=== PATIENT | male | born 1955 | race Caucasian/White ===

== ENCOUNTER 2017-10-21 10:25 | Inpatient (IN) | payer MEDICAID ==
[2017-10-21 11:04] LABS: ADD MAN DIFF? NO
[2017-10-21 11:06] LABS: BASO # 0.5 x10^3/uL (0.0-0.2); BASO % 3 % (0-3); EOS # 0.8 x10^3/uL (0.0-0.7); EOS % 5 % (0-3); HEMATOCRIT 30.7 % (39.0-53.0); HEMOGLOBIN 10.2 g/dL (13.0-17.5); LYMPH # 6.2 x10^3/uL (1.0-4.8); LYMPH % 37 % (24-48); MEAN CORPUSCULAR HEMOGLOBIN 31 pg (25-35); MEAN CORPUSCULAR HGB CONC 33 g/dL (31-37); MEAN CORPUSCULAR VOLUME 94 fL (79-100); MONO # 0.9 x10^3/uL (0.0-1.1); MONO % 6 % (0-9); NEUT # 8.1 x10^3uL (1.8-7.7); NEUT % 49 % (31-73); PLATELET COUNT 311 x10^3/uL (140-400); RED BLOOD COUNT 3.27 x10^6/uL (4.30-5.70); WHITE BLOOD COUNT 16.5 x10^3/uL (4.0-11.0)
[2017-10-21 11:16] LABS: ANION GAP 14 (6-14); BLOOD UREA NITROGEN 61 mg/dL (8-26); BUN/CREATININE RATIO 25 (6-20); CALCIUM 8.7 mg/dL (8.5-10.1); CARBON DIOXIDE 21 mmol/L (21-32); CHLORIDE 106 mmol/L (98-107); CREATININE 2.4 mg/dL (0.7-1.3); GFR 27.6; GLUCOSE 173 mg/dL (70-99); POTASSIUM 5.3 mmol/L (3.5-5.1); SODIUM 141 mmol/L (136-145)
[2017-10-21 11:22] LABS: ALBUMIN 3.7 g/dL (3.4-5.0); ALBUMIN/GLOBULIN RATIO 0.9 (1.0-1.7); ALK PHOS 112 U/L (46-116); ALT (SGPT) 19 U/L (16-63); AST (SGOT) 12 U/L (15-37); CARBAM 2.6 mcg/mL (4.0-12.0); MAGNESIUM 1.8 mg/dL (1.8-2.4); TOTAL BILIRUBIN 0.1 mg/dL (0.2-1.0); TOTAL PROTEIN 7.8 g/dL (6.4-8.2)
[2017-10-21 11:25] LABS: PHENY < 0.5 mcg/mL (10.0-20.0)
[2017-10-21] MEDS: IV NORMAL SALINE 1000ML BAG 1,000 ML IV ×3 (11:48→18:28)
[2017-10-21] MEDS ORDERED: ONDANSETRON PF 4 MG/2 ML VIAL. IV ×2 (12:00→14:30)
[2017-10-21] MEDS ORDERED: ACETAMINOPHEN 325 MG TABLET. PO (14:30)
[2017-10-21] MEDS ORDERED: DOCUSATE SODIUM 100 MG CAPSULE. PO (14:30)
[2017-10-21] MEDS ORDERED: MORPHINE SULFATE 2 MG/ML DISP.SYRIN. IV (14:30)
[2017-10-21] MEDS: SODIUM POLYSTYRENE SULFONATE 15 GM/60 ML ORAL.SUSP. PO (14:30)
[2017-10-21] MEDS ORDERED: hydrALAZINE 20 MG/ML VIAL. IVP (14:30)
[2017-10-21] MEDS: ENOXAPARIN 40 MG/0.4 ML SYRINGE. SQ (15:00)
[2017-10-21 16:27] LABS: LACTIC ACID 5.9 mmol/L (0.4-2.0)
[2017-10-22] MEDS: IV NORMAL SALINE 1000ML BAG 1,000 ML IV ×2 (01:33→10:51)
[2017-10-22 04:38] LABS: ADD MAN DIFF? NO
[2017-10-22 04:51] LABS: BASO # 0.1 x10^3/uL (0.0-0.2); BASO % 1 % (0-3); EOS # 0.9 x10^3/uL (0.0-0.7); EOS % 7 % (0-3); HEMATOCRIT 26.3 % (39.0-53.0); HEMOGLOBIN 8.5 g/dL (13.0-17.5); LYMPH # 6.6 x10^3/uL (1.0-4.8); LYMPH % 46 % (24-48); MEAN CORPUSCULAR HEMOGLOBIN 30 pg (25-35); MEAN CORPUSCULAR HGB CONC 32 g/dL (31-37); MEAN CORPUSCULAR VOLUME 94 fL (79-100); MONO # 1.1 x10^3/uL (0.0-1.1); MONO % 8 % (0-9); NEUT # 5.6 x10^3uL (1.8-7.7); NEUT % 39 % (31-73); PLATELET COUNT 237 x10^3/uL (140-400); RED BLOOD COUNT 2.81 x10^6/uL (4.30-5.70); RED CELL DISTRIBUTION WIDTH 14.5 % (11.5-14.5); WHITE BLOOD COUNT 14.4 x10^3/uL (4.0-11.0)
[2017-10-22 05:24] LABS: ANION GAP 13 (6-14); BLOOD UREA NITROGEN 56 mg/dL (8-26); CALCIUM 8.5 mg/dL (8.5-10.1); CARBON DIOXIDE 17 mmol/L (21-32); CHLORIDE 107 mmol/L (98-107); GLUCOSE 98 mg/dL (70-99); POTASSIUM 4.7 mmol/L (3.5-5.1); SODIUM 137 mmol/L (136-145)
[2017-10-22 05:33] LABS: LACTIC ACID 1.6 mmol/L (0.4-2.0)
[2017-10-22] MEDS: ENOXAPARIN 40 MG/0.4 ML SYRINGE. SQ (15:31)
[2017-10-22] MEDS: levETIRAcetam 500 MG TABLET PO (15:52)
[2017-10-22] MEDS: levETIRAcetam 250 MG TABLET PO (20:25)
[2017-10-22] MEDS: traMADol 50 MG TABLET PO (20:25)
[2017-10-23] MEDS: levETIRAcetam 250 MG TABLET PO ×2 (08:35→20:38)
[2017-10-23] MEDS: IV NORMAL SALINE 1000ML BAG 1,000 ML IV ×2 (13:20→22:23)
[2017-10-23] MEDS: ENOXAPARIN 40 MG/0.4 ML SYRINGE. SQ (15:41)
[2017-10-24 09:30] LABS: LEVETIRACETAM None Detected ug/mL (10.0-40.0)
[2017-10-24] MEDS: levETIRAcetam 250 MG TABLET PO ×2 (09:30→20:40)
[2017-10-24] MEDS: IV NORMAL SALINE 1000ML BAG 1,000 ML IV ×2 (09:30→20:40)
[2017-10-24] MEDS: DOXYCYCLINE HYCLATE 100 MG TABLET PO ×2 (12:56→20:40)
[2017-10-24] MEDS: LACTOBACILLUS RHAMNOSUS GG 1 CAPSULE. PO ×2 (12:56→20:40)
[2017-10-24] MEDS: ENOXAPARIN 40 MG/0.4 ML SYRINGE. SQ (16:56)
[2017-10-24 17:15] LABS: ANION GAP 9 (6-14); BLOOD UREA NITROGEN 28 mg/dL (8-26); CALCIUM 8.1 mg/dL (8.5-10.1); CARBON DIOXIDE 21 mmol/L (21-32); CHLORIDE 108 mmol/L (98-107); CREATININE 1.6 mg/dL (0.7-1.3); GLUCOSE 135 mg/dL (70-99); POTASSIUM 4.4 mmol/L (3.5-5.1); SODIUM 138 mmol/L (136-145)
[2017-10-24] MEDS: FLU VACC QS2017-18 (36MOS+)/PF 0.5 ML SYRINGE. VAX IM (20:40)
[2017-10-25] MEDS: IV NORMAL SALINE 1000ML BAG 1,000 ML IV ×3 (02:45→21:52)
[2017-10-25] MEDS: LACTOBACILLUS RHAMNOSUS GG 1 CAPSULE. PO ×2 (12:36→21:06)
[2017-10-25] MEDS: DOXYCYCLINE HYCLATE 100 MG TABLET PO ×2 (12:36→21:06)
[2017-10-25] MEDS: levETIRAcetam 250 MG TABLET PO ×2 (12:36→21:06)
[2017-10-25] MEDS: ENOXAPARIN 40 MG/0.4 ML SYRINGE. SQ (15:00)
[2017-10-25] MEDS: CARBIDOPA/LEVODOPA 10/100MG TABLET PO (21:06)
[2017-10-26] MEDS: IV RINGERS,LACTATED 1000ML 1,000 ML IV (07:22)
[2017-10-26] MEDS ORDERED: LIDOCAINE 1% PF 2 ML VIAL. ID (07:30)
[2017-10-26] MEDS ORDERED: ONDANSETRON PF 4 MG/2 ML VIAL. IV ×2 (07:30→10:45)
[2017-10-26] MEDS ORDERED: PROCHLORPERAZINE 10 MG/2 ML VIAL. IV (07:30)
[2017-10-26] MEDS ORDERED: MORPHINE SULFATE 2 MG/ML DISP.SYRIN. IV (07:30)
[2017-10-26] MEDS ORDERED: fentaNYL PF VIAL 100 MCG/2 ML VIAL IV ×2 (07:30)
[2017-10-26 07:52] LABS: POC GLUCOSE 126 mg/dL (70-99)
[2017-10-26] MEDS ORDERED: ONDANSETRON PF 4 MG/2 ML VIAL. (08:20)
[2017-10-26] MEDS ORDERED: MIDAZOLAM HCL/PF 2 MG/2 ML VIAL. (08:20)
[2017-10-26] MEDS ORDERED: PROPOFOL 20 ML IV (08:20)
[2017-10-26] MEDS ORDERED: DEXAMETHASONE SOD PHOS 20 MG/5 ML VIAL. (08:20)
[2017-10-26] MEDS ORDERED: LIDOCAINE 2% PF Vial for OR 5 ML VIAL. (08:20)
[2017-10-26] MEDS ORDERED: fentaNYL PF VIAL 100 MCG/2 ML VIAL (08:20)
[2017-10-26] MEDS ORDERED: SEVOFLURANE 31 TO 60 MINUTES. IH (09:37)
[2017-10-26] MEDS: BUPIVACAINE-EPI 0.25%-1:200000 50 ML VIAL. (09:41)
[2017-10-26 10:09] LABS: POC GLUCOSE 114 mg/dL (70-99)
[2017-10-26] MEDS ORDERED: HYDROcodone/APAP 7.5/325MG 1 TAB TABLET PO (10:45)
[2017-10-26] MEDS ORDERED: ceFAZolin SODIUM 1 GM in IV DEXTROSE 5% 50 ML IV (10:45)
[2017-10-26] MEDS ORDERED: DEXTROSE 50% 25 GM / 50ML DISP.SYRIN. IV (10:45)
[2017-10-26] MEDS: levETIRAcetam 250 MG TABLET PO ×2 (11:12→20:33)
[2017-10-26] MEDS: SENNOSIDES/DOCUSATE 8.6/50MG TABLET. PO (11:12)
[2017-10-26] MEDS: LACTOBACILLUS RHAMNOSUS GG 1 CAPSULE. PO ×2 (11:12→20:33)
[2017-10-26] MEDS: DOXYCYCLINE HYCLATE 100 MG TABLET PO ×3 (11:12→20:33)
[2017-10-26] MEDS: CARBIDOPA/LEVODOPA 10/100MG TABLET PO ×2 (11:12→20:33)
[2017-10-26] MEDS: IV NORMAL SALINE 1000ML BAG 1,000 ML IV ×2 (11:13→20:32)
[2017-10-26] MEDS ORDERED: ceFAZolin SODIUM IV Push 1 GM VIAL. IVP ×2 (15:00)
[2017-10-26] MEDS: ENOXAPARIN 40 MG/0.4 ML SYRINGE. SQ (17:42)
[2017-10-27] MEDS: IV NORMAL SALINE 1000ML BAG 1,000 ML IV ×2 (06:13→17:32)
[2017-10-27] MEDS: SENNOSIDES/DOCUSATE 8.6/50MG TABLET. PO (09:15)
[2017-10-27] MEDS: LACTOBACILLUS RHAMNOSUS GG 1 CAPSULE. PO ×2 (09:15→21:08)
[2017-10-27] MEDS: CARBIDOPA/LEVODOPA 10/100MG TABLET PO ×3 (09:15→21:08)
[2017-10-27] MEDS: DOXYCYCLINE HYCLATE 100 MG TABLET PO ×2 (09:15→21:08)
[2017-10-27] MEDS: levETIRAcetam 250 MG TABLET PO ×2 (09:15→21:08)
[2017-10-27] MEDS: ENOXAPARIN 40 MG/0.4 ML SYRINGE. SQ (14:54)
[2017-10-28] MEDS: DOXYCYCLINE HYCLATE 100 MG TABLET PO (08:24)
[2017-10-28] MEDS: SENNOSIDES/DOCUSATE 8.6/50MG TABLET. PO (08:24)
[2017-10-28] MEDS: LACTOBACILLUS RHAMNOSUS GG 1 CAPSULE. PO (08:24)
[2017-10-28] MEDS: CARBIDOPA/LEVODOPA 10/100MG TABLET PO ×2 (08:24→16:07)
[2017-10-28] MEDS: levETIRAcetam 250 MG TABLET PO (08:24)
[2017-10-28] MEDS: IV NORMAL SALINE 1000ML BAG 1,000 ML IV ×2 (08:26→12:15)
[2017-10-28 11:20] LABS: ADD MAN DIFF? NO
[2017-10-28 11:24] LABS: BASO # 0.1 x10^3/uL (0.0-0.2); BASO % 1 % (0-3); EOS # 0.6 x10^3/uL (0.0-0.7); EOS % 5 % (0-3); HEMATOCRIT 25.8 % (39.0-53.0); HEMOGLOBIN 8.6 g/dL (13.0-17.5); LYMPH # 4.6 x10^3/uL (1.0-4.8); LYMPH % 41 % (24-48); MEAN CORPUSCULAR HEMOGLOBIN 31 pg (25-35); MEAN CORPUSCULAR HGB CONC 33 g/dL (31-37); MEAN CORPUSCULAR VOLUME 92 fL (79-100); MONO # 0.9 x10^3/uL (0.0-1.1); MONO % 8 % (0-9); NEUT # 4.9 x10^3uL (1.8-7.7); NEUT % 44 % (31-73); PLATELET COUNT 234 x10^3/uL (140-400); RED CELL DISTRIBUTION WIDTH 14.9 % (11.5-14.5); WHITE BLOOD COUNT 11.1 x10^3/uL (4.0-11.0)
[2017-10-28 11:29] LABS: ANION GAP 9 (6-14); BLOOD UREA NITROGEN 25 mg/dL (8-26); BUN/CREATININE RATIO 13 (6-20); CALCIUM 8.5 mg/dL (8.5-10.1); CARBON DIOXIDE 26 mmol/L (21-32); CHLORIDE 104 mmol/L (98-107); CREATININE 1.9 mg/dL (0.7-1.3); GFR 36.1; GLUCOSE 130 mg/dL (70-99); POTASSIUM 4.6 mmol/L (3.5-5.1); SODIUM 139 mmol/L (136-145)
[2017-10-28 11:35] LABS: ALBUMIN 2.9 g/dL (3.4-5.0); ALBUMIN/GLOBULIN RATIO 0.9 (1.0-1.7); ALK PHOS 107 U/L (46-116); ALT (SGPT) 9 U/L (16-63); AST (SGOT) 16 U/L (15-37); TOTAL BILIRUBIN 0.2 mg/dL (0.2-1.0); TOTAL PROTEIN 6.3 g/dL (6.4-8.2)
[2017-10-28] MEDS: ENOXAPARIN 40 MG/0.4 ML SYRINGE. SQ (16:11)
== END 2017-10-28 19:30 | DRG 853 ==
LOC: ER 10:25 → 6 SOUTH 11:50
PROC: 0PBL0ZZ Excision of Left Ulna, Open Approach (ICD-10-PCS; principal; 2017-10-26 09:00)
DX: A41.9 Sepsis, unspecified organism (principal); N17.0 Acute kidney failure with tubular necrosis; G93.41 Metabolic encephalopathy; R53.2 Functional quadriplegia; E11.22 Type 2 diabetes mellitus with diabetic chronic kidney disease; E87.2 Acidosis; R78.81 Bacteremia; I48.0 Paroxysmal atrial fibrillation; S51.012A Laceration without foreign body of left elbow, initial encounter; D63.8 Anemia in other chronic diseases classified elsewhere; M86.8X4 Other osteomyelitis, hand; T81.30XA Disruption of wound, unspecified, initial encounter; I69.354 Hemiplegia and hemiparesis following cerebral infarction affecting left non-dominant side; N18.3 Chronic kidney disease, stage 3 (moderate); E11.69 Type 2 diabetes mellitus with other specified complication; G40.909 Epilepsy, unspecified, not intractable, without status epilepticus; M62.3 Immobility syndrome (paraplegic); E87.5 Hyperkalemia; F03.90 Unspecified dementia, unspecified severity, without behavioral disturbance, psychotic disturbance, mood disturbance, and anxiety; Z74.01 Bed confinement status; F29 Unspecified psychosis not due to a substance or known physiological condition; X58.XXXA Exposure to other specified factors, initial encounter; Y93.89 Activity, other specified; Y92.89 Other specified places as the place of occurrence of the external cause; Y99.8 Other external cause status; I12.9 Hypertensive chronic kidney disease with stage 1 through stage 4 chronic kidney disease, or unspecified chronic kidney disease; B95.62 Methicillin resistant Staphylococcus aureus infection as the cause of diseases classified elsewhere; I25.10 Atherosclerotic heart disease of native coronary artery without angina pectoris; E78.5 Hyperlipidemia, unspecified; F32.9 Major depressive disorder, single episode, unspecified; F41.9 Anxiety disorder, unspecified; L22 Diaper dermatitis; Z79.82 Long term (current) use of aspirin; Z79.84 Long term (current) use of oral hypoglycemic drugs; Z79.899 Other long term (current) drug therapy; Z82.3 Family history of stroke; Z86.14 Personal history of Methicillin resistant Staphylococcus aureus infection; Z79.4 Long term (current) use of insulin; Z79.01 Long term (current) use of anticoagulants
CPT/HCPCS: 36415; 36569; 70450; 71045; 73080; 76770; 80048; 80053; 80156; 80164; 80177; 80185; 82962; 83605; 83735; 85025; 90686; 92610-GN; 95816; 96361; 96374; 97161-GP; 97165-GO; 97530-GP; 99285; 99285-25; A4215; J0690; J1100; J1650; J2060; J2250; J2405; J2704; J3010; J7030

== ENCOUNTER 2017-10-29 10:47 | Emergency (ER) | payer MEDICAID | END 2017-10-29 12:33 | disposition short-term general hospital (02) | LOC: ER 10:47 | DX: T82.838A Hemorrhage due to vascular prosthetic devices, implants and grafts, initial encounter (principal); I48.91 Unspecified atrial fibrillation; F03.90 Unspecified dementia, unspecified severity, without behavioral disturbance, psychotic disturbance, mood disturbance, and anxiety; F32.9 Major depressive disorder, single episode, unspecified; E11.9 Type 2 diabetes mellitus without complications; F29 Unspecified psychosis not due to a substance or known physiological condition; Z86.14 Personal history of Methicillin resistant Staphylococcus aureus infection; Y83.8 Other surgical procedures as the cause of abnormal reaction of the patient, or of later complication, without mention of misadventure at the time of the procedure; Y92.89 Other specified places as the place of occurrence of the external cause | CPT/HCPCS: 99285 ==

== ENCOUNTER 2019-11-11 11:35 | Emergency (ER) | payer MEDICAID ==
[~2019-11-11] VITALS: Ht 170.2 cm; Wt 97.5 kg
[~2019-11-11 11:35] MED LIST: ACET325T9 PO; ASPI1CPM PO; ASPI325T8 PO; ATOR20TA58 PO; BACL10TA PO; BENZ0.5T32 PO; CALC-98 PO; CALCIUM CHOLECALCIFE; CALCIUM CHOLECALCIFE PO; CARB200T PO; CLONAZEPAM1 MG PO; DOXY100T PO; ISOS30TA4 PO; LEVE250T30 PO; LEVE500T6 PO; LISI2.5T PO; LOPE1TAB PO; MAG360OR24 PO; MELO15TA6 PO; METF10007 PO; METO25TA4 PO; MICO10PO TOP; MICO45CR3 TOP; MINE120C TP; MIRT15TA3 PO; MORP10DI10 PO; NIAC1000 PO; NICO4GUM42 BC; ONDA4TAB10 SL; POLY15DR28 OU; POLY17PO29 PO; PROC25SU21 RC; RISP1TAB43 PO; RISP2TAB33 PO; TRAM50TA PO; ZINC57OI3 TP
--- NOTE | 2019-11-11 12:22 | PHYS DOC ---
Past Medical History Past Medical History: A-Fib, Anemia, CHF, Constipation, CVA, Depression, Diabetes-Type II, Hypertension, Stroke, UTI Additional Past Medical Histor: EPILEPSY,PVD Past Surgical History: Other Additional Past Surgical Histo: UNKNOWN Smoking Status: Former Smoker Alcohol Use: None Drug Use: None Adult General Chief Complaint Chief Complaint: HYPERTENSION HPI HPI Patient is a 64-year-old male who presents to the emergency department via EMS. According to EMS, they were called by the patient's fpc staff because his blood pressure was in the 170s and they reported his heart rate in the 170s as well. However, when EMS arrived and checked the patient's vitals they found him normotensive, with a normal heart rate. The patient has no complaints at this time. He denies any chest pain, shortness of breath, cough, headache, or any new weakness. He does have chronic debility from prior strokes, as well as other chronic medical problems. There are no alleviating or exacerbating factors to his symptoms, as he has no symptoms. The patient does have a baseline tremor and shakiness, which could create interference, and artificially inflate the displayed heart rate on monitoring equipment. Review of Systems Review of Systems Constitutional: Denies fever or chills [] Eyes: Denies change in visual acuity, redness, or eye pain [] HENT: Denies nasal congestion or sore throat [] Respiratory: Denies cough or shortness of breath [] Cardiovascular: The patient denies any shortness of breath, chest pain, palpitations, or orthopnea [] GI: Denies abdominal pain, nausea, vomiting, bloody stools or diarrhea [] : Denies dysuria or hematuria [] Musculoskeletal: Denies back pain or joint pain [] Integument: Denies rash or skin lesions [] Neurologic: Denies headache, focal weakness or sensory changes [] Endocrine: Denies polyuria or polydipsia [] All other systems were reviewed and found to be within normal limits, except as documented in this note. Allergies Allergies Allergies Coded Allergies Type Severity Reaction Last Updated Verified No Known Drug Allergies 10/26/17 No Physical Exam Physical Exam Constitutional: Well developed, well nourished, no acute distress, non-toxic appearance. [] HENT: Normocephalic, atraumatic, bilateral external ears normal, oropharynx moist, no oral exudates, nose normal. [] Eyes: PERRLA, EOMI, conjunctiva normal, no discharge. [] Neck: Normal range of motion, no tenderness, supple, no stridor. [] Cardiovascular:Heart rate regular rhythm, no murmur [] Lungs & Thorax: Bilateral breath sounds clear to auscultation [] Abdomen: Bowel sounds normal, soft, no tenderness, no masses, no pulsatile masses. [] Skin: Warm, dry, no erythema, no rash. [] Back: No tenderness, no CVA tenderness. [] Extremities: No tenderness, no cyanosis, no clubbing, ROM intact, no edema. [] Neurologic: Alert and oriented X 3, normal motor function, normal sensory function, no focal deficits noted. [] Psychologic: Affect normal, judgement normal, mood normal. [] Current Patient Data Vital Signs Vital Signs Date Time Temp Pulse Resp B/P (MAP) Pulse Ox O2 Delivery O2 Flow Rate FiO2 11/11/19 13:06 90 92 11/11/19 11:48 98.2 22 126/62 (83) Room Air 98.2 Lab Values Laboratory Tests Test 11/11/19 12:10 White Blood Count 11.5 x10^3/uL (4.0-11.0) H Red Blood Count 3.02 x10^6/uL (4.30-5.70) L Hemoglobin 9.3 g/dL (13.0-17.5) L Hematocrit 27.8 % (39.0-53.0) L Mean Corpuscular Volume 92 fL (79-100) Mean Corpuscular Hemoglobin 31 pg (25-35) Mean Corpuscular Hemoglobin Concent 34 g/dL (31-37) Red Cell Distribution Width 14.8 % (11.5-14.5) H Platelet Count 276 x10^3/uL (140-400) Neutrophils (%) (Auto) 73 % (31-73) Lymphocytes (%) (Auto) 13 % (24-48) L Monocytes (%) (Auto) 6 % (0-9) Eosinophils (%) (Auto) 7 % (0-3) H Basophils (%) (Auto) 1 % (0-3) Neutrophils # (Auto) 8.4 x10^3/uL (1.8-7.7) H Lymphocytes # (Auto) 1.5 x10^3/uL (1.0-4.8) Monocytes # (Auto) 0.7 x10^3/uL (0.0-1.1) Eosinophils # (Auto) 0.8 x10^3/uL (0.0-0.7) H Basophils # (Auto) 0.1 x10^3/uL (0.0-0.2) Sodium Level 136 mmol/L (136-145) Potassium Level 3.8 mmol/L (3.5-5.1) Chloride Level 100 mmol/L (98-107) Carbon Dioxide Level 26 mmol/L (21-32) Anion Gap 10 (6-14) Blood Urea Nitrogen 23 mg/dL (8-26) Creatinine 2.1 mg/dL (0.7-1.3) H Estimated GFR (Cockcroft-Gault) 32.0 BUN/Creatinine Ratio 11 (6-20) Glucose Level 129 mg/dL (70-99) H Calcium Level 8.3 mg/dL (8.5-10.1) L Magnesium Level 1.7 mg/dL (1.8-2.4) L Total Bilirubin 0.3 mg/dL (0.2-1.0) Aspartate Amino Transferase (AST) 15 U/L (15-37) Alanine Aminotransferase (ALT) 18 U/L (16-63) Alkaline Phosphatase 134 U/L (46-116) H Troponin I Quantitative < 0.017 ng/mL (0.000-0.055) FP-[id number]-[id number]-Type Natriuretic Peptide 78249 pg/mL (0-124) H Total Protein 7.2 g/dL (6.4-8.2) Albumin 3.4 g/dL (3.4-5.0) Albumin/Globulin Ratio 0.9 (1.0-1.7) L Carbamazepine (Tegretol) Level 3.1 mcg/mL (4.0-12.0) L Carbamazepine Last Dose Date Unknown Carbamazepine Last Dose Time Unknown Laboratory Tests 11/11/19 12:10 Laboratory Tests 11/11/19 12:10 EKG EKG [] Normal sinus rhythm at a rate of 93 bpm, normal axis, right bundle branch block with otherwise normal intervals. There are no acute ischemic ST/T changes. Radiology/Procedures Radiology/Procedures [] PROCEDURE: PORTABLE CHEST 1V Exam performed: One view chest. Indication: Hypertension. Date of Service: 11/11/2019 12:09 PM Comparison: One view chest from 10/28/2017. Single AP upright portable view chest findings: Cardiomediastinal silhouette is within limits of normal. There are prominent interstitial markings in both perihilar regions. Patchy infiltrates seen in the medial right lower lobe. Questionable tiny left pleural effusion. No pleural effusion or pneumothorax is detected. The bony structures are normal. Impression: Mild central vascular congestion and patchy infiltrates medial right lower lobe Course & Med Decision Making Course & Med Decision Making Pertinent Labs and Imaging studies reviewed. (See chart for details) [] 2:00 PM: The patient's condition remains stable. He remains without acute complaint at this time. His family is at the bedside and the patient's condi tion is at baseline. He is not having any signs or symptoms consistent with pneumonia. I will increase his Lasix briefly, he takes 20 mg daily currently. His anemia and renal function are at baseline compared to prior values. The importance of close PCP follow-up and return precautions were discussed in detail. Dragon Disclaimer Dragon Disclaimer This electronic medical record was generated, in whole or in part, using a voice recognition dictation system. Departure Departure Impression: Primary Impression: Tremor Additional Impression: Congestive heart failure Disposition: 01 HOME, SELF-CARE Condition: STABLE Referrals: ENMANUEL CARTER (PCP) Patient Instructions: Heart Failure, Tremor Additional Instructions: Increase Lasix to 20 mg twice daily for the next week, then return to the patient's usual dose of once daily dosing. Scripts Furosemide (LASIX) 20 Mg Tablet 20 MG PO BID for 7 Days, #14 TAB Prov: KATHARINE CUETO MD 11/11/19 Problem Qualifiers KATHARINE CUETO MD Nov 11, 2019 12:22
[2019-11-11 12:28] LABS: BASO # 0.1 x10^3/uL (0.0-0.2); BASO % 1 % (0-3); EOS # 0.8 x10^3/uL (0.0-0.7); EOS % 7 % (0-3); HEMATOCRIT 27.8 % (39.0-53.0); HEMOGLOBIN 9.3 g/dL (13.0-17.5); LYMPH # 1.5 x10^3/uL (1.0-4.8); LYMPH % 13 % (24-48); MEAN CORPUSCULAR HEMOGLOBIN 31 pg (25-35); MEAN CORPUSCULAR HGB CONC 34 g/dL (31-37); MEAN CORPUSCULAR VOLUME 92 fL (79-100); MONO # 0.7 x10^3/uL (0.0-1.1); MONO % 6 % (0-9); NEUT # 8.4 x10^3/uL (1.8-7.7); NEUT % 73 % (31-73); PLATELET COUNT 276 x10^3/uL (140-400); RED BLOOD COUNT 3.02 x10^6/uL (4.30-5.70); RED CELL DISTRIBUTION WIDTH 14.8 % (11.5-14.5); WHITE BLOOD COUNT 11.5 x10^3/uL (4.0-11.0)
[2019-11-11 12:46] LABS: ANION GAP 10 (6-14); BLOOD UREA NITROGEN 23 mg/dL (8-26); BUN/CREATININE RATIO 11 (6-20); CALCIUM 8.3 mg/dL (8.5-10.1); CARBON DIOXIDE 26 mmol/L (21-32); CHLORIDE 100 mmol/L (98-107); CREATININE 2.1 mg/dL (0.7-1.3); GLUCOSE 129 mg/dL (70-99); POTASSIUM 3.8 mmol/L (3.5-5.1); SODIUM 136 mmol/L (136-145)
[2019-11-11 12:51] LABS: ALBUMIN 3.4 g/dL (3.4-5.0); ALBUMIN/GLOBULIN RATIO 0.9 (1.0-1.7); ALK PHOS 134 U/L (46-116); ALT (SGPT) 18 U/L (16-63); AST (SGOT) 15 U/L (15-37); CARBAM 3.1 mcg/mL (4.0-12.0); MAGNESIUM 1.7 mg/dL (1.8-2.4); TOTAL BILIRUBIN 0.3 mg/dL (0.2-1.0); TOTAL PROTEIN 7.2 g/dL (6.4-8.2)
--- NOTE | 2019-11-11 13:02 | RAD ---
Exam performed: One view chest. Indication: Hypertension. Date of Service: 11/11/2019 12:09 PM Comparison: One view chest from 10/28/2017. Single AP upright portable view chest findings: Cardiomediastinal silhouette is within limits of normal. There are prominent interstitial markings in both perihilar regions. Patchy infiltrates seen in the medial right lower lobe. Questionable tiny left pleural effusion. No pleural effusion or pneumothorax is detected. The bony structures are normal. Impression: Mild central vascular congestion and patchy infiltrates medial right lower lobe Electronically signed by: Lorena Capps MD (11/11/2019 12:59 PM) [id number]
[2019-11-11] MEDS ORDERED: FURO-69 PO (14:01)
[2019-11-11 14:41] VITALS: BP 106/64
--- NOTE | 2019-11-11 19:45 | EKG ---
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
== END 2019-11-11 15:02 | disposition home or self-care (01) ==
LOC: ER 11:35
DX: I11.0 Hypertensive heart disease with heart failure (principal); I50.9 Heart failure, unspecified; R25.1 Tremor, unspecified; E11.9 Type 2 diabetes mellitus without complications; I48.91 Unspecified atrial fibrillation; G40.909 Epilepsy, unspecified, not intractable, without status epilepticus; I73.9 Peripheral vascular disease, unspecified; Z86.73 Personal history of transient ischemic attack (TIA), and cerebral infarction without residual deficits; Z87.891 Personal history of nicotine dependence
CPT/HCPCS: 36415; 71045; 80053; 80156; 83735; 83880; 84484; 85025; 93005; 99285-25

== ENCOUNTER 2020-04-21 18:24 | Inpatient (IN) | payer MEDICAID, MEDICARE ==
[~2020-04-21] VITALS: Ht 162.6 cm; Wt 76.6 kg
[~2020-04-21 18:24] MED LIST changes: +FURO-69 PO
--- NOTE | 2020-04-21 19:10 | PHYS DOC ---
Past Medical History Past Medical History: A-Fib, Anemia, CHF, Constipation, CVA, Depression, Diabetes-Type II, Hypertension, Stroke, UTI Additional Past Medical Histor: EPILEPSY,PVD Past Surgical History: Other Additional Past Surgical Histo: UNKNOWN Smoking Status: Former Smoker Alcohol Use: None Drug Use: None General Adult EDM: Chief Complaint: CHEST PAIN HPI: HPI: Patient is a 64 year old male who presents with complaints of epigastric abdominal pain. Patient reports that this is a chronic pain for him. However he was brought in for evaluation of some chest pain and shortness of breath. While I was talking to them he seemed to [place] at times. His respiratory rate went as high as 44 breaths/min with accessory muscle use and as low as 22 with accessory muscle use. Patient is not the best historian and is slow to answer questions. However he did deny any fever or chills. He reports he has no cough. He denied vomiting, diarrhea, melena or hematochezia. He denied chest pain stating that his pain is in the epigastrium. His epigastric pain does go up into his chest at times. He describes it as an achy burning sensation that is intermittent. Currently he denied any chest pain. Review of Systems: Review of Systems: Constitutional: Denies fever or chills. [] Eyes: Denies change in visual acuity. [] HENT: Denies nasal congestion or sore throat. [] Respiratory: see HPI [] Cardiovascular: See HPI. [] GI: Denies abdominal pain, nausea, vomiting, bloody stools or diarrhea. [] : Denies dysuria. [] Musculoskeletal: Denies back pain or joint pain. [] Integument: Denies rash. [] Neurologic: Denies headache [] Endocrine: Denies polyuria or polydipsia. [] Lymphatic: Denies swollen glands. [] Psychiatric: Denies depression or anxiety. [] Heart Score: Risk Factors: Risk Factors: DM, Current or recent (<one month) smoker, HTN, HLP, family history of CAD, obesity. Risk Scores: Score 0 - 3: 2.5% MACE over next 6 weeks - Discharge Home Score 4 - 6: 20.3% MACE over next 6 weeks - Admit for Clinical Observation Score 7 - 10: 72.7% MACE over next 6 weeks - Early Invasive Strategies Allergies: Allergies: Allergies Coded Allergies Type Severity Reaction Last Updated Verified No Known Drug Allergies 10/26/17 No Physical Exam: PE: Constitutional: Well developed, well nourished, mild respiratory distress, non- toxic appearance. [] HENT: Normocephalic, atraumatic, bilateral external ears normal, oropharynx moist, no oral exudates, nose normal. [] Eyes: PERRLA, EOMI, conjunctiva normal, no discharge. [] Neck: Normal range of motion, no tenderness, supple, no stridor. [] Cardiovascular:Heart rate regular rhythm, no murmur, nonpalpable pulses distally [] Lungs & Thorax: Bilateral breath sounds clear to auscultation [] Abdomen: Bowel sounds normal, soft, no tenderness, no masses, no pulsatile m asses. [] Skin: Warm, dry, no erythema, no rash. [] Back: No tenderness, no CVA tenderness. [] Extremities: No tenderness, no cyanosis, moderate clubbing, left upper extremity with contracture otherwise functional range of motion in the other extremities, 2 mm of pitting edema symmetric [] Psychologic: Affect flat, judgement normal, mood depressed. [] Current Patient Data: Vital Signs: Vital Signs Date Time Temp Pulse Resp B/P (MAP) Pulse Ox O2 Delivery O2 Flow Rate FiO2 04/21/20 18:37 98.4 83 20 132/86 (101) 98 Room Air 98.4 EKG: EKG: Heart rate 82 bpm, normal sinus rhythm, left atrial enlargement, incomplete right bundle branch block, abnormal ECG [] Radiology/Procedures: Radiology/Procedures: [] Course & Med Decision Making: Course & Med Decision Making Pertinent Labs and Imaging studies reviewed. (See chart for details) 2255-patient was seen and reevaluated. Patient is going to be admitted for acute systolic congestive heart failure. His BNP was elevated and his chest x- ray is consistent with congestive heart failure. Patient is doing well from a pulmonary standpoint with his pH of 7.41 PCO2 of 28.7 and a PO2 of 162.8. Will start diuresis. Patient will be admitted to the hospitalist service [] Dragon Disclaimer: Dragon Disclaimer: This electronic medical record was generated, in whole or in part, using a voice recognition dictation system. Departure Departure Impression: Primary Impression: Acute systolic (congestive) heart failure Additional Impression: Acute respiratory distress Disposition: 09 ADMITTED INPATIENT Condition: GUARDED Referrals: NEW JONES MD (PCP) Justicifation of Admission Dx: Justifications for Admission: Justification of Admission Dx: Yes Comments: Acute systolic congestive heart failure JUDY CASTAÑEDA MD Apr 21, 2020 19:10
[2020-04-21 19:15] LABS: BASO # 0.1 x10^3/uL (0.0-0.2); BASO % 1 % (0-3); EOS # 0.2 x10^3/uL (0.0-0.7); EOS % 2 % (0-3); HEMATOCRIT 22.3 % (39.0-53.0); HEMOGLOBIN 7.4 g/dL (13.0-17.5); LYMPH # 1.7 x10^3/uL (1.0-4.8); LYMPH % 17 % (24-48); MEAN CORPUSCULAR HEMOGLOBIN 32 pg (25-35); MEAN CORPUSCULAR HGB CONC 33 g/dL (31-37); MEAN CORPUSCULAR VOLUME 95 fL (79-100); MONO # 1.2 x10^3/uL (0.0-1.1); MONO % 12 % (0-9); NEUT # 6.8 x10^3/uL (1.8-7.7); NEUT % 68 % (31-73); PLATELET COUNT 245 x10^3/uL (140-400); RED BLOOD COUNT 2.34 x10^6/uL (4.30-5.70); RED CELL DISTRIBUTION WIDTH 20.2 % (11.5-14.5)
[2020-04-21] MEDS ORDERED: methylPREDNISolone SOD SUCC PF 125 MG/2 ML VIAL. IV ONE (19:15)
[2020-04-21] MEDS ORDERED: METOCLOPRAMIDE HCL 10 MG/2 ML VIAL. IVP ONE (19:15)
[2020-04-21] MEDS ORDERED: ALBUTEROL SULFATE 2.5 MG/3 ML NEBU. CONT NEB ONE (19:15)
[2020-04-21] MEDS ORDERED: IV NORMAL SALINE 500ML BAG 500 ML IV ONE (19:15)
[2020-04-21] MEDS ORDERED: IPRATROPIUM BROMIDE 0.5 MG/2.5 ML NEBU. NEB ONE (19:15)
[2020-04-21] MEDS ORDERED: FAMOTIDINE 20 MG TABLET. PO ONE (19:15)
[2020-04-21] MEDS ORDERED: MAG HYDROX/ALUMINUM HYD/SIMETH 30 ML ORAL.SUSP PO ONE (19:15)
[2020-04-21 19:36] LABS: PROTHROMBIN TIME PATIENT 17.5 SEC (11.7-14.0)
[2020-04-21 19:38] LABS: PLT ESTIMATE ADEQUATE (ADEQUATE)
[2020-04-21 19:40] LABS: ANISOCYTOSIS MOD
[2020-04-21 19:41] LABS: ACANTHOCYTES MANY
[2020-04-21 19:42] LABS: POIKILOCYTOSIS MOD; SCHISTOCYTES OCC
[2020-04-21 19:43] LABS: TARGET CELLS OCC
--- NOTE | 2020-04-21 19:54 | RAD ---
EXAM: CHEST AP ONLY INDICATION: Reason: SOB / Spl. Instructions: / History: . TECHNIQUE: Single view COMPARISON: Chest x-ray 11/11/2019 FINDINGS: Stable upper normal heart size. The great vessels appear unremarkable. There is no hilar or mediastinal mass. Lungs again demonstrate mild central pulmonary vascular congestion with improved aeration in the right hilar region. No pneumothorax or large pleural effusion. Possible small right pleural effusion. There are no significant osseous abnormalities. IMPRESSION: Residual or recurrent central pulmonary vascular congestion with possible small right pleural effusion. Electronically signed by: Jameson Nayak MD (04/21/2020 7:51 PM) [facility] [place]
[2020-04-21 20:33] LABS: CREATININE 2.6 mg/dL (0.7-1.3); POTASSIUM 4.7 mmol/L (3.5-5.1)
[2020-04-21] MEDS ORDERED: ASPIRIN CHEWABLE 81 MG TABLET. PO ONE (20:45)
[2020-04-21 20:49] LABS: BASE EXCESS COOX -5 mmol/L (-3-3); HCO3 COOX 19 mmol/L (21-28); METHEMOGLOBIN 0.7 % (0.0-1.9); OXYHEMOGLOBIN 48.1 %; PCO2 COOX 33 mmHg (35-46)
[2020-04-21 20:49] LABS: ALBUMIN 2.8 g/dL (3.4-5.0); ALBUMIN/GLOBULIN RATIO 0.8 (1.0-1.7); TOTAL BILIRUBIN 0.5 mg/dL (0.2-1.0); TOTAL PROTEIN 6.4 g/dL (6.4-8.2)
[2020-04-21 20:52] LABS: PO2 COOX < 42 mmHg (65-108); SAT O2 COOX 48 % (92-99)
[2020-04-21 21:46] LABS: BASE EXCESS COOX -6 mmol/L (-3-3); HCO3 COOX 18 mmol/L (21-28); METHEMOGLOBIN 0.7 % (0.0-1.9); OXYHEMOGLOBIN 97.8 %; PCO2 COOX 29 mmHg (35-46); PO2 COOX 163 mmHg (65-108); SAT O2 COOX 99 % (92-99)
[2020-04-21] MEDS ORDERED: FUROSEMIDE 100 MG/10 ML VIAL. IVP ONE (22:30)
[2020-04-22 01:47] LABS: CALCIUM 8.1 mg/dL (8.5-10.1); CREATININE 2.7 mg/dL (0.7-1.3); GFR 23.9; POTASSIUM 4.5 mmol/L (3.5-5.1)
[2020-04-22 03:45] VITALS: BP 108/64
[2020-04-22] MEDS ORDERED: ATOR80TA72 PO (05:37)
[2020-04-22] MEDS ORDERED: METO-239 PO (05:39)
[2020-04-22] MEDS ORDERED: FURO20TA3 PO (05:44)
[2020-04-22] MEDS ORDERED: ASPI-886 PO (05:44)
[2020-04-22] MEDS ORDERED: METF500T16 PO (05:47)
[2020-04-22] MEDS ORDERED: CARB200T PO (06:12)
[2020-04-22] MEDS ORDERED: DEUT6TAB PO (06:12)
[2020-04-22] MEDS ORDERED: BUPR150T8 PO (06:12)
[2020-04-22] MEDS ORDERED: FOLI0.8C PO (06:12)
[2020-04-22] MEDS ORDERED: IPRA0.2S5 NEB (06:12)
[2020-04-22] MEDS ORDERED: ALBU0.63 NEB (06:12)
[2020-04-22] MEDS ORDERED: CLOP75TA PO (06:12)
[2020-04-22] MEDS ORDERED: FERR325T14 PO (06:12)
[2020-04-22] MEDS ORDERED: POTA10TA12 PO (06:12)
[2020-04-22] MEDS ORDERED: NITR0.4T22 SL (06:12)
[2020-04-22] MEDS ORDERED: LOPE-101 PO (06:12)
[2020-04-22] MEDS ORDERED: MULT-505 PO (06:12)
[2020-04-22] MEDS ORDERED: ACET325T21 PO (06:12)
[2020-04-22] MEDS ORDERED: CA C1TAB29 PO (06:12)
[2020-04-22 07:09] VITALS: BP 102/60
[2020-04-22 07:09] LABS: BILIRUBIN,URINE NEGATIVE (NEG); CLARITY,URINE CLEAR; COLOR,URINE YELLOW; NITRITE,URINE NEGATIVE (NEG); PROTEIN,URINE NEGATIVE (NEG-TRACE); UROBILINOGEN,URINE 0.2 mg/dL (0.2 mg/dL)
[2020-04-22 07:21] LABS: AMORPHOUS SEDIMENT,UR PRESENT /HPF; BACTERIA,URINE FEW /HPF (0-FEW); HYALINE CASTS, URINE FEW /HPF; RBC,URINE 0 /HPF (0-2); SQUAMOUS EPITHELIAL CELL,UR OCC /LPF
--- NOTE | 2020-04-22 08:08 | EKG ---
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
--- NOTE | 2020-04-22 08:31 | PDOC1 ---
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 Notable for RR 44 breaths/min with accessory muscle use. Per his facility he has been progressively more short of breath recently. However he did deny any fever or chills. He reports he has no cough. He denied vomiting, diarrhea, melena or hematochezia. He states his pain is in his abdomen, 6/10. Chest x-ray with bilateral interstitial infiltrates. BNP greater than 35,000, Hb 7.4, WBC 10, platelets 245, lactate 3.9, albumin 2.8, NA 139, K4.7, BUN 54, CR 2.6, AST 926, ALT 725. INR 1.5. ABG on room air 7.39/33/less than 42, placed on 3 L nasal cannulated oxygen ABG 7.41/29/163. EKG with heart rate 82 bpm, normal sinus rhythm, left atrial enlargement, incomplete right bundle branch block. Admitted for further treatment. Past Medical History Cardiovascular: AFIB, CAD, HTN, Hyperlipidemia, Other CENTRAL NERVOUS SYSTEM: CVA, Dementia, Seizure Heme/Onc: No pertinent hx Hepatobiliary: No pertinent hx Psych: Depression, Psychosis, Other Musculoskeletal: low back pain, Osteoarthritis Rheumatologic: No pertinent hx Endocrine: Diabetes Past Surgical History Past Surgical History: No pertinent history Family History Family History: Family History Unknown Social History Smoke: <1 pack per day ALCOHOL: none Drugs: None Current Problem List Problem List Problems Medical Problems: (1) Acute respiratory distress Status: Acute (2) Acute systolic (congestive) heart failure Status: Acute Current Medications Current Medications Current Medications Ipratropium [place] (Atrovent) 1 mg 1X ONCE NEB Last administered on 04/21/20at 20:25; Start 04/21/20 at 19:15; Stop 04/21/20 at 19:16; Status DC Methylprednisolone Sodium Succinate (SOLU-Medrol 125MG VIAL) 125 mg 1X ONCE IV Last administered on 04/21/20at 19:17; Start 04/21/20 at 19:15; Stop 04/21/20 at 19:16; Status DC Albuterol Sulfate (Ventolin Neb Soln) 10 mg 1X ONCE CONT NEB Last administered on 04/21/20at 20:25; Start 04/21/20 at 19:15; Stop 04/21/20 at 19:16; Status DC Sodium Chloride 500 ml @ 500 mls/hr 1X ONCE IV Last administered on 04/21/20at 19:20; Start 04/21/20 at 19:15; Stop 04/21/20 at 20:14; Status DC Famotidine (Pepcid) 20 mg 1X ONCE PO Last administered on 04/21/20at 19:15; Start 04/21/20 at 19:15; Stop 04/21/20 at 19:16; Status DC Al Hydroxide/Mg Hydroxide (Mylanta Plus Xs) 30 ml 1X ONCE PO Last administered on 04/21/20at 19:15; Start 04/21/20 at 19:15; Stop 04/21/20 at 19:16; Status DC Metoclopramide HCl (Reglan Vial) 5 mg 1X ONCE IVP Last administered on 04/21/20at 19:16; Start 04/21/20 at 19:15; Stop 04/21/20 at 19:16; Status DC Aspirin (Aspirin Chewable) 162 mg 1X ONCE PO Last administered on 04/21/20at 21:28; Start 04/21/20 at 20:45; Stop 04/21/20 at 20:46; Status DC Furosemide (Lasix) 80 mg 1X ONCE IVP Last administered on 04/21/20at 22:48; Start 04/21/20 at 22:30; Stop 04/21/20 at 22:31; Status DC Active Scripts Active Keppra (Levetiracetam) 250 Mg Tablet 250 Mg PO BID 60 Days Reported Vitamin D3-Aloe 1,000 Unit Tab (Ca Cmb 1/Vit D3/B-6/Fa/B12/Av) 1 Each Tablet 1 Each PO DAILY Tegretol (Carbamazepine) 200 Mg Tablet 0.5 Tab PO DAILY Klor-Con 10 (Potassium Chloride) 10 Meq Tablet.er 1 Tab PO DAILY 30 Days Clopidogrel (Clopidogrel Bisulfate) 75 Mg Tablet 1 Tab PO DAILY NITROGLYCERIN SubLingual (Nitroglycerin) 0.4 Mg Tab.subl 0.4 Mg SL PRN Q5MIN PRN Once Daily (Multivitamin) 1 Each Tablet 1 Tab PO DAILY 30 Days Ipratropium Landenberg 0.2 Mg/1 Ml Solution 1 Vial NEB PRN Q6HRS PRN Imodium A-D (Loperamide HCl) 2 Mg Capsule 1 Tab PO PRN PRN Folic Acid 0.8 Mg Capsule 1 Cap PO DAILY 30 Days Ferrous Sulfate 325 Mg Tablet 1 Tab PO DAILY [place] (Deutetrabenazine) 6 Mg Tablet 1 Tab PO BID 30 Days on hold 04/19-07/27 Albuterol Sulfate Neb Soln (Albuterol Sulfate) 0.63 Mg/3 Ml Vial.neb 1 Vial NEB QID PRN Metformin Hcl 500 Mg Tablet 500 Mg PO BIDWMEALS Furosemide 20 Mg Tablet 3 Tab PO DAILY Aspirin Ec (Aspirin) 81 Mg Tablet.dr 1 Tab PO DAILY Metoprolol Succinate ( Xl ) (Metoprolol Succinate) 25 Mg Tab.er.24h 1 Tab PO DAILY Atorvastatin Calcium 80 Mg Tablet 80 Mg PO QHS Nicotine Gum (Nicotine Polacrilex) 4 Mg Gum 4 Mg BC Miconazole Nitrate 45 Gm Cream.appl 45 Gm TOP BID Risperdal (Risperidone) 2 Mg Tablet 1 Tab PO QHS Alum-Mag Hydroxide-Simeth Liq (Mag Hydrox/Al Hydrox/Simeth) 360 Ml Oral.susp 30 Ml PO PRN TID PRN Miralax (Polyethylene Glycol 3350) 17 Gm Powd.pack 1 Packet PO Q12HR PRN Isosorbide Mononitrate Er (Isosorbide Mononitrate) 30 Mg Tab.er.24h 1 Tab PO DAILY Risperdal (Risperidone) 1 Mg Tablet 1 Mg PO DAILY08 Baclofen 10 Mg Tablet 5 Mg PO DAILY Wellbutrin Sr (Bupropion Hcl) 150 Mg Tablet.er 1 Tab PO DAILY Acetaminophen 325 Mg Tablet 2 Tab PO PRN Q6HRS PRN 30 Days Allergies Allergies: Coded Allergies: No Known Drug Allergies (Unverified , 10/26/17) ROS General: YES: Fatigue, Malaise; No: Chills, Night Sweats, Appetite, Other PSYCHOLOGICAL ROS: No: Anxiety, Behavioral Disorder, Concentration difficultie, Decreased libido, Depression, Disorientation, Hallucinations, Hostility, Irritablity, Memory difficulties, Mood Swings, Obsessive thoughts, Physical abuse, Sexual abuse, Sleep disturbances, Suicidal ideation, Other Eyes: No Blurry vision, No Decreased vision, No Double vision, No Dry eyes, No Excessive tearing, No Eye Pain, No Itchy Eyes, No Loss of vision, No Photophobia, No Scotomata, No Uses contacts, No Uses glasses, No Other HEENT: No: Heacaches, Visual Changes, Hearing change, Nasal congestion, Nasal discharge, Oral lesions, Sinus pain, Sore Throat, Epistaxis, Sneezing, Snoring, Tinnitus, Vertigo, Vocal changes, Other ALLERGY AND IMMUNOLOGY: No: Hives, Insect Bite Sensitivity, Itchy/Watery Eyes, Nasal Congestion, Post Nasal Drip, Seasonal Allergies, Other Hematological and Lymphatic: No: Bleeding Problems, Blood Clots, Blood Transfusions, Brusing, Night Sweats, Pallor, Swollen Lymph Nodes, Other ENDOCRINE: No: Breast Changes, Galactorrhea, Hair Pattern Changes, Hot Flashes, Malaise/lethargy, Mood Swings, Palpitations, Polydipsia/polyuria, Skin Changes, Temperature Intolerance, Unexpected Weight Changes, Other Breast: No New/Changing Breast Lumps, No Nipple changes, No Nipple discharge, No Other Respiratory: YES: Orthopnea, Shortness of breath, SOB with excertion; No: Cough, Hemoptysis, Pleuritic Pain, Sputum Changes, Stridor, Tachypnea, Wheezing, Other Cardiovascular: yes Chest Pain, yes Orthopnea, yes Paroxysmal Noc. Dyspnea, yes Edema; No Palpitations, No Lt Headedness, No Other Gastrointestinal: No Nausea, No Vomiting, No Abdominal Pain, No Diarrhea, No Constipation, No Melena, No Hematochezia, No Other Genitourinary: YES Incontinence, YES Retention; No Dysuria, No Frequency, No Hematuria, No Discharge, No Urgency, No Pain, No Flank Pain, No Other, No , No , No , No , No , No , No Musculoskeletal: Yes Gait Disturbance, Yes Muscular Weakness; No Joint Pain, No Joint Stiffness, No Joint Swelling, No Muscle Pain, No Pain In:, No Swelling In:, No Other Neurological: Yes Confusion, Yes Gait Disturbance, Yes Memory Loss; No Behavorial Changes, No Bowel/Bladder ControlChng, No Dizziness, No Headach es, No Impaired Coord/balance, No Numbness/Tingling, No Seizures, No Speech Problems, No Tremors, No Visual Changes, No Weakness, No Other Skin: No Dry Skin, No Eczema, No Hair Changes, No Lumps, No Mole Changes, No Mottling, No Nail Changes, No Pruritus, No Rash, No Skin Lesion Changes, No Other, No Acne Physical Exam General: Alert, Cooperative, moderate distress HEENT: Atraumatic, PERRLA, EOMI, Mucous membr. moist/pink Lungs: Other (Bilateral crackles) Heart: S1S2, RRR, no thrills, no rubs Abdomen: Normal bowel sounds, Soft, No tenderness, No hepatosplenomegaly, No masses Male Genitals Exam: normal genitalia Extremities: No clubbing, Other (bilateral UE contractures R>L. 2+ edema in bilateral LE. Mccoy in place) Skin: Other (Intertrigo in groin) Neuro: Normal speech, Cranial nerves 3-12 NL, Reflexes 2+ Vitals Vitals Vital Signs Date Time Temp Pulse Resp B/P (MAP) Pulse Ox O2 Delivery O2 Flow Rate FiO2 04/22/20 07:09 97.8 69 18 102/60 (74) 100 Nasal Cannula 3.0 97.8 Labs Labs Laboratory Tests Test 04/21/20 18:45 04/21/20 19:45 04/21/20 20:48 04/21/20 21:39 White Blood Count 10.0 x10^3/uL (4.0-11.0) Red Blood Count 2.34 x10^6/uL (4.30-5.70) Hemoglobin 7.4 g/dL (13.0-17.5) Hematocrit 22.3 % (39.0-53.0) Mean Corpuscular Volume 95 fL (79-100) Mean Corpuscular Hemoglobin 32 pg (25-35) Mean Corpuscular Hemoglobin Concent 33 g/dL (31-37) Red Cell Distribution Width 20.2 % (11.5-14.5) Platelet Count 245 x10^3/uL (140-400) Neutrophils (%) (Auto) 68 % (31-73) Lymphocytes (%) (Auto) 17 % (24-48) Monocytes (%) (Auto) 12 % (0-9) Eosinophils (%) (Auto) 2 % (0-3) Basophils (%) (Auto) 1 % (0-3) Neutrophils # (Auto) 6.8 x10^3/uL (1.8-7.7) Lymphocytes # (Auto) 1.7 x10^3/uL (1.0-4.8) Monocytes # (Auto) 1.2 x10^3/uL (0.0-1.1) Eosinophils # (Auto) 0.2 x10^3/uL (0.0-0.7) Basophils # (Auto) 0.1 x10^3/uL (0.0-0.2) Platelet Estimate Adequate (ADEQUATE) Large Platelets Occ Poikilocytosis Mod Anisocytosis Mod Target Cells Occ Acanthocytes Many Schistocytes Occ Prothrombin Time 17.5 SEC (11.7-14.0) Prothromb Time International Ratio 1.5 (0.8-1.1) Activated Partial Thromboplast Time 36 SEC (24-38) Lactic Acid Level 3.9 mmol/L (0.4-2.0) Sodium Level 139 mmol/L (136-145) Potassium Level 4.7 mmol/L (3.5-5.1) Chloride Level 102 mmol/L (98-107) Carbon Dioxide Level 24 mmol/L (21-32) Anion Gap 13 (6-14) Blood Urea Nitrogen 54 mg/dL (8-26) Creatinine 2.6 mg/dL (0.7-1.3) Estimated GFR (Cockcroft-Gault) 25.0 BUN/Creatinine Ratio 21 (6-20) Glucose Level 129 mg/dL (70-99) Calcium Level 8.0 mg/dL (8.5-10.1) Total Bilirubin 0.5 mg/dL (0.2-1.0) Aspartate Amino Transf (AST/SGOT) 926 U/L (15-37) Alanine Aminotransferase (ALT/SGPT) 725 U/L (16-63) Alkaline Phosphatase 110 U/L (46-116) Troponin I Quantitative 0.082 ng/mL (0.000-0.055) II-Ois-G-Type Natriuretic Peptide > 06821 pg/mL (0-124) Total Protein 6.4 g/dL (6.4-8.2) Albumin 2.8 g/dL (3.4-5.0) Albumin/Globulin Ratio 0.8 (1.0-1.7) O2 Saturation 48 % (92-99) 99 % (92-99) Arterial Blood pH 7.39 (7.35-7.45) 7.41 (7.35-7.45) Arterial Blood pCO2 at Patient Temp 33 mmHg (35-46) 29 mmHg (35-46) Arterial Blood pO2 at Patient Temp < 42 mmHg (65-108) 163 mmHg (65-108) Arterial Blood HCO3 19 mmol/L (21-28) 18 mmol/L (21-28) Arterial Blood Base Excess -5 mmol/L (-3-3) -6 mmol/L (-3-3) Oxyhemoglobin 48.1 % 97.8 % Methemoglobin 0.7 % (0.0-1.9) 0.7 % (0.0-1.9) Carbon Monoxide, Quantitative 0.0 % (0.0-1.9) 0.1 % (0.0-1.9) FiO2 32 32 Test 04/22/20 01:25 04/22/20 06:45 04/22/20 07:18 Sodium Level 136 mmol/L (136-145) Potassium Level 4.5 mmol/L (3.5-5.1) Chloride Level 102 mmol/L (98-107) Carbon Dioxide Level 22 mmol/L (21-32) Anion Gap 12 (6-14) Blood Urea Nitrogen 58 mg/dL (8-26) Creatinine 2.7 mg/dL (0.7-1.3) Estimated GFR (Cockcroft-Gault) 23.9 Glucose Level 191 mg/dL (70-99) Lactic Acid Level 2.7 mmol/L (0.4-2.0) Calcium Level 8.1 mg/dL (8.5-10.1) Urine Collection Type Unknown Urine Color Yellow Urine Clarity Clear Urine pH 5.0 (<5.0-8.0) Urine Specific [place] 1.010 (1.000-1.030) Urine Protein Negative mg/dL (NEG-TRACE) Urine Glucose (UA) Negative mg/dL (NEG) Urine Ketones (Stick) Negative mg/dL (NEG) Urine Blood Negative (NEG) Urine Nitrite Negative (NEG) Urine Bilirubin Negative (NEG) Urine Urobilinogen Dipstick 0.2 mg/dL (0.2 mg/dL) Urine Leukocyte Esterase Negative (NEG) Urine RBC 0 /HPF (0-2) Urine WBC 1-4 /HPF (0-4) Urine Squamous Epithelial Cells Occ /LPF Urine Amorphous Sediment Present /HPF Urine Bacteria Few /HPF (0-FEW) Urine Hyaline Casts Few /HPF Urine Mucus Slight /LPF Glucose (Fingerstick) 163 mg/dL (70-99) Laboratory Tests Test 04/21/20 18:45 04/21/20 19:45 04/21/20 20:48 04/21/20 21:39 White Blood Count 10.0 x10^3/uL (4.0-11.0) Red Blood Count 2.34 x10^6/uL (4.30-5.70) Hemoglobin 7.4 g/dL (13.0-17.5) Hematocrit 22.3 % (39.0-53.0) Mean Corpuscular Volume 95 fL (79-100) Mean Corpuscular Hemoglobin 32 pg (25-35) Mean Corpuscular Hemoglobin Concent 33 g/dL (31-37) Red Cell Distribution Width 20.2 % (11.5-14.5) Platelet Count 245 x10^3/uL (140-400) Neutrophils (%) (Auto) 68 % (31-73) Lymphocytes (%) (Auto) 17 % (24-48) Monocytes (%) (Auto) 12 % (0-9) Eosinophils (%) (Auto) 2 % (0-3) Basophils (%) (Auto) 1 % (0-3) Neutrophils # (Auto) 6.8 x10^3/uL (1.8-7.7) Lymphocytes # (Auto) 1.7 x10^3/uL (1.0-4.8) Monocytes # (Auto) 1.2 x10^3/uL (0.0-1.1) Eosinophils # (Auto) 0.2 x10^3/uL (0.0-0.7) Basophils # (Auto) 0.1 x10^3/uL (0.0-0.2) Platelet Estimate Adequate (ADEQUATE) Large Platelets Occ Poikilocytosis Mod Anisocytosis Mod Target Cells Occ Acanthocytes Many Schistocytes Occ Prothrombin Time 17.5 SEC (11.7-14.0) Prothromb Time International Ratio 1.5 (0.8-1.1) Activated Partial Thromboplast Time 36 SEC (24-38) Lactic Acid Level 3.9 mmol/L (0.4-2.0) Sodium Level 139 mmol/L (136-145) Potassium Level 4.7 mmol/L (3.5-5.1) Chloride Level 102 mmol/L (98-107) Carbon Dioxide Level 24 mmol/L (21-32) Anion Gap 13 (6-14) Blood Urea Nitrogen 54 mg/dL (8-26) Creatinine 2.6 mg/dL (0.7-1.3) Estimated GFR (Cockcroft-Gault) 25.0 BUN/Creatinine Ratio 21 (6-20) Glucose Level 129 mg/dL (70-99) Calcium Level 8.0 mg/dL (8.5-10.1) Total Bilirubin 0.5 mg/dL (0.2-1.0) Aspartate Amino Transf (AST/SGOT) 926 U/L (15-37) Alanine Aminotransferase (ALT/SGPT) 725 U/L (16-63) Alkaline Phosphatase 110 U/L (46-116) Troponin I Quantitative 0.082 ng/mL (0.000-0.055) PG-Eve-B-Type Natriuretic Peptide > 28351 pg/mL (0-124) Total Protein 6.4 g/dL (6.4-8.2) Albumin 2.8 g/dL (3.4-5.0) Albumin/Globulin Ratio 0.8 (1.0-1.7) O2 Saturation 48 % (92-99) 99 % (92-99) Arterial Blood pH 7.39 (7.35-7.45) 7.41 (7.35-7.45) Arterial Blood pCO2 at Patient Temp 33 mmHg (35-46) 29 mmHg (35-46) Arterial Blood pO2 at Patient Temp < 42 mmHg (65-108) 163 mmHg (65-108) Arterial Blood HCO3 19 mmol/L (21-28) 18 mmol/L (21-28) Arterial Blood Base Excess -5 mmol/L (-3-3) -6 mmol/L (-3-3) Oxyhemoglobin 48.1 % 97.8 % Methemoglobin 0.7 % (0.0-1.9) 0.7 % (0.0-1.9) Carbon Monoxide, Quantitative 0.0 % (0.0-1.9) 0.1 % (0.0-1.9) FiO2 32 32 Test 04/22/20 01:25 04/22/20 06:45 04/22/20 07:18 Sodium Level 136 mmol/L (136-145) Potassium Level 4.5 mmol/L (3.5-5.1) Chloride Level 102 mmol/L (98-107) Carbon Dioxide Level 22 mmol/L (21-32) Anion Gap 12 (6-14) Blood Urea Nitrogen 58 mg/dL (8-26) Creatinine 2.7 mg/dL (0.7-1.3) Estimated GFR (Cockcroft-Gault) 23.9 Glucose Level 191 mg/dL (70-99) Lactic Acid Level 2.7 mmol/L (0.4-2.0) Calcium Level 8.1 mg/dL (8.5-10.1) Urine Collection Type Unknown Urine Color Yellow Urine Clarity Clear Urine pH 5.0 (<5.0-8.0) Urine Specific [place] 1.010 (1.000-1.030) Urine Protein Negative mg/dL (NEG-TRACE) Urine Glucose (UA) Negative mg/dL (NEG) Urine Ketones (Stick) Negative mg/dL (NEG) Urine Blood Negative (NEG) Urine Nitrite Negative (NEG) Urine Bilirubin Negative (NEG) Urine Urobilinogen Dipstick 0.2 mg/dL (0.2 mg/dL) Urine Leukocyte Esterase Negative (NEG) Urine RBC 0 /HPF (0-2) Urine WBC 1-4 /HPF (0-4) Urine Squamous Epithelial Cells Occ /LPF Urine Amorphous Sediment Present /HPF Urine Bacteria Few /HPF (0-FEW) Urine Hyaline Casts Few /HPF Urine Mucus Slight /LPF Glucose (Fingerstick) 163 mg/dL (70-99) Images Images CXR: Stable upper normal heart size. The great vessels appear unremarkable. There is no hilar or mediastinal mass. Lungs again demonstrate mild central pulmonary vascular congestion with improved aeration in the right hilar region. No pneumothorax or large pleural effusion. Possible small right pleural effusion. There are no significant osseous abnormalities. IMPRESSION: Residual or recurrent central pulmonary vascular congestion with possible small right pleural effusion. VTE Prophylaxis Ordered VTE Prophylaxis Devices: No VTE Pharmacological Prophylaxi: Yes Assessment/Plan Assessment/Plan A/P: Acute hypoxic respiratory failure secondary to congestive heart failure vs low suspicion for pneumonia or COVID 19, will await COVID 19 results. Diurese. Cardiology and pulmonology consulted Acute kidney injury - likely vasomotor nephropathy from cardiorenal syndrome, will diurese for fluid overload. Could be on chronic kidney disease. Acute Anemia - Hb 7.6, will trend Hb and transfuse if Hb < 7. Type and screen Transaminitis - likely congestive hepatopathy from right sided heart failure. Will consult GI given his epigastric pain complaints, anemia, and transaminitis, however Urinary retention - likely with BPH, mccoy placed for strict I/O with his acute CHF. H/o atrial fibrillation - sinus rhythm currently. On BB, not on anticoagulation Acute diastolic CHF - will diurese. Cardiology consulted. Cont BB, imdur, hydralazine. With Cr not on CRIS or ARB. Constipation - cont miralax H/o CVA - with residual contractures, speech deficits. 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
--- NOTE | 2020-04-22 09:35 | PDOC2 ---
GI CONSULT Date of Service: DATE: 04/22/20 TIME: 09:35 Reason For Consult: epigastric pain, elevated transaminases HPI: HPI: 64 y/o male from NH to ER w/ chest pain, also noted w/ difficulty breathing. Not the best historian - stopped answering my questions after awhile and said "I just don't have much to say right now." We did establish that his epigastric pain started a couple days ago and that he has had it before. Thinks it's a burning pain. Radiates to chest. History lists GERD. Summary shows Plavix, iron, and ASA. PMH: PMH: A Fib, CAD, HTN, HLD, CVA, dementia, seizures, DM, CKD, OCD, depression, PVD left elbow surgery (osteomyelitis) FH: Family History: Other (unable to obtain) Social History: Smoke: Quit ALCOHOL: other (was a drinker in the past) ROS: Per HPI. Vitals: Vitals: Vital Signs Date Time Temp Pulse Resp B/P (MAP) Pulse Ox O2 Delivery O2 Flow Rate FiO2 04/22/20 07:09 97.8 69 18 102/60 (74) 100 Nasal Cannula 3.0 97.8 Labs: Labs: Laboratory Tests Test 04/21/20 18:45 04/21/20 19:45 04/21/20 20:48 04/21/20 21:39 White Blood Count 10.0 x10^3/uL (4.0-11.0) Red Blood Count 2.34 x10^6/uL (4.30-5.70) Hemoglobin 7.4 g/dL (13.0-17.5) Hematocrit 22.3 % (39.0-53.0) Mean Corpuscular Volume 95 fL (79-100) Mean Corpuscular Hemoglobin 32 pg (25-35) Mean Corpuscular Hemoglobin Concent 33 g/dL (31-37) Red Cell Distribution Width 20.2 % (11.5-14.5) Platelet Count 245 x10^3/uL (140-400) Neutrophils (%) (Auto) 68 % (31-73) Lymphocytes (%) (Auto) 17 % (24-48) Monocytes (%) (Auto) 12 % (0-9) Eosinophils (%) (Auto) 2 % (0-3) Basophils (%) (Auto) 1 % (0-3) Neutrophils # (Auto) 6.8 x10^3/uL (1.8-7.7) Lymphocytes # (Auto) 1.7 x10^3/uL (1.0-4.8) Monocytes # (Auto) 1.2 x10^3/uL (0.0-1.1) Eosinophils # (Auto) 0.2 x10^3/uL (0.0-0.7) Basophils # (Auto) 0.1 x10^3/uL (0.0-0.2) Platelet Estimate Adequate (ADEQUATE) Large Platelets Occ Poikilocytosis Mod Anisocytosis Mod Target Cells Occ Acanthocytes Many Schistocytes Occ Prothrombin Time 17.5 SEC (11.7-14.0) Prothromb Time International Ratio 1.5 (0.8-1.1) Activated Partial Thromboplast Time 36 SEC (24-38) Lactic Acid Level 3.9 mmol/L (0.4-2.0) Sodium Level 139 mmol/L (136-145) Potassium Level 4.7 mmol/L (3.5-5.1) Chloride Level 102 mmol/L (98-107) Carbon Dioxide Level 24 mmol/L (21-32) Anion Gap 13 (6-14) Blood Urea Nitrogen 54 mg/dL (8-26) Creatinine 2.6 mg/dL (0.7-1.3) Estimated GFR (Cockcroft-Gault) 25.0 BUN/Creatinine Ratio 21 (6-20) Glucose Level 129 mg/dL (70-99) Calcium Level 8.0 mg/dL (8.5-10.1) Total Bilirubin 0.5 mg/dL (0.2-1.0) Aspartate Amino Transf (AST/SGOT) 926 U/L (15-37) Alanine Aminotransferase (ALT/SGPT) 725 U/L (16-63) Alkaline Phosphatase 110 U/L (46-116) Troponin I Quantitative 0.082 ng/mL (0.000-0.055) ZP-Iot-O-Type Natriuretic Peptide > 46416 pg/mL (0-124) Total Protein 6.4 g/dL (6.4-8.2) Albumin 2.8 g/dL (3.4-5.0) Albumin/Globulin Ratio 0.8 (1.0-1.7) O2 Saturation 48 % (92-99) 99 % (92-99) Arterial Blood pH 7.39 (7.35-7.45) 7.41 (7.35-7.45) Arterial Blood pCO2 at Patient Temp 33 mmHg (35-46) 29 mmHg (35-46) Arterial Blood pO2 at Patient Temp < 42 mmHg (65-108) 163 mmHg (65-108) Arterial Blood HCO3 19 mmol/L (21-28) 18 mmol/L (21-28) Arterial Blood Base Excess -5 mmol/L (-3-3) -6 mmol/L (-3-3) Oxyhemoglobin 48.1 % 97.8 % Methemoglobin 0.7 % (0.0-1.9) 0.7 % (0.0-1.9) Carbon Monoxide, Quantitative 0.0 % (0.0-1.9) 0.1 % (0.0-1.9) FiO2 32 32 Test 04/22/20 01:25 04/22/20 06:45 04/22/20 07:18 Sodium Level 136 mmol/L (136-145) Potassium Level 4.5 mmol/L (3.5-5.1) Chloride Level 102 mmol/L (98-107) Carbon Dioxide Level 22 mmol/L (21-32) Anion Gap 12 (6-14) Blood Urea Nitrogen 58 mg/dL (8-26) Creatinine 2.7 mg/dL (0.7-1.3) Estimated GFR (Cockcroft-Gault) 23.9 Glucose Level 191 mg/dL (70-99) Lactic Acid Level 2.7 mmol/L (0.4-2.0) Calcium Level 8.1 mg/dL (8.5-10.1) Urine Collection Type Unknown Urine Color Yellow Urine Clarity Clear Urine pH 5.0 (<5.0-8.0) Urine Specific [place] 1.010 (1.000-1.030) Urine Protein Negative mg/dL (NEG-TRACE) Urine Glucose (UA) Negative mg/dL (NEG) Urine Ketones (Stick) Negative mg/dL (NEG) Urine Blood Negative (NEG) Urine Nitrite Negative (NEG) Urine Bilirubin Negative (NEG) Urine Urobilinogen Dipstick 0.2 mg/dL (0.2 mg/dL) Urine Leukocyte Esterase Negative (NEG) Urine RBC 0 /HPF (0-2) Urine WBC 1-4 /HPF (0-4) Urine Squamous Epithelial Cells Occ /LPF Urine Amorphous Sediment Present /HPF Urine Bacteria Few /HPF (0-FEW) Urine Hyaline Casts Few /HPF Urine Mucus Slight /LPF Glucose (Fingerstick) 163 mg/dL (70-99) Allergies: Coded Allergies: No Known Drug Allergies (Unverified , 10/26/17) Medications: Current Medications Medications (Trade) Dose Ordered Sig/Isidoro Route PRN Reason Start Time Stop Time Status Last Admin Dose Admin Ipratropium [place] (Atrovent) 1 mg 1X ONCE NEB 04/21/20 19:15 04/21/20 19:16 DC 04/21/20 20:25 Methylprednisolone Sodium Succinate (SOLU-Medrol 125MG VIAL) 125 mg 1X ONCE IV 04/21/20 19:15 04/21/20 19:16 DC 04/21/20 19:17 Albuterol Sulfate (Ventolin Neb Soln) 10 mg 1X ONCE CONT NEB 04/21/20 19:15 04/21/20 19:16 DC 04/21/20 20:25 Sodium Chloride 500 ml @ 500 mls/hr 1X ONCE IV 04/21/20 19:15 04/21/20 20:14 DC 04/21/20 19:20 Famotidine (Pepcid) 20 mg 1X ONCE PO 04/21/20 19:15 04/21/20 19:16 DC 04/21/20 19:15 Al Hydroxide/Mg Hydroxide (Mylanta Plus Xs) 30 ml 1X ONCE PO 04/21/20 19:15 04/21/20 19:16 DC 04/21/20 19:15 Metoclopramide HCl (Reglan Vial) 5 mg 1X ONCE IVP 04/21/20 19:15 04/21/20 19:16 DC 04/21/20 19:16 Aspirin (Aspirin Chewable) 162 mg 1X ONCE PO 04/21/20 20:45 04/21/20 20:46 DC 04/21/20 21:28 Furosemide (Lasix) 80 mg 1X ONCE IVP 04/21/20 22:30 04/21/20 22:31 DC 04/21/20 22:48 Imaging: Imaging: CXR IMPRESSION: Residual or recurrent central pulmonary vascular congestion with possible small right pleural effusion. PE: GEN: NAD - was resting when I entered - does appear chronically ill HEENT: Atraumatic, PERRL LUNGS: diminished, NC 3L - O2 sat 90 per monitor in room HEART: RRR ABD: quiet BS, non-tender, RUQ fullness EXTREMITY: RUE contracture SKIN: No rashes, no jaundice NEURO/PSYCH: awake and alert, slow to respond A/P: A/P: Chest/epigastric pain, resp failure Elevated lactic acid, BNP, troponin Normocytic anemia - Hgb a bit below baseline Elevated AST and ALT H/o CAD, CVA, CKD, PVD - on Plavix CRC screen - unclear R/o COVID-19 -- Await COVID testing. LFTs related to other issues? Check US and anemia parameters for completeness. Add acid-heat reader. Additional recs per Dr. Romero. REJI OWENS Apr 22, 2020 09:35
[2020-04-22] MEDS ORDERED: FUROSEMIDE 40 MG/4 ML VIAL. IVP ONE (10:30)
[2020-04-22 11:05] VITALS: BP 121/64
--- NOTE | 2020-04-22 12:14 | CONS ---
DATE OF CONSULTATION: PULMONARY CONSULTATION ATTENDING PHYSICIAN: Kevin Goldberg MD REASON FOR CONSULTATION: CHF, hypoxia. HISTORY OF PRESENT ILLNESS: The patient is a 64-year-old who came into the hospital with some shortness of breath. He has some epigastric pain as well. He was tachypneic and was using his accessory muscles of respiration The patient is a poor historian. I have reviewed the patient's chest x-ray, it shows bilateral interstitial infiltrates, more suggestive of CHF. He does not have a fever since he has been in the hospital. His COVID testing is pending. He says he does have a history of tobacco use. Suspect underlying COPD. PAST MEDICAL HISTORY: History of atrial fibrillation, anemia, CHF, constipation, CVA, depression, type 2 diabetes, stroke, UTI, epilepsy, PVD. PAST SURGICAL HISTORY: Unknown. SOCIAL HISTORY: Long history of tobacco use. ALLERGIES: None. MEDICATIONS: Reviewed as listed in the MRAD including Lasix. REVIEW OF SYSTEMS: Unable to obtain from the patient. PHYSICAL EXAMINATION: VITAL SIGNS: Reviewed. Pulse ox 96% on 3 liters, afebrile. NECK: Supple. LUNGS: With diminished breath sounds. CARDIOVASCULAR: With a regular rate. ABDOMEN: Soft. EXTREMITIES: With bilateral ankle edema. LABORATORY DATA: Reviewed. White cell count 10.0, hemoglobin 7.4, platelets are 245. ABGs with a pH of 7.39, pCO2 of 33 and a pO2 of less than 42. Initially on 32% FiO2 and post-diuresis pO2 is improved to 163. BUN and creatinine 58 and 2.7. IMPRESSION: 1. Acute hypoxic respiratory failure secondary to congestive heart failure. 2. Abnormal chest x-ray with bilateral interstitial infiltrates most suggestive of congestive heart failure. 3. Low suspicion for COVID-19 pneumonia. 4. Acute kidney injury. Could be on chronic kidney disease. 5. Anemia. 6. Suspected underlying chronic obstructive pulmonary disease. RECOMMENDATIONS: 1. Continue present oxygen and wean gradually due to improvement in oxygenation with diuresis. 2. Obtain an echocardiogram. 3. Follow chest x-ray. 4. Follow cardiology recommendations. 5. Rule out COVID-19. 6. Renal recommendation. 7. Monitor hemoglobin closely. 8. Discussed with Dr. Goldberg. We will follow along with you. DINA FONSECA MD DR: SMITHA/diaz JOB#: [id number] / [id number]
[2020-04-22] MEDS ORDERED: ACETAMINOPHEN 325 MG TABLET. PO PRN (12:45)
[2020-04-22] MEDS ORDERED: NITROGLYCERIN SUBLINGUAL 0.4 MG BOTTLE OF 25. SL PRN (12:45)
[2020-04-22] MEDS ORDERED: POLYETHYLENE GLYCOL 3350 17 GM PACKET. PO PRN (12:45)
[2020-04-22] MEDS ORDERED: LOPERAMIDE 2 MG CAPSULE PO PRN (12:45)
--- NOTE | 2020-04-22 12:58 | PDOC2 ---
VIKA CAZARES CONTINUOUS PROCESS COFFEE ROASTER 04/22/20 1258: CARDIAC CONSULT DATE OF CONSULT Date of Consult DATE: 04/22/20 TIME: 12:18 REASON FOR CONSULT Reason for Consult: CHF REFERRING PHYSICIAN Referring Physician: Franklin SOURCE Source: Chart review, Patient HISTORY OF PRESENT ILLNESS HISTORY OF PRESENT ILLNESS This is a 64 yo male admitted for complains of abdominal pain and shortness of breath. Presently he is alert but oriented x2 and is a poor historian. He is currently laying flat without significant SOA. Positive for peripheral edema and no complains of chest pain whic he currently does not have. Covid PCR is still pending. GI evaluated him due to abdominal pain which mainly epigastric per review and from there radiates to chest which he denies. Further imaging plus clinical finding demonstrates CHF. No suggestion of any blood in stool nor hematemesis. He was noted to be hyperventilating upon ED arrival but currently no respiratory distress and his tachypnea has resolved and has received high dose lasix in ED. 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 debility WC bound Rheumatologic: No pertinent hx Endocrine: Diabetes (2) PAST SURGICAL HISTORY Past Surgical History: No pertinent history FAMILY HISTORY Family History: Family History Unknown SOCIAL HISTORY Social History Smoke: quit ALCOHOL: none Drugs: None Lives: Jail Domestic Violence: Neg CURRENT MEDICATIONS CURRENT MEDICATIONS Current Medications Medications (Trade) Dose Ordered Sig/Isidoro Route PRN Reason Start Time Stop Time Status Last Admin Dose Admin Ipratropium [place] (Atrovent) 1 mg 1X ONCE NEB 04/21/20 19:15 04/21/20 19:16 DC 04/21/20 20:25 Methylprednisolone Sodium Succinate (SOLU-Medrol 125MG VIAL) 125 mg 1X ONCE IV 04/21/20 19:15 04/21/20 19:16 DC 04/21/20 19:17 Albuterol Sulfate (Ventolin Neb Soln) 10 mg 1X ONCE CONT NEB 04/21/20 19:15 04/21/20 19:16 DC 04/21/20 20:25 Sodium Chloride 500 ml @ 500 mls/hr 1X ONCE IV 04/21/20 19:15 04/21/20 20:14 DC 04/21/20 19:20 Famotidine (Pepcid) 20 mg 1X ONCE PO 04/21/20 19:15 04/21/20 19:16 DC 04/21/20 19:15 Al Hydroxide/Mg Hydroxide (Mylanta Plus Xs) 30 ml 1X ONCE PO 04/21/20 19:15 04/21/20 19:16 DC 04/21/20 19:15 Metoclopramide HCl (Reglan Vial) 5 mg 1X ONCE IVP 04/21/20 19:15 04/21/20 19:16 DC 04/21/20 19:16 Aspirin (Aspirin Chewable) 162 mg 1X ONCE PO 04/21/20 20:45 04/21/20 20:46 DC 04/21/20 21:28 Furosemide (Lasix) 80 mg 1X ONCE IVP 04/21/20 22:30 04/21/20 22:31 DC 04/21/20 22:48 ALLERGIES ALLERGIES: Coded Allergies: No Known Drug Allergies (Unverified , 10/26/17) ROS Review of System unreliable, poor historian PHYSICAL EXAM General: Alert, Cooperative, No acute distress HEENT: Atraumatic, Mucous membr. moist/pink Lungs: Other (diminished) Heart: Regular rate (SR), Other (distant heart sounds) Extremities: No cyanosis, Other (2+ bilateral LE pitting edema; hand contractures) Skin: No rashes Neuro: Normal speech Psych/Mental Status: Other (flat affect) MUSCULOSKELETAL: Osteoarthritic changes both hands VITALS/I&O VITALS/I&O: Vital Signs Date Time Temp Pulse Resp B/P (MAP) Pulse Ox O2 Delivery O2 Flow Rate FiO2 04/22/20 11:05 97.3 72 18 121/64 (83) 96 Nasal Cannula 3.0 97.3 I & O 04/21/20 04/21/20 04/22/20 15:00 23:00 07:00 Intake Total 500 ml Balance 500 ml LABS Lab: Laboratory Tests Test 04/21/20 18:45 04/21/20 19:45 04/21/20 20:48 04/21/20 21:39 White Blood Count 10.0 x10^3/uL (4.0-11.0) Red Blood Count 2.34 x10^6/uL (4.30-5.70) L Hemoglobin 7.4 g/dL (13.0-17.5) L Hematocrit 22.3 % (39.0-53.0) L Mean Corpuscular Volume 95 fL (79-100) Mean Corpuscular Hemoglobin 32 pg (25-35) Mean Corpuscular Hemoglobin Concent 33 g/dL (31-37) Red Cell Distribution Width 20.2 % (11.5-14.5) H Platelet Count 245 x10^3/uL (140-400) Neutrophils (%) (Auto) 68 % (31-73) Lymphocytes (%) (Auto) 17 % (24-48) L Monocytes (%) (Auto) 12 % (0-9) H Eosinophils (%) (Auto) 2 % (0-3) Basophils (%) (Auto) 1 % (0-3) Neutrophils # (Auto) 6.8 x10^3/uL (1.8-7.7) Lymphocytes # (Auto) 1.7 x10^3/uL (1.0-4.8) Monocytes # (Auto) 1.2 x10^3/uL (0.0-1.1) H Eosinophils # (Auto) 0.2 x10^3/uL (0.0-0.7) Basophils # (Auto) 0.1 x10^3/uL (0.0-0.2) Platelet Estimate Adequate (ADEQUATE) Large Platelets Occ Poikilocytosis Mod Anisocytosis Mod Target Cells Occ Acanthocytes (Spur Cells) Many Schistocytes Occ Prothrombin Time 17.5 SEC (11.7-14.0) H Prothrombin Time INR 1.5 (0.8-1.1) H Activated Partial Thromboplast Time 36 SEC (24-38) Lactic Acid Level 3.9 mmol/L (0.4-2.0) H Sodium Level 139 mmol/L (136-145) Potassium Level 4.7 mmol/L (3.5-5.1) Chloride Level 102 mmol/L (98-107) Carbon Dioxide Level 24 mmol/L (21-32) Anion Gap 13 (6-14) Blood Urea Nitrogen 54 mg/dL (8-26) H Creatinine 2.6 mg/dL (0.7-1.3) H Estimated GFR (Cockcroft-Gault) 25.0 BUN/Creatinine Ratio 21 (6-20) H Glucose Level 129 mg/dL (70-99) H Calcium Level 8.0 mg/dL (8.5-10.1) L Total Bilirubin 0.5 mg/dL (0.2-1.0) Aspartate Amino Transferase (AST) 926 U/L (15-37) H Alanine Aminotransferase (ALT) 725 U/L (16-63) H Alkaline Phosphatase 110 U/L (46-116) Troponin I Quantitative 0.082 ng/mL (0.000-0.055) [id number]-[id number]-Type Natriuretic Peptide > 84639 pg/mL (0-124) H Total Protein 6.4 g/dL (6.4-8.2) Albumin 2.8 g/dL (3.4-5.0) L Albumin/Globulin Ratio 0.8 (1.0-1.7) L O2 Saturation 48 % (92-99) *L 99 % (92-99) Arterial Blood pH 7.39 (7.35-7.45) 7.41 (7.35-7.45) Arterial Blood pCO2 at Patient Temp 33 mmHg (35-46) L 29 mmHg (35-46) L Arterial Blood pO2 at Patient Temp < 42 mmHg (65-108) *L 163 mmHg (65-108) H Arterial Blood HCO3 19 mmol/L (21-28) L 18 mmol/L (21-28) L Arterial Blood Base Excess -5 mmol/L (-3-3) L -6 mmol/L (-3-3) L Oxyhemoglobin 48.1 % 97.8 % Methemoglobin 0.7 % (0.0-1.9) 0.7 % (0.0-1.9) Carbon Monoxide, Quantitative 0.0 % (0.0-1.9) 0.1 % (0.0-1.9) FiO2 32 32 Test 04/22/20 01:25 04/22/20 06:45 04/22/20 07:18 04/22/20 11:14 Sodium Level 136 mmol/L (136-145) Potassium Level 4.5 mmol/L (3.5-5.1) Chloride Level 102 mmol/L (98-107) Carbon Dioxide Level 22 mmol/L (21-32) Anion Gap 12 (6-14) Blood Urea Nitrogen 58 mg/dL (8-26) H Creatinine 2.7 mg/dL (0.7-1.3) H Estimated GFR (Cockcroft-Gault) 23.9 Glucose Level 191 mg/dL (70-99) H Lactic Acid Level 2.7 mmol/L (0.4-2.0) H Calcium Level 8.1 mg/dL (8.5-10.1) L Urine Collection Type Unknown Urine Color Yellow Urine Clarity Clear Urine pH 5.0 (<5.0-8.0) Urine Specific [place] 1.010 (1.000-1.030) Urine Protein Negative mg/dL (NEG-TRACE) Urine Glucose (UA) Negative mg/dL (NEG) Urine Ketones (Stick) Negative mg/dL (NEG) Urine Blood Negative (NEG) Urine Nitrite Negative (NEG) Urine Bilirubin Negative (NEG) Urine Urobilinogen Dipstick 0.2 mg/dL (0.2 mg/dL) Urine Leukocyte Esterase Negative (NEG) Urine RBC 0 /HPF (0-2) Urine WBC 1-4 /HPF (0-4) Urine Squamous Epithelial Cells Occ /LPF Urine Amorphous Sediment Present /HPF Urine Bacteria Few /HPF (0-FEW) Urine Hyaline Casts Few /HPF Urine Mucus Slight /LPF Glucose (Fingerstick) 163 mg/dL (70-99) H 132 mg/dL (70-99) H Laboratory Tests 04/21/20 18:45 Laboratory Tests 04/21/20 19:45 04/22/20 01:25 ECHOCARDIOGRAM ECHOCARDIOGRAM * 06/11/2019 [facility] * Borderline/mildly impaired left ventricular ejection fraction, estimated 45 to 50 %. Biplane EF estimated 46%. Mild left ventricular wall thickness with mild dilatation of the LV cavity (left ventricular diastolic lung index: 88 ml). There is a mild degree of global hypokinesis without focal wall motion abnormalities. * Indeterminate diastolic function per ASE criteria. * Normal right ventricular size and function * Mild mitral regurgitation with posterior directed jet * No pericardial effusion * The visualized portions of the aortic root and ascending thoracic aorta are within normal limits. * Central venous pressure estimated 0 to 5 mmHg. Peak pulmonary systolic pressure cannot be estimated given an adequate TR jet. Compared to a prior 2007 transthoracic echocardiogram, the left ventricular ejection fraction is reduced. The prior study study reported a left ventricle ejection fraction of 65%. The current study demonstrates borderline to mildly impaired left ventricular ejection fraction estimated 45 to 50%. Left ventricle is mildly dilated with an intact left ventricular diastolic volume of 88 mL. There is again demonstration of mild mitral regurgitation. There are no other interval developments. STRESS TEST STRESS TEST SUMMARY/OPINION: 06/11/2019 [facility] The study is definitely abnormal. There is high risk features for annual cardiovascular mortality as below. 1. Large area of partially reversible defects in the inferior, inferolateral, anterior and apical segments with hypokinesis as detailed above, suggestive of injury/rest ischemia, with significant inducible ischemia. Summed stress score of 16 with extent of 22% of the myocardium, summed rest score of 4, summed difference/ ischemia score of 12 2. High risk features include: SSS of 16. Elevated lung to heart ratio. Visually there is transient ischemic dilatation although the actual calculated measurement does not meet the criteria. And severely depressed left ventricular function. 3. Nonspecific upsloping ST changes does not meet criteria for ischemia. HEART CATH HEART CATH CORONARY ANATOMY: 06/15/2019 Left main: The left main is a long vessel that is diffusely calcified. The ostium demonstrates a tubular 70% to 80% stenosis. The left main bifurcates into the left anterior descending and left circumflex arteries. Left anterior descending: The ostium of the LAD demonstrates a focal calcified 80% stenosis. This patient demonstrates a dual LAD system with a very large 2nd septal manager target and a large diagonal 2 branch supplying the septum as well as the anterolateral and apical areas of the myocardium. The LAD just prior to the bifurcation of the large septal 2 and large diagonal 2 branch demonstrates a focal 70% stenosis that is eccentric. Both septal 2 and diagonal 2 branches provide collateral flow to the territory of the RCA. The diagonal 2 branch at its most distal point provides collateral flow to the apex, which is primarily subtended by the RPDA branch of the RCA. Left circumflex: This is a nondominant system. The proximal circumflex demonstrates diffuse luminal irregularities throughout its course. This gives rise to an OM branch in the midportion of the left circumflex, which also demonstrates mild luminal irregularities. Right coronary artery: This vessel is 100% occluded at its proximal segment. The distal RCA and RPDA territories are fed via [id number] collaterals tucker ginating from the large septal perforators as well as the large diagonal 2 branch of the dual LAD system. HEMODYNAMIC FINDINGS: AO: 150/49/83 mmHg. LVEDP: 25-28 mmHg. There was no gradient across the aortic valve on catheter pullback. CONTRAST: Visipaque 320, 50 mL. FLUOROSCOPY TIME: 2.9 minutes. AIR KERMA TOTAL: 326 mGy. MEDICATION SUMMARY: 1% lidocaine 20 mL, fentanyl 50 mcg, versed 0.5 mg. CONCLUSION: Severe 2-vessel coronary artery disease. RECOMMENDATIONS: Standard post-catheterization care. Optimize medical therapy of CAD and CHF to prevent future cardiovascular events. This patient's coronary anatomy demonstrates complex lesions involving a calcified ostial left main stenosis as well as calcified tandem lesions in the proximal and mid LAD. In addition, the LAD is a dual LAD system with large septal 2 and diagonal 2 branches subtending the mid to distal septum and anterolateral/apical portion of the myocardium. Given his overall deconditioned state and significant medical comorbidities, further discussions will be had as to the best course of action for this patient. If PCI were to be pursued for this patient, it would be a high-risk procedure involving mechanical circulatory support and rotational atherectomy to treat the heavily calcified lesions in the left main and proximal LAD. The optimal way to treat this percutaneously is unclear, given his unique LAD anatomy with the large septal 2 and diagonal 2 branches. The attending physician, Dr. Varela, was present for the entire case and performed jones elements of the procedure as necessary. ASSESSMENT/PLAN ASSESSMENT/PLAN 1. Acute on chronic systolic/diastolic CHF: SOA better 2. Atypical chest pain: more from abdominal pain 3. Abdominal pain with severe transaminitis: liver disease? 4. Lactic acidosis: multifactorial with work of breathing contributing. Afebrile 5. 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 Mild troponin elevation: chronic RBBB no acute changes to EKG. Suspect type 2 7. Mild coagulopathy 8. Normocytic anemia: no obvious bleed. Hgb at 7.4 9. Severe debility with hx of Dementia/CVA/seizures/extremity contractures 10. CAD: see recent [facility] 06/2019 as above. 11. PAFIB: Maintaining SR. Deemed not a candidate for anticoagulation in the past 12. HTN: controlled 13. DM2 14. HLP 15. PUI 16. Possibly cardiohepatorenal syndrome Recommendations 1. Lasix therapy, monitor BP trend 2. ASA. Continue metoprolol 3. Hold nephrotoxic agents. If covid negative then will obtain TTE 4. Labs: LFTs, trop, CK, lipids 5. He was seen briefly by our group few years back and has bben following with [facility] cardiology group. He has known ICM and complex CAD and CKD and significant discussion was made with him and his family per [facility] and due to his significant comorbid conditions and being high risk for any intervention he was deemed for medical therapy. Having said that further discussion would be needed in regards to his code status given the latter. Continue medical therapy 6. Continue optimization per GDMT. No metformin. 7. Will restart baby ASA and plavix if no active bleed. Will start lipitor at lower dose if LFTs are better. 8. Would benefit from transfusion NEDA SELLESR MD 04/22/201925: CARDIAC CONSULT ASSESSMENT/PLAN ASSESSMENT/PLAN Agree with SVP's assessment and plan. Continue diuresis for ac on chr combined syst and diast HF Slight trop elevation prob demand ischemia Recent cath with significant LMCA/LAD stenosis noted PAF maintaining SR Covid test pending - will get 2D echo if negative Thank you for your consultation VIKA CAZARES APRN Apr 22, 2020 12:58 NEDA SELLERS MD Apr 22, 2020 19:26
[2020-04-22] MEDS ORDERED: DEXTROSE 50% 25 GM / 50ML DISP.SYRIN. IV PRN (13:00)
[2020-04-22 13:23] LABS: BASO % 1 % (0-3); EOS % 0 % (0-3); HEMATOCRIT 23.3 % (39.0-53.0); HEMOGLOBIN 7.3 g/dL (13.0-17.5); LYMPH # 1.6 x10^3/uL (1.0-4.8); LYMPH % 18 % (24-48); MEAN CORPUSCULAR HEMOGLOBIN 31 pg (25-35); MEAN CORPUSCULAR HGB CONC 31 g/dL (31-37); MEAN CORPUSCULAR VOLUME 99 fL (79-100); MONO % 11 % (0-9); NEUT # 6.4 x10^3/uL (1.8-7.7); NEUT % 71 % (31-73); PLATELET COUNT 227 x10^3/uL (140-400); RED BLOOD COUNT 2.35 x10^6/uL (4.30-5.70); RED CELL DISTRIBUTION WIDTH 20.4 % (11.5-14.5)
[2020-04-22 13:35] LABS: ALBUMIN 2.6 g/dL (3.4-5.0); DIRECT BILIRUBIN 0.3 mg/dL (0.0-0.2); MAGNESIUM 2.1 mg/dL (1.8-2.4); TOTAL BILIRUBIN 0.4 mg/dL (0.2-1.0); TOTAL PROTEIN 6.5 g/dL (6.4-8.2)
[2020-04-22] MEDS: buPROPion SR 150 MG TABLET.SA PO SCH (15:06)
[2020-04-22] MEDS: HEPARIN for SUB-Q USE 5,000 UNIT/ML VIAL. SQ SCH ×2 (15:06→22:00)
[2020-04-22] MEDS: ISOSORBIDE MONONITRATE ER 30 MG TAB.ER.24H PO SCH (15:06)
[2020-04-22] MEDS: carBAMazepine 200 MG TABLET PO SCH (15:07)
[2020-04-22] MEDS: METOPROLOL SUCC 24HR ER 25 MG TAB.ER.24H. PO SCH (15:07)
[2020-04-22] MEDS: ASPIRIN ENTERIC COATED 81 MG TABLET.DR. PO SCH (15:07)
[2020-04-22] MEDS: levETIRAcetam 250 MG TABLET PO SCH ×2 (15:08→21:00)
[2020-04-22] MEDS: CLOPIDOGREL BISULFATE 75 MG TABLET PO SCH (15:08)
[2020-04-22] MEDS: risperiDONE 1 MG TABLET. PO SCH ×2 (15:08→21:00)
[2020-04-22] MEDS: FERROUS SULFATE 325 MG TABLET. PO SCH (15:08)
[2020-04-22 15:10] VITALS: BP 112/64
--- NOTE | 2020-04-22 16:12 | NUR ---
SW following. Reviewed chart and spoke with RN. Pt from LTC at [facility], , (fax). Pt on 3 02. Pt COVID pending. Pt consulted by GI, pulmonary, and cardiology. SW to follow.
[2020-04-22] MEDS: INSULIN LISPRO 300 UNITS/3 ML VIAL. SQ SCH (17:00)
--- NOTE | 2020-04-22 17:06 | NUR ---
Wound/Ostomy Care Wound Type/Assessment: Consult for bilateral buttocks PU stage 3 and L heel PU stage 2. Per VJ Valadez pt is wc bound. All wounds cleansed with wound wash, pictured and measured. Right lateral ankle noted with redness but blanchable. No other wounds noted on skin assessment. P500 bed has already been ordered for pt. Treatment Recommendations/Plan: Bilateral buttocks, apply calazime cream bid and prn. Left heel: cover with xerorform and a foam, change every 2-3 days. Right lateral ankle covered with a foam for protection. Education provided: attemted to educate pt on PU prevention/healing, pt is drowsy and unable to verbalized understanding. VJ Valadez inform of POC. Offloading surface/device: purple wedge, float heels on pillows, P500 bed Recommended Referrals/Tests: na at this time Discharge Recommendations for dressings: same as treatment plan. will follow up on 04/29.
[2020-04-22 19:00] VITALS: BP 118/73
--- NOTE | 2020-04-22 20:42 | RAD ---
STUDY: US Abdomen Complete INDICATION: Epigastric pain. Elevated liver function tests. COMPARISON: None. TECHNIQUE: Real-time grayscale and color Doppler sonographic evaluation of the abdomen. Findings: Pancreas: Poorly evaluated due to bowel gas. Liver: The liver measures prominent in size at 18.4 cm longitudinal. Increased hepatic echogenicity. Aorta/IVC/Main Portal Vein: Nonaneurysmal proximal and mid aorta. Atheromatous luminal irregularity. The distal aorta was not seen due to bowel gas. Unremarkable IVC at the liver. Patent main portal vein. Gall Bladder: Gallbladder wall thickening. Layering gallstones and sludge. Pericholecystic edema and the gallbladder wall appears slightly hyperemic, image 47. Common Bile Duct: Normal in transverse dimension at 0.4 cm. Right Kidney: Measures normal in length at 10.5 cm but the cortex is thinned and cortical echogenicity is increased. Left Kidney: Not visualized. Spleen: Within normal limits for length at 12 cm. Miscellaneous: Right-sided pleural effusion. Impression: 1. Gallbladder wall thickening and layering gallstones/sludge. There is also pericholecystic edema. The constellation of findings in conjunction with epigastric pain are concerning for acute cholecystitis however given a fatty liver, liver enlargement and a right pleural effusion, it is also possible that these findings are secondary to third spacing. As deemed necessary, biliary scintigraphy could be performed to help differentiate. 2. Hepatic steatosis. 3. Findings involving the right kidney often seen with chronic medical renal disease. 4. The left kidney and pancreas are incompletely evaluated due to bowel gas. Electronically signed by: PHILIPPE CORREIA MD (04/22/2020 8:39 PM) [id number]
[2020-04-22] MEDS: ATORVASTATIN CALCIUM 40 MG TABLET. PO SCH (21:00)
[2020-04-22] MEDS ORDERED: DEUTETRABENAZINE PO SCH (21:00)
[2020-04-22 23:10] VITALS: BP 95/59
[2020-04-23] VITALS (12 sets, daily range): BP systolic 94–132; BP diastolic 55–78
[2020-04-23 05:09] LABS: HEMOGLOBIN A1C 6.1 % (4.8-5.6)
[2020-04-23] MEDS: HEPARIN for SUB-Q USE 5,000 UNIT/ML VIAL. SQ SCH ×3 (06:17→22:00)
[2020-04-23] MEDS ORDERED: ASPIRIN ENTERIC COATED 81 MG TABLET.DR. PO SCH (08:00)
[2020-04-23] MEDS: INSULIN LISPRO 300 UNITS/3 ML VIAL. SQ SCH ×3 (08:00→17:00)
[2020-04-23 08:11] LABS: CALCIUM 8.3 mg/dL (8.5-10.1); CREATININE 2.9 mg/dL (0.7-1.3); MAGNESIUM 2.1 mg/dL (1.8-2.4)
[2020-04-23] MEDS: buPROPion SR 150 MG TABLET.SA PO SCH (08:18)
[2020-04-23] MEDS: CLOPIDOGREL BISULFATE 75 MG TABLET PO SCH (08:18)
[2020-04-23] MEDS: risperiDONE 1 MG TABLET. PO SCH ×2 (08:18→22:17)
[2020-04-23] MEDS: ISOSORBIDE MONONITRATE ER 30 MG TAB.ER.24H PO SCH (08:18)
[2020-04-23] MEDS: FUROSEMIDE 40 MG/4 ML VIAL. IVP SCH (08:18)
[2020-04-23] MEDS: carBAMazepine 200 MG TABLET PO SCH (08:18)
[2020-04-23] MEDS: levETIRAcetam 250 MG TABLET PO SCH ×2 (08:18→22:17)
[2020-04-23] MEDS: ASPIRIN ENTERIC COATED 81 MG TABLET.DR. PO SCH (08:19)
[2020-04-23] MEDS: METOPROLOL SUCC 24HR ER 25 MG TAB.ER.24H. PO SCH (08:19)
[2020-04-23] MEDS: PANTOPRAZOLE 40 MG TABLET.DR. PO SCH (08:19)
[2020-04-23] MEDS: FERROUS SULFATE 325 MG TABLET. PO SCH (08:19)
--- NOTE | 2020-04-23 08:34 | RAD ---
EXAM: CHEST ONE VIEW. HISTORY: Congestive heart failure. COMPARISON: 04/21/2020. FINDINGS: A frontal view of the chest is obtained. There are small pleural effusions on the right greater than left. Hazy basilar opacities are consistent with atelectasis and mild pulmonary edema. There is no pneumothorax. The heart is not enlarged. Aortic and bilateral carotid atherosclerotic calcifications are noted. IMPRESSION: 1. Small pleural effusions and mild pulmonary edema are slightly increased. Electronically signed by: Julianna Prado MD (04/23/2020 8:31 AM) [id number]
[2020-04-23 08:50] LABS: HEMATOCRIT 22.1 % (39.0-53.0); HEMOGLOBIN 7.1 g/dL (13.0-17.5); RED BLOOD COUNT 2.33 x10^6/uL (4.30-5.70); RED CELL DISTRIBUTION WIDTH 19.6 % (11.5-14.5)
[2020-04-23] MEDS ORDERED: METOPROLOL SUCC 24HR ER 25 MG TAB.ER.24H. PO SCH (09:00)
[2020-04-23 09:20] LABS: ALBUMIN 2.7 g/dL (3.4-5.0); DIRECT BILIRUBIN 0.3 mg/dL (0.0-0.2); TOTAL BILIRUBIN 0.4 mg/dL (0.2-1.0); TOTAL PROTEIN 6.1 g/dL (6.4-8.2)
--- NOTE | 2020-04-23 10:15 | NUR ---
No need to reswab patient for COVID per Dr. Goldberg.
--- NOTE | 2020-04-23 10:16 | PDOC ---
[employer] PROGRESS NOTE Date of Service DOS: DATE: 04/23/20 TIME: 10:16 Chief Complaint Chief Complaint A/P: Acute hypoxic respiratory failure secondary to congestive heart failure vs low suspicion for pneumonia or COVID 19, will await COVID 19 results. Diurese. Cardiology and pulmonology consulted Acute kidney injury - likely vasomotor nephropathy from cardiorenal syndrome, will diurese for fluid overload. Could be on chronic kidney disease. Acute Anemia - Hb 7.6, will trend Hb and transfuse if Hb < 7. Type and screen Transaminitis - likely congestive hepatopathy from right sided heart failure. Will consult GI given his epigastric pain complaints, anemia, and transaminitis, however Urinary retention - likely with BPH, mccoy placed for strict I/O with his acute CHF. H/o atrial fibrillation - sinus rhythm currently. On BB, not on anticoagulation Acute diastolic CHF - will diurese. Cardiology consulted. Cont BB, imdur, hydralazine. With Cr not on CRIS or ARB. Constipation - cont miralax H/o CVA - with residual contractures, speech deficits. 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 Notable for RR 44 breaths/min with accessory muscle use. Per his facility he has been progressively more short of breath recently. However he did deny any fever or chills. He reports he has no cough. He denied vomiting, diarrhea, melena or hematochezia. He states his pain is in his abdomen, 6/10. Chest x-ray with bilateral interstitial infiltrates. BNP greater than 35,000, Hb 7.4, WBC 10, platelets 245, lactate 3.9, albumin 2.8, NA 139, K4.7, BUN 54, CR 2.6, AST 926, ALT 725. INR 1.5. ABG on room air 7.39/33/less than 42, placed on 3 L nasal cannulated oxygen ABG 7.41/29/163. EKG with heart rate 82 bpm, normal sinus rhythm, left atrial enlargement, incomplete right bundle branch block. Admitted for further treatment. Hemoglobin dropped to 7.1. COVID-19 negative. Still requiring O2, very short of breath. Plan: Discussed with cardiology need for transfusion and IV milrinone for his CHF. Transfer to CVC, PICC for milrinone administration, 1 unit PRBC. Vitals/I&O Vitals/I&O: Vital Signs Date Time Temp Pulse Resp B/P (MAP) Pulse Ox O2 Delivery O2 Flow Rate FiO2 04/23/20 08:19 79 116/70 04/23/20 07:00 98.0 18 98 Nasal Cannula 3.0 98.0 I & O 04/22/20 04/22/20 04/23/20 14:59 22:59 06:59 Intake Total 0 ml Output Total 1000 ml 875 ml Balance -1000 ml -875 ml 0 ml Physical Exam General: Alert, Cooperative, No acute distress Heart: Regular rate (SR), Other (distant heart sounds) Lungs: Other Abdomen: Normal bowel sounds, Soft, No tenderness, No hepatosplenomegaly, No masses Extremities: No cyanosis, Other (2+ bilateral LE pitting edema; hand contractures) Skin: No rashes Labs Labs: Laboratory Tests Test 04/22/20 11:14 04/22/20 12:30 04/22/20 13:00 04/22/20 15:57 Glucose (Fingerstick) 132 mg/dL (70-99) 185 mg/dL (70-99) Magnesium Level 2.1 mg/dL (1.8-2.4) Iron Level 48 ug/dL (65-175) Total Iron Binding Capacity 242 ug/dL (250-450) Iron Saturation 20 % (15-34) Total Bilirubin 0.4 mg/dL (0.2-1.0) Direct Bilirubin 0.3 mg/dL (0.0-0.2) Aspartate Amino Transf (AST/SGOT) 465 U/L (15-37) Alanine Aminotransferase (ALT/SGPT) 629 U/L (16-63) Alkaline Phosphatase 105 U/L (46-116) Creatine Kinase 119 U/L (39-308) Troponin I Quantitative 0.046 ng/mL (0.000-0.055) Total Protein 6.5 g/dL (6.4-8.2) Albumin 2.6 g/dL (3.4-5.0) White Blood Count 9.0 x10^3/uL (4.0-11.0) Red Blood Count 2.35 x10^6/uL (4.30-5.70) Hemoglobin 7.3 g/dL (13.0-17.5) Hematocrit 23.3 % (39.0-53.0) Mean Corpuscular Volume 99 fL (79-100) Mean Corpuscular Hemoglobin 31 pg (25-35) Mean Corpuscular Hemoglobin Concent 31 g/dL (31-37) Red Cell Distribution Width 20.4 % (11.5-14.5) Platelet Count 227 x10^3/uL (140-400) Neutrophils (%) (Auto) 71 % (31-73) Lymphocytes (%) (Auto) 18 % (24-48) Monocytes (%) (Auto) 11 % (0-9) Eosinophils (%) (Auto) 0 % (0-3) Basophils (%) (Auto) 1 % (0-3) Neutrophils # (Auto) 6.4 x10^3/uL (1.8-7.7) Lymphocytes # (Auto) 1.6 x10^3/uL (1.0-4.8) Monocytes # (Auto) 1.0 x10^3/uL (0.0-1.1) Eosinophils # (Auto) 0.0 x10^3/uL (0.0-0.7) Basophils # (Auto) 0.0 x10^3/uL (0.0-0.2) Test 04/22/20 20:36 04/23/20 05:00 04/23/20 07:27 Glucose (Fingerstick) 144 mg/dL (70-99) 148 mg/dL (70-99) White Blood Count 11.0 x10^3/uL (4.0-11.0) Red Blood Count 2.33 x10^6/uL (4.30-5.70) Hemoglobin 7.1 g/dL (13.0-17.5) Hematocrit 22.1 % (39.0-53.0) Mean Corpuscular Volume 95 fL (79-100) Mean Corpuscular Hemoglobin 30 pg (25-35) Mean Corpuscular Hemoglobin Concent 32 g/dL (31-37) Red Cell Distribution Width 19.6 % (11.5-14.5) Platelet Count 236 x10^3/uL (140-400) Sodium Level 139 mmol/L (136-145) Potassium Level 4.0 mmol/L (3.5-5.1) Chloride Level 102 mmol/L (98-107) Carbon Dioxide Level 23 mmol/L (21-32) Anion Gap 14 (6-14) Blood Urea Nitrogen 67 mg/dL (8-26) Creatinine 2.9 mg/dL (0.7-1.3) Estimated GFR (Cockcroft-Gault) 22.0 Glucose Level 189 mg/dL (70-99) Calcium Level 8.3 mg/dL (8.5-10.1) Magnesium Level 2.1 mg/dL (1.8-2.4) Total Bilirubin 0.4 mg/dL (0.2-1.0) Direct Bilirubin 0.3 mg/dL (0.0-0.2) Aspartate Amino Transf (AST/SGOT) 399 U/L (15-37) Alanine Aminotransferase (ALT/SGPT) 660 U/L (16-63) Alkaline Phosphatase 112 U/L (46-116) Total Protein 6.1 g/dL (6.4-8.2) Albumin 2.7 g/dL (3.4-5.0) Assessment and Plan Assessmemt and Plan Problems Medical Problems: (1) Acute respiratory distress Status: Acute (2) Acute systolic (congestive) heart failure Status: Acute Comment Review of Relevant I have reviewed the following items hair (where applicable) has been applied. Medications: Current Medications Medications (Trade) Dose Ordered Sig/Isidoro Route PRN Reason Start Time Stop Time Status Last Admin Dose Admin Furosemide (Lasix) 40 mg 1X ONCE IVP 04/22/20 10:30 04/22/20 10:32 DC 04/22/20 15:04 Pantoprazole Sodium (Protonix) 40 mg DAILYAC PO 04/23/20 07:30 04/23/20 08:19 Aspirin (Ecotrin) 81 mg DAILY PO 04/22/20 13:00 04/23/20 08:19 Bupropion HCl (Wellbutrin Sr) 150 mg DAILY PO 04/22/20 13:00 04/23/20 08:18 Carbamazepine (TEGretol) 100 mg DAILY PO 04/22/20 13:00 04/23/20 08:18 Clopidogrel Bisulfate (Plavix) 75 mg DAILY PO 04/22/20 13:00 04/23/20 08:18 Ferrous Sulfate (Feosol) 325 mg DAILY PO 04/22/20 13:00 04/23/20 08:19 Isosorbide Mononitrate (Imdur) 30 mg DAILY PO 04/22/20 13:00 04/23/20 08:18 Levetiracetam (Keppra) 250 mg BID PO 04/22/20 13:00 04/23/20 08:18 Metoprolol Succinate (Toprol Xl) 25 mg DAILY PO 04/22/20 12:45 04/23/20 08:19 Risperidone (RisperDAL) 1 mg DAILY08 PO 04/22/20 13:00 04/23/20 08:18 Atorvastatin Calcium (Lipitor) 80 mg QHS PO 04/22/20 21:00 04/22/20 21:00 Risperidone (RisperDAL) 2 mg QHS PO 04/22/20 21:00 04/22/20 21:00 Heparin Sodium (Porcine) (Heparin Sodium) 5,000 unit Q8HRS SQ 04/22/20 14:00 04/23/20 06:17 Furosemide (Lasix) 40 mg DAILY IVP 04/23/20 09:00 04/23/20 08:18 Justicifation of Admission Dx: Justifications for Admission: Justification of Admission Dx: Yes JOSELINE SANTACRUZ MD Apr 23, 2020 10:16
--- NOTE | 2020-04-23 10:21 | PDOC ---
Date of Service: DATE: 04/23/20 TIME: 10:14 Subjective: Subjective: Doesn't offer much. Tells me not feeling too good but give no details. Hasn't eaten breakfast yet. Objective: Vital Signs: Vital Signs Date Time Temp Pulse Resp B/P (MAP) Pulse Ox O2 Delivery O2 Flow Rate FiO2 04/23/20 08:19 79 116/70 04/23/20 07:00 98.0 18 98 Nasal Cannula 3.0 98.0 Labs: Laboratory Tests Test 04/22/20 11:14 04/22/20 12:30 04/22/20 13:00 04/22/20 15:57 Glucose (Fingerstick) 132 mg/dL 185 mg/dL Magnesium Level 2.1 mg/dL Iron Level 48 ug/dL Total Iron Binding Capacity 242 ug/dL Iron Saturation 20 % Total Bilirubin 0.4 mg/dL Direct Bilirubin 0.3 mg/dL Aspartate Amino Transf (AST/SGOT) 465 U/L Alanine Aminotransferase (ALT/SGPT) 629 U/L Alkaline Phosphatase 105 U/L Creatine Kinase 119 U/L Troponin I Quantitative 0.046 ng/mL Total Protein 6.5 g/dL Albumin 2.6 g/dL White Blood Count 9.0 x10^3/uL Red Blood Count 2.35 x10^6/uL Hemoglobin 7.3 g/dL Hematocrit 23.3 % Mean Corpuscular Volume 99 fL Mean Corpuscular Hemoglobin 31 pg Mean Corpuscular Hemoglobin Concent 31 g/dL Red Cell Distribution Width 20.4 % Platelet Count 227 x10^3/uL Neutrophils (%) (Auto) 71 % Lymphocytes (%) (Auto) 18 % Monocytes (%) (Auto) 11 % Eosinophils (%) (Auto) 0 % Basophils (%) (Auto) 1 % Neutrophils # (Auto) 6.4 x10^3/uL Lymphocytes # (Auto) 1.6 x10^3/uL Monocytes # (Auto) 1.0 x10^3/uL Eosinophils # (Auto) 0.0 x10^3/uL Basophils # (Auto) 0.0 x10^3/uL Test 04/22/20 20:36 04/23/20 05:00 04/23/20 07:27 Glucose (Fingerstick) 144 mg/dL 148 mg/dL White Blood Count 11.0 x10^3/uL Red Blood Count 2.33 x10^6/uL Hemoglobin 7.1 g/dL Hematocrit 22.1 % Mean Corpuscular Volume 95 fL Mean Corpuscular Hemoglobin 30 pg Mean Corpuscular Hemoglobin Concent 32 g/dL Red Cell Distribution Width 19.6 % Platelet Count 236 x10^3/uL Sodium Level 139 mmol/L Potassium Level 4.0 mmol/L Chloride Level 102 mmol/L Carbon Dioxide Level 23 mmol/L Anion Gap 14 Blood Urea Nitrogen 67 mg/dL Creatinine 2.9 mg/dL Estimated GFR (Cockcroft-Gault) 22.0 Glucose Level 189 mg/dL Calcium Level 8.3 mg/dL Magnesium Level 2.1 mg/dL Total Bilirubin 0.4 mg/dL Direct Bilirubin 0.3 mg/dL Aspartate Amino Transf (AST/SGOT) 399 U/L Alanine Aminotransferase (ALT/SGPT) 660 U/L Alkaline Phosphatase 112 U/L Total Protein 6.1 g/dL Albumin 2.7 g/dL Imaging: CXR 04/23 IMPRESSION: 1. Small pleural effusions and mild pulmonary edema are slightly increased. Abd US Impression: 1. Gallbladder wall thickening and layering gallstones/sludge. There is also pericholecystic edema. The constellation of findings in conjunction with epigastric pain are concerning for acute cholecystitis however given a fatty liver, liver enlargement and a right pleural effusion, it is also possible that these findings are secondary to third spacing. As deemed necessary, biliary scintigraphy could be performed to help differentiate. 2. Hepatic steatosis. 3. Findings involving the right kidney often seen with chronic medical renal disease. 4. The left kidney and pancreas are incompletely evaluated due to bowel gas. PE: GEN: chronically ill LUNGS: diminished HEART: RRR ABD: non-tender NEURO/PSYCH: awake and alert, speaks slowly A/P: CHF ACP/epigastric pain - better? Elevated AST and ALT - fluctuating; US as above w/ hepatic steatosis and cholelithiasis/sludge w/ pericholecystic edema (cholecystitis vs third spacing) Suspected GERD - on PPI here ACD - Hgb 7.1; on Plavix and ASA, also iron COVID negative -- Will review w/ Dr. Romero. Justicifation of Admission Dx: Justifications for Admission: Justification of Admission Dx: Yes REJI OWENS Apr 23, 2020 10:21
--- NOTE | 2020-04-23 10:53 | PDOC ---
PULMONARY PROGRESS NOTES DATE: 04/23/20 TIME: 10:51 Subjective NO SOA Vitals Vital Signs Date Time Temp Pulse Resp B/P (MAP) Pulse Ox O2 Delivery O2 Flow Rate FiO2 04/23/20 08:19 79 116/70 04/23/20 07:00 98.0 18 98 Nasal Cannula 3.0 98.0 General: Alert, No acute distress Lungs: Clear Cardiovascular: S1 Abdomen: Soft Neuro Exam: Alert Extremities: Other (1+EDEMA) Labs Laboratory Tests Test 04/21/20 18:45 04/21/20 19:30 04/21/20 19:45 04/21/20 20:48 White Blood Count 10.0 x10^3/uL (4.0-11.0) Red Blood Count 2.34 x10^6/uL (4.30-5.70) Hemoglobin 7.4 g/dL (13.0-17.5) Hematocrit 22.3 % (39.0-53.0) Mean Corpuscular Volume 95 fL (79-100) Mean Corpuscular Hemoglobin 32 pg (25-35) Mean Corpuscular Hemoglobin Concent 33 g/dL (31-37) Red Cell Distribution Width 20.2 % (11.5-14.5) Platelet Count 245 x10^3/uL (140-400) Neutrophils (%) (Auto) 68 % (31-73) Lymphocytes (%) (Auto) 17 % (24-48) Monocytes (%) (Auto) 12 % (0-9) Eosinophils (%) (Auto) 2 % (0-3) Basophils (%) (Auto) 1 % (0-3) Neutrophils # (Auto) 6.8 x10^3/uL (1.8-7.7) Lymphocytes # (Auto) 1.7 x10^3/uL (1.0-4.8) Monocytes # (Auto) 1.2 x10^3/uL (0.0-1.1) Eosinophils # (Auto) 0.2 x10^3/uL (0.0-0.7) Basophils # (Auto) 0.1 x10^3/uL (0.0-0.2) Platelet Estimate Adequate (ADEQUATE) Large Platelets Occ Poikilocytosis Mod Anisocytosis Mod Target Cells Occ Acanthocytes Many Schistocytes Occ Prothrombin Time 17.5 SEC (11.7-14.0) Prothromb Time International Ratio 1.5 (0.8-1.1) Activated Partial Thromboplast Time 36 SEC (24-38) Hemoglobin A1c 6.1 % (4.8-5.6) Lactic Acid Level 3.9 mmol/L (0.4-2.0) Coronavirus (PCR) Not detected (Not Detected) Sodium Level 139 mmol/L (136-145) Potassium Level 4.7 mmol/L (3.5-5.1) Chloride Level 102 mmol/L (98-107) Carbon Dioxide Level 24 mmol/L (21-32) Anion Gap 13 (6-14) Blood Urea Nitrogen 54 mg/dL (8-26) Creatinine 2.6 mg/dL (0.7-1.3) Estimated GFR (Cockcroft-Gault) 25.0 BUN/Creatinine Ratio 21 (6-20) Glucose Level 129 mg/dL (70-99) Calcium Level 8.0 mg/dL (8.5-10.1) Total Bilirubin 0.5 mg/dL (0.2-1.0) Aspartate Amino Transf (AST/SGOT) 926 U/L (15-37) Alanine Aminotransferase (ALT/SGPT) 725 U/L (16-63) Alkaline Phosphatase 110 U/L (46-116) Troponin I Quantitative 0.082 ng/mL (0.000-0.055) XJ-Wda-Z-Type Natriuretic Peptide > 95646 pg/mL (0-124) Total Protein 6.4 g/dL (6.4-8.2) Albumin 2.8 g/dL (3.4-5.0) Albumin/Globulin Ratio 0.8 (1.0-1.7) O2 Saturation 48 % (92-99) Arterial Blood pH 7.39 (7.35-7.45) Arterial Blood pCO2 at Patient Temp 33 mmHg (35-46) Arterial Blood pO2 at Patient Temp < 42 mmHg (65-108) Arterial Blood HCO3 19 mmol/L (21-28) Arterial Blood Base Excess -5 mmol/L (-3-3) Oxyhemoglobin 48.1 % Methemoglobin 0.7 % (0.0-1.9) Carbon Monoxide, Quantitative 0.0 % (0.0-1.9) FiO2 32 Test 8//20 21:39 04/22/20 01:25 04/22/20 06:45 04/22/20 07:18 O2 Saturation 99 % (92-99) Arterial Blood pH 7.41 (7.35-7.45) Arterial Blood pCO2 at Patient Temp 29 mmHg (35-46) Arterial Blood pO2 at Patient Temp 163 mmHg (65-108) Arterial Blood HCO3 18 mmol/L (21-28) Arterial Blood Base Excess -6 mmol/L (-3-3) Oxyhemoglobin 97.8 % Methemoglobin 0.7 % (0.0-1.9) Carbon Monoxide, Quantitative 0.1 % (0.0-1.9) FiO2 32 Sodium Level 136 mmol/L (136-145) Potassium Level 4.5 mmol/L (3.5-5.1) Chloride Level 102 mmol/L (98-107) Carbon Dioxide Level 22 mmol/L (21-32) Anion Gap 12 (6-14) Blood Urea Nitrogen 58 mg/dL (8-26) Creatinine 2.7 mg/dL (0.7-1.3) Estimated GFR (Cockcroft-Gault) 23.9 Glucose Level 191 mg/dL (70-99) Lactic Acid Level 2.7 mmol/L (0.4-2.0) Calcium Level 8.1 mg/dL (8.5-10.1) Urine Collection Type Unknown Urine Color Yellow Urine Clarity Clear Urine pH 5.0 (<5.0-8.0) Urine Specific [place] 1.010 (1.000-1.030) Urine Protein Negative mg/dL (NEG-TRACE) Urine Glucose (UA) Negative mg/dL (NEG) Urine Ketones (Stick) Negative mg/dL (NEG) Urine Blood Negative (NEG) Urine Nitrite Negative (NEG) Urine Bilirubin Negative (NEG) Urine Urobilinogen Dipstick 0.2 mg/dL (0.2 mg/dL) Urine Leukocyte Esterase Negative (NEG) Urine RBC 0 /HPF (0-2) Urine WBC 1-4 /HPF (0-4) Urine Squamous Epithelial Cells Occ /LPF Urine Amorphous Sediment Present /HPF Urine Bacteria Few /HPF (0-FEW) Urine Hyaline Casts Few /HPF Urine Mucus Slight /LPF Glucose (Fingerstick) 163 mg/dL (70-99) Test 04/22/20 11:14 04/22/20 12:30 04/22/20 13:00 04/22/20 15:57 Glucose (Fingerstick) 132 mg/dL (70-99) 185 mg/dL (70-99) Magnesium Level 2.1 mg/dL (1.8-2.4) Iron Level 48 ug/dL (65-175) Total Iron Binding Capacity 242 ug/dL (250-450) Iron Saturation 20 % (15-34) Total Bilirubin 0.4 mg/dL (0.2-1.0) Direct Bilirubin 0.3 mg/dL (0.0-0.2) Aspartate Amino Transf (AST/SGOT) 465 U/L (15-37) Alanine Aminotransferase (ALT/SGPT) 629 U/L (16-63) Alkaline Phosphatase 105 U/L (46-116) Creatine Kinase 119 U/L (39-308) Troponin I Quantitative 0.046 ng/mL (0.000-0.055) Total Protein 6.5 g/dL (6.4-8.2) Albumin 2.6 g/dL (3.4-5.0) White Blood Count 9.0 x10^3/uL (4.0-11.0) Red Blood Count 2.35 x10^6/uL (4.30-5.70) Hemoglobin 7.3 g/dL (13.0-17.5) Hematocrit 23.3 % (39.0-53.0) Mean Corpuscular Volume 99 fL (79-100) Mean Corpuscular Hemoglobin 31 pg (25-35) Mean Corpuscular Hemoglobin Concent 31 g/dL (31-37) Red Cell Distribution Width 20.4 % (11.5-14.5) Platelet Count 227 x10^3/uL (140-400) Neutrophils (%) (Auto) 71 % (31-73) Lymphocytes (%) (Auto) 18 % (24-48) Monocytes (%) (Auto) 11 % (0-9) Eosinophils (%) (Auto) 0 % (0-3) Basophils (%) (Auto) 1 % (0-3) Neutrophils # (Auto) 6.4 x10^3/uL (1.8-7.7) Lymphocytes # (Auto) 1.6 x10^3/uL (1.0-4.8) Monocytes # (Auto) 1.0 x10^3/uL (0.0-1.1) Eosinophils # (Auto) 0.0 x10^3/uL (0.0-0.7) Basophils # (Auto) 0.0 x10^3/uL (0.0-0.2) Test 04/22/20 20:36 04/23/20 05:00 04/23/20 07:27 Glucose (Fingerstick) 144 mg/dL (70-99) 148 mg/dL (70-99) White Blood Count 11.0 x10^3/uL (4.0-11.0) Red Blood Count 2.33 x10^6/uL (4.30-5.70) Hemoglobin 7.1 g/dL (13.0-17.5) Hematocrit 22.1 % (39.0-53.0) Mean Corpuscular Volume 95 fL (79-100) Mean Corpuscular Hemoglobin 30 pg (25-35) Mean Corpuscular Hemoglobin Concent 32 g/dL (31-37) Red Cell Distribution Width 19.6 % (11.5-14.5) Platelet Count 236 x10^3/uL (140-400) Sodium Level 139 mmol/L (136-145) Potassium Level 4.0 mmol/L (3.5-5.1) Chloride Level 102 mmol/L (98-107) Carbon Dioxide Level 23 mmol/L (21-32) Anion Gap 14 (6-14) Blood Urea Nitrogen 67 mg/dL (8-26) Creatinine 2.9 mg/dL (0.7-1.3) Estimated GFR (Cockcroft-Gault) 22.0 Glucose Level 189 mg/dL (70-99) Calcium Level 8.3 mg/dL (8.5-10.1) Magnesium Level 2.1 mg/dL (1.8-2.4) Total Bilirubin 0.4 mg/dL (0.2-1.0) Direct Bilirubin 0.3 mg/dL (0.0-0.2) Aspartate Amino Transf (AST/SGOT) 399 U/L (15-37) Alanine Aminotransferase (ALT/SGPT) 660 U/L (16-63) Alkaline Phosphatase 112 U/L (46-116) Total Protein 6.1 g/dL (6.4-8.2) Albumin 2.7 g/dL (3.4-5.0) Laboratory Tests Test 04/22/20 11:14 04/22/20 12:30 04/22/20 13:00 04/22/20 15:57 Glucose (Fingerstick) 132 mg/dL (70-99) 185 mg/dL (70-99) Magnesium Level 2.1 mg/dL (1.8-2.4) Iron Level 48 ug/dL (65-175) Total Iron Binding Capacity 242 ug/dL (250-450) Iron Saturation 20 % (15-34) Total Bilirubin 0.4 mg/dL (0.2-1.0) Direct Bilirubin 0.3 mg/dL (0.0-0.2) Aspartate Amino Transf (AST/SGOT) 465 U/L (15-37) Alanine Aminotransferase (ALT/SGPT) 629 U/L (16-63) Alkaline Phosphatase 105 U/L (46-116) Creatine Kinase 119 U/L (39-308) Troponin I Quantitative 0.046 ng/mL (0.000-0.055) Total Protein 6.5 g/dL (6.4-8.2) Albumin 2.6 g/dL (3.4-5.0) White Blood Count 9.0 x10^3/uL (4.0-11.0) Red Blood Count 2.35 x10^6/uL (4.30-5.70) Hemoglobin 7.3 g/dL (13.0-17.5) Hematocrit 23.3 % (39.0-53.0) Mean Corpuscular Volume 99 fL (79-100) Mean Corpuscular Hemoglobin 31 pg (25-35) Mean Corpuscular Hemoglobin Concent 31 g/dL (31-37) Red Cell Distribution Width 20.4 % (11.5-14.5) Platelet Count 227 x10^3/uL (140-400) Neutrophils (%) (Auto) 71 % (31-73) Lymphocytes (%) (Auto) 18 % (24-48) Monocytes (%) (Auto) 11 % (0-9) Eosinophils (%) (Auto) 0 % (0-3) Basophils (%) (Auto) 1 % (0-3) Neutrophils # (Auto) 6.4 x10^3/uL (1.8-7.7) Lymphocytes # (Auto) 1.6 x10^3/uL (1.0-4.8) Monocytes # (Auto) 1.0 x10^3/uL (0.0-1.1) Eosinophils # (Auto) 0.0 x10^3/uL (0.0-0.7) Basophils # (Auto) 0.0 x10^3/uL (0.0-0.2) Test 04/22/20 20:36 04/23/20 05:00 04/23/20 07:27 Glucose (Fingerstick) 144 mg/dL (70-99) 148 mg/dL (70-99) White Blood Count 11.0 x10^3/uL (4.0-11.0) Red Blood Count 2.33 x10^6/uL (4.30-5.70) Hemoglobin 7.1 g/dL (13.0-17.5) Hematocrit 22.1 % (39.0-53.0) Mean Corpuscular Volume 95 fL (79-100) Mean Corpuscular Hemoglobin 30 pg (25-35) Mean Corpuscular Hemoglobin Concent 32 g/dL (31-37) Red Cell Distribution Width 19.6 % (11.5-14.5) Platelet Count 236 x10^3/uL (140-400) Sodium Level 139 mmol/L (136-145) Potassium Level 4.0 mmol/L (3.5-5.1) Chloride Level 102 mmol/L (98-107) Carbon Dioxide Level 23 mmol/L (21-32) Anion Gap 14 (6-14) Blood Urea Nitrogen 67 mg/dL (8-26) Creatinine 2.9 mg/dL (0.7-1.3) Estimated GFR (Cockcroft-Gault) 22.0 Glucose Level 189 mg/dL (70-99) Calcium Level 8.3 mg/dL (8.5-10.1) Magnesium Level 2.1 mg/dL (1.8-2.4) Total Bilirubin 0.4 mg/dL (0.2-1.0) Direct Bilirubin 0.3 mg/dL (0.0-0.2) Aspartate Amino Transf (AST/SGOT) 399 U/L (15-37) Alanine Aminotransferase (ALT/SGPT) 660 U/L (16-63) Alkaline Phosphatase 112 U/L (46-116) Total Protein 6.1 g/dL (6.4-8.2) Albumin 2.7 g/dL (3.4-5.0) Medications Active Scripts Medications Dose Route/Sig Max Daily Dose Days Date Category Dose Instructions Vitamin D3-Aloe 1,000 Unit Tab (Ca Cmb 1/Vit D3/B-6/Fa/B12/Av) 1 Each Tablet 1 Each PO DAILY 04/22/20 Reported Tegretol (Carbamazepine) 200 Mg Tablet 0.5 Tab PO DAILY 04/22/20 Reported Klor-Con 10 (Potassium Chloride) 10 Meq Tablet.er 1 Tab PO DAILY 30 04/22/20 Reported Clopidogrel (Clopidogrel Bisulfate) 75 Mg Tablet 1 Tab PO DAILY 04/22/20 Reported NITROGLYCERIN SubLingual (Nitroglycerin) 0.4 Mg Tab.subl 0.4 Mg SL PRN Q5MIN PRN 04/22/20 Reported Once Daily (Multivitamin) 1 Each Tablet 1 Tab PO DAILY 30 04/22/20 Reported Ipratropium [place] 0.2 Mg/1 Ml Solution 1 Vial NEB PRN Q6HRS PRN 04/22/20 Reported Imodium A-D (Loperamide HCl) 2 Mg Capsule 1 Tab PO PRN PRN 04/22/20 Reported Folic Acid 0.8 Mg Capsule 1 Cap PO DAILY 30 04/22/20 Reported Ferrous Sulfate 325 Mg Tablet 1 Tab PO DAILY 04/22/20 Reported [place] (Deutetrabenazine) 6 Mg Tablet 1 Tab PO BID 30 04/22/20 Reported on hold 04/19-07/27 Albuterol Sulfate Neb Soln (Albuterol Sulfate) 0.63 Mg/3 Ml Vial.neb 1 Vial NEB QID PRN 04/22/20 Reported Metformin Hcl 500 Mg Tablet 500 Mg PO BIDWMEALS 04/22/20 Reported Furosemide 20 Mg Tablet 3 Tab PO DAILY 04/22/20 Reported Aspirin Ec (Aspirin) 81 Mg Tablet.dr 1 Tab PO DAILY 04/22/20 Reported Metoprolol Succinate ( Xl ) (Metoprolol Succinate) 25 Mg Tab.er.24h 1 Tab PO DAILY 04/22/20 Reported Atorvastatin Calcium 80 Mg Tablet 80 Mg PO QHS 04/22/20 Reported Keppra (Levetiracetam) 250 Mg Tablet 250 Mg PO BID 60 10/25/17 Rx Nicotine Gum (Nicotine Polacrilex) 4 Mg Gum 4 Mg BC 10/21/17 Reported Miconazole Nitrate 45 Gm Cream.appl 45 Gm TOP BID 10/21/17 Reported Risperdal (Risperidone) 2 Mg Tablet 1 Tab PO QHS 01/06/15 Reported Alum-Mag Hydroxide-Simeth Liq (Mag Hydrox/Al Hydrox/Simeth) 360 Ml Oral.susp 30 Ml PO PRN TID PRN 01/06/15 Reported Miralax (Polyethylene Glycol 3350) 17 Gm Powd.pack 1 Packet PO Q12HR PRN 01/06/15 Reported Isosorbide Mononitrate Er (Isosorbide Mononitrate) 30 Mg Tab.er.24h 1 Tab PO DAILY 01/06/15 Reported Risperdal (Risperidone) 1 Mg Tablet 1 Mg PO DAILY08 10/02/13 Reported Baclofen 10 Mg Tablet 5 Mg PO DAILY 10/02/13 Reported Wellbutrin Sr (Bupropion Hcl) 150 Mg Tablet.er 1 Tab PO DAILY 04/22/20 Reported Acetaminophen 325 Mg Tablet 2 Tab PO PRN Q6HRS PRN 30 04/22/20 Reported Impression . 1. Acute hypoxic respiratory failure secondary to congestive heart failure. 2. Abnormal chest x-ray with bilateral interstitial infiltrates most suggestive of congestive heart failure. 3. Low suspicion for COVID-19 pneumonia. 4. Acute kidney injury. Could be on chronic kidney disease. 5. Anemia. 6. Suspected underlying chronic obstructive pulmonary disease. Plan . 1. Continue present oxygen and wean gradually due to improvement in oxygenation with diuresis. 2. Obtain an echocardiogram. 3. Follow chest x-ray as needed 4. Follow cardiology recommendations. 5. Ruled out for COVID-19. 6. Renal recommendation. 7. Monitor hemoglobin closely. 8. Discussed with DINA REYNOLDS MD Apr 23, 2020 10:53
--- NOTE | 2020-04-23 11:30 | NUR ---
This RN called DPOA listed in paperwork from [facility], eunice Samuel at [phone]. Lissette stated that they were not aware that pt was admitted to the hospital. This RN stated that consents are needed for PICC line and blood transfusion. Lissette , Parrish told this RN that he was left all "responsibility" for Benjamín when his mother (Benoit sister) but now Benjamín's other sister's want to be involved in his care, therefore he wants to make sure that they are okay with proceeding with the PICC line and blood transfusion. They will call this RN back. Will continue to monitor.
--- NOTE | 2020-04-23 12:15 | NUR ---
Lissette Pink called this RN back and stated that all family members are "on board" with proceeding with PICC line and blood transfusion. Telephone consent received with second nurse verification- VJ Orellana.
--- NOTE | 2020-04-23 13:30 | NUR ---
Pt transferred to room 201. Report called to VJ Pemberton. Pt transported via bed. All belongings left with patient at the time of transfer. Lissette Pink notified of transfer.
[2020-04-23] MEDS: MILRINONE 20MG/100ML PREMIX 100 ML IV PRN (13:44)
--- NOTE | 2020-04-23 13:55 | CARD ---
MR#: [id number] Date of Study: 04/23/2020 Ordering Physician: JOSELINE SANTACRUZ, Referring Physician: JOSELINE SANTACRUZ, Tech: Mami Mccall [facility] APPROV[facility] REPORT EXAM: Two-dimensional and M-mode echocardiogram with Doppler and color Doppler. Other Information Quality : Good INDICATION Congestive Heart Failure 2D DIMENSIONS RVDd3.3 (2.9-3.5cm)Left Atrium(2D)4.7 (1.6-4.0cm) IVSd1.0 (0.7-1.1cm)Aortic Root(2D)2.5 (2.0-3.7cm) LVDd5.5 (3.9-5.9cm)LVOT Diameter2.0 (1.8-2.4cm) PWd0.8 (0.7-1.1cm)LVDs4.6 (2.5-4.0cm) FS (%) 7.5 %SV45.8 ml Aortic Valve AoV Peak Troy.89.2cm/sAoV VTI13.6cm AO Peak GR.3.2mmHgLVOT VTI 9.46cm AO Mean GR.2mmHgAVA (VTI)2.16cm2 Mitral Valve MV E Xammpbwe04.1cm/sMV DECEL [id number] MV A Zidpowxb40.1cm/sE/A Ratio3.2 TDI Lateral E' P. V2.64cm/sMedial E' P. V4.83cm/s E/Lateral E'36.0E/Medial E'19.7 Tricuspid Valve TR P. [id number]/sRAP [id number] TR Peak Gr.[id number] LEFT VENTRICLE The Left Ventricle is mildly dilated. There is normal left ventricular wall thickness. The ejection f raction is severely impaired. Left ventricular ejection fraction is 15 to 20%. There is severe global hypokinesis of the left ventricle. RIGHT VENTRICLE The right ventricle is normal size. The right ventricular systolic function is normal. ATRIA The left atrium is moderately dilated. The right atrium size is normal. The interatrial septum is int act with no evidence for an atrial septal defect or patent foramen ovale as noted on 2-D or Doppler i maging. AORTIC VALVE The aortic valve is mildly thickened but opens well. Doppler and Color Flow revealed no significant a ortic regurgitation. There is no significant aortic valvular stenosis. MITRAL VALVE The mitral valve is mildly thickened but opens well. There is no evidence of mitral valve prolapse. T here is no mitral valve stenosis. Doppler and Color-flow revealed moderate mitral regurgitation. TRICUSPID VALVE The tricuspid valve is normal in structure and function. Doppler and Color Flow revealed mild to mode rate tricuspid regurgitation. The PA pressure was estimated at 48 mmHg. There is no tricuspid valve s tenosis. PULMONIC VALVE The pulmonary valve is normal in structure and function. Doppler and Color Flow revealed trace to mil d pulmonic valvular regurgitation. There is no pulmonic valvular stenosis. GREAT VESSELS The aortic root is normal in size. The ascending aorta is normal in size. The IVC is dilated and rossy apses <50% with inspiration. PERICARDIAL EFFUSION There is no evidence of significant pericardial effusion. Critical Notification Critical Value: No <Conclusion> The Left Ventricle is mildly dilated. The ejection fraction is severely impaired. Left ventricular ejection fraction is 15 to 20%. There is severe global hypokinesis of the left ventricle. Doppler and Color Flow revealed no significant aortic regurgitation. There is no significant aortic valvular stenosis. Doppler and Color-flow revealed moderate mitral regurgitation. Doppler and Color Flow revealed mild to moderate tricuspid regurgitation. The PA pressure was estimated at 48 mmHg. Signed by : Ramesh Lazcano MD Electronically Approved : 04/23/2020 13:55:03
--- NOTE | 2020-04-23 14:43 | PDOC ---
[facility] CLERICAL OFFICE 04/23/20 1443: CARDIO Progress Notes Date and Time Date of Service 04/23/2020 Time of Evaluation 1140 Subjective Subjective: No Chest Pain, No Palpitations, Other (has SOA) Vitals Vitals Vital Signs Date Time Temp Pulse Resp B/P (MAP) Pulse Ox O2 Delivery O2 Flow Rate FiO2 04/23/20 11:13 96.6 72 18 109/72 (84) 100 Nasal Cannula 3.0 96.6 Weight Weight [ ] Input and Output Intake and Output Intake and Output 04/23/20 07:00 Intake Total 0 ml Output Total 1875 ml Balance -1875 ml Intake Oral 0 ml Output Urine Total 1875 ml Laboratory Labs Laboratory Tests Test 04/22/20 15:57 04/22/20 20:36 04/23/20 05:00 04/23/20 07:27 Glucose (Fingerstick) 185 mg/dL (70-99) 144 mg/dL (70-99) 148 mg/dL (70-99) White Blood Count 11.0 x10^3/uL (4.0-11.0) Red Blood Count 2.33 x10^6/uL (4.30-5.70) Hemoglobin 7.1 g/dL (13.0-17.5) Hematocrit 22.1 % (39.0-53.0) Mean Corpuscular Volume 95 fL (79-100) Mean Corpuscular Hemoglobin 30 pg (25-35) Mean Corpuscular Hemoglobin Concent 32 g/dL (31-37) Red Cell Distribution Width 19.6 % (11.5-14.5) Platelet Count 236 x10^3/uL (140-400) Sodium Level 139 mmol/L (136-145) Potassium Level 4.0 mmol/L (3.5-5.1) Chloride Level 102 mmol/L (98-107) Carbon Dioxide Level 23 mmol/L (21-32) Anion Gap 14 (6-14) Blood Urea Nitrogen 67 mg/dL (8-26) Creatinine 2.9 mg/dL (0.7-1.3) Estimated GFR (Cockcroft-Gault) 22.0 Glucose Level 189 mg/dL (70-99) Calcium Level 8.3 mg/dL (8.5-10.1) Magnesium Level 2.1 mg/dL (1.8-2.4) Total Bilirubin 0.4 mg/dL (0.2-1.0) Direct Bilirubin 0.3 mg/dL (0.0-0.2) Aspartate Amino Transf (AST/SGOT) 399 U/L (15-37) Alanine Aminotransferase (ALT/SGPT) 660 U/L (16-63) Alkaline Phosphatase 112 U/L (46-116) Total Protein 6.1 g/dL (6.4-8.2) Albumin 2.7 g/dL (3.4-5.0) Test 04/23/20 11:48 Glucose (Fingerstick) 147 mg/dL (70-99) Microbiology Micro Microbiology 04/21/20 Blood Culture - Preliminary, Resulted NO GROWTH AFTER 1 DAY Physical Exam HEENT: Neck Supple W Full Motion Chest: Symmetric LUNGS: Other (diminished) Heart: RRR (SR) Abdomen: Other (anasarca) Extremities: Other (2-3+ bilateral LE pitting edema) Neurology: alert, follow commands Assessment Assessment 1. Acute on chronic systolic/diastolic CHF/ICM: EF 15-20%. negative covid 2. Atypical chest pain: more from abdominal pain 3. Abdominal pain with severe transaminitis: improving. 4. Lactic acidosis: multifactorial with work of breathing contributing. Afebrile 5. 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 Mild troponin elevation: chronic RBBB no acute changes to EKG. Suspect type 2 7. Mild coagulopathy 8. Normocytic anemia: no obvious bleed. Hgb at 7.1 9. Severe debility with hx of Dementia/CVA/seizures/extremity contractures 10. CAD: see recent [facility] 06/2019 as above. 11. PAFIB: Maintaining SR. Deemed not a candidate for anticoagulation in the past 12. HTN: controlled 13. DM2 14. HLP 15. Possible cardiohepatorenal syndrome Recommendations 1. Lasix therapy, monitor BP trend 2. ASA, Plavix. Continue metoprolol 3. Hold nephrotoxic agents 4. He was seen briefly by our group few years back and has bben following with [facility] cardiology group. He has known ICM and complex CAD and CKD and significant discussion was made with him and his family per [facility] and due to his significant comorbid conditions and being high risk for any intervention he was deemed for medical therapy. Having said that further discussion would be needed in regards to his code status given the latter. Continue medical therapy 5. Continue optimization per GDMT. No metformin. 7. Will start lipitor at lower dose if LFTs are better. 8. Transfuse 1 unit today once milrinnone is started. Justicifation of Admission Dx: Justifications for Admission: Justification of Admission Dx: Yes NEDA SELLERS MD 04/23/20 2007: CARDIO Progress Notes Assessment Assessment Patient seen and examined. Agree with [employer]'s assessment and plan. Agree with adding milrinone for inotropic support and continuing diuretics for ac on chr syst HF Covid test negative 2D echo showed EF 15-20%. Slight trop elevation prob demand ischemia Recent cath with significant LMCA/LAD stenosis noted - agree with medical management for now PAF maintaining SR VIKA CAZARES APRN Apr 23, 2020 14:43 NEDA SELLERS MD Apr 23, 2020 20:07
[2020-04-23] MEDS ORDERED: FUROSEMIDE 40 MG/4 ML VIAL. IVP ONE (14:45)
--- NOTE | 2020-04-23 16:09 | RAD ---
Exam: Fluoroscopic and ultrasound guided right percutaneous inserted central venous catheter placement 04/23/2020 2:05 PM .Indication: IV PRESSORS Technique: Informed oral and written consent were obtained. The right upper extremity was prepped and draped using sterile barrier technique. All elements of maximal sterile barrier technique including the use of a cap, mask, sterile gown, sterile gloves, large sterile sheet, appropriate hand hygiene, and 2% chlorhexidine for cutaneous antisepsis (or acceptable alternative antiseptic per current guidelines) were followed for this procedure.. Real-time ultrasound demonstrated a patent right basilic vein which was prepped and draped in usual sterile fashion. 1% lidocaine used for local anesthesia. Using real-time ultrasound guidance the access needle percutaneously punctured the selected right basilic vein. Reference ultrasound images were saved to the medical record. A guidewire was advanced through the needle to the cavoatrial junction, and a peel-away sheath placed. The catheter was cut to length and inserted through the peel-away sheath such that its tip is at the cavoatrial junction. The wire and sheath were removed, and the catheter secured in place, and a sterile dressing was applied. Catheter was found to flush and aspirate normally. No immediate complications are identified. FLUORO TIME: 0.4 min DOSE AREA PRODUCT: 1 Gycm2 Impression: Ultrasound and fluoroscopically guided placement of a right upper extremity PICC line.
[2020-04-23] MEDS ORDERED: FUROSEMIDE 20 MG/2 ML VIAL. IVP ONE ×2 (17:00→22:30)
--- NOTE | 2020-04-23 17:08 | NUR ---
SW following. Reviewed chart and spoke with RN. Pt from LTC at [facility]. Pt transferred to [facility] to follow.
[2020-04-23 20:56] LABS: HEMATOCRIT 25.1 % (39.0-53.0); HEMOGLOBIN 8.3 g/dL (13.0-17.5)
[2020-04-23] MEDS: ATORVASTATIN CALCIUM 40 MG TABLET. PO SCH (22:17)
[2020-04-24 03:11] VITALS: BP 117/64
[2020-04-24] MEDS: HEPARIN for SUB-Q USE 5,000 UNIT/ML VIAL. SQ SCH ×3 (06:00→22:00)
[2020-04-24 06:05] LABS: CALCIUM 7.6 mg/dL (8.5-10.1); CREATININE 2.7 mg/dL (0.7-1.3); GFR 23.9; HEMOGLOBIN 7.9 g/dL (13.0-17.5)
--- NOTE | 2020-04-24 06:45 | NUR ---
heparin SQ held due to anemia
[2020-04-24 07:00] VITALS: BP 103/61
[2020-04-24] MEDS: INSULIN LISPRO 300 UNITS/3 ML VIAL. SQ SCH ×3 (08:00→17:00)
--- NOTE | 2020-04-24 10:04 | PDOC ---
PULMONARY PROGRESS NOTES DATE: 04/24/20 TIME: 10:01 Subjective Pt. transfer to [address] [place] [address] for primacor gtt no SOB, No CP, no cough No overnight concerns from nursing Vitals Vital Signs Date Time Temp Pulse Resp B/P (MAP) Pulse Ox O2 Delivery O2 Flow Rate FiO2 04/24/20 07:00 97.3 72 18 103/61 (75) 97 Room Air 97.3 04/23/20 23:00 4.0 ROS: No Nausea, No Chest Pain, No Abdominal Pain, No Increase Cough General: Alert, No acute distress Lungs: Clear Cardiovascular: S1 Abdomen: Soft Neuro Exam: Alert Extremities: Other (1+EDEMA) Labs Laboratory Tests Test 04/22/20 11:14 04/22/20 12:30 04/22/20 13:00 04/22/20 15:57 Glucose (Fingerstick) 132 mg/dL (70-99) 185 mg/dL (70-99) Magnesium Level 2.1 mg/dL (1.8-2.4) Iron Level 48 ug/dL (65-175) Total Iron Binding Capacity 242 ug/dL (250-450) Iron Saturation 20 % (15-34) Total Bilirubin 0.4 mg/dL (0.2-1.0) Direct Bilirubin 0.3 mg/dL (0.0-0.2) Aspartate Amino Transf (AST/SGOT) 465 U/L (15-37) Alanine Aminotransferase (ALT/SGPT) 629 U/L (16-63) Alkaline Phosphatase 105 U/L (46-116) Creatine Kinase 119 U/L (39-308) Troponin I Quantitative 0.046 ng/mL (0.000-0.055) Total Protein 6.5 g/dL (6.4-8.2) Albumin 2.6 g/dL (3.4-5.0) Vitamin B12 Level 1473 pg/mL (247-911) White Blood Count 9.0 x10^3/uL (4.0-11.0) Red Blood Count 2.35 x10^6/uL (4.30-5.70) Hemoglobin 7.3 g/dL (13.0-17.5) Hematocrit 23.3 % (39.0-53.0) Mean Corpuscular Volume 99 fL (79-100) Mean Corpuscular Hemoglobin 31 pg (25-35) Mean Corpuscular Hemoglobin Concent 31 g/dL (31-37) Red Cell Distribution Width 20.4 % (11.5-14.5) Platelet Count 227 x10^3/uL (140-400) Neutrophils (%) (Auto) 71 % (31-73) Lymphocytes (%) (Auto) 18 % (24-48) Monocytes (%) (Auto) 11 % (0-9) Eosinophils (%) (Auto) 0 % (0-3) Basophils (%) (Auto) 1 % (0-3) Neutrophils # (Auto) 6.4 x10^3/uL (1.8-7.7) Lymphocytes # (Auto) 1.6 x10^3/uL (1.0-4.8) Monocytes # (Auto) 1.0 x10^3/uL (0.0-1.1) Eosinophils # (Auto) 0.0 x10^3/uL (0.0-0.7) Basophils # (Auto) 0.0 x10^3/uL (0.0-0.2) Test 04/22/20 20:36 04/23/20 05:00 04/23/20 07:27 04/23/20 11:48 Glucose (Fingerstick) 144 mg/dL (70-99) 148 mg/dL (70-99) 147 mg/dL (70-99) White Blood Count 11.0 x10^3/uL (4.0-11.0) Red Blood Count 2.33 x10^6/uL (4.30-5.70) Hemoglobin 7.1 g/dL (13.0-17.5) Hematocrit 22.1 % (39.0-53.0) Mean Corpuscular Volume 95 fL (79-100) Mean Corpuscular Hemoglobin 30 pg (25-35) Mean Corpuscular Hemoglobin Concent 32 g/dL (31-37) Red Cell Distribution Width 19.6 % (11.5-14.5) Platelet Count 236 x10^3/uL (140-400) Sodium Level 139 mmol/L (136-145) Potassium Level 4.0 mmol/L (3.5-5.1) Chloride Level 102 mmol/L (98-107) Carbon Dioxide Level 23 mmol/L (21-32) Anion Gap 14 (6-14) Blood Urea Nitrogen 67 mg/dL (8-26) Creatinine 2.9 mg/dL (0.7-1.3) Estimated GFR (Cockcroft-Gault) 22.0 Glucose Level 189 mg/dL (70-99) Calcium Level 8.3 mg/dL (8.5-10.1) Magnesium Level 2.1 mg/dL (1.8-2.4) Total Bilirubin 0.4 mg/dL (0.2-1.0) Direct Bilirubin 0.3 mg/dL (0.0-0.2) Aspartate Amino Transf (AST/SGOT) 399 U/L (15-37) Alanine Aminotransferase (ALT/SGPT) 660 U/L (16-63) Alkaline Phosphatase 112 U/L (46-116) Total Protein 6.1 g/dL (6.4-8.2) Albumin 2.7 g/dL (3.4-5.0) Test 04/23/20 17:02 04/23/20 20:31 04/23/20 20:48 04/24/20 04:40 Glucose (Fingerstick) 111 mg/dL (70-99) 192 mg/dL (70-99) Hemoglobin 8.3 g/dL (13.0-17.5) 7.9 g/dL (13.0-17.5) Hematocrit 25.1 % (39.0-53.0) 23.0 % (39.0-53.0) Mean Corpuscular Hemoglobin Concent 33 g/dL (31-37) 34 g/dL (31-37) Sodium Level 139 mmol/L (136-145) Potassium Level 3.0 mmol/L (3.5-5.1) Chloride Level 101 mmol/L (98-107) Carbon Dioxide Level 27 mmol/L (21-32) Anion Gap 11 (6-14) Blood Urea Nitrogen 66 mg/dL (8-26) Creatinine 2.7 mg/dL (0.7-1.3) Estimated GFR (Cockcroft-Gault) 23.9 Glucose Level 150 mg/dL (70-99) Calcium Level 7.6 mg/dL (8.5-10.1) Magnesium Level 2.0 mg/dL (1.8-2.4) Test 04/24/20 07:28 Glucose (Fingerstick) 154 mg/dL (70-99) Laboratory Tests Test 04/23/20 11:48 04/23/20 17:02 04/23/20 20:31 04/23/20 20:48 Glucose (Fingerstick) 147 mg/dL (70-99) 111 mg/dL (70-99) 192 mg/dL (70-99) Hemoglobin 8.3 g/dL (13.0-17.5) Hematocrit 25.1 % (39.0-53.0) Mean Corpuscular Hemoglobin Concent 33 g/dL (31-37) Test 04/24/20 04:40 04/24/20 07:28 Hemoglobin 7.9 g/dL (13.0-17.5) Hematocrit 23.0 % (39.0-53.0) Mean Corpuscular Hemoglobin Concent 34 g/dL (31-37) Sodium Level 139 mmol/L (136-145) Potassium Level 3.0 mmol/L (3.5-5.1) Chloride Level 101 mmol/L (98-107) Carbon Dioxide Level 27 mmol/L (21-32) Anion Gap 11 (6-14) Blood Urea Nitrogen 66 mg/dL (8-26) Creatinine 2.7 mg/dL (0.7-1.3) Estimated GFR (Cockcroft-Gault) 23.9 Glucose Level 150 mg/dL (70-99) Calcium Level 7.6 mg/dL (8.5-10.1) Magnesium Level 2.0 mg/dL (1.8-2.4) Glucose (Fingerstick) 154 mg/dL (70-99) Medications Active Scripts Medications Dose Route/Sig Max Daily Dose Days Date Category Dose Instructions Vitamin D3-Aloe 1,000 Unit Tab (Ca Cmb 1/Vit D3/B-6/Fa/B12/Av) 1 Each Tablet 1 Each PO DAILY 04/22/20 Reported Tegretol (Carbamazepine) 200 Mg Tablet 0.5 Tab PO DAILY 04/22/20 Reported Klor-Con 10 (Potassium Chloride) 10 Meq Tablet.er 1 Tab PO DAILY 30 04/22/20 Reported Clopidogrel (Clopidogrel Bisulfate) 75 Mg Tablet 1 Tab PO DAILY 04/22/20 Reported NITROGLYCERIN SubLingual (Nitroglycerin) 0.4 Mg Tab.subl 0.4 Mg SL PRN Q5MIN PRN 04/22/20 Reported Once Daily (Multivitamin) 1 Each Tablet 1 Tab PO DAILY 30 04/22/20 Reported Ipratropium [place] 0.2 Mg/1 Ml Solution 1 Vial NEB PRN Q6HRS PRN 04/22/20 Reported Imodium A-D (Loperamide HCl) 2 Mg Capsule 1 Tab PO PRN PRN 04/22/20 Reported Folic Acid 0.8 Mg Capsule 1 Cap PO DAILY 30 04/22/20 Reported Ferrous Sulfate 325 Mg Tablet 1 Tab PO DAILY 04/22/20 Reported [place] (Deutetrabenazine) 6 Mg Tablet 1 Tab PO BID 30 04/22/20 Reported on hold 04/19-07/27 Albuterol Sulfate Neb Soln (Albuterol Sulfate) 0.63 Mg/3 Ml Vial.neb 1 Vial NEB QID PRN 04/22/20 Reported Metformin Hcl 500 Mg Tablet 500 Mg PO BIDWMEALS 04/22/20 Reported Furosemide 20 Mg Tablet 3 Tab PO DAILY 04/22/20 Reported Aspirin Ec (Aspirin) 81 Mg Tablet.dr 1 Tab PO DAILY 04/22/20 Reported Metoprolol Succinate ( Xl ) (Metoprolol Succinate) 25 Mg Tab.er.24h 1 Tab PO DAILY 04/22/20 Reported Atorvastatin Calcium 80 Mg Tablet 80 Mg PO QHS 04/22/20 Reported Keppra (Levetiracetam) 250 Mg Tablet 250 Mg PO BID 60 10/25/17 Rx Nicotine Gum (Nicotine Polacrilex) 4 Mg Gum 4 Mg BC 10/21/17 Reported Miconazole Nitrate 45 Gm Cream.appl 45 Gm TOP BID 10/21/17 Reported Risperdal (Risperidone) 2 Mg Tablet 1 Tab PO QHS 01/06/15 Reported Alum-Mag Hydroxide-Simeth Liq (Mag Hydrox/Al Hydrox/Simeth) 360 Ml Oral.susp 30 Ml PO PRN TID PRN 01/06/15 Reported Miralax (Polyethylene Glycol 3350) 17 Gm Powd.pack 1 Packet PO Q12HR PRN 01/06/15 Reported Isosorbide Mononitrate Er (Isosorbide Mononitrate) 30 Mg Tab.er.24h 1 Tab PO DAILY 01/06/15 Reported Risperdal (Risperidone) 1 Mg Tablet 1 Mg PO DAILY08 10/02/13 Reported Baclofen 10 Mg Tablet 5 Mg PO DAILY 10/02/13 Reported Wellbutrin Sr (Bupropion Hcl) 150 Mg Tablet.er 1 Tab PO DAILY 04/22/20 Reported Acetaminophen 325 Mg Tablet 2 Tab PO PRN Q6HRS PRN 30 04/22/20 Reported Comments IMPRESSION: 1. Small pleural effusions and mild pulmonary edema are slightly increased. <Conclusion> The Left Ventricle is mildly dilated. The ejection fraction is severely impaired. Left ventricular ejection fraction is 15 to 20%. There is severe global hypokinesis of the left ventricle. Doppler and Color Flow revealed no significant aortic regurgitation. There is no significant aortic valvular stenosis. Doppler and Color-flow revealed moderate mitral regurgitation. Doppler and Color Flow revealed mild to moderate tricuspid regurgitation. The PA pressure was estimated at 48 mmHg. Impression . 1. Acute hypoxic respiratory failure secondary to congestive heart failure. 2. Abnormal chest x-ray with bilateral interstitial infiltrates most suggestive of congestive heart failure.-- resolved 3. Low suspicion for COVID-19 pneumonia. 4. Acute kidney injury. Could be on chronic kidney disease.--ongoing 5. Anemia. 6. Suspected underlying chronic obstructive pulmonary disease. Plan . 1. Continue present oxygen and wean gradually due to improvement in oxygenation with diuresis, currently on room air 2. Echocardiogram reviewed --Left ventricular ejection fraction is 15 to 20%. 3. Follow chest x-ray as needed 4. Follow cardiology recommendations, now on primacor gtt 5. COVID-19. NEG DVT/GI PPX Discussed with DINA REYNOLDS MD Apr 24, 2020 10:04
[2020-04-24] MEDS: FERROUS SULFATE 325 MG TABLET. PO SCH (10:18)
[2020-04-24] MEDS: levETIRAcetam 250 MG TABLET PO SCH ×2 (10:18→20:44)
[2020-04-24] MEDS: CLOPIDOGREL BISULFATE 75 MG TABLET PO SCH (10:18)
[2020-04-24] MEDS: carBAMazepine 200 MG TABLET PO SCH (10:19)
[2020-04-24] MEDS: ASPIRIN ENTERIC COATED 81 MG TABLET.DR. PO SCH (10:19)
[2020-04-24] MEDS: ISOSORBIDE MONONITRATE ER 30 MG TAB.ER.24H PO SCH (10:19)
[2020-04-24] MEDS: risperiDONE 1 MG TABLET. PO SCH ×2 (10:19→20:44)
[2020-04-24] MEDS: PANTOPRAZOLE 40 MG TABLET.DR. PO SCH (10:19)
[2020-04-24] MEDS: buPROPion SR 150 MG TABLET.SA PO SCH (10:20)
[2020-04-24] MEDS: FUROSEMIDE 40 MG/4 ML VIAL. IVP SCH (10:20)
[2020-04-24] MEDS: METOPROLOL SUCC 24HR ER 25 MG TAB.ER.24H. PO SCH (10:21)
[2020-04-24] MEDS: POTASSIUM CHLORIDE 20MEQ 100 ML IV SCH ×2 (10:22→12:23)
[2020-04-24 11:00] VITALS: BP 104/69
--- NOTE | 2020-04-24 12:59 | NUR ---
SS following up with discharge planning. SS reviewed pt chart and discussed with pt RN. Pt is LTC resident from [facility], ; fax [phone]. COVID19 negative. Pt currently on room air. Pt on Milrinone drip. SS will continue to follow for discharge planning.
--- NOTE | 2020-04-24 12:59 | PDOC ---
Date of Service: DATE: 04/24/20 TIME: 12:57 Subjective: Subjective: Breathing better, eating lunch. Objective: Vital Signs: Vital Signs Date Time Temp Pulse Resp B/P (MAP) Pulse Ox O2 Delivery O2 Flow Rate FiO2 04/24/20 11:00 98.3 79 20 104/69 (81) 97 Room Air 98.3 04/23/20 23:00 4.0 Labs: Laboratory Tests Test 04/23/20 17:02 04/23/20 20:31 04/23/20 20:48 04/24/20 04:40 Glucose (Fingerstick) 111 mg/dL 192 mg/dL Hemoglobin 8.3 g/dL 7.9 g/dL Hematocrit 25.1 % 23.0 % Mean Corpuscular Hemoglobin Concent 33 g/dL 34 g/dL Sodium Level 139 mmol/L Potassium Level 3.0 mmol/L Chloride Level 101 mmol/L Carbon Dioxide Level 27 mmol/L Anion Gap 11 Blood Urea Nitrogen 66 mg/dL Creatinine 2.7 mg/dL Estimated GFR (Cockcroft-Gault) 23.9 Glucose Level 150 mg/dL Calcium Level 7.6 mg/dL Magnesium Level 2.0 mg/dL Test 04/24/20 07:28 04/24/20 11:47 Glucose (Fingerstick) 154 mg/dL 184 mg/dL Imaging: Echo 04/23 <Conclusion> The Left Ventricle is mildly dilated. The ejection fraction is severely impaired. Left ventricular ejection fraction is 15 to 20%. There is severe global hypokinesis of the left ventricle. Doppler and Color Flow revealed no significant aortic regurgitation. There is no significant aortic valvular stenosis. Doppler and Color-flow revealed moderate mitral regurgitation. Doppler and Color Flow revealed mild to moderate tricuspid regurgitation. The PA pressure was estimated at 48 mmHg. PE: GEN: chronically ill, NAD LUNGS: diminished HEART: RRR ABD: non-tender NEURO/PSYCH: A & O 3 - more talkative today, family present A/P: CHF, resp failure Elevated AST and ALT - suspect related to CHF -- Can recheck LFTs tomorrow. Justicifation of Admission Dx: Justifications for Admission: Justification of Admission Dx: Yes REJI OWENS Apr 24, 2020 12:59
--- NOTE | 2020-04-24 13:22 | PDOC ---
VIKA CAZARES CLIPPING MARKER 04/24/20 1322: CARDIO Progress Notes Date and Time Date of Service 04/24/2020 Time of Evaluation 0950 Subjective Subjective: No Chest Pain, No shortness of breath, No Palpitations Vitals Vitals Vital Signs Date Time Temp Pulse Resp B/P (MAP) Pulse Ox O2 Delivery O2 Flow Rate FiO2 04/24/20 11:00 98.3 79 20 104/69 (81) 97 Room Air 98.3 04/23/20 23:00 4.0 Weight Weight [ ] Input and Output Intake and Output Intake and Output 04/24/20 07:00 Intake Total 990 ml Output Total 2850 ml Balance -1860 ml Intake Oral 640 ml Blood Product IV Normal Saline Flush 350 ml Output Urine Total 2850 ml Laboratory Labs Laboratory Tests Test 04/23/20 17:02 04/23/20 20:31 04/23/20 20:48 04/24/20 04:40 Glucose (Fingerstick) 111 mg/dL (70-99) 192 mg/dL (70-99) Hemoglobin 8.3 g/dL (13.0-17.5) 7.9 g/dL (13.0-17.5) Hematocrit 25.1 % (39.0-53.0) 23.0 % (39.0-53.0) Mean Corpuscular Hemoglobin Concent 33 g/dL (31-37) 34 g/dL (31-37) Sodium Level 139 mmol/L (136-145) Potassium Level 3.0 mmol/L (3.5-5.1) Chloride Level 101 mmol/L (98-107) Carbon Dioxide Level 27 mmol/L (21-32) Anion Gap 11 (6-14) Blood Urea Nitrogen 66 mg/dL (8-26) Creatinine 2.7 mg/dL (0.7-1.3) Estimated GFR (Cockcroft-Gault) 23.9 Glucose Level 150 mg/dL (70-99) Calcium Level 7.6 mg/dL (8.5-10.1) Magnesium Level 2.0 mg/dL (1.8-2.4) Test 04/24/20 07:28 04/24/20 11:47 Glucose (Fingerstick) 154 mg/dL (70-99) 184 mg/dL (70-99) Microbiology Micro Microbiology 04/21/20 Blood Culture - Preliminary, Resulted NO GROWTH AFTER 2 DAYS Physical Exam HEENT: Neck Supple W Full Motion Chest: Symmetric LUNGS: Other (diminished) Heart: RRR (SR) Abdomen: Other (anasarca) Extremities: No Edema Neurology: alert, follow commands Assessment Assessment 1. Acute on chronic systolic/diastolic CHF/ICM: EF 15-20%. negative covid. SOA better 2. Atypical chest pain: more from abdominal pain 3. Abdominal pain with severe transaminitis: improving. 4. Lactic acidosis: multifactorial with work of breathing contributing. Afebrile 5. 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 Mild troponin elevation: chronic RBBB no acute changes to EKG. Suspect type 2 7. Mild coagulopathy 8. Normocytic anemia: no obvious bleed. Post transfusion Hgb now at 7.9 9. Severe debility with hx of Dementia/CVA/seizures/extremity contractures 10. CAD: see recent [facility] 06/2019 as above. 11. PAFIB: Maintaining SR. Deemed not a candidate for anticoagulation in the past 12. HTN: controlled 13. DM2 14. HLP 15. Cardiohepatorenal syndrome Recommendations 1. Lasix therapy, Milrinone, monitor BP trend 2. ASA, Plavix. Continue metoprolol per BP trend 3. Hold nephrotoxic agents 4. He was seen briefly by our group few years back and has bben following with [facility] cardiology group. He has known ICM and complex CAD and CKD and significant discussion was made with him and his family per [facility] and due to his significant comorbid conditions and being high risk for any intervention he was deemed for medical therapy. Having said that further discussion would be needed in regards to his code status given the latter. Continue medical therapy 5. Continue optimization per GDMT. No metformin. 7. Will start lipitor at lower dose if LFTs are better. Justicifation of Admission Dx: Justifications for Admission: Justification of Admission Dx: Yes NEDA SELLERS MD 04/24/20 1527: CARDIO Progress Notes Assessment Assessment Patient seen and examined. Agree with [employer] INSPECTOR's assessment and plan. Acute on chronic systolic heart failure better compensated with diuresis and in otropic support with milrinone LVEF 15 to 20% on 2D echo Slight troponin elevation probably demand ischemia Recent cardiac catheterization showed significant LMCA and LAD stenoses, managed conservatively secondary to his comorbidities PAF maintaining sinus rhythm Continue current medical regimen VIKA CAZARES APRN Apr 24, 2020 13:22 NEDA SELLERS MD Apr 24, 2020 15:27
--- NOTE | 2020-04-24 13:29 | PDOC ---
PROGRESS NOTES Date of Service: DATE: 04/24/20 TIME: 13:27 Chief Complaint Chief Complaint A/P: Acute hypoxic respiratory failure secondary to congestive heart failure vs low suspicion for pneumonia or COVID 19, will await COVID 19 results. Diurese. Cardiology and pulmonology consulted Acute kidney injury - likely vasomotor nephropathy from cardiorenal syndrome, will diurese for fluid overload. Could be on chronic kidney disease. Acute Anemia - Hb 7.6, will trend Hb and transfuse if Hb < 7. Type and screen Transaminitis - likely congestive hepatopathy from right sided heart failure. Will consult GI given his epigastric pain complaints, anemia, and transaminitis, however Urinary retention - likely with BPH, mccoy placed for strict I/O with his acute CHF. H/o atrial fibrillation - sinus rhythm currently. On BB, not on anticoagulation Acute diastolic CHF - will diurese. Cardiology consulted. Cont BB, imdur, hydralazine. With Cr not on CRIS or ARB. Constipation - cont miralax H/o CVA - with residual contractures, speech deficits. 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 Depression - cont meds Type 2 diabetes - will place on sliding scale Epilepsy - cont seizure meds PVD - cont plavix FEN - cardiac soft diet (missing bottom dentures) PPX - Heparin FULL CODE Dispo - inpatient for acute CHF at least 2 midnights History of Present Illness History of Present Illness Mr Jones is a 64 year old male alf [facility] resident with PMHx atrial fibrillation, anemia, CHF, constipation, CVA, depression, type 2 diabetes, stroke, UTI, epilepsy, PVD.who presents with complaints of epigastric abdominal pain as well as chest pain and shortness of breath. Notable for RR 44 breaths/min with accessory muscle use. Per his facility he has been progressively more short of breath recently. However he did deny any fever or chills. He reports he has no cough. He denied vomiting, diarrhea, melena or hematochezia. He states his pain is in his abd omen, 6/10. Chest x-ray with bilateral interstitial infiltrates. BNP greater than 35,000, Hb 7.4, WBC 10, platelets 245, lactate 3.9, albumin 2.8, NA 139, K4.7, BUN 54, CR 2.6, AST 926, ALT 725. INR 1.5. ABG on room air 7.39/33/less than 42, placed on 3 L nasal cannulated oxygen ABG 7.41/29/163. EKG with heart rate 82 bpm, normal sinus rhythm, left atrial enlargement, incomplete right bundle branch block. Admitted for further treatment. 04/23 Hemoglobin dropped to 7.1. COVID-19 negative. Still requiring O2, very short of breath. 04/24 Patient's heparin currently on hold given findings of anemia. Still on milrinone Plan: will give magnesium and albuterol for bronchospasm Vitals Vitals Vital Signs Date Time Temp Pulse Resp B/P (MAP) Pulse Ox O2 Delivery O2 Flow Rate FiO2 04/24/20 11:00 98.3 79 20 104/69 (81) 97 Room Air 98.3 04/23/20 23:00 4.0 Physical Exam General: Alert, Cooperative, No acute distress Heart: Regular rate (SR), Other (distant heart sounds) Lungs: Clear Abdomen: Normal bowel sounds, Soft, No tenderness, No hepatosplenomegaly, No masses Extremities: No cyanosis, Other (2+ bilateral LE pitting edema; hand contractures) Skin: No rashes Labs LABS Laboratory Tests Test 04/23/20 17:02 04/23/20 20:31 04/23/20 20:48 04/24/20 04:40 Glucose (Fingerstick) 111 mg/dL (70-99) 192 mg/dL (70-99) Hemoglobin 8.3 g/dL (13.0-17.5) 7.9 g/dL (13.0-17.5) Hematocrit 25.1 % (39.0-53.0) 23.0 % (39.0-53.0) Mean Corpuscular Hemoglobin Concent 33 g/dL (31-37) 34 g/dL (31-37) Sodium Level 139 mmol/L (136-145) Potassium Level 3.0 mmol/L (3.5-5.1) Chloride Level 101 mmol/L (98-107) Carbon Dioxide Level 27 mmol/L (21-32) Anion Gap 11 (6-14) Blood Urea Nitrogen 66 mg/dL (8-26) Creatinine 2.7 mg/dL (0.7-1.3) Estimated GFR (Cockcroft-Gault) 23.9 Glucose Level 150 mg/dL (70-99) Calcium Level 7.6 mg/dL (8.5-10.1) Magnesium Level 2.0 mg/dL (1.8-2.4) Test 04/24/20 07:28 04/24/20 11:47 Glucose (Fingerstick) 154 mg/dL (70-99) 184 mg/dL (70-99) Assessment and Plan Assessmemt and Plan Problems Medical Problems: (1) Acute respiratory distress Status: Acute (2) Acute systolic (congestive) heart failure Status: Acute Comment Review of Relevant I have reviewed the following items hair (where applicable) has been applied. Labs Laboratory Tests Test 04/22/20 15:57 04/22/20 20:36 04/23/20 05:00 04/23/20 07:27 Glucose (Fingerstick) 185 mg/dL (70-99) 144 mg/dL (70-99) 148 mg/dL (70-99) White Blood Count 11.0 x10^3/uL (4.0-11.0) Red Blood Count 2.33 x10^6/uL (4.30-5.70) Hemoglobin 7.1 g/dL (13.0-17.5) Hematocrit 22.1 % (39.0-53.0) Mean Corpuscular Volume 95 fL (79-100) Mean Corpuscular Hemoglobin 30 pg (25-35) Mean Corpuscular Hemoglobin Concent 32 g/dL (31-37) Red Cell Distribution Width 19.6 % (11.5-14.5) Platelet Count 236 x10^3/uL (140-400) Sodium Level 139 mmol/L (136-145) Potassium Level 4.0 mmol/L (3.5-5.1) Chloride Level 102 mmol/L (98-107) Carbon Dioxide Level 23 mmol/L (21-32) Anion Gap 14 (6-14) Blood Urea Nitrogen 67 mg/dL (8-26) Creatinine 2.9 mg/dL (0.7-1.3) Estimated GFR (Cockcroft-Gault) 22.0 Glucose Level 189 mg/dL (70-99) Calcium Level 8.3 mg/dL (8.5-10.1) Magnesium Level 2.1 mg/dL (1.8-2.4) Total Bilirubin 0.4 mg/dL (0.2-1.0) Direct Bilirubin 0.3 mg/dL (0.0-0.2) Aspartate Amino Transf (AST/SGOT) 399 U/L (15-37) Alanine Aminotransferase (ALT/SGPT) 660 U/L (16-63) Alkaline Phosphatase 112 U/L (46-116) Total Protein 6.1 g/dL (6.4-8.2) Albumin 2.7 g/dL (3.4-5.0) Test 04/23/20 11:48 04/23/20 17:02 04/23/20 20:31 04/23/20 20:48 Glucose (Fingerstick) 147 mg/dL (70-99) 111 mg/dL (70-99) 192 mg/dL (70-99) Hemoglobin 8.3 g/dL (13.0-17.5) Hematocrit 25.1 % (39.0-53.0) Mean Corpuscular Hemoglobin Concent 33 g/dL (31-37) Test 04/24/20 04:40 04/24/20 07:28 04/24/20 11:47 Hemoglobin 7.9 g/dL (13.0-17.5) Hematocrit 23.0 % (39.0-53.0) Mean Corpuscular Hemoglobin Concent 34 g/dL (31-37) Sodium Level 139 mmol/L (136-145) Potassium Level 3.0 mmol/L (3.5-5.1) Chloride Level 101 mmol/L (98-107) Carbon Dioxide Level 27 mmol/L (21-32) Anion Gap 11 (6-14) Blood Urea Nitrogen 66 mg/dL (8-26) Creatinine 2.7 mg/dL (0.7-1.3) Estimated GFR (Cockcroft-Gault) 23.9 Glucose Level 150 mg/dL (70-99) Calcium Level 7.6 mg/dL (8.5-10.1) Magnesium Level 2.0 mg/dL (1.8-2.4) Glucose (Fingerstick) 154 mg/dL (70-99) 184 mg/dL (70-99) Laboratory Tests Test 04/23/20 17:02 04/23/20 20:31 04/23/20 20:48 04/24/20 04:40 Glucose (Fingerstick) 111 mg/dL (70-99) 192 mg/dL (70-99) Hemoglobin 8.3 g/dL (13.0-17.5) 7.9 g/dL (13.0-17.5) Hematocrit 25.1 % (39.0-53.0) 23.0 % (39.0-53.0) Mean Corpuscular Hemoglobin Concent 33 g/dL (31-37) 34 g/dL (31-37) Sodium Level 139 mmol/L (136-145) Potassium Level 3.0 mmol/L (3.5-5.1) Chloride Level 101 mmol/L (98-107) Carbon Dioxide Level 27 mmol/L (21-32) Anion Gap 11 (6-14) Blood Urea Nitrogen 66 mg/dL (8-26) Creatinine 2.7 mg/dL (0.7-1.3) Estimated GFR (Cockcroft-Gault) 23.9 Glucose Level 150 mg/dL (70-99) Calcium Level 7.6 mg/dL (8.5-10.1) Magnesium Level 2.0 mg/dL (1.8-2.4) Test 04/24/20 07:28 04/24/20 11:47 Glucose (Fingerstick) 154 mg/dL (70-99) 184 mg/dL (70-99) Microbiology 04/21/20 Blood Culture - Preliminary, Resulted NO GROWTH AFTER 2 DAYS Medications Current Medications Ipratropium [place] (Atrovent) 1 mg 1X ONCE NEB Last administered on 04/21/20at 20:25; Start 04/21/20 at 19:15; Stop 04/21/20 at 19:16; Status DC Methylprednisolone Sodium Succinate (SOLU-Medrol 125MG VIAL) 125 mg 1X ONCE IV Last administered on 04/21/20at 19:17; Start 04/21/20 at 19:15; Stop 04/21/20 at 19:16; Status DC Albuterol Sulfate (Ventolin Neb Soln) 10 mg 1X ONCE CONT NEB Last administered on 04/21/20at 20:25; Start 04/21/20 at 19:15; Stop 04/21/20 at 19:16; Status DC Sodium Chloride 500 ml @ 500 mls/hr 1X ONCE IV Last administered on 04/21/20at 19:20; Start 04/21/20 at 19:15; Stop 04/21/20 at 20:14; Status DC Famotidine (Pepcid) 20 mg 1X ONCE PO Last administered on 04/21/20at 19:15; Start 04/21/20 at 19:15; Stop 04/21/20 at 19:16; Status DC Al Hydroxide/Mg Hydroxide (Mylanta Plus Xs) 30 ml 1X ONCE PO Last administered on 04/21/20at 19:15; Start 04/21/20 at 19:15; Stop 04/21/20 at 19:16; Status DC Metoclopramide HCl (Reglan Vial) 5 mg 1X ONCE IVP Last administered on 04/21/20at 19:16; Start 04/21/20 at 19:15; Stop 04/21/20 at 19:16; Status DC Aspirin (Aspirin Chewable) 162 mg 1X ONCE PO Last administered on 04/21/20at 21:28; Start 04/21/20 at 20:45; Stop 04/21/20 at 20:46; Status DC Furosemide (Lasix) 80 mg 1X ONCE IVP Last administered on 04/21/20at 22:48; Start 04/21/20 at 22:30; Stop 04/21/20 at 22:31; Status DC Furosemide (Lasix) 40 mg 1X ONCE IVP Last administered on 04/22/20at 15:04; Start 04/22/20 at 10:30; Stop 04/22/20 at 10:32; Status DC Pantoprazole Sodium (Protonix) 40 mg DAILYAC PO Last administered on 04/24/20at 10:19; Start 04/23/20 at 07:30 Acetaminophen (Tylenol) 650 mg PRN Q6HRS PRN PO pain or fever; Start 04/22/20 at 12:45 Aspirin (Ecotrin) 81 mg DAILY PO Last administered on 04/24/20at 10:19; Start 04/22/20 at 13:00 Bupropion HCl (Wellbutrin Sr) 150 mg DAILY PO Last administered on 04/24/20at 10:20; Start 04/22/20 at 13:00 Carbamazepine (TEGretol) 100 mg DAILY PO Last administered on 04/24/20at 10:19; Start 04/22/20 at 13:00 Clopidogrel Bisulfate (Plavix) 75 mg DAILY PO Last administered on 04/24/20 10:18; Start 04/22/20 at 13:00 Ferrous Sulfate (Feosol) 325 mg DAILY PO Last administered on 04/24/20 10:18; Start 04/22/20 at 13:00 Isosorbide Mononitrate (Imdur) 30 mg DAILY PO Last administered on 04/24/20 10:19; Start 04/22/20 at 13:00 Levetiracetam (Keppra) 250 mg BID PO Last administered on 04/24/20 10:18; Start 04/22/20 at 13:00 Loperamide HCl (Imodium) 2 mg PRN Q4HRS PRN PO DIARRHEA; Start 04/22/20 at 12:45 Metoprolol Succinate (Toprol Xl) 25 mg DAILY PO Last administered on 04/24/20at 10:21; Start 04/22/20 at 12:45 Nitroglycerin (Nitrostat) 0.4 mg PRN Q5MIN PRN SL CHEST PAIN; Start 04/22/20 at 12:45 Polyethylene Glycol (miraLAX PACKET) 17 gm Q12HR PRN PO CONSTIPATION; Start 04/22/20 at 12:45 Risperidone (RisperDAL) 1 mg DAILY08 PO Last administered on 04/24/20at 10:19; Start 04/22/20 at 13:00 Atorvastatin Calcium (Lipitor) 80 mg QHS PO Last administered on 04/23/20at 22:17; Start 04/22/20 at 21:00 Non-Formulary Medication (Deutetrabenazine (Austedo)) 1 tab BID PO ; Start 04/22/20 at 21:00; Stop 04/22/20 at 16:39; Status DC Risperidone (RisperDAL) 2 mg QHS PO Last administered on 04/23/20at 22:17; Start 04/22/20 at 21:00 Heparin Sodium (Porcine) (Heparin Sodium) 5,000 unit Q8HRS SQ Last administered on 04/23/20at 06:17; Start 04/22/20 at 14:00 Insulin Human Lispro (HumaLOG) 0-5 UNITS TIDWMEALS SQ ; Start 04/22/20 at 17:00 Dextrose (Dextrose 50%-Water Syringe) 12.5 gm PRN Q15MIN PRN IV SEE COMMENTS; Start 04/22/20 at 13:00 Metoprolol Succinate (Toprol Xl) 25 mg DAILY PO ; Start 04/23/20 at 09:00; Stop 04/22/20 at 13:01; Status DC Aspirin (Ecotrin) 81 mg DAILYWBKFT PO ; Start 04/23/20 at 08:00; Stop 04/22/20 at 13:02; Status DC Furosemide (Lasix) 40 mg DAILY IVP Last administered on 04/24/20at 10:20; Start 04/23/20 at 09:00 Milrinone Lactate/ Dextrose 100 ml @ 2.888 mls/ hr CONT PRN IV SEE I/O RECORD Last administered on 04/23/20at 13:44; Start 04/23/20 at 10:30 Furosemide (Lasix) 40 mg 1X ONCE IVP Last administered on 04/23/20at 16:08; Start 04/23/20 at 14:45; Stop 04/23/20 at 14:46; Status DC Furosemide (Lasix) 20 mg 1X ONCE IVP ; Start 04/23/20 at 17:00; Stop 04/23/20 at 17:01; Status DC Furosemide (Lasix) 20 mg 1X ONCE IVP Last administered on 04/23/20at 22:53; Start 04/23/20 at 22:30; Stop 04/23/20 at 22:31; Status DC Potassium Chloride/Water 100 ml @ 100 mls/hr Q1H IV Last administered on 04/24/20at 12:23; Start 04/24/20 at 08:00; Stop 04/24/20 at 09:59; Status DC Furosemide (Lasix) 40 mg 1X ONCE IVP ; Start 04/24/20 at 16:00; Stop 04/24/20 at 16:01 Active Scripts Active Keppra (Levetiracetam) 250 Mg Tablet 250 Mg PO BID 60 Days Reported Vitamin D3-Aloe 1,000 Unit Tab (Ca Cmb 1/Vit D3/B-6/Fa/B12/Av) 1 Each Tablet 1 Each PO DAILY Tegretol (Carbamazepine) 200 Mg Tablet 0.5 Tab PO DAILY Klor-Con 10 (Potassium Chloride) 10 Meq Tablet.er 1 Tab PO DAILY 30 Days Clopidogrel (Clopidogrel Bisulfate) 75 Mg Tablet 1 Tab PO DAILY NITROGLYCERIN SubLingual (Nitroglycerin) 0.4 Mg Tab.subl 0.4 Mg SL PRN Q5MIN PRN Once Daily (Multivitamin) 1 Each Tablet 1 Tab PO DAILY 30 Days Ipratropium [place] 0.2 Mg/1 Ml Solution 1 Vial NEB PRN Q6HRS PRN Imodium A-D (Loperamide HCl) 2 Mg Capsule 1 Tab PO PRN PRN Folic Acid 0.8 Mg Capsule 1 Cap PO DAILY 30 Days Ferrous Sulfate 325 Mg Tablet 1 Tab PO DAILY [place] (Deutetrabenazine) 6 Mg Tablet 1 Tab PO BID 30 Days on hold 04/19-07/27 Albuterol Sulfate Neb Soln (Albuterol Sulfate) 0.63 Mg/3 Ml Vial.neb 1 Vial NEB QID PRN Metformin Hcl 500 Mg Tablet 500 Mg PO BIDWMEALS Furosemide 20 Mg Tablet 3 Tab PO DAILY Aspirin Ec (Aspirin) 81 Mg Tablet.dr 1 Tab PO DAILY Metoprolol Succinate ( Xl ) (Metoprolol Succinate) 25 Mg Tab.er.24h 1 Tab PO DAILY Atorvastatin Calcium 80 Mg Tablet 80 Mg PO QHS Nicotine Gum (Nicotine Polacrilex) 4 Mg Gum 4 Mg BC Miconazole Nitrate 45 Gm Cream.appl 45 Gm TOP BID Risperdal (Risperidone) 2 Mg Tablet 1 Tab PO QHS Alum-Mag Hydroxide-Simeth Liq (Mag Hydrox/Al Hydrox/Simeth) 360 Ml Oral.susp 30 Ml PO PRN TID PRN Miralax (Polyethylene Glycol 3350) 17 Gm Powd.pack 1 Packet PO Q12HR PRN Isosorbide Mononitrate Er (Isosorbide Mononitrate) 30 Mg Tab.er.24h 1 Tab PO DAILY Risperdal (Risperidone) 1 Mg Tablet 1 Mg PO DAILY08 Baclofen 10 Mg Tablet 5 Mg PO DAILY Wellbutrin Sr (Bupropion Hcl) 150 Mg Tablet.er 1 Tab PO DAILY Acetaminophen 325 Mg Tablet 2 Tab PO PRN Q6HRS PRN 30 Days Vitals/I & O Vital Sign - Last 24 Hours 04/23/20 04/23/20 04/23/20 04/23/20 14:00 15:00 15:45 16:15 Temp 97.5 97.5 Pulse 72 74 70 Resp 18 18 18 B/P (MAP) 132/78 (96) 94/70 (78) 104/68 (80) Pulse Ox 90 90 95 O2 Delivery Nasal Cannula Nasal Cannula Nasal Cannula Nasal Cannula O2 Flow Rate 4.0 4.0 4.0 4.0 04/23/20 04/23/20 04/23/20 04/23/20 16:57 17:13 17:15 18:12 Temp 96.3 96.4 97.0 96.3 96.4 97.0 Pulse 71 71 70 77 Resp 20 18 18 18 B/P (MAP) 104/68 104/68 104/68 (80) 94/64 Pulse Ox 100 O2 Delivery Nasal Cannula O2 Flow Rate 4.0 04/23/20 04/23/20 04/23/20 04/24/20 18:15 20:00 23:00 03:11 Temp 97.7 97.8 97.7 97.8 Pulse 74 75 75 Resp 18 18 19 B/P (MAP) 94/64 (74) 107/65 (79) 117/64 (81) Pulse Ox 100 100 96 O2 Delivery Nasal Cannula Nasal Cannula Nasal Cannula Room Air O2 Flow Rate 4.0 3.0 4.0 04/24/20 04/24/20 04/24/20 04/24/20 07:00 08:05 10:19 10:21 Temp 97.3 97.3 Pulse 72 75 80 Resp 18 B/P (MAP) 103/61 (75) Pulse Ox 97 O2 Delivery Room Air Room Air 04/24/20 11:00 Temp 98.3 98.3 Pulse 79 Resp 20 B/P (MAP) 104/69 (81) Pulse Ox 97 O2 Delivery Room Air Intake and Output 04/23/20 04/23/20 04/24/20 15:00 23:00 07:00 Intake Total 200 ml 550 ml 240 ml Output Total 150 ml 1200 ml 1500 ml Balance 50 ml -650 ml -1260 ml Nutrition Consultation Dietary Evaluation: Recommendations by RD: Dietary education by RD, Increase Calorie Intake, Protein supplementation Comments: diet change to ADA/Cardiac glucerna bid Expected Outcomes/Goals: to meet > 75% est nutr needs Malnutrition Findings: Weight Status: Overweight Fluid Accumulation (Non-Severe: Mild depletion Justicifation of Admission Dx: Justifications for Admission: Justification of Admission Dx: Yes PILI MORALES MD Apr 24, 2020 13:29
[2020-04-24 13:52] LABS: ALBUMIN 2.6 g/dL (3.4-5.0); DIRECT BILIRUBIN 0.4 mg/dL (0.0-0.2); TOTAL BILIRUBIN 0.7 mg/dL (0.2-1.0); TOTAL PROTEIN 6.2 g/dL (6.4-8.2)
--- NOTE | 2020-04-24 14:32 | NUR ---
Nursing: Dr. Brennan said to hold Heparin today and he will re-evaluate tomorrow
[2020-04-24 15:00] VITALS: BP 121/69
[2020-04-24] MEDS: MILRINONE 20MG/100ML PREMIX 100 ML IV PRN (15:52)
[2020-04-24] MEDS ORDERED: FUROSEMIDE 40 MG/4 ML VIAL. IVP ONE (16:00)
[2020-04-24] MEDS ORDERED: MAGNESIUM SULFATE 2GM 50 ML IV ONE (16:30)
[2020-04-24] MEDS: ALBUTEROL SULFATE 2.5 MG/3 ML NEBU. NEB PRN (17:39)
[2020-04-24 19:39] VITALS: BP 120/93
[2020-04-24] MEDS: ATORVASTATIN CALCIUM 40 MG TABLET. PO SCH (20:44)
[2020-04-24 22:34] VITALS: BP 90/71
[2020-04-25 02:01] VITALS: BP 105/62
[2020-04-25] MEDS: HEPARIN for SUB-Q USE 5,000 UNIT/ML VIAL. SQ SCH ×4 (06:00→20:57)
[2020-04-25 06:13] LABS: CALCIUM 7.6 mg/dL (8.5-10.1); CREATININE 2.7 mg/dL (0.7-1.3); GFR 23.9; MAGNESIUM 2.3 mg/dL (1.8-2.4); POTASSIUM 3.3 mmol/L (3.5-5.1)
[2020-04-25 06:19] LABS: ALBUMIN 2.6 g/dL (3.4-5.0); DIRECT BILIRUBIN 0.4 mg/dL (0.0-0.2); TOTAL BILIRUBIN 0.7 mg/dL (0.2-1.0)
[2020-04-25 07:00] VITALS: BP 115/69
[2020-04-25] MEDS: INSULIN LISPRO 300 UNITS/3 ML VIAL. SQ SCH ×3 (08:00→17:29)
--- NOTE | 2020-04-25 08:23 | PDOC ---
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 04/25/20 0823: CARDIO Progress Notes Date and Time Date of Service 04/25/2020 Time of Evaluation 0935 Subjective Subjective: No Chest Pain, No shortness of breath, No Palpitations Vitals Vitals Vital Signs Date Time Temp Pulse Resp B/P (MAP) Pulse Ox O2 Delivery O2 Flow Rate FiO2 04/25/20 07:00 97.7 89 20 115/69 (84) 97 Nasal Cannula 2.0 97.7 Weight Weight [ ] Input and Output Intake and Output Intake and Output 04/25/20 07:00 Intake Total 1900 ml Output Total 3950 ml Balance -2050 ml Intake Oral 1900 ml Output Urine Total 3950 ml Laboratory Labs Laboratory Tests Test 04/24/20 11:47 04/24/20 16:38 04/24/20 20:29 04/25/20 05:30 Glucose (Fingerstick) 184 mg/dL (70-99) 182 mg/dL (70-99) 185 mg/dL (70-99) Sodium Level 139 mmol/L (136-145) Potassium Level 3.3 mmol/L (3.5-5.1) Chloride Level 102 mmol/L (98-107) Carbon Dioxide Level 31 mmol/L (21-32) Anion Gap 6 (6-14) Blood Urea Nitrogen 59 mg/dL (8-26) Creatinine 2.7 mg/dL (0.7-1.3) Estimated GFR (Cockcroft-Gault) 23.9 Glucose Level 166 mg/dL (70-99) Calcium Level 7.6 mg/dL (8.5-10.1) Magnesium Level 2.3 mg/dL (1.8-2.4) Total Bilirubin 0.7 mg/dL (0.2-1.0) Direct Bilirubin 0.4 mg/dL (0.0-0.2) Aspartate Amino Transf (AST/SGOT) 204 U/L (15-37) Alanine Aminotransferase (ALT/SGPT) 543 U/L (16-63) Alkaline Phosphatase 110 U/L (46-116) Total Protein 6.0 g/dL (6.4-8.2) Albumin 2.6 g/dL (3.4-5.0) Test 04/25/20 07:28 Glucose (Fingerstick) 171 mg/dL (70-99) Microbiology Micro Microbiology 04/21/20 Blood Culture - Preliminary, Resulted NO GROWTH AFTER 3 DAYS Physical Exam HEENT: Neck Supple W Full Motion Chest: Symmetric LUNGS: Other (diminished) Heart: RRR (SR) Abdomen: Other (anasarca) Extremities: No Edema Neurology: alert, follow commands Assessment Assessment 1. Acute on chronic systolic/diastolic CHF/ICM: EF 15-20%. negative covid. no SOA, excellent UOP 2. Atypical chest pain: more from abdominal pain 3. Abdominal pain with severe transaminitis: improving. 4. Lactic acidosis: multifactorial with work of breathing contributing. Afebrile 5. 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 6. Mild troponin elevation: chronic RBBB no acute changes to EKG. Suspect type 2 7. Mild coagulopathy 8. Normocytic anemia: no obvious bleed. Post transfusion Hgb now at 7.9 9. Severe debility with hx of Dementia/CVA/seizures/extremity contractures 10. CAD: see recent [facility] 06/2019 as above. 11. PAFIB: Maintaining SR. Deemed not a candidate for anticoagulation in the past 12. HTN: controlled 13. DM2 14. HLP 15. Cardiohepatorenal syndrome Recommendations 1. Lasix therapy, change to PO tomorrow. Stop milrinone. Consult nephrology 2. ASA, Plavix. Continue metoprolol per BP trend 3. Hold nephrotoxic agents 4. He was seen briefly by our group few years back and has bben following with [facility] cardiology group. He has known ICM and complex CAD and CKD and significant discussion was made with him and his family per [facility] and due to his significant comorbid conditions and being high risk for any intervention he was deemed for medical therapy. Having said that further discussion would be needed in regards to his code status given the latter. Continue medical therapy 5. Continue optimization per GDMT. No metformin. 6. Start lipitor at 20 and will uptitrate to his regular dose when LFTs are normalized. Anticipate DC tomorrow and follow up with [facility] cardiology Justicifation of Admission Dx: Justifications for Admission: Justification of Admission Dx: Yes NEDA SELLERS MD 04/25/20 5580: CARDIO Progress Notes Assessment Assessment Patient seen and examined. Agree with CREDIT NEGOTIATOR's assessment and plan. Acute on chronic systolic heart failure better compensated with diuresis and inotropic support with milrinone Wean milrinone off as tolerated and change Lasix to p.o. tomorrow. LVEF 15 to 20% on 2D echo Slight troponin elevation probably demand ischemia Recent cardiac catheterization showed significant LMCA and LAD stenoses, managed conservatively secondary to his comorbidities PAF maintaining sinus rhythm VIKA CAZARES APRN Apr 25, 2020 08:23 NEDA SELLERS MD Apr 25, 2020 17:50
[2020-04-25] MEDS: CLOPIDOGREL BISULFATE 75 MG TABLET PO SCH (08:44)
[2020-04-25] MEDS: FUROSEMIDE 40 MG/4 ML VIAL. IVP SCH (08:44)
[2020-04-25] MEDS: METOPROLOL SUCC 24HR ER 25 MG TAB.ER.24H. PO SCH (08:45)
[2020-04-25] MEDS: carBAMazepine 200 MG TABLET PO SCH (08:45)
[2020-04-25] MEDS: ISOSORBIDE MONONITRATE ER 30 MG TAB.ER.24H PO SCH (08:45)
[2020-04-25] MEDS: FERROUS SULFATE 325 MG TABLET. PO SCH (08:45)
[2020-04-25] MEDS: ASPIRIN ENTERIC COATED 81 MG TABLET.DR. PO SCH (08:45)
[2020-04-25] MEDS: PANTOPRAZOLE 40 MG TABLET.DR. PO SCH (08:45)
[2020-04-25] MEDS: buPROPion SR 150 MG TABLET.SA PO SCH (08:45)
[2020-04-25] MEDS: levETIRAcetam 250 MG TABLET PO SCH ×2 (08:46→20:54)
[2020-04-25] MEDS: POTASSIUM CHLORIDE 20MEQ 100 ML IV SCH ×2 (08:46→10:25)
[2020-04-25] MEDS: risperiDONE 1 MG TABLET. PO SCH ×2 (08:46→20:57)
--- NOTE | 2020-04-25 09:15 | PDOC2 ---
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 At presentation his RR was 44 breaths/min with accessory muscle use. Per his facility he has been progressively more short of breath recently.No fever or chills, no cough. Denied vomiting, diarrhea, melena or hematochezia. He abdominal pain was 6/10 at presentation Chest x-ray with bilateral interstitial infiltrates. BNP greater than 35,000, Hb 7.4 , Cr 2.6 at presentation EKG with heart rate 82 bpm, normal sinus rhythm, left atrial enlargement, incomplete right bundle branch block. Cardiology following the patient. 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 He is currently stable. Has mild LE edema He has Hx of CVA , he is a poor Historian. Nephrology consulted for Increasing Cr . Baseline unknown to pt . He has Mccoy , making excellent Urine Past Medical History Cardiovascular: AFIB, CAD, HTN, Hyperlipidemia, Other CENTRAL NERVOUS SYSTEM: CVA, Dementia, Seizure Heme/Onc: No pertinent hx Hepatobiliary: No pertinent hx Psych: Depression, Psychosis, Other Musculoskeletal: low back pain, Osteoarthritis Rheumatologic: No pertinent hx Endocrine: Diabetes Past Surgical History Past Surgical History: No pertinent history Family History Family History Cardiovascular: AFIB, CAD, HTN, Hyperlipidemia, Other CENTRAL NERVOUS SYSTEM: CVA, Dementia, Seizure Heme/Onc: No pertinent hx Hepatobiliary: No pertinent hx Psych: Depression, Psychosis, Other Musculoskeletal: low back pain, Osteoarthritis Rheumatologic: No pertinent hx Endocrine: Diabetes Past Surgical History Past Surgical History: No pertinent history Family History Family History Unknown Family History: Family History Unknown Social History Social History Smoke: <1 pack per day <1 pack per day ALCOHOL: other (was a drinker in the past) Lives: Prison Domestic Violence: Neg Current Problem List Problem List Problems Medical Problems: (1) Acute respiratory distress Status: Acute (2) Acute systolic (congestive) heart failure Status: Acute Current Medications Current Medications Current Medications Ipratropium Sears (Atrovent) 1 mg 1X ONCE NEB Last administered on 04/21/20at 20:25; Start 04/21/20 at 19:15; Stop 04/21/20 at 19:16; Status DC Methylprednisolone Sodium Succinate (SOLU-Medrol 125MG VIAL) 125 mg 1X ONCE IV Last administered on 04/21/20at 19:17; Start 04/21/20 at 19:15; Stop 04/21/20 at 19:16; Status DC Albuterol Sulfate (Ventolin Neb Soln) 10 mg 1X ONCE CONT NEB Last administered on 04/21/20at 20:25; Start 04/21/20 at 19:15; Stop 04/21/20 at 19:16; Status DC Sodium Chloride 500 ml @ 500 mls/hr 1X ONCE IV Last administered on 04/21/20at 19:20; Start 04/21/20 at 19:15; Stop 04/21/20 at 20:14; Status DC Famotidine (Pepcid) 20 mg 1X ONCE PO Last administered on 04/21/20at 19:15; Start 04/21/20 at 19:15; Stop 04/21/20 at 19:16; Status DC Al Hydroxide/Mg Hydroxide (Mylanta Plus Xs) 30 ml 1X ONCE PO Last administered on 04/21/20at 19:15; Start 04/21/20 at 19:15; Stop 04/21/20 at 19:16; Status DC Metoclopramide HCl (Reglan Vial) 5 mg 1X ONCE IVP Last administered on 04/21/20at 19:16; Start 04/21/20 at 19:15; Stop 04/21/20 at 19:16; Status DC Aspirin (Aspirin Chewable) 162 mg 1X ONCE PO Last administered on 04/21/20at 21:28; Start 04/21/20 at 20:45; Stop 04/21/20 at 20:46; Status DC Furosemide (Lasix) 80 mg 1X ONCE IVP Last administered on 04/21/20at 22:48; Start 04/21/20 at 22:30; Stop 04/21/20 at 22:31; Status DC Furosemide (Lasix) 40 mg 1X ONCE IVP Last administered on 04/22/20at 15:04; Start 04/22/20 at 10:30; Stop 04/22/20 at 10:32; Status DC Pantoprazole Sodium (Protonix) 40 mg DAILYAC PO Last administered on 04/25/20 08:45; Start 04/23/20 at 07:30 Acetaminophen (Tylenol) 650 mg PRN Q6HRS PRN PO pain or fever; Start 04/22/20 at 12:45 Aspirin (Ecotrin) 81 mg DAILY PO Last administered on 04/25/20 08:45; Start 04/22/20 at 13:00 Bupropion HCl (Wellbutrin Sr) 150 mg DAILY PO Last administered on 04/25/20 08:45; Start 04/22/20 at 13:00 Carbamazepine (TEGretol) 100 mg DAILY PO Last administered on 04/25/20 08:45; Start 04/22/20 at 13:00 Clopidogrel Bisulfate (Plavix) 75 mg DAILY PO Last administered on 04/25/20 08:44; Start 04/22/20 at 13:00 Ferrous Sulfate (Feosol) 325 mg DAILY PO Last administered on 04/25/20 08:45; Start 04/22/20 at 13:00 Isosorbide Mononitrate (Imdur) 30 mg DAILY PO Last administered on 04/25/20 08:45; Start 04/22/20 at 13:00 Levetiracetam (Keppra) 250 mg BID PO Last administered on 04/25/20 08:46; Start 04/22/20 at 13:00 Loperamide HCl (Imodium) 2 mg PRN Q4HRS PRN PO DIARRHEA; Start 04/22/20 at 12:45 Metoprolol Succinate (Toprol Xl) 25 mg DAILY PO Last administered on 04/25/20 08:45; Start 04/22/20 at 12:45 Nitroglycerin (Nitrostat) 0.4 mg PRN Q5MIN PRN SL CHEST PAIN; Start 04/22/20 at 12:45 Polyethylene Glycol (miraLAX PACKET) 17 gm Q12HR PRN PO CONSTIPATION Last ad ministered on 04/24/20 20:44; Start 04/22/20 at 12:45 Risperidone (RisperDAL) 1 mg DAILY08 PO Last administered on 8/21/20at 08:46; Start 04/22/20 at 13:00 Atorvastatin Calcium (Lipitor) 80 mg QHS PO Last administered on 04/24/20at 20:44; Start 04/22/20 at 21:00 Non-Formulary Medication (Deutetrabenazine (Austedo)) 1 tab BID PO ; Start 04/22/20 at 21:00; Stop 04/22/20 at 16:39; Status DC Risperidone (RisperDAL) 2 mg QHS PO Last administered on 04/24/20at 20:44; Start 04/22/20 at 21:00 Heparin Sodium (Porcine) (Heparin Sodium) 5,000 unit Q8HRS SQ Last administered on 04/23/20at 06:17; Start 04/22/20 at 14:00 Insulin Human Lispro (HumaLOG) 0-5 UNITS TIDWMEALS SQ ; Start 04/22/20 at 17:00 Dextrose (Dextrose 50%-Water Syringe) 12.5 gm PRN Q15MIN PRN IV SEE COMMENTS; Start 04/22/20 at 13:00 Metoprolol Succinate (Toprol Xl) 25 mg DAILY PO ; Start 04/23/20 at 09:00; Stop 04/22/20 at 13:01; Status DC Aspirin (Ecotrin) 81 mg DAILYWBKFT PO ; Start 04/23/20 at 08:00; Stop 04/22/20 at 13:02; Status DC Furosemide (Lasix) 40 mg DAILY IVP Last administered on 04/25/20at 08:44; Start 04/23/20 at 09:00 Milrinone Lactate/ Dextrose 100 ml @ 2.888 mls/ hr CONT PRN IV SEE I/O RECORD Last administered on 04/24/20at 15:52; Start 04/23/20 at 10:30 Furosemide (Lasix) 40 mg 1X ONCE IVP Last administered on 04/23/20at 16:08; Start 04/23/20 at 14:45; Stop 04/23/20 at 14:46; Status DC Furosemide (Lasix) 20 mg 1X ONCE IVP ; Start 04/23/20 at 17:00; Stop 04/23/20 at 17:01; Status DC Furosemide (Lasix) 20 mg 1X ONCE IVP Last administered on 04/23/20at 22:53; Start 04/23/20 at 22:30; Stop 04/23/20 at 22:31; Status DC Potassium Chloride/Water 100 ml @ 100 mls/hr Q1H IV Last administered on 04/24/20at 12:23; Start 04/24/20 at 08:00; Stop 04/24/20 at 09:59; Status DC Furosemide (Lasix) 40 mg 1X ONCE IVP Last administered on 04/24/20at 15:58; Start 04/24/20 at 16:00; Stop 04/24/20 at 16:01; Status DC Magnesium Sulfate 50 ml @ 25 mls/hr 1X ONCE IV Last administered on 04/24/20at 18:23; Start 04/24/20 at 16:30; Stop 04/24/20 at 18:29; Status DC Albuterol Sulfate (Ventolin Neb Soln) 2.5 mg PRN Q4HRS PRN NEB SHORTNESS OF BREATH Last administered on 04/24/20at 17:39; Start 04/24/20 at 16:15 Potassium Chloride/Water 100 ml @ 100 mls/hr Q1H IV Last administered on 04/25/20at 08:46; Start 04/25/20 at 08:00; Stop 04/25/20 at 09:59 Active Scripts Active Keppra (Levetiracetam) 250 Mg Tablet 250 Mg PO BID 60 Days Reported Vitamin D3-Aloe 1,000 Unit Tab (Ca Cmb 1/Vit D3/B-6/Fa/B12/Av) 1 Each Tablet 1 Each PO DAILY Tegretol (Carbamazepine) 200 Mg Tablet 0.5 Tab PO DAILY Klor-Con 10 (Potassium Chloride) 10 Meq Tablet.er 1 Tab PO DAILY 30 Days Clopidogrel (Clopidogrel Bisulfate) 75 Mg Tablet 1 Tab PO DAILY NITROGLYCERIN SubLingual (Nitroglycerin) 0.4 Mg Tab.subl 0.4 Mg SL PRN Q5MIN PRN Once Daily (Multivitamin) 1 Each Tablet 1 Tab PO DAILY 30 Days Ipratropium Sears 0.2 Mg/1 Ml Solution 1 Vial NEB PRN Q6HRS PRN Imodium A-D (Loperamide HCl) 2 Mg Capsule 1 Tab PO PRN PRN Folic Acid 0.8 Mg Capsule 1 Cap PO DAILY 30 Days Ferrous Sulfate 325 Mg Tablet 1 Tab PO DAILY Austedo (Deutetrabenazine) 6 Mg Tablet 1 Tab PO BID 30 Days on hold 04/19-07/27 Albuterol Sulfate Neb Soln (Albuterol Sulfate) 0.63 Mg/3 Ml Vial.neb 1 Vial NEB QID PRN Metformin Hcl 500 Mg Tablet 500 Mg PO BIDWMEALS Furosemide 20 Mg Tablet 3 Tab PO DAILY Aspirin Ec (Aspirin) 81 Mg Tablet.dr 1 Tab PO DAILY Metoprolol Succinate ( Xl ) (Metoprolol Succinate) 25 Mg Tab.er.24h 1 Tab PO DAILY Atorvastatin Calcium 80 Mg Tablet 80 Mg PO QHS Nicotine Gum (Nicotine Polacrilex) 4 Mg Gum 4 Mg BC Miconazole Nitrate 45 Gm Cream.appl 45 Gm TOP BID Risperdal (Risperidone) 2 Mg Tablet 1 Tab PO QHS Alum-Mag Hydroxide-Simeth Liq (Mag Hydrox/Al Hydrox/Simeth) 360 Ml Oral.susp 30 Ml PO PRN TID PRN Miralax (Polyethylene Glycol 3350) 17 Gm Powd.pack 1 Packet PO Q12HR PRN Isosorbide Mononitrate Er (Isosorbide Mononitrate) 30 Mg Tab.er.24h 1 Tab PO DAILY Risperdal (Risperidone) 1 Mg Tablet 1 Mg PO DAILY08 Baclofen 10 Mg Tablet 5 Mg PO DAILY Wellbutrin Sr (Bupropion Hcl) 150 Mg Tablet.er 1 Tab PO DAILY Acetaminophen 325 Mg Tablet 2 Tab PO PRN Q6HRS PRN 30 Days Allergies Allergies: Coded Allergies: No Known Drug Allergies (Unverified , 10/26/17) ROS Review of System Poor Historian, Per HPI, rest ROS is negative Physical Exam Physical Exam General: No acute distress HEENT: Mucous membr. moist/pink Neck Supple Lungs: diminished at bases, Non labored Heart: Regular rate , s1 s2 Extremities: trace bilateral LE pitting edema; hand contractures Skin: No rashes Neuro: Hx of CVA Psych/Mental Status: flat affect Mccoy + Vital Signs Vital Signs Date Time Temp Pulse Resp B/P (MAP) Pulse Ox O2 Delivery O2 Flow Rate FiO2 04/25/20 08:45 92 04/25/20 07:00 97.7 20 115/69 (84) 97 Nasal Cannula 2.0 97.7 Assessment & Plan FAWAD - cardiorenal syndrome / Urinary retention at presentation UA unremarkable , US Cw Chr medical disease , Cr 2.9-->2.7 UOP - monitor for Polyuria , Diuresis with close monitoring Supportive care, strict I/O, avoid nephrotoxins , daily accurate weight if possible HypoKalemia mild 2/2 Diuresis, replace Chronic kidney disease 3- Cr 1.6-2.1 since 2018 per [facility] records OP baseline unknown US Right Kidney: Measures normal in length at 10.5 cm but the cortex is thinned and cortical echogenicity is increased. Left Kidney: Not visualized due to bowel gas Acute hypoxic respiratory failure secondary to congestive heart failure - Improved Diuresis per cardiology- Initially IV lasix 100 mg , down to 80 mg , this am 40 mg IV Was on PO Lasix 60 mg at home Recommend switching to PO lasix to 40 mg QD before dcing, adjust dose based on symptoms, renal function and edema Close monitoring with cardiology Acute diastolic CHF - as above : EF 15-20%., was on Milrinone gtt Acute Anemia - Hb 7.6, Primary following Transaminitis - likely congestive hepatopathy from right sided heart failure. Per GI Urinary retention - likely with BPH, mccoy placed for strict I/O with his acute CHF. Voiding trial before discharge to make sure No retention H/o atrial fibrillation - On BB, not on anticoagulation H/o CVA - with residual contractures, speech deficits. 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 Type 2 diabetes - Epilepsy - seizure meds PVD -On plavix Dw RN Labs Labs Laboratory Tests Test 04/23/20 11:48 04/23/20 17:02 04/23/20 20:31 04/23/20 20:48 Glucose (Fingerstick) 147 mg/dL (70-99) 111 mg/dL (70-99) 192 mg/dL (70-99) Hemoglobin 8.3 g/dL (13.0-17.5) Hematocrit 25.1 % (39.0-53.0) Mean Corpuscular Hemoglobin Concent 33 g/dL (31-37) Test 04/24/20 04:40 04/24/20 07:28 04/24/20 11:47 04/24/20 16:38 Hemoglobin 7.9 g/dL (13.0-17.5) Hematocrit 23.0 % (39.0-53.0) Mean Corpuscular Hemoglobin Concent 34 g/dL (31-37) Sodium Level 139 mmol/L (136-145) Potassium Level 3.0 mmol/L (3.5-5.1) Chloride Level 101 mmol/L (98-107) Carbon Dioxide Level 27 mmol/L (21-32) Anion Gap 11 (6-14) Blood Urea Nitrogen 66 mg/dL (8-26) Creatinine 2.7 mg/dL (0.7-1.3) Estimated GFR (Cockcroft-Gault) 23.9 Glucose Level 150 mg/dL (70-99) Calcium Level 7.6 mg/dL (8.5-10.1) Magnesium Level 2.0 mg/dL (1.8-2.4) Total Bilirubin 0.7 mg/dL (0.2-1.0) Direct Bilirubin 0.4 mg/dL (0.0-0.2) Aspartate Amino Transf (AST/SGOT) 285 U/L (15-37) Alanine Aminotransferase (ALT/SGPT) 610 U/L (16-63) Alkaline Phosphatase 105 U/L (46-116) Total Protein 6.2 g/dL (6.4-8.2) Albumin 2.6 g/dL (3.4-5.0) Glucose (Fingerstick) 154 mg/dL (70-99) 184 mg/dL (70-99) 182 mg/dL (70-99) Test 04/24/20 20:29 04/25/20 05:30 04/25/20 07:28 Glucose (Fingerstick) 185 mg/dL (70-99) 171 mg/dL (70-99) Sodium Level 139 mmol/L (136-145) Potassium Level 3.3 mmol/L (3.5-5.1) Chloride Level 102 mmol/L (98-107) Carbon Dioxide Level 31 mmol/L (21-32) Anion Gap 6 (6-14) Blood Urea Nitrogen 59 mg/dL (8-26) Creatinine 2.7 mg/dL (0.7-1.3) Estimated GFR (Cockcroft-Gault) 23.9 Glucose Level 166 mg/dL (70-99) Calcium Level 7.6 mg/dL (8.5-10.1) Magnesium Level 2.3 mg/dL (1.8-2.4) Total Bilirubin 0.7 mg/dL (0.2-1.0) Direct Bilirubin 0.4 mg/dL (0.0-0.2) Aspartate Amino Transf (AST/SGOT) 204 U/L (15-37) Alanine Aminotransferase (ALT/SGPT) 543 U/L (16-63) Alkaline Phosphatase 110 U/L (46-116) Total Protein 6.0 g/dL (6.4-8.2) Albumin 2.6 g/dL (3.4-5.0) Laboratory Tests Test 04/24/20 11:47 04/24/20 16:38 04/24/20 20:29 04/25/20 05:30 Glucose (Fingerstick) 184 mg/dL (70-99) 182 mg/dL (70-99) 185 mg/dL (70-99) Sodium Level 139 mmol/L (136-145) Potassium Level 3.3 mmol/L (3.5-5.1) Chloride Level 102 mmol/L (98-107) Carbon Dioxide Level 31 mmol/L (21-32) Anion Gap 6 (6-14) Blood Urea Nitrogen 59 mg/dL (8-26) Creatinine 2.7 mg/dL (0.7-1.3) Estimated GFR (Cockcroft-Gault) 23.9 Glucose Level 166 mg/dL (70-99) Calcium Level 7.6 mg/dL (8.5-10.1) Magnesium Level 2.3 mg/dL (1.8-2.4) Total Bilirubin 0.7 mg/dL (0.2-1.0) Direct Bilirubin 0.4 mg/dL (0.0-0.2) Aspartate Amino Transf (AST/SGOT) 204 U/L (15-37) Alanine Aminotransferase (ALT/SGPT) 543 U/L (16-63) Alkaline Phosphatase 110 U/L (46-116) Total Protein 6.0 g/dL (6.4-8.2) Albumin 2.6 g/dL (3.4-5.0) Test 04/25/20 07:28 Glucose (Fingerstick) 171 mg/dL (70-99) Review All relevant outside records, renal labs, imaging studies, telemetry/EKG's were reviewed. Images Images CxR- 04/23 IMPRESSION: 1. Small pleural effusions and mild pulmonary edema are slightly increased. US abdomen- 04/22- Pancreas: Poorly evaluated due to bowel gas. Liver: The liver measures prominent in size at 18.4 cm longitudinal. Increased hepatic echogenicity. Aorta/IVC/Main Portal Vein: Nonaneurysmal proximal and mid aorta. Atheromatous luminal irregularity. The distal aorta was not seen due to bowel gas. Unremarkable IVC at the liver. Patent main portal vein. Gall Bladder: Gallbladder wall thickening. Layering gallstones and sludge. Pericholecystic edema and the gallbladder wall appears slightly hyperemic, image 47. Common Bile Duct: Normal in transverse dimension at 0.4 cm. Right Kidney: Measures normal in length at 10.5 cm but the cortex is thinned and cortical echogenicity is increased. Left Kidney: Not visualized. Spleen: Within normal limits for length at 12 cm. Miscellaneous: Right-sided pleural effusion. Impression: 1. Gallbladder wall thickening and layering gallstones/sludge. There is also pericholecystic edema. The constellation of findings in conjunction with epigastric pain are concerning for acute cholecystitis however given a fatty liver, liver enlargement and a right pleural effusion, it is also possible that these findings are secondary to third spacing. As deemed necessary, biliary scintigraphy could be performed to help differentiate. 2. Hepatic steatosis. 3. Findings involving the right kidney often seen with chronic medical renal disease. 4. The left kidney and pancreas are incompletely evaluated due to bowel gas. YONY LINO MD Apr 25, 2020 09:15
--- NOTE | 2020-04-25 10:31 | NUR ---
SS following up with discharge planning. SS reviewed pt chart and discussed with pt RN. Pt is now off Milrinone drip. Pt currently requiring oxygen. Pt's Lasix switched to PO. COVID19 negative. Will recheck labs in the morning. Possible discharge back to [facility], ; fax [phone], tomorrow if creatinine is stabilized. SS phoned and faxed clinical updates to [facility]. Packet and ambulance form placed on the chart.
--- NOTE | 2020-04-25 10:42 | PDOC ---
PULMONARY PROGRESS NOTES DATE: 04/25/20 TIME: 10:40 Subjective on primacor gtt no SOB, No CP, no cough No overnight concerns from nursing Vitals Vital Signs Date Time Temp Pulse Resp B/P (MAP) Pulse Ox O2 Delivery O2 Flow Rate FiO2 04/25/20 08:45 92 04/25/20 07:00 97.7 20 115/69 (84) 97 Nasal Cannula 2.0 97.7 ROS: No Nausea, No Chest Pain, No Abdominal Pain, No Increase Cough General: Alert, No acute distress Lungs: Clear Cardiovascular: S1 Abdomen: Soft Neuro Exam: Alert Extremities: Other (1+EDEMA) Labs Laboratory Tests Test 04/23/20 11:48 04/23/20 17:02 04/23/20 20:31 04/23/20 20:48 Glucose (Fingerstick) 147 mg/dL (70-99) 111 mg/dL (70-99) 192 mg/dL (70-99) Hemoglobin 8.3 g/dL (13.0-17.5) Hematocrit 25.1 % (39.0-53.0) Mean Corpuscular Hemoglobin Concent 33 g/dL (31-37) Test 04/24/20 04:40 04/24/20 07:28 04/24/20 11:47 04/24/20 16:38 Hemoglobin 7.9 g/dL (13.0-17.5) Hematocrit 23.0 % (39.0-53.0) Mean Corpuscular Hemoglobin Concent 34 g/dL (31-37) Sodium Level 139 mmol/L (136-145) Potassium Level 3.0 mmol/L (3.5-5.1) Chloride Level 101 mmol/L (98-107) Carbon Dioxide Level 27 mmol/L (21-32) Anion Gap 11 (6-14) Blood Urea Nitrogen 66 mg/dL (8-26) Creatinine 2.7 mg/dL (0.7-1.3) Estimated GFR (Cockcroft-Gault) 23.9 Glucose Level 150 mg/dL (70-99) Calcium Level 7.6 mg/dL (8.5-10.1) Magnesium Level 2.0 mg/dL (1.8-2.4) Total Bilirubin 0.7 mg/dL (0.2-1.0) Direct Bilirubin 0.4 mg/dL (0.0-0.2) Aspartate Amino Transf (AST/SGOT) 285 U/L (15-37) Alanine Aminotransferase (ALT/SGPT) 610 U/L (16-63) Alkaline Phosphatase 105 U/L (46-116) Total Protein 6.2 g/dL (6.4-8.2) Albumin 2.6 g/dL (3.4-5.0) Glucose (Fingerstick) 154 mg/dL (70-99) 184 mg/dL (70-99) 182 mg/dL (70-99) Test 04/24/20 20:29 04/25/20 05:30 04/25/20 07:28 Glucose (Fingerstick) 185 mg/dL (70-99) 171 mg/dL (70-99) Sodium Level 139 mmol/L (136-145) Potassium Level 3.3 mmol/L (3.5-5.1) Chloride Level 102 mmol/L (98-107) Carbon Dioxide Level 31 mmol/L (21-32) Anion Gap 6 (6-14) Blood Urea Nitrogen 59 mg/dL (8-26) Creatinine 2.7 mg/dL (0.7-1.3) Estimated GFR (Cockcroft-Gault) 23.9 Glucose Level 166 mg/dL (70-99) Calcium Level 7.6 mg/dL (8.5-10.1) Magnesium Level 2.3 mg/dL (1.8-2.4) Total Bilirubin 0.7 mg/dL (0.2-1.0) Direct Bilirubin 0.4 mg/dL (0.0-0.2) Aspartate Amino Transf (AST/SGOT) 204 U/L (15-37) Alanine Aminotransferase (ALT/SGPT) 543 U/L (16-63) Alkaline Phosphatase 110 U/L (46-116) Total Protein 6.0 g/dL (6.4-8.2) Albumin 2.6 g/dL (3.4-5.0) Laboratory Tests Test 04/24/20 11:47 04/24/20 16:38 04/24/20 20:29 04/25/20 05:30 Glucose (Fingerstick) 184 mg/dL (70-99) 182 mg/dL (70-99) 185 mg/dL (70-99) Sodium Level 139 mmol/L (136-145) Potassium Level 3.3 mmol/L (3.5-5.1) Chloride Level 102 mmol/L (98-107) Carbon Dioxide Level 31 mmol/L (21-32) Anion Gap 6 (6-14) Blood Urea Nitrogen 59 mg/dL (8-26) Creatinine 2.7 mg/dL (0.7-1.3) Estimated GFR (Cockcroft-Gault) 23.9 Glucose Level 166 mg/dL (70-99) Calcium Level 7.6 mg/dL (8.5-10.1) Magnesium Level 2.3 mg/dL (1.8-2.4) Total Bilirubin 0.7 mg/dL (0.2-1.0) Direct Bilirubin 0.4 mg/dL (0.0-0.2) Aspartate Amino Transf (AST/SGOT) 204 U/L (15-37) Alanine Aminotransferase (ALT/SGPT) 543 U/L (16-63) Alkaline Phosphatase 110 U/L (46-116) Total Protein 6.0 g/dL (6.4-8.2) Albumin 2.6 g/dL (3.4-5.0) Test 04/25/20 07:28 Glucose (Fingerstick) 171 mg/dL (70-99) Medications Active Scripts Medications Dose Route/Sig Max Daily Dose Days Date Category Dose Instructions Vitamin D3-Aloe 1,000 Unit Tab (Ca Cmb 1/Vit D3/B-6/Fa/B12/Av) 1 Each Tablet 1 Each PO DAILY 04/22/20 Reported Tegretol (Carbamazepine) 200 Mg Tablet 0.5 Tab PO DAILY 04/22/20 Reported Klor-Con 10 (Potassium Chloride) 10 Meq Tablet.er 1 Tab PO DAILY 30 04/22/20 Reported Clopidogrel (Clopidogrel Bisulfate) 75 Mg Tablet 1 Tab PO DAILY 04/22/20 Reported NITROGLYCERIN SubLingual (Nitroglycerin) 0.4 Mg Tab.subl 0.4 Mg SL PRN Q5MIN PRN 04/22/20 Reported Once Daily (Multivitamin) 1 Each Tablet 1 Tab PO DAILY 30 04/22/20 Reported Ipratropium Katy 0.2 Mg/1 Ml Solution 1 Vial NEB PRN Q6HRS PRN 04/22/20 Reported Imodium A-D (Loperamide HCl) 2 Mg Capsule 1 Tab PO PRN PRN 04/22/20 Reported Folic Acid 0.8 Mg Capsule 1 Cap PO DAILY 30 04/22/20 Reported Ferrous Sulfate 325 Mg Tablet 1 Tab PO DAILY 04/22/20 Reported Austedo (Deutetrabenazine) 6 Mg Tablet 1 Tab PO BID 30 04/22/20 Reported on hold 04/19-07/27 Albuterol Sulfate Neb Soln (Albuterol Sulfate) 0.63 Mg/3 Ml Vial.neb 1 Vial NEB QID PRN 04/22/20 Reported Metformin Hcl 500 Mg Tablet 500 Mg PO BIDWMEALS 04/22/20 Reported Furosemide 20 Mg Tablet 3 Tab PO DAILY 04/22/20 Reported Aspirin Ec (Aspirin) 81 Mg Tablet.dr 1 Tab PO DAILY 04/22/20 Reported Metoprolol Succinate ( Xl ) (Metoprolol Succinate) 25 Mg Tab.er.24h 1 Tab PO DAILY 04/22/20 Reported Atorvastatin Calcium 80 Mg Tablet 80 Mg PO QHS 04/22/20 Reported Keppra (Levetiracetam) 250 Mg Tablet 250 Mg PO BID 60 10/25/17 Rx Nicotine Gum (Nicotine Polacrilex) 4 Mg Gum 4 Mg BC 10/21/17 Reported Miconazole Nitrate 45 Gm Cream.appl 45 Gm TOP BID 10/21/17 Reported Risperdal (Risperidone) 2 Mg Tablet 1 Tab PO QHS 01/06/15 Reported Alum-Mag Hydroxide-Simeth Liq (Mag Hydrox/Al Hydrox/Simeth) 360 Ml Oral.susp 30 Ml PO PRN TID PRN 01/06/15 Reported Miralax (Polyethylene Glycol 3350) 17 Gm Powd.pack 1 Packet PO Q12HR PRN 01/06/15 Reported Isosorbide Mononitrate Er (Isosorbide Mononitrate) 30 Mg Tab.er.24h 1 Tab PO DAILY 01/06/15 Reported Risperdal (Risperidone) 1 Mg Tablet 1 Mg PO DAILY08 10/02/13 Reported Baclofen 10 Mg Tablet 5 Mg PO DAILY 10/02/13 Reported Wellbutrin Sr (Bupropion Hcl) 150 Mg Tablet.er 1 Tab PO DAILY 04/22/20 Reported Acetaminophen 325 Mg Tablet 2 Tab PO PRN Q6HRS PRN 30 04/22/20 Reported Comments IMPRESSION: 1. Small pleural effusions and mild pulmonary edema are slightly increased. <Conclusion> The Left Ventricle is mildly dilated. The ejection fraction is severely impaired. Left ventricular ejection fraction is 15 to 20%. There is severe global hypokinesis of the left ventricle. Doppler and Color Flow revealed no significant aortic regurgitation. There is no significant aortic valvular stenosis. Doppler and Color-flow revealed moderate mitral regurgitation. Doppler and Color Flow revealed mild to moderate tricuspid regurgitation. The PA pressure was estimated at 48 mmHg. Impression . 1. Acute hypoxic respiratory failure secondary to congestive heart failure. 2. Abnormal chest x-ray with bilateral interstitial infiltrates most suggestive of congestive heart failure.-- resolved 3. Low suspicion for COVID-19 pneumonia. Neg test 4. Acute kidney injury. Could be on chronic kidney disease.--ongoing 5. Anemia. 6. Suspected underlying chronic obstructive pulmonary disease. 7. severe CMP/ EF15% Plan . 1. Continue present oxygen and wean gradually due to improvement in oxygenation with diuresis, 2. Echocardiogram reviewed --Left ventricular ejection fraction is 15 to 20%. 3. Follow chest x-ray as needed 4. Follow cardiology recommendations, now on primacor gtt 5. COVID-19. NEG DVT/GI PPX Discussed with RN NOT MUCH TO ADD DINA FONSECA MD Apr 25, 2020 10:42
--- NOTE | 2020-04-25 10:51 | PDOC ---
Date of Service: DATE: 04/25/20 TIME: 10:48 Objective: Vital Signs: Vital Signs Date Time Temp Pulse Resp B/P (MAP) Pulse Ox O2 Delivery O2 Flow Rate FiO2 04/25/20 08:45 92 04/25/20 07:00 97.7 20 115/69 (84) 97 Nasal Cannula 2.0 97.7 Labs: Laboratory Tests Test 04/24/20 11:47 04/24/20 16:38 04/24/20 20:29 04/25/20 05:30 Glucose (Fingerstick) 184 mg/dL 182 mg/dL 185 mg/dL Sodium Level 139 mmol/L Potassium Level 3.3 mmol/L Chloride Level 102 mmol/L Carbon Dioxide Level 31 mmol/L Anion Gap 6 Blood Urea Nitrogen 59 mg/dL Creatinine 2.7 mg/dL Estimated GFR (Cockcroft-Gault) 23.9 Glucose Level 166 mg/dL Calcium Level 7.6 mg/dL Magnesium Level 2.3 mg/dL Total Bilirubin 0.7 mg/dL Direct Bilirubin 0.4 mg/dL Aspartate Amino Transf (AST/SGOT) 204 U/L Alanine Aminotransferase (ALT/SGPT) 543 U/L Alkaline Phosphatase 110 U/L Total Protein 6.0 g/dL Albumin 2.6 g/dL Test 04/25/20 07:28 Glucose (Fingerstick) 171 mg/dL PE: GEN: NAD LUNGS: diminished HEART: RRR ABD: some distention - stable EXTREM: contracture NEURO/PSYCH: sleeping, did not awaken during exam A/P: CHF, resp failure, CKD ACD Elevated AST and ALT - slightly better, suspected related to heart failure -- Stable GI-long. Justicifation of Admission Dx: Justifications for Admission: Justification of Admission Dx: Yes REJI OWENS Apr 25, 2020 10:51
[2020-04-25 11:00] VITALS: BP_SYST 110; BP_SYST 115; BP_DIAS 73
--- NOTE | 2020-04-25 11:14 | PDOC ---
PROGRESS NOTES Date of Service: DATE: 04/25/20 TIME: 11:09 Chief Complaint Chief Complaint A/P: Acute hypoxic respiratory failure secondary to congestive heart failure vs low suspicion for pneumonia or COVID 19, will await COVID 19 results. Diurese. Cardiology and pulmonology consulted Acute kidney injury - likely vasomotor nephropathy from cardiorenal syndrome, will diurese for fluid overload. Could be on chronic kidney disease. Nephrology consulted, patient has been transitioned to oral lasix, will repeat labs in am Acute Anemia - Hb 7.6, will trend Hb and transfuse if Hb < 7. Type and screen Transaminitis - likely congestive hepatopathy from right sided heart failure. Will consult GI given his epigastric pain complaints, anemia, and transaminitis, however Urinary retention - likely with BPH, mccoy placed for strict I/O with his acute CHF. H/o atrial fibrillation - sinus rhythm currently. On BB, not on anticoagulation Acute diastolic CHF - will diurese. Cardiology consulted. Cont BB, imdur, hydralazine. With Cr not on CRIS or ARB. Constipation - cont miralax H/o CVA - with residual contractures, speech deficits. 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 Notable for RR 44 breaths/min with accessory muscle use. Per his facility he has been progressively more short of breath recently. However he did deny any fever or chills. He reports he has no cough. He denied vomiting, diarrhea, melena or hematochezia. He states his pain is in his abdomen, 6/10. Chest x-ray with bilateral interstitial infiltrates. BNP greater than 35,000, Hb 7.4, WBC 10, platelets 245, lactate 3.9, albumin 2.8, NA 139, K4.7, BUN 54, CR 2.6, AST 926, ALT 725. INR 1.5. ABG on room air 7.39/33/less than 42, placed on 3 L nasal cannulated oxygen ABG 7.41/29/163. EKG with heart rate 82 bpm, normal sinus rhythm, left atrial enlargement, incomplete right bundle branch block. Admitted for further treatment. 04/23 Hemoglobin dropped to 7.1. COVID-19 negative. Still requiring O2, very short of breath. 04/24 Patient's heparin currently on hold given findings of anemia. Still on milrinone Plan: will give magnesium and albuterol for bronchospasm 04/25 Patient seems stable creatinine noted and taxation consultant requested evaluation by nephrology He has been transitioned to oral Lasix and hopefully will be able to discharge in the a.m. back to his facility in [place] Vitals Vitals Vital Signs Date Time Temp Pulse Resp B/P (MAP) Pulse Ox O2 Delivery O2 Flow Rate FiO2 04/25/20 08:45 92 04/25/20 08:05 Nasal Cannula 2.0 04/25/20 07:00 97.7 20 115/69 (84) 97 97.7 Physical Exam General: Alert, Cooperative, No acute distress Heart: Regular rate (SR), Other (distant heart sounds) Lungs: Clear Abdomen: Normal bowel sounds, Soft, No tenderness, No hepatosplenomegaly, No m asses Extremities: No cyanosis, Other (2+ bilateral LE pitting edema; hand contractures) Skin: No rashes Labs LABS Laboratory Tests Test 04/24/20 11:47 04/24/20 16:38 04/24/20 20:29 04/25/20 05:30 Glucose (Fingerstick) 184 mg/dL (70-99) 182 mg/dL (70-99) 185 mg/dL (70-99) Sodium Level 139 mmol/L (136-145) Potassium Level 3.3 mmol/L (3.5-5.1) Chloride Level 102 mmol/L (98-107) Carbon Dioxide Level 31 mmol/L (21-32) Anion Gap 6 (6-14) Blood Urea Nitrogen 59 mg/dL (8-26) Creatinine 2.7 mg/dL (0.7-1.3) Estimated GFR (Cockcroft-Gault) 23.9 Glucose Level 166 mg/dL (70-99) Calcium Level 7.6 mg/dL (8.5-10.1) Magnesium Level 2.3 mg/dL (1.8-2.4) Total Bilirubin 0.7 mg/dL (0.2-1.0) Direct Bilirubin 0.4 mg/dL (0.0-0.2) Aspartate Amino Transf (AST/SGOT) 204 U/L (15-37) Alanine Aminotransferase (ALT/SGPT) 543 U/L (16-63) Alkaline Phosphatase 110 U/L (46-116) Total Protein 6.0 g/dL (6.4-8.2) Albumin 2.6 g/dL (3.4-5.0) Test 04/25/20 07:28 Glucose (Fingerstick) 171 mg/dL (70-99) Assessment and Plan Assessmemt and Plan Problems Medical Problems: (1) Acute respiratory distress Status: Acute (2) Acute systolic (congestive) heart failure Status: Acute Comment Review of Relevant I have reviewed the following items hair (where applicable) has been applied. Labs Laboratory Tests Test 04/23/20 11:48 04/23/20 17:02 04/23/20 20:31 04/23/20 20:48 Glucose (Fingerstick) 147 mg/dL (70-99) 111 mg/dL (70-99) 192 mg/dL (70-99) Hemoglobin 8.3 g/dL (13.0-17.5) Hematocrit 25.1 % (39.0-53.0) Mean Corpuscular Hemoglobin Concent 33 g/dL (31-37) Test 04/24/20 04:40 04/24/20 07:28 04/24/20 11:47 04/24/20 16:38 Hemoglobin 7.9 g/dL (13.0-17.5) Hematocrit 23.0 % (39.0-53.0) Mean Corpuscular Hemoglobin Concent 34 g/dL (31-37) Sodium Level 139 mmol/L (136-145) Potassium Level 3.0 mmol/L (3.5-5.1) Chloride Level 101 mmol/L (98-107) Carbon Dioxide Level 27 mmol/L (21-32) Anion Gap 11 (6-14) Blood Urea Nitrogen 66 mg/dL (8-26) Creatinine 2.7 mg/dL (0.7-1.3) Estimated GFR (Cockcroft-Gault) 23.9 Glucose Level 150 mg/dL (70-99) Calcium Level 7.6 mg/dL (8.5-10.1) Magnesium Level 2.0 mg/dL (1.8-2.4) Total Bilirubin 0.7 mg/dL (0.2-1.0) Direct Bilirubin 0.4 mg/dL (0.0-0.2) Aspartate Amino Transf (AST/SGOT) 285 U/L (15-37) Alanine Aminotransferase (ALT/SGPT) 610 U/L (16-63) Alkaline Phosphatase 105 U/L (46-116) Total Protein 6.2 g/dL (6.4-8.2) Albumin 2.6 g/dL (3.4-5.0) Glucose (Fingerstick) 154 mg/dL (70-99) 184 mg/dL (70-99) 182 mg/dL (70-99) Test 04/24/20 20:29 04/25/20 05:30 04/25/20 07:28 Glucose (Fingerstick) 185 mg/dL (70-99) 171 mg/dL (70-99) Sodium Level 139 mmol/L (136-145) Potassium Level 3.3 mmol/L (3.5-5.1) Chloride Level 102 mmol/L (98-107) Carbon Dioxide Level 31 mmol/L (21-32) Anion Gap 6 (6-14) Blood Urea Nitrogen 59 mg/dL (8-26) Creatinine 2.7 mg/dL (0.7-1.3) Estimated GFR (Cockcroft-Gault) 23.9 Glucose Level 166 mg/dL (70-99) Calcium Level 7.6 mg/dL (8.5-10.1) Magnesium Level 2.3 mg/dL (1.8-2.4) Total Bilirubin 0.7 mg/dL (0.2-1.0) Direct Bilirubin 0.4 mg/dL (0.0-0.2) Aspartate Amino Transf (AST/SGOT) 204 U/L (15-37) Alanine Aminotransferase (ALT/SGPT) 543 U/L (16-63) Alkaline Phosphatase 110 U/L (46-116) Total Protein 6.0 g/dL (6.4-8.2) Albumin 2.6 g/dL (3.4-5.0) Laboratory Tests Test 04/24/20 11:47 04/24/20 16:38 04/24/20 20:29 04/25/20 05:30 Glucose (Fingerstick) 184 mg/dL (70-99) 182 mg/dL (70-99) 185 mg/dL (70-99) Sodium Level 139 mmol/L (136-145) Potassium Level 3.3 mmol/L (3.5-5.1) Chloride Level 102 mmol/L (98-107) Carbon Dioxide Level 31 mmol/L (21-32) Anion Gap 6 (6-14) Blood Urea Nitrogen 59 mg/dL (8-26) Creatinine 2.7 mg/dL (0.7-1.3) Estimated GFR (Cockcroft-Gault) 23.9 Glucose Level 166 mg/dL (70-99) Calcium Level 7.6 mg/dL (8.5-10.1) Magnesium Level 2.3 mg/dL (1.8-2.4) Total Bilirubin 0.7 mg/dL (0.2-1.0) Direct Bilirubin 0.4 mg/dL (0.0-0.2) Aspartate Amino Transf (AST/SGOT) 204 U/L (15-37) Alanine Aminotransferase (ALT/SGPT) 543 U/L (16-63) Alkaline Phosphatase 110 U/L (46-116) Total Protein 6.0 g/dL (6.4-8.2) Albumin 2.6 g/dL (3.4-5.0) Test 04/25/20 07:28 Glucose (Fingerstick) 171 mg/dL (70-99) Microbiology 04/21/20 Blood Culture - Preliminary, Resulted NO GROWTH AFTER 3 DAYS Medications Current Medications Ipratropium [place] (Atrovent) 1 mg 1X ONCE NEB Last administered on 04/21/20at 20:25; Start 04/21/20 at 19:15; Stop 04/21/20 at 19:16; Status DC Methylprednisolone Sodium Succinate (SOLU-Medrol 125MG VIAL) 125 mg 1X ONCE IV Last administered on 04/21/20at 19:17; Start 04/21/20 at 19:15; Stop 04/21/20 at 19:16; Status DC Albuterol Sulfate (Ventolin Neb Soln) 10 mg 1X ONCE CONT NEB Last administered on 04/21/20at 20:25; Start 04/21/20 at 19:15; Stop 04/21/20 at 19:16; Status DC Sodium Chloride 500 ml @ 500 mls/hr 1X ONCE IV Last administered on 04/21/20at 19:20; Start 04/21/20 at 19:15; Stop 04/21/20 at 20:14; Status DC Famotidine (Pepcid) 20 mg 1X ONCE PO Last administered on 04/21/20at 19:15; Start 04/21/20 at 19:15; Stop 04/21/20 at 19:16; Status DC Al Hydroxide/Mg Hydroxide (Mylanta Plus Xs) 30 ml 1X ONCE PO Last administered on 04/21/20at 19:15; Start 04/21/20 at 19:15; Stop 04/21/20 at 19:16; Status DC Metoclopramide HCl (Reglan Vial) 5 mg 1X ONCE IVP Last administered on 04/21/20at 19:16; Start 04/21/20 at 19:15; Stop 04/21/20 at 19:16; Status DC Aspirin (Aspirin Chewable) 162 mg 1X ONCE PO Last administered on 04/21/20at 21:28; Start 04/21/20 at 20:45; Stop 04/21/20 at 20:46; Status DC Furosemide (Lasix) 80 mg 1X ONCE IVP Last administered on 04/21/20at 22:48; Start 04/21/20 at 22:30; Stop 04/21/20 at 22:31; Status DC Furosemide (Lasix) 40 mg 1X ONCE IVP Last administered on 04/22/20at 15:04; Start 04/22/20 at 10:30; Stop 04/22/20 at 10:32; Status DC Pantoprazole Sodium (Protonix) 40 mg DAILYAC PO Last administered on 04/25/20at 08:45; Start 04/23/20 at 07:30 Acetaminophen (Tylenol) 650 mg PRN Q6HRS PRN PO pain or fever; Start 04/22/20 at 12:45 Aspirin (Ecotrin) 81 mg DAILY PO Last administered on 04/25/20 08:45; Start 04/22/20 at 13:00 Bupropion HCl (Wellbutrin Sr) 150 mg DAILY PO Last administered on 04/25/20 08:45; Start 04/22/20 at 13:00 Carbamazepine (TEGretol) 100 mg DAILY PO Last administered on 04/25/20 08:45; Start 04/22/20 at 13:00 Clopidogrel Bisulfate (Plavix) 75 mg DAILY PO Last administered on 04/25/20 08:44; Start 04/22/20 at 13:00 Ferrous Sulfate (Feosol) 325 mg DAILY PO Last administered on 04/25/20 08:45; Start 04/22/20 at 13:00 Isosorbide Mononitrate (Imdur) 30 mg DAILY PO Last administered on 04/25/20 08:45; Start 04/22/20 at 13:00 Levetiracetam (Keppra) 250 mg BID PO Last administered on 04/25/20 08:46; Start 04/22/20 at 13:00 Loperamide HCl (Imodium) 2 mg PRN Q4HRS PRN PO DIARRHEA; Start 04/22/20 at 12:45 Metoprolol Succinate (Toprol Xl) 25 mg DAILY PO Last administered on 04/25/20 08:45; Start 04/22/20 at 12:45 Nitroglycerin (Nitrostat) 0.4 mg PRN Q5MIN PRN SL CHEST PAIN; Start 04/22/20 at 12:45 Polyethylene Glycol (miraLAX PACKET) 17 gm Q12HR PRN PO CONSTIPATION Last administered on 04/24/20at 20:44; Start 04/22/20 at 12:45 Risperidone (RisperDAL) 1 mg DAILY08 PO Last administered on 04/25/20 08:46; Start 04/22/20 at 13:00 Atorvastatin Calcium (Lipitor) 80 mg QHS PO Last administered on 04/24/20 20:44; Start 04/22/20 at 21:00 Non-Formulary Medication (Deutetrabenazine (Austedo)) 1 tab BID PO ; Start 04/22/20 at 21:00; Stop 04/22/20 at 16:39; Status DC Risperidone (RisperDAL) 2 mg QHS PO Last administered on 04/24/20at 20:44; Start 04/22/20 at 21:00 Heparin Sodium (Porcine) (Heparin Sodium) 5,000 unit Q8HRS SQ Last administered on 04/23/20at 06:17; Start 04/22/20 at 14:00 Insulin Human Lispro (HumaLOG) 0-5 UNITS TIDWMEALS SQ ; Start 04/22/20 at 17:00 Dextrose (Dextrose 50%-Water Syringe) 12.5 gm PRN Q15MIN PRN IV SEE COMMENTS; Start 04/22/20 at 13:00 Metoprolol Succinate (Toprol Xl) 25 mg DAILY PO ; Start 04/23/20 at 09:00; Stop 04/22/20 at 13:01; Status DC Aspirin (Ecotrin) 81 mg DAILYWBKFT PO ; Start 04/23/20 at 08:00; Stop 04/22/20 at 13:02; Status DC Furosemide (Lasix) 40 mg DAILY IVP Last administered on 04/25/20at 08:44; Start 04/23/20 at 09:00 Milrinone Lactate/ Dextrose 100 ml @ 2.888 mls/ hr CONT PRN IV SEE I/O RECORD Last administered on 04/24/20at 15:52; Start 04/23/20 at 10:30 Furosemide (Lasix) 40 mg 1X ONCE IVP Last administered on 04/23/20at 16:08; Start 04/23/20 at 14:45; Stop 04/23/20 at 14:46; Status DC Furosemide (Lasix) 20 mg 1X ONCE IVP ; Start 04/23/20 at 17:00; Stop 04/23/20 at 17:01; Status DC Furosemide (Lasix) 20 mg 1X ONCE IVP Last administered on 04/23/20at 22:53; Start 04/23/20 at 22:30; Stop 04/23/20 at 22:31; Status DC Potassium Chloride/Water 100 ml @ 100 mls/hr Q1H IV Last administered on 04/24/20at 12:23; Start 04/24/20 at 08:00; Stop 04/24/20 at 09:59; Status DC Furosemide (Lasix) 40 mg 1X ONCE IVP Last administered on 04/24/20at 15:58; Start 04/24/20 at 16:00; Stop 04/24/20 at 16:01; Status DC Magnesium Sulfate 50 ml @ 25 mls/hr 1X ONCE IV Last administered on 04/24/20at 18:23; Start 04/24/20 at 16:30; Stop 04/24/20 at 18:29; Status DC Albuterol Sulfate (Ventolin Neb Soln) 2.5 mg PRN Q4HRS PRN NEB SHORTNESS OF BREATH Last administered on 04/24/20at 17:39; Start 04/24/20 at 16:15 Potassium Chloride/Water 100 ml @ 100 mls/hr Q1H IV Last administered on 04/25/20at 10:25; Start 04/25/20 at 08:00; Stop 04/25/20 at 09:59; Status DC Active Scripts Active Keppra (Levetiracetam) 250 Mg Tablet 250 Mg PO BID 60 Days Reported Vitamin D3-Aloe 1,000 Unit Tab (Ca Cmb 1/Vit D3/B-6/Fa/B12/Av) 1 Each Tablet 1 Each PO DAILY Tegretol (Carbamazepine) 200 Mg Tablet 0.5 Tab PO DAILY Klor-Con 10 (Potassium Chloride) 10 Meq Tablet.er 1 Tab PO DAILY 30 Days Clopidogrel (Clopidogrel Bisulfate) 75 Mg Tablet 1 Tab PO DAILY NITROGLYCERIN SubLingual (Nitroglycerin) 0.4 Mg Tab.subl 0.4 Mg SL PRN Q5MIN PRN Once Daily (Multivitamin) 1 Each Tablet 1 Tab PO DAILY 30 Days Ipratropium [place] 0.2 Mg/1 Ml Solution 1 Vial NEB PRN Q6HRS PRN Imodium A-D (Loperamide HCl) 2 Mg Capsule 1 Tab PO PRN PRN Folic Acid 0.8 Mg Capsule 1 Cap PO DAILY 30 Days Ferrous Sulfate 325 Mg Tablet 1 Tab PO DAILY [place] (Deutetrabenazine) 6 Mg Tablet 1 Tab PO BID 30 Days on hold 04/19-07/27 Albuterol Sulfate Neb Soln (Albuterol Sulfate) 0.63 Mg/3 Ml Vial.neb 1 Vial NEB QID PRN Metformin Hcl 500 Mg Tablet 500 Mg PO BIDWMEALS Furosemide 20 Mg Tablet 3 Tab PO DAILY Aspirin Ec (Aspirin) 81 Mg Tablet.dr 1 Tab PO DAILY Metoprolol Succinate ( Xl ) (Metoprolol Succinate) 25 Mg Tab.er.24h 1 Tab PO DAILY Atorvastatin Calcium 80 Mg Tablet 80 Mg PO QHS Nicotine Gum (Nicotine Polacrilex) 4 Mg Gum 4 Mg BC Miconazole Nitrate 45 Gm Cream.appl 45 Gm TOP BID Risperdal (Risperidone) 2 Mg Tablet 1 Tab PO QHS Alum-Mag Hydroxide-Simeth Liq (Mag Hydrox/Al Hydrox/Simeth) 360 Ml Oral.susp 30 Ml PO PRN TID PRN Miralax (Polyethylene Glycol 3350) 17 Gm Powd.pack 1 Packet PO Q12HR PRN Isosorbide Mononitrate Er (Isosorbide Mononitrate) 30 Mg Tab.er.24h 1 Tab PO DAILY Risperdal (Risperidone) 1 Mg Tablet 1 Mg PO DAILY08 Baclofen 10 Mg Tablet 5 Mg PO DAILY Wellbutrin Sr (Bupropion Hcl) 150 Mg Tablet.er 1 Tab PO DAILY Acetaminophen 325 Mg Tablet 2 Tab PO PRN Q6HRS PRN 30 Days Vitals/I & O Vital Sign - Last 24 Hours 04/24/20 04/24/20 04/24/20 04/24/20 15:00 17:46 19:39 20:07 Temp 98.0 98.2 98.0 98.2 Pulse 76 74 Resp 18 20 B/P (MAP) 121/69 (86) 120/93 (102) Pulse Ox 97 96 98 O2 Delivery Room Air Room Air Nasal Cannula Nasal Cannula O2 Flow Rate 4.0 1.0 04/24/20 04/25/20 04/25/20 04/25/20 22:34 02:01 07:00 08:05 Temp 97.4 97.6 97.7 97.4 97.6 97.7 Pulse 77 88 89 Resp 22 22 20 B/P (MAP) 90/71 (77) 105/62 (76) 115/69 (84) Pulse Ox 100 98 97 O2 Delivery Nasal Cannula Nasal Cannula Nasal Cannula Nasal Cannula O2 Flow Rate 2.0 2.0 2.0 2.0 04/25/20 04/25/20 08:45 08:45 Pulse 92 92 Intake and Output 04/24/20 04/24/20 04/25/20 15:00 23:00 07:00 Intake Total 450 ml 1250 ml 200 ml Output Total 1450 ml 1200 ml 1300 ml Balance -1000 ml 50 ml -1100 ml Nutrition Consultation Dietary Evaluation: Recommendations by RD: Dietary education by RD, Increase Calorie Intake, Protein supplementation Comments: Continue w/ADA/Cardiac as ordered Continue w/glucerna bid John BID - will add REC MVI for wound healing Expected Outcomes/Goals: to meet > 75% est nutr needs - met at times, goal ongoing Malnutrition Findings: Weight Status: Overweight Fluid Accumulation (Non-Severe: Mild depletion Justicifation of Admission Dx: Justifications for Admission: Justification of Admission Dx: Yes PILI MORALES MD Apr 25, 2020 11:14
[2020-04-25 14:50] VITALS: BP 138/82
[2020-04-25] MEDS: ALBUTEROL SULFATE 2.5 MG/3 ML NEBU. NEB PRN (15:41)
[2020-04-25 19:05] VITALS: BP 133/76
[2020-04-25] MEDS: ATORVASTATIN CALCIUM 20 MG TABLET PO SCH (20:54)
[2020-04-25 23:05] VITALS: BP 115/73
[2020-04-26 03:00] VITALS: BP 134/89
[2020-04-26 06:31] LABS: CALCIUM 8.3 mg/dL (8.5-10.1); CREATININE 2.6 mg/dL (0.7-1.3); POTASSIUM 4.5 mmol/L (3.5-5.1)
[2020-04-26 07:00] VITALS: BP 126/82
[2020-04-26] MEDS: levETIRAcetam 250 MG TABLET PO SCH ×2 (08:16→22:58)
[2020-04-26] MEDS: ISOSORBIDE MONONITRATE ER 30 MG TAB.ER.24H PO SCH (08:16)
[2020-04-26] MEDS: ASPIRIN ENTERIC COATED 81 MG TABLET.DR. PO SCH (08:16)
[2020-04-26] MEDS: CLOPIDOGREL BISULFATE 75 MG TABLET PO SCH (08:16)
[2020-04-26] MEDS: PANTOPRAZOLE 40 MG TABLET.DR. PO SCH (08:17)
[2020-04-26] MEDS: risperiDONE 1 MG TABLET. PO SCH ×2 (08:17→22:58)
[2020-04-26] MEDS: FERROUS SULFATE 325 MG TABLET. PO SCH (08:17)
[2020-04-26] MEDS: buPROPion SR 150 MG TABLET.SA PO SCH (08:17)
[2020-04-26] MEDS: METOPROLOL SUCC 24HR ER 25 MG TAB.ER.24H. PO SCH (08:17)
[2020-04-26] MEDS: carBAMazepine 200 MG TABLET PO SCH (08:18)
[2020-04-26] MEDS: FUROSEMIDE 40 MG TABLET. PO SCH (08:19)
[2020-04-26] MEDS: INSULIN LISPRO 300 UNITS/3 ML VIAL. SQ SCH ×3 (08:29→17:00)
--- NOTE | 2020-04-26 09:41 | PDOC ---
PULMONARY PROGRESS NOTES DATE: 04/26/20 TIME: 09:39 Subjective remains on N/C no SOB, No CP, no cough --wheezing today No overnight concerns from nursing Vitals Vital Signs Date Time Temp Pulse Resp B/P (MAP) Pulse Ox O2 Delivery O2 Flow Rate FiO2 04/26/20 08:17 98 126/82 04/26/20 07:00 97.8 22 100 Nasal Cannula 1.0 97.8 ROS: No Nausea, No Chest Pain, No Abdominal Pain, No Increase Cough General: Alert, No acute distress Lungs: Wheezing Cardiovascular: S1 Abdomen: Soft Neuro Exam: Alert Extremities: Other (1+EDEMA) Labs Laboratory Tests Test 04/24/20 11:47 04/24/20 16:38 04/24/20 20:29 04/25/20 05:30 Glucose (Fingerstick) 184 mg/dL (70-99) 182 mg/dL (70-99) 185 mg/dL (70-99) Sodium Level 139 mmol/L (136-145) Potassium Level 3.3 mmol/L (3.5-5.1) Chloride Level 102 mmol/L (98-107) Carbon Dioxide Level 31 mmol/L (21-32) Anion Gap 6 (6-14) Blood Urea Nitrogen 59 mg/dL (8-26) Creatinine 2.7 mg/dL (0.7-1.3) Estimated GFR (Cockcroft-Gault) 23.9 Glucose Level 166 mg/dL (70-99) Calcium Level 7.6 mg/dL (8.5-10.1) Magnesium Level 2.3 mg/dL (1.8-2.4) Total Bilirubin 0.7 mg/dL (0.2-1.0) Direct Bilirubin 0.4 mg/dL (0.0-0.2) Aspartate Amino Transf (AST/SGOT) 204 U/L (15-37) Alanine Aminotransferase (ALT/SGPT) 543 U/L (16-63) Alkaline Phosphatase 110 U/L (46-116) Total Protein 6.0 g/dL (6.4-8.2) Albumin 2.6 g/dL (3.4-5.0) Test 04/25/20 07:28 04/25/20 11:46 04/25/20 17:22 04/25/20 20:11 Glucose (Fingerstick) 171 mg/dL (70-99) 228 mg/dL (70-99) 282 mg/dL (70-99) 170 mg/dL (70-99) Test 04/26/20 06:00 04/26/20 07:35 Sodium Level 134 mmol/L (136-145) Potassium Level 4.5 mmol/L (3.5-5.1) Chloride Level 98 mmol/L (98-107) Carbon Dioxide Level 28 mmol/L (21-32) Anion Gap 8 (6-14) Blood Urea Nitrogen 71 mg/dL (8-26) Creatinine 2.6 mg/dL (0.7-1.3) Estimated GFR (Cockcroft-Gault) 25.0 Glucose Level 199 mg/dL (70-99) Calcium Level 8.3 mg/dL (8.5-10.1) Glucose (Fingerstick) 175 mg/dL (70-99) Laboratory Tests Test 04/25/20 11:46 04/25/20 17:22 04/25/20 20:11 04/26/20 06:00 Glucose (Fingerstick) 228 mg/dL (70-99) 282 mg/dL (70-99) 170 mg/dL (70-99) Sodium Level 134 mmol/L (136-145) Potassium Level 4.5 mmol/L (3.5-5.1) Chloride Level 98 mmol/L (98-107) Carbon Dioxide Level 28 mmol/L (21-32) Anion Gap 8 (6-14) Blood Urea Nitrogen 71 mg/dL (8-26) Creatinine 2.6 mg/dL (0.7-1.3) Estimated GFR (Cockcroft-Gault) 25.0 Glucose Level 199 mg/dL (70-99) Calcium Level 8.3 mg/dL (8.5-10.1) Test 04/26/20 07:35 Glucose (Fingerstick) 175 mg/dL (70-99) Medications Active Scripts Medications Dose Route/Sig Max Daily Dose Days Date Category Dose Instructions Vitamin D3-Aloe 1,000 Unit Tab (Ca Cmb 1/Vit D3/B-6/Fa/B12/Av) 1 Each Tablet 1 Each PO DAILY 04/22/20 Reported Tegretol (Carbamazepine) 200 Mg Tablet 0.5 Tab PO DAILY 04/22/20 Reported Klor-Con 10 (Potassium Chloride) 10 Meq Tablet.er 1 Tab PO DAILY 30 04/22/20 Reported Clopidogrel (Clopidogrel Bisulfate) 75 Mg Tablet 1 Tab PO DAILY 04/22/20 Reported NITROGLYCERIN SubLingual (Nitroglycerin) 0.4 Mg Tab.subl 0.4 Mg SL PRN Q5MIN PRN 04/22/20 Reported Once Daily (Multivitamin) 1 Each Tablet 1 Tab PO DAILY 30 04/22/20 Reported Ipratropium [place] 0.2 Mg/1 Ml Solution 1 Vial NEB PRN Q6HRS PRN 04/22/20 Reported Imodium A-D (Loperamide HCl) 2 Mg Capsule 1 Tab PO PRN PRN 04/22/20 Reported Folic Acid 0.8 Mg Capsule 1 Cap PO DAILY 30 04/22/20 Reported Ferrous Sulfate 325 Mg Tablet 1 Tab PO DAILY 04/22/20 Reported [place] (Deutetrabenazine) 6 Mg Tablet 1 Tab PO BID 30 04/22/20 Reported on hold 04/19-07/27 Albuterol Sulfate Neb Soln (Albuterol Sulfate) 0.63 Mg/3 Ml Vial.neb 1 Vial NEB QID PRN 04/22/20 Reported Metformin Hcl 500 Mg Tablet 500 Mg PO BIDWMEALS 04/22/20 Reported Furosemide 20 Mg Tablet 3 Tab PO DAILY 04/22/20 Reported Aspirin Ec (Aspirin) 81 Mg Tablet.dr 1 Tab PO DAILY 04/22/20 Reported Metoprolol Succinate ( Xl ) (Metoprolol Succinate) 25 Mg Tab.er.24h 1 Tab PO DAILY 04/22/20 Reported Atorvastatin Calcium 80 Mg Tablet 80 Mg PO QHS 04/22/20 Reported Keppra (Levetiracetam) 250 Mg Tablet 250 Mg PO BID 60 10/25/17 Rx Nicotine Gum (Nicotine Polacrilex) 4 Mg Gum 4 Mg BC 10/21/17 Reported Miconazole Nitrate 45 Gm Cream.appl 45 Gm TOP BID 10/21/17 Reported Risperdal (Risperidone) 2 Mg Tablet 1 Tab PO QHS 01/06/15 Reported Alum-Mag Hydroxide-Simeth Liq (Mag Hydrox/Al Hydrox/Simeth) 360 Ml Oral.susp 30 Ml PO PRN TID PRN 01/06/15 Reported Miralax (Polyethylene Glycol 3350) 17 Gm Powd.pack 1 Packet PO Q12HR PRN 01/06/15 Reported Isosorbide Mononitrate Er (Isosorbide Mononitrate) 30 Mg Tab.er.24h 1 Tab PO DAILY 01/06/15 Reported Risperdal (Risperidone) 1 Mg Tablet 1 Mg PO DAILY08 10/02/13 Reported Baclofen 10 Mg Tablet 5 Mg PO DAILY 10/02/13 Reported Wellbutrin Sr (Bupropion Hcl) 150 Mg Tablet.er 1 Tab PO DAILY 04/22/20 Reported Acetaminophen 325 Mg Tablet 2 Tab PO PRN Q6HRS PRN 30 04/22/20 Reported Comments IMPRESSION: 1. Small pleural effusions and mild pulmonary edema are slightly increased. <Conclusion> The Left Ventricle is mildly dilated. The ejection fraction is severely impaired. Left ventricular ejection fraction is 15 to 20%. There is severe global hypokinesis of the left ventricle. Doppler and Color Flow revealed no significant aortic regurgitation. There is no significant aortic valvular stenosis. Doppler and Color-flow revealed moderate mitral regurgitation. Doppler and Color Flow revealed mild to moderate tricuspid regurgitation. The PA pressure was estimated at 48 mmHg. Impression . 1. Acute hypoxic respiratory failure secondary to congestive heart failure. 2. Abnormal chest x-ray with bilateral interstitial infiltrates most suggestive of congestive heart failure.-- improved 3. Low suspicion for COVID-19 pneumonia. Neg test 4. Acute kidney injury. Could be on chronic kidney disease.--ongoing 5. Anemia. 6. Suspected underlying chronic obstructive pulmonary disease. 7. severe CMP/ EF15% Plan . 1. Continue present oxygen and wean gradually due to improvement in oxygenation with diuresis, 2. Echocardiogram reviewed --Left ventricular ejection fraction is 15 to 20%. 3. Follow chest x-ray as needed 4. Follow cardiology recommendations, now on primacor gtt 5. COVID-19. NEG 6. wheezing today, will obtain CXR and give lasix DVT/GI PPX Discussed with DINA REYNOLDS MD Apr 26, 2020 09:41
[2020-04-26] MEDS ORDERED: FUROSEMIDE 20 MG/2 ML VIAL. IVP ONE (10:00)
--- NOTE | 2020-04-26 11:05 | PDOC ---
DATE OF SERVICE DATE: 04/26/20 TIME: 11:04 SUBJECTIVE ROS Sitting up in chair, states feeling better Per RN may have aspirated while eating breakfast , was SOB, Cxr ordered OBJECTIVE Vital Signs Vital Signs Date Time Temp Pulse Resp B/P (MAP) Pulse Ox O2 Delivery O2 Flow Rate FiO2 04/26/20 08:17 98 126/82 04/26/20 08:15 Nasal Cannula 1.0 04/26/20 07:00 97.8 22 100 97.8 I & 0 Intake and Output 04/26/20 07:00 Intake Total 1250 ml Output Total 1650 ml Balance -400 ml Intake Oral 1250 ml Output Urine Total 1650 ml PHYSICAL EXAM Physical Exam General: No acute distress HEENT: Mucous membr. moist/pink, On O2 by NC Neck Supple Lungs: diminished at bases, Non labored Heart: Regular rate , s1 s2 Extremities: trace bilateral LE pitting edema; hand contractures Skin: No rashes Neuro: Hx of CVA Psych/Mental Status: flat affect Mccoy dced DIAGNOSIS/ASSESSMENT Assessment & Plan FAWAD - cardiorenal syndrome / Urinary retention at presentation UA unremarkable , US Cw Chr medical disease , Cr 2.9-->2.7-->2.6 Yest Polyuric , Diuresis with close monitoring Supportive care, strict I/O, avoid nephrotoxins , daily accurate weight if possible HypoKalemia mild 2/2 Diuresis, replace Chronic kidney disease 3- Cr 1.6-2.1 since 2018 per [facility] records OP baseline unknown US Right Kidney: Measures normal in length at 10.5 cm but the cortex is thinned and cortical echogenicity is increased. Left Kidney: Not visualized due to bowel gas Acute hypoxic respiratory failure secondary to congestive heart failure - Improved Diuresis per cardiology- Initially IV lasix 100 mg , down to 80 mg , this am 40 mg IV Was on PO Lasix 60 mg at home Recommend switching to PO lasix to 40 mg QD before dcing adjust dose based on symptoms, renal function and edema Recd IV Lasix today per Dr. Brennan Close monitoring with cardiology Acute diastolic CHF - as above : EF 15-20%., was on Milrinone gtt Acute Anemia - Hb 7.6, Primary following Transaminitis - likely congestive hepatopathy from right sided heart failure. Per GI Urinary retention - likely with BPH, mccoy placed for strict I/O with his acute CHF. After Mccoy dced -has urinary retention- straight cath with 400 ml of urine , may need to be dced with Mccoy if persistent H/o atrial fibrillation - On BB, not on anticoagulation H/o CVA - with residual contractures, speech deficits. [employer] [facility] resident Type 2 diabetes - Epilepsy - seizure meds PVD -On plavix Glenn RN COMMENT/RELEVANT DATA Meds Current Medications Medications (Trade) Dose Ordered Sig/Isidoro Start Time Stop Time Status Last Admin Dose Admin Acetaminophen (Tylenol) 650 mg PRN Q6HRS PRN 04/22/20 12:45 Al Hydroxide/Mg Hydroxide (Mylanta Plus Xs) 30 ml 1X ONCE 04/21/20 19:15 04/21/20 19:16 DC 04/21/20 19:15 30 ML Albuterol Sulfate (Ventolin Neb Soln) 2.5 mg PRN Q4HRS PRN 04/24/20 16:15 04/25/20 15:41 2.5 MG Aspirin (Aspirin Chewable) 162 mg 1X ONCE 04/21/20 20:45 04/21/20 20:46 DC 04/21/20 21:28 162 MG Aspirin (Ecotrin) 81 mg [id number] 04/23/20 08:00 04/22/20 13:02 DC Atorvastatin Calcium (Lipitor) 20 mg QHS 04/25/20 21:00 04/25/20 20:54 20 MG Bupropion HCl (Wellbutrin Sr) 150 mg DAILY 04/22/20 13:00 04/26/20 08:17 150 MG Carbamazepine (TEGretol) 100 mg DAILY 04/22/20 13:00 04/26/20 08:18 100 MG Clopidogrel Bisulfate (Plavix) 75 mg DAILY 04/22/20 13:00 04/26/20 08:16 75 MG Dextrose (Dextrose 50%-Water Syringe) 12.5 gm PRN Q15MIN PRN 04/22/20 13:00 Famotidine (Pepcid) 20 mg 1X ONCE 04/21/20 19:15 04/21/20 19:16 DC 04/21/20 19:15 20 MG Ferrous Sulfate (Feosol) 325 mg DAILY 04/22/20 13:00 04/26/20 08:17 325 MG Furosemide (Lasix) 20 mg 1X ONCE 04/26/20 10:00 04/26/20 10:01 DC 04/26/20 10:47 20 MG Heparin Sodium (Porcine) (Heparin Sodium) 5,000 unit Q8HRS 04/22/20 14:00 04/23/20 06:17 5,000 UNIT Insulin Human Lispro (HumaLOG) 0-5 UNITS TIDWMEALS 04/22/20 17:00 04/26/20 08:29 2 UNITS Ipratropium Gepp (Atrovent) 1 mg 1X ONCE 04/21/20 19:15 04/21/20 19:16 DC 04/21/20 20:25 1 MG Isosorbide Mononitrate (Imdur) 30 mg DAILY 04/22/20 13:00 04/26/20 08:16 30 MG Levetiracetam (Keppra) 250 mg BID 04/22/20 13:00 04/26/20 08:16 250 MG Loperamide HCl (Imodium) 2 mg PRN Q4HRS PRN 04/22/20 12:45 Magnesium Sulfate 50 ml @ 25 mls/hr 1X ONCE 04/24/20 16:30 04/24/20 18:29 DC 04/24/20 18:23 25 MLS/HR Methylprednisolone Sodium Succinate (SOLU-Medrol 125MG VIAL) 125 mg 1X ONCE 04/21/20 19:15 04/21/20 19:16 DC 04/21/20 19:17 125 MG Metoclopramide HCl (Reglan Vial) 5 mg 1X ONCE 04/21/20 19:15 04/21/20 19:16 DC 04/21/20 19:16 5 MG Metoprolol Succinate (Toprol Xl) 25 mg DAILY 04/23/20 09:00 04/22/20 13:01 DC Milrinone Lactate/ Dextrose 100 ml @ 2.888 mls/ hr CONT PRN 04/23/20 10:30 04/24/20 15:52 2.888 MLS/HR Nitroglycerin (Nitrostat) 0.4 mg PRN Q5MIN PRN 04/22/20 12:45 Non-Formulary Medication (Deutetrabenazine (Austedo)) 1 tab BID 04/22/20 21:00 04/22/20 16:39 DC Pantoprazole Sodium (Protonix) 40 mg DAILYAC 04/23/20 07:30 04/26/20 08:17 40 MG Polyethylene Glycol (miraLAX PACKET) 17 gm Q12HR PRN 04/22/20 12:45 04/24/20 20:44 17 GM Potassium Chloride/Water 100 ml @ 100 mls/hr Q1H 04/25/20 08:00 04/25/20 09:59 DC 04/25/20 10:25 100 MLS/HR Risperidone (RisperDAL) 2 mg QHS 04/22/20 21:00 04/25/20 20:57 2 MG Sodium Chloride 500 ml @ 500 mls/hr 1X ONCE 04/21/20 19:15 04/21/20 20:14 DC 04/21/20 19:20 500 MLS/HR Lab Laboratory Tests Test 04/25/20 11:46 04/25/20 17:22 04/25/20 20:11 04/26/20 06:00 Glucose (Fingerstick) 228 mg/dL (70-99) 282 mg/dL (70-99) 170 mg/dL (70-99) Sodium Level 134 mmol/L (136-145) Potassium Level 4.5 mmol/L (3.5-5.1) Chloride Level 98 mmol/L (98-107) Carbon Dioxide Level 28 mmol/L (21-32) Anion Gap 8 (6-14) Blood Urea Nitrogen 71 mg/dL (8-26) Creatinine 2.6 mg/dL (0.7-1.3) Estimated GFR (Cockcroft-Gault) 25.0 Glucose Level 199 mg/dL (70-99) Calcium Level 8.3 mg/dL (8.5-10.1) Test 04/26/20 07:35 Glucose (Fingerstick) 175 mg/dL (70-99) Results All relevant outside records, renal labs, imaging studies, telemetry/EKG's were reviewed. Justicifation of Admission Dx: Justifications for Admission: Justification of Admission Dx: Yes YONY LINO MD Apr 26, 2020 11:05
--- NOTE | 2020-04-26 11:07 | PDOC ---
PROGRESS NOTES Date of Service: DATE: 04/26/20 TIME: 11:07 Subjective Subjective More dyspneic today. Denied any chest pain. Objective Objective Vital Signs Date Time Temp Pulse Resp B/P (MAP) Pulse Ox O2 Delivery O2 Flow Rate FiO2 04/26/20 08:17 98 126/82 04/26/20 08:15 Nasal Cannula 1.0 04/26/20 07:00 97.8 22 100 97.8 Intake and Output 04/26/20 07:00 Intake Total 1250 ml Output Total 1650 ml Balance -400 ml Intake Oral 1250 ml Output Urine Total 1650 ml Physical Exam Abdomen: Normal bowel sounds, Soft, No tenderness, No hepatosplenomegaly, No masses Heart: Regular rate (SR), Other (distant heart sounds) Extremities: No cyanosis, Other (2+ bilateral LE pitting edema; hand contractures) General: Alert, Cooperative, No acute distress HEENT: Atraumatic, Mucous membr. moist/pink Lungs: Other (diminished) Neuro: Normal speech Psych/Mental Status: Other (flat affect) Skin: No rashes Assessment Assessment 1. Acute on chronic systolic/diastolic CHF/ICM: EF 15-20%. negative covid. no SOA, excellent UOP with Lasix and inotropic support with milrinone with improvement since admission. He is currently off milrinone. Continue Lasix. Since he is slightly more dyspneic today, he is being worked up for aspiration pneumonia. Chest x-ray results pending. Pulmonary team following. 2. Atypical chest pain: Most probably GI etiology. 3. Abdominal pain with severe transaminitis: improving, GI following 4. Lactic acidosis: multifactorial with work of breathing contributing. Afebrile 5. 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 6. Mild troponin elevation: chronic RBBB no acute changes to EKG. Suspect type 2/demand ischemia. Cardiac catheterization 06/2019 showed significant LMCA/LAD stenosis, being managed medically secondary to his comorbidities. 7. Severe debility with hx of Dementia/CVA/seizures/extremity contractures 8. PAFIB: Maintaining SR. Deemed not a candidate for anticoagulation in the past 9. HTN: controlled 10. DM2: Per IM 11. HLP: Statins Plan Plan of Care Problems Medical Problems: (1) Acute respiratory distress Status: Acute (2) Acute systolic (congestive) heart failure Status: Acute Comment Review of Relevant I have reviewed the following items hair (where applicable) has been applied. Labs Laboratory Tests Test 04/25/20 11:46 04/25/20 17:22 04/25/20 20:11 04/26/20 06:00 Glucose (Fingerstick) 228 mg/dL (70-99) 282 mg/dL (70-99) 170 mg/dL (70-99) Sodium Level 134 mmol/L (136-145) Potassium Level 4.5 mmol/L (3.5-5.1) Chloride Level 98 mmol/L (98-107) Carbon Dioxide Level 28 mmol/L (21-32) Anion Gap 8 (6-14) Blood Urea Nitrogen 71 mg/dL (8-26) Creatinine 2.6 mg/dL (0.7-1.3) Estimated GFR (Cockcroft-Gault) 25.0 Glucose Level 199 mg/dL (70-99) Calcium Level 8.3 mg/dL (8.5-10.1) Test 04/26/20 07:35 Glucose (Fingerstick) 175 mg/dL (70-99) Microbiology 04/21/20 Blood Culture - Preliminary, Resulted NO GROWTH AFTER 4 DAYS Medications Current Medications Atorvastatin Calcium (Lipitor) 20 mg QHS PO Last administered on 04/25/20at 20:54; Start 04/25/20 at 21:00 Furosemide (Lasix) 20 mg 1X ONCE IVP Last administered on 04/26/20at 10:47; Start 04/26/20 at 10:00; Stop 04/26/20 at 10:01; Status DC Furosemide (Lasix) 40 mg DAILY PO Last administered on 04/26/20at 08:19; Start 04/26/20 at 09:00 Vitals/I & O Vital Sign - Last 24 Hours 04/25/20 04/25/20 04/25/20 04/25/20 14:50 15:42 19:05 20:00 Temp 97.8 97.7 97.8 97.7 Pulse 93 91 Resp 20 21 B/P (MAP) 138/82 (100) 133/76 (95) Pulse Ox 100 98 99 O2 Delivery Nasal Cannula Nasal Cannula Nasal Cannula Nasal Cannula O2 Flow Rate 2.0 1.0 1.0 1.0 04/25/20 04/26/20 04/26/20 04/26/20 23:05 03:00 07:00 08:15 Temp 98.1 98.0 97.8 98.1 98.0 97.8 Pulse 87 96 98 Resp B/P (MAP) 115/73 (87) 134/89 (104) 126/82 (97) Pulse Ox 99 95 100 O2 Delivery Nasal Cannula Nasal Cannula Nasal Cannula Nasal Cannula O2 Flow Rate 1.0 1.0 1.0 1.0 04/26/20 04/26/20 08:16 08:17 Pulse 98 98 B/P (MAP) 126/82 126/82 Intake and Output 04/25/20 04/25/20 04/26/20 15:00 23:00 07:00 Intake Total 650 ml 100 ml 500 ml Output Total 1250 ml 400 ml Balance 650 ml -1150 ml 100 ml NEDA SELLERS MD Apr 26, 2020 11:07
[2020-04-26 11:09] VITALS: BP 120/67
--- NOTE | 2020-04-26 11:30 | RAD ---
EXAM: Chest, single view. HISTORY: Congestive heart failure. COMPARISON: 04/23/2020 FINDINGS: A frontal view of the chest is obtained. There is stable diffuse central predominant interstitial infiltrate with small pleural effusions. There is a right PICC with the tip in the right atrium. There is no pneumothorax. IMPRESSION: Stable diffuse infiltrate and pleural effusions. Electronically signed by: Carrie Bhat MD (04/26/2020 11:27 AM) [facility]
[2020-04-26] MEDS: HEPARIN for SUB-Q USE 5,000 UNIT/ML VIAL. SQ SCH ×2 (11:41→23:01)
--- NOTE | 2020-04-26 12:04 | PDOC ---
PROGRESS NOTES Date of Service: DATE: 04/26/20 TIME: 12:03 Chief Complaint Chief Complaint A/P: Acute hypoxic respiratory failure secondary to congestive heart failure vs low suspicion for pneumonia or COVID 19, will await COVID 19 results. Diurese. Cardiology and pulmonology consulted Acute kidney injury - likely vasomotor nephropathy from cardiorenal syndrome, will diurese for fluid overload. Could be on chronic kidney disease. Nephrology consulted, patient has been transitioned to oral lasix, will repeat labs in am Acute Anemia - Hb 7.6, will trend Hb and transfuse if Hb < 7. Type and screen Transaminitis - likely congestive hepatopathy from right sided heart failure. Will consult GI given his epigastric pain complaints, anemia, and transaminitis, however Urinary retention - likely with BPH, mccoy placed for strict I/O with his acute CHF. H/o atrial fibrillation - sinus rhythm currently. On BB, not on anticoagulation Acute diastolic CHF - will diurese. Cardiology consulted. Cont BB, imdur, hydralazine. With Cr not on CRIS or ARB. Constipation - cont miralax H/o CVA - with residual contractures, speech deficits. 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 Notable for RR 44 breaths/min with accessory muscle use. Per his facility he has been progre ssively more short of breath recently. However he did deny any fever or chills. He reports he has no cough. He denied vomiting, diarrhea, melena or hematochezia. He states his pain is in his abdomen, 6/10. Chest x-ray with bilateral interstitial infiltrates. BNP greater than 35,000, Hb 7.4, WBC 10, platelets 245, lactate 3.9, albumin 2.8, NA 139, K4.7, BUN 54, CR 2.6, AST 926, ALT 725. INR 1.5. ABG on room air 7.39/33/less than 42, placed on 3 L nasal cannulated oxygen ABG 7.41/29/163. EKG with heart rate 82 bpm, normal sinus rhythm, left atrial enlargement, incomplete right bundle branch block. Admitted for further treatment. 04/23 Hemoglobin dropped to 7.1. COVID-19 negative. Still requiring O2, very short of breath. 04/24 Patient's heparin currently on hold given findings of anemia. Still on milrinone Plan: will give magnesium and albuterol for bronchospasm 04/25 Patient seems stable creatinine noted and senior erp consultant requested evaluation by nephrology He has been transitioned to oral Lasix and hopefully will be able to discharge in the a.m. back to his facility in [place] 04/26 Patient presented with urinary retention had about 500 cc in his bladder today, this prompted a Mccoy catheter placement, good urinary output afterwards hopefully this will alleviate his renal dysfunction as well. We will continue to follow along with consultants and hopefully will be able to transition back to [place] in the next 24 to 48 hours Vitals Vitals Vital Signs Date Time Temp Pulse Resp B/P (MAP) Pulse Ox O2 Delivery O2 Flow Rate FiO2 04/26/20 11:09 97.8 96 24 120/67 (84) 93 Nasal Cannula 1.0 97.8 Physical Exam General: Alert, Cooperative, No acute distress Heart: Regular rate (SR), Other (distant heart sounds) Lungs: Wheezing Abdomen: Normal bowel sounds, Soft, No tenderness, No hepatosplenomegaly, No masses Extremities: No cyanosis, Other (2+ bilateral LE pitting edema; hand contractures) Skin: No rashes Labs LABS Laboratory Tests Test 04/25/20 17:22 04/25/20 20:11 04/26/20 06:00 04/26/20 07:35 Glucose (Fingerstick) 282 mg/dL (70-99) 170 mg/dL (70-99) 175 mg/dL (70-99) Sodium Level 134 mmol/L (136-145) Potassium Level 4.5 mmol/L (3.5-5.1) Chloride Level 98 mmol/L (98-107) Carbon Dioxide Level 28 mmol/L (21-32) Anion Gap 8 (6-14) Blood Urea Nitrogen 71 mg/dL (8-26) Creatinine 2.6 mg/dL (0.7-1.3) Estimated GFR (Cockcroft-Gault) 25.0 Glucose Level 199 mg/dL (70-99) Calcium Level 8.3 mg/dL (8.5-10.1) Test 04/26/20 11:31 Glucose (Fingerstick) 143 mg/dL (70-99) Assessment and Plan Assessmemt and Plan Problems Medical Problems: (1) Acute respiratory distress Status: Acute (2) Acute systolic (congestive) heart failure Status: Acute Comment Review of Relevant I have reviewed the following items hair (where applicable) has been applied. Labs Laboratory Tests Test 04/24/20 16:38 04/24/20 20:29 04/25/20 05:30 04/25/20 07:28 Glucose (Fingerstick) 182 mg/dL (70-99) 185 mg/dL (70-99) 171 mg/dL (70-99) Sodium Level 139 mmol/L (136-145) Potassium Level 3.3 mmol/L (3.5-5.1) Chloride Level 102 mmol/L (98-107) Carbon Dioxide Level 31 mmol/L (21-32) Anion Gap 6 (6-14) Blood Urea Nitrogen 59 mg/dL (8-26) Creatinine 2.7 mg/dL (0.7-1.3) Estimated GFR (Cockcroft-Gault) 23.9 Glucose Level 166 mg/dL (70-99) Calcium Level 7.6 mg/dL (8.5-10.1) Magnesium Level 2.3 mg/dL (1.8-2.4) Total Bilirubin 0.7 mg/dL (0.2-1.0) Direct Bilirubin 0.4 mg/dL (0.0-0.2) Aspartate Amino Transf (AST/SGOT) 204 U/L (15-37) Alanine Aminotransferase (ALT/SGPT) 543 U/L (16-63) Alkaline Phosphatase 110 U/L (46-116) Total Protein 6.0 g/dL (6.4-8.2) Albumin 2.6 g/dL (3.4-5.0) Test 04/25/20 11:46 04/25/20 17:22 04/25/20 20:11 04/26/20 06:00 Glucose (Fingerstick) 228 mg/dL (70-99) 282 mg/dL (70-99) 170 mg/dL (70-99) Sodium Level 134 mmol/L (136-145) Potassium Level 4.5 mmol/L (3.5-5.1) Chloride Level 98 mmol/L (98-107) Carbon Dioxide Level 28 mmol/L (21-32) Anion Gap 8 (6-14) Blood Urea Nitrogen 71 mg/dL (8-26) Creatinine 2.6 mg/dL (0.7-1.3) Estimated GFR (Cockcroft-Gault) 25.0 Glucose Level 199 mg/dL (70-99) Calcium Level 8.3 mg/dL (8.5-10.1) Test 04/26/20 07:35 04/26/20 11:31 Glucose (Fingerstick) 175 mg/dL (70-99) 143 mg/dL (70-99) Laboratory Tests Test 04/25/20 17:22 04/25/20 20:11 04/26/20 06:00 04/26/20 07:35 Glucose (Fingerstick) 282 mg/dL (70-99) 170 mg/dL (70-99) 175 mg/dL (70-99) Sodium Level 134 mmol/L (136-145) Potassium Level 4.5 mmol/L (3.5-5.1) Chloride Level 98 mmol/L (98-107) Carbon Dioxide Level 28 mmol/L (21-32) Anion Gap 8 (6-14) Blood Urea Nitrogen 71 mg/dL (8-26) Creatinine 2.6 mg/dL (0.7-1.3) Estimated GFR (Cockcroft-Gault) 25.0 Glucose Level 199 mg/dL (70-99) Calcium Level 8.3 mg/dL (8.5-10.1) Test 04/26/20 11:31 Glucose (Fingerstick) 143 mg/dL (70-99) Microbiology 04/21/20 Blood Culture - Preliminary, Resulted NO GROWTH AFTER 4 DAYS Medications Current Medications Ipratropium [place] (Atrovent) 1 mg 1X ONCE NEB Last administered on 04/21/20at 20:25; Start 04/21/20 at 19:15; Stop 04/21/20 at 19:16; Status DC Methylprednisolone Sodium Succinate (SOLU-Medrol 125MG VIAL) 125 mg 1X ONCE IV Last administered on 04/21/20at 19:17; Start 04/21/20 at 19:15; Stop 04/21/20 at 19:16; Status DC Albuterol Sulfate (Ventolin Neb Soln) 10 mg 1X ONCE CONT NEB Last administered on 04/21/20at 20:25; Start 04/21/20 at 19:15; Stop 04/21/20 at 19:16; Status DC Sodium Chloride 500 ml @ 500 mls/hr 1X ONCE IV Last administered on 04/21/20at 19:20; Start 04/21/20 at 19:15; Stop 04/21/20 at 20:14; Status DC Famotidine (Pepcid) 20 mg 1X ONCE PO Last administered on 04/21/20at 19:15; Start 04/21/20 at 19:15; Stop 04/21/20 at 19:16; Status DC Al Hydroxide/Mg Hydroxide (Mylanta Plus Xs) 30 ml 1X ONCE PO Last administered on 04/21/20at 19:15; Start 04/21/20 at 19:15; Stop 04/21/20 at 19:16; Status DC Metoclopramide HCl (Reglan Vial) 5 mg 1X ONCE IVP Last administered on 04/21/20at 19:16; Start 04/21/20 at 19:15; Stop 04/21/20 at 19:16; Status DC Aspirin (Aspirin Chewable) 162 mg 1X ONCE PO Last administered on 04/21/20at 21:28; Start 04/21/20 at 20:45; Stop 04/21/20 at 20:46; Status DC Furosemide (Lasix) 80 mg 1X ONCE IVP Last administered on 04/21/20at 22:48; Start 04/21/20 at 22:30; Stop 04/21/20 at 22:31; Status DC Furosemide (Lasix) 40 mg 1X ONCE IVP Last administered on 04/22/20at 15:04; Start 04/22/20 at 10:30; Stop 04/22/20 at 10:32; Status DC Pantoprazole Sodium (Protonix) 40 mg DAILYAC PO Last administered on 04/26/20 08:17; Start 04/23/20 at 07:30 Acetaminophen (Tylenol) 650 mg PRN Q6HRS PRN PO pain or fever; Start 04/22/20 at 12:45 Aspirin (Ecotrin) 81 mg DAILY PO Last administered on 04/26/20 08:16; Start 04/22/20 at 13:00 Bupropion HCl (Wellbutrin Sr) 150 mg DAILY PO Last administered on 04/26/20 08:17; Start 04/22/20 at 13:00 Carbamazepine (TEGretol) 100 mg DAILY PO Last administered on 04/26/20 08:18; Start 04/22/20 at 13:00 Clopidogrel Bisulfate (Plavix) 75 mg DAILY PO Last administered on 04/26/20 08:16; Start 04/22/20 at 13:00 Ferrous Sulfate (Feosol) 325 mg DAILY PO Last administered on 04/26/20 08:17; Start 04/22/20 at 13:00 Isosorbide Mononitrate (Imdur) 30 mg DAILY PO Last administered on 04/26/20 08:16; Start 04/22/20 at 13:00 Levetiracetam (Keppra) 250 mg BID PO Last administered on 04/26/20 08:16; Start 04/22/20 at 13:00 Loperamide HCl (Imodium) 2 mg PRN Q4HRS PRN PO DIARRHEA; Start 04/22/20 at 12:45 Metoprolol Succinate (Toprol Xl) 25 mg DAILY PO Last administered on 04/26/20 08:17; Start 04/22/20 at 12:45 Nitroglycerin (Nitrostat) 0.4 mg PRN Q5MIN PRN SL CHEST PAIN; Start 04/22/20 at 12:45 Polyethylene Glycol (miraLAX PACKET) 17 gm Q12HR PRN PO CONSTIPATION Last administered on 04/24/20 20:44; Start 04/22/20 at 12:45 Risperidone (RisperDAL) 1 mg DAILY08 PO Last administered on 04/26/20 08:17; Start 04/22/20 at 13:00 Atorvastatin Calcium (Lipitor) 80 mg QHS PO Last administered on 8/20/20at 20:44; Start 04/22/20 at 21:00; Stop 04/25/20 at 13:29; Status DC Non-Formulary Medication (Deutetrabenazine (Austedo)) 1 tab BID PO ; Start 04/22/20 at 21:00; Stop 04/22/20 at 16:39; Status DC Risperidone (RisperDAL) 2 mg QHS PO Last administered on 04/25/20at 20:57; Start 04/22/20 at 21:00 Heparin Sodium (Porcine) (Heparin Sodium) 5,000 unit Q8HRS SQ Last administered on 04/23/20at 06:17; Start 04/22/20 at 14:00 Insulin Human Lispro (HumaLOG) 0-5 UNITS TIDWMEALS SQ Last administered on 04/26/20at 08:29; Start 04/22/20 at 17:00 Dextrose (Dextrose 50%-Water Syringe) 12.5 gm PRN Q15MIN PRN IV SEE COMMENTS; Start 04/22/20 at 13:00 Metoprolol Succinate (Toprol Xl) 25 mg DAILY PO ; Start 04/23/20 at 09:00; Stop 04/22/20 at 13:01; Status DC Aspirin (Ecotrin) 81 mg DAILYWBKFT PO ; Start 04/23/20 at 08:00; Stop 04/22/20 at 13:02; Status DC Furosemide (Lasix) 40 mg DAILY IVP Last administered on 04/25/20at 08:44; Start 04/23/20 at 09:00; Stop 04/25/20 at 13:30; Status DC Milrinone Lactate/ Dextrose 100 ml @ 2.888 mls/ hr CONT PRN IV SEE I/O RECORD Last administered on 04/24/20at 15:52; Start 04/23/20 at 10:30 Furosemide (Lasix) 40 mg 1X ONCE IVP Last administered on 04/23/20at 16:08; Start 04/23/20 at 14:45; Stop 04/23/20 at 14:46; Status DC Furosemide (Lasix) 20 mg 1X ONCE IVP ; Start 04/23/20 at 17:00; Stop 04/23/20 at 17:01; Status DC Furosemide (Lasix) 20 mg 1X ONCE IVP Last administered on 04/23/20at 22:53; Start 04/23/20 at 22:30; Stop 04/23/20 at 22:31; Status DC Potassium Chloride/Water 100 ml @ 100 mls/hr Q1H IV Last administered on 04/24/20at 12:23; Start 04/24/20 at 08:00; Stop 04/24/20 at 09:59; Status DC Furosemide (Lasix) 40 mg 1X ONCE IVP Last administered on 04/24/20at 15:58; Start 04/24/20 at 16:00; Stop 04/24/20 at 16:01; Status DC Magnesium Sulfate 50 ml @ 25 mls/hr 1X ONCE IV Last administered on 04/24/20at 18:23; Start 04/24/20 at 16:30; Stop 04/24/20 at 18:29; Status DC Albuterol Sulfate (Ventolin Neb Soln) 2.5 mg PRN Q4HRS PRN NEB SHORTNESS OF MAX ATH Last administered on 04/25/20at 15:41; Start 04/24/20 at 16:15 Potassium Chloride/Water 100 ml @ 100 mls/hr Q1H IV Last administered on 04/25/20at 10:25; Start 04/25/20 at 08:00; Stop 04/25/20 at 09:59; Status DC Atorvastatin Calcium (Lipitor) 20 mg QHS PO Last administered on 04/25/20at 20:54; Start 04/25/20 at 21:00 Furosemide (Lasix) 40 mg DAILY PO Last administered on 04/26/20at 08:19; Start 04/26/20 at 09:00 Furosemide (Lasix) 20 mg 1X ONCE IVP Last administered on 04/26/20at 10:47; Start 04/26/20 at 10:00; Stop 04/26/20 at 10:01; Status DC Active Scripts Active Keppra (Levetiracetam) 250 Mg Tablet 250 Mg PO BID 60 Days Reported Vitamin D3-Aloe 1,000 Unit Tab (Ca Cmb 1/Vit D3/B-6/Fa/B12/Av) 1 Each Tablet 1 Each PO DAILY Tegretol (Carbamazepine) 200 Mg Tablet 0.5 Tab PO DAILY Klor-Con 10 (Potassium Chloride) 10 Meq Tablet.er 1 Tab PO DAILY 30 Days Clopidogrel (Clopidogrel Bisulfate) 75 Mg Tablet 1 Tab PO DAILY NITROGLYCERIN SubLingual (Nitroglycerin) 0.4 Mg Tab.subl 0.4 Mg SL PRN Q5MIN PRN Once Daily (Multivitamin) 1 Each Tablet 1 Tab PO DAILY 30 Days Ipratropium [place] 0.2 Mg/1 Ml Solution 1 Vial NEB PRN Q6HRS PRN Imodium A-D (Loperamide HCl) 2 Mg Capsule 1 Tab PO PRN PRN Folic Acid 0.8 Mg Capsule 1 Cap PO DAILY 30 Days Ferrous Sulfate 325 Mg Tablet 1 Tab PO DAILY [place] (Deutetrabenazine) 6 Mg Tablet 1 Tab PO BID 30 Days on hold 04/19-07/27 Albuterol Sulfate Neb Soln (Albuterol Sulfate) 0.63 Mg/3 Ml Vial.neb 1 Vial NEB QID PRN Metformin Hcl 500 Mg Tablet 500 Mg PO BIDWMEALS Furosemide 20 Mg Tablet 3 Tab PO DAILY Aspirin Ec (Aspirin) 81 Mg Tablet.dr 1 Tab PO DAILY Metoprolol Succinate ( Xl ) (Metoprolol Succinate) 25 Mg Tab.er.24h 1 Tab PO DAILY Atorvastatin Calcium 80 Mg Tablet 80 Mg PO QHS Nicotine Gum (Nicotine Polacrilex) 4 Mg Gum 4 Mg BC Miconazole Nitrate 45 Gm Cream.appl 45 Gm TOP BID Risperdal (Risperidone) 2 Mg Tablet 1 Tab PO QHS Alum-Mag Hydroxide-Simeth Liq (Mag Hydrox/Al Hydrox/Simeth) 360 Ml Oral.susp 30 Ml PO PRN TID PRN Miralax (Polyethylene Glycol 3350) 17 Gm Powd.pack 1 Packet PO Q12HR PRN Isosorbide Mononitrate Er (Isosorbide Mononitrate) 30 Mg Tab.er.24h 1 Tab PO DAILY Risperdal (Risperidone) 1 Mg Tablet 1 Mg PO DAILY08 Baclofen 10 Mg Tablet 5 Mg PO DAILY Wellbutrin Sr (Bupropion Hcl) 150 Mg Tablet.er 1 Tab PO DAILY Acetaminophen 325 Mg Tablet 2 Tab PO PRN Q6HRS PRN 30 Days Vitals/I & O Vital Sign - Last 24 Hours 04/25/20 04/25/20 04/25/20 04/25/20 14:50 15:42 19:05 20:00 Temp 97.8 97.7 97.8 97.7 Pulse 93 91 Resp 20 21 B/P (MAP) 138/82 (100) 133/76 (95) Pulse Ox 100 98 99 O2 Delivery Nasal Cannula Nasal Cannula Nasal Cannula Nasal Cannula O2 Flow Rate 2.0 1.0 1.0 1.0 04/25/20 04/26/20 04/26/20 04/26/20 23:05 03:00 07:00 08:15 Temp 98.1 98.0 97.8 98.1 98.0 97.8 Pulse 87 96 98 Resp B/P (MAP) 115/73 (87) 134/89 (104) 126/82 (97) Pulse Ox 99 95 100 O2 Delivery Nasal Cannula Nasal Cannula Nasal Cannula Nasal Cannula O2 Flow Rate 1.0 1.0 1.0 1.0 04/26/20 04/26/20 04/26/20 08:16 08:17 11:09 Temp 97.8 97.8 Pulse 98 98 96 Resp 24 B/P (MAP) 126/82 126/82 120/67 (84) Pulse Ox 93 O2 Delivery Nasal Cannula O2 Flow Rate 1.0 Intake and Output 04/25/20 04/25/20 04/26/20 15:00 23:00 07:00 Intake Total 650 ml 100 ml 500 ml Output Total 1250 ml 400 ml Balance 650 ml -1150 ml 100 ml Nutrition Consultation Dietary Evaluation: Recommendations by RD: Dietary education by RD, Increase Calorie Intake, Protein supplementation Comments: Continue w/ADA/Cardiac as ordered Continue w/glucerna bid John BID - will add REC MVI for wound healing Expected Outcomes/Goals: to meet > 75% est nutr needs - met at times, goal ongoing Malnutrition Findings: Weight Status: Overweight Fluid Accumulation (Non-Severe: Mild depletion Justicifation of Admission Dx: Justifications for Admission: Justification of Admission Dx: Yes PILI MORALES MD Apr 26, 2020 12:04
[2020-04-26 15:21] VITALS: BP 122/66
[2020-04-26 19:42] VITALS: BP 144/61
[2020-04-26 22:53] VITALS: BP 128/77
[2020-04-26] MEDS: ATORVASTATIN CALCIUM 20 MG TABLET PO SCH (22:58)
[2020-04-27 03:20] VITALS: BP 144/77
[2020-04-27] MEDS: HEPARIN for SUB-Q USE 5,000 UNIT/ML VIAL. SQ SCH ×3 (05:21→22:29)
[2020-04-27 07:00] VITALS: BP 129/85
[2020-04-27 07:15] LABS: CALCIUM 8.4 mg/dL (8.5-10.1); CREATININE 2.4 mg/dL (0.7-1.3); GFR 27.4; POTASSIUM 3.8 mmol/L (3.5-5.1)
[2020-04-27] MEDS: INSULIN LISPRO 300 UNITS/3 ML VIAL. SQ SCH ×3 (08:00→16:13)
--- NOTE | 2020-04-27 08:53 | PDOC ---
PULMONARY PROGRESS NOTES DATE: 04/27/20 TIME: 08:51 Subjective remains on N/C no SOB, No CP, no cough --wheezing today No overnight concerns from nursing Vitals Vital Signs Date Time Temp Pulse Resp B/P (MAP) Pulse Ox O2 Delivery O2 Flow Rate FiO2 04/27/20 07:00 98.1 91 26 129/85 (100) 100 Nasal Cannula 2.0 98.1 ROS: No Nausea, No Chest Pain, No Abdominal Pain, No Increase Cough General: Alert, No acute distress Lungs: Other (decrease bs) Cardiovascular: S1 Abdomen: Soft Neuro Exam: Alert Extremities: Other (1+EDEMA) Labs Laboratory Tests Test 04/25/20 11:46 04/25/20 17:22 04/25/20 20:11 04/26/20 06:00 Glucose (Fingerstick) 228 mg/dL (70-99) 282 mg/dL (70-99) 170 mg/dL (70-99) Sodium Level 134 mmol/L (136-145) Potassium Level 4.5 mmol/L (3.5-5.1) Chloride Level 98 mmol/L (98-107) Carbon Dioxide Level 28 mmol/L (21-32) Anion Gap 8 (6-14) Blood Urea Nitrogen 71 mg/dL (8-26) Creatinine 2.6 mg/dL (0.7-1.3) Estimated GFR (Cockcroft-Gault) 25.0 Glucose Level 199 mg/dL (70-99) Calcium Level 8.3 mg/dL (8.5-10.1) Test 04/26/20 07:35 04/26/20 11:31 04/26/20 17:00 04/26/20 21:02 Glucose (Fingerstick) 175 mg/dL (70-99) 143 mg/dL (70-99) 140 mg/dL (70-99) 189 mg/dL (70-99) Test 04/27/20 06:45 04/27/20 07:51 Sodium Level 138 mmol/L (136-145) Potassium Level 3.8 mmol/L (3.5-5.1) Chloride Level 100 mmol/L (98-107) Carbon Dioxide Level 29 mmol/L (21-32) Anion Gap 9 (6-14) Blood Urea Nitrogen 77 mg/dL (8-26) Creatinine 2.4 mg/dL (0.7-1.3) Estimated GFR (Cockcroft-Gault) 27.4 Glucose Level 165 mg/dL (70-99) Calcium Level 8.4 mg/dL (8.5-10.1) Glucose (Fingerstick) 162 mg/dL (70-99) Laboratory Tests Test 04/26/20 11:31 04/26/20 17:00 04/26/20 21:02 04/27/20 06:45 Glucose (Fingerstick) 143 mg/dL (70-99) 140 mg/dL (70-99) 189 mg/dL (70-99) Sodium Level 138 mmol/L (136-145) Potassium Level 3.8 mmol/L (3.5-5.1) Chloride Level 100 mmol/L (98-107) Carbon Dioxide Level 29 mmol/L (21-32) Anion Gap 9 (6-14) Blood Urea Nitrogen 77 mg/dL (8-26) Creatinine 2.4 mg/dL (0.7-1.3) Estimated GFR (Cockcroft-Gault) 27.4 Glucose Level 165 mg/dL (70-99) Calcium Level 8.4 mg/dL (8.5-10.1) Test 04/27/20 07:51 Glucose (Fingerstick) 162 mg/dL (70-99) Medications Active Scripts Medications Dose Route/Sig Max Daily Dose Days Date Category Dose Instructions Vitamin D3-Aloe 1,000 Unit Tab (Ca Cmb 1/Vit D3/B-6/Fa/B12/Av) 1 Each Tablet 1 Each PO DAILY 04/22/20 Reported Tegretol (Carbamazepine) 200 Mg Tablet 0.5 Tab PO DAILY 04/22/20 Reported Klor-Con 10 (Potassium Chloride) 10 Meq Tablet.er 1 Tab PO DAILY 30 04/22/20 Reported Clopidogrel (Clopidogrel Bisulfate) 75 Mg Tablet 1 Tab PO DAILY 04/22/20 Reported NITROGLYCERIN SubLingual (Nitroglycerin) 0.4 Mg Tab.subl 0.4 Mg SL PRN Q5MIN PRN 04/22/20 Reported Once Daily (Multivitamin) 1 Each Tablet 1 Tab PO DAILY 30 04/22/20 Reported Ipratropium [place] 0.2 Mg/1 Ml Solution 1 Vial NEB PRN Q6HRS PRN 04/22/20 Reported Imodium A-D (Loperamide HCl) 2 Mg Capsule 1 Tab PO PRN PRN 04/22/20 Reported Folic Acid 0.8 Mg Capsule 1 Cap PO DAILY 30 04/22/20 Reported Ferrous Sulfate 325 Mg Tablet 1 Tab PO DAILY 04/22/20 Reported [place] (Deutetrabenazine) 6 Mg Tablet 1 Tab PO BID 30 04/22/20 Reported on hold 04/19-07/27 Albuterol Sulfate Neb Soln (Albuterol Sulfate) 0.63 Mg/3 Ml Vial.neb 1 Vial NEB QID PRN 04/22/20 Reported Metformin Hcl 500 Mg Tablet 500 Mg PO BIDWMEALS 04/22/20 Reported Furosemide 20 Mg Tablet 3 Tab PO DAILY 04/22/20 Reported Aspirin Ec (Aspirin) 81 Mg Tablet.dr 1 Tab PO DAILY 04/22/20 Reported Metoprolol Succinate ( Xl ) (Metoprolol Succinate) 25 Mg Tab.er.24h 1 Tab PO DAILY 04/22/20 Reported Atorvastatin Calcium 80 Mg Tablet 80 Mg PO QHS 04/22/20 Reported Keppra (Levetiracetam) 250 Mg Tablet 250 Mg PO BID 60 10/25/17 Rx Nicotine Gum (Nicotine Polacrilex) 4 Mg Gum 4 Mg BC 10/21/17 Reported Miconazole Nitrate 45 Gm Cream.appl 45 Gm TOP BID 10/21/17 Reported Risperdal (Risperidone) 2 Mg Tablet 1 Tab PO QHS 01/06/15 Reported Alum-Mag Hydroxide-Simeth Liq (Mag Hydrox/Al Hydrox/Simeth) 360 Ml Oral.susp 30 Ml PO PRN TID PRN 01/06/15 Reported Miralax (Polyethylene Glycol 3350) 17 Gm Powd.pack 1 Packet PO Q12HR PRN 01/06/15 Reported Isosorbide Mononitrate Er (Isosorbide Mononitrate) 30 Mg Tab.er.24h 1 Tab PO DAILY 01/06/15 Reported Risperdal (Risperidone) 1 Mg Tablet 1 Mg PO DAILY08 10/02/13 Reported Baclofen 10 Mg Tablet 5 Mg PO DAILY 10/02/13 Reported Wellbutrin Sr (Bupropion Hcl) 150 Mg Tablet.er 1 Tab PO DAILY 04/22/20 Reported Acetaminophen 325 Mg Tablet 2 Tab PO PRN Q6HRS PRN 30 04/22/20 Reported Comments IMPRESSION: 1. Small pleural effusions and mild pulmonary edema are slightly increased. <Conclusion> The Left Ventricle is mildly dilated. The ejection fraction is severely impaired. Left ventricular ejection fraction is 15 to 20%. There is severe global hypokinesis of the left ventricle. Doppler and Color Flow revealed no significant aortic regurgitation. There is no significant aortic valvular stenosis. Doppler and Color-flow revealed moderate mitral regurgitation. Doppler and Color Flow revealed mild to moderate tricuspid regurgitation. The PA pressure was estimated at 48 mmHg. Impression . 1. Acute hypoxic respiratory failure secondary to congestive heart failure. 2. Abnormal chest x-ray with bilateral interstitial infiltrates most suggestive of congestive heart failure.-- improved 3. Low suspicion for COVID-19 pneumonia. Neg test 4. Acute kidney injury. Could be on chronic kidney disease.--ongoing 5. Anemia. 6. Suspected underlying chronic obstructive pulmonary disease. 7. severe CMP/ EF15% Plan . 1. Continue present oxygen and wean gradually due to improvement in oxygenation with diuresis, 2. Echocardiogram reviewed --Left ventricular ejection fraction is 15 to 20%. 3. Follow chest x-ray 04/26 persistent CHF 4. Follow cardiology recommendations, now on primacor gtt 5. COVID-19. NEG 6. wheezing better today, on PO lasix DVT/GI PPX Discussed with DINA REYNOLDS MD Apr 27, 2020 08:53
[2020-04-27] MEDS: FERROUS SULFATE 325 MG TABLET. PO SCH (09:38)
[2020-04-27] MEDS: ISOSORBIDE MONONITRATE ER 30 MG TAB.ER.24H PO SCH (09:38)
[2020-04-27] MEDS: PANTOPRAZOLE 40 MG TABLET.DR. PO SCH (09:38)
[2020-04-27] MEDS: levETIRAcetam 250 MG TABLET PO SCH ×2 (09:38→20:32)
[2020-04-27] MEDS: FUROSEMIDE 40 MG TABLET. PO SCH (09:39)
[2020-04-27] MEDS: METOPROLOL SUCC 24HR ER 25 MG TAB.ER.24H. PO SCH (09:39)
[2020-04-27] MEDS: risperiDONE 1 MG TABLET. PO SCH ×2 (09:40→20:32)
[2020-04-27] MEDS: carBAMazepine 200 MG TABLET PO SCH (09:40)
[2020-04-27] MEDS: ASPIRIN ENTERIC COATED 81 MG TABLET.DR. PO SCH (09:40)
[2020-04-27] MEDS: buPROPion SR 150 MG TABLET.SA PO SCH (09:40)
[2020-04-27] MEDS: CLOPIDOGREL BISULFATE 75 MG TABLET PO SCH (09:43)
[2020-04-27 10:50] VITALS: BP 135/81
--- NOTE | 2020-04-27 11:53 | PDOC ---
DATE OF SERVICE DATE: 04/27/20 TIME: 11:53 SUBJECTIVE ROS Sitting up in chair, per RN wheezing when off O2 No urinary retention yest after initial in am OBJECTIVE Vital Signs Vital Signs Date Time Temp Pulse Resp B/P (MAP) Pulse Ox O2 Delivery O2 Flow Rate FiO2 04/27/20 10:50 97.8 85 22 135/81 (99) 100 Nasal Cannula 2.0 97.8 I & 0 Intake and Output 04/27/20 07:00 Intake Total 750 ml Balance 750 ml Intake Oral 750 ml # Voids 4 PHYSICAL EXAM Physical Exam General: No acute distress HEENT: Mucous membr. moist/pink, On O2 by NC Neck Supple Lungs: diminished at bases, Non labored Heart: Regular rate , s1 s2 Extremities: trace bilateral LE pitting edema; hand contractures Skin: No rashes Neuro: Hx of CVA Psych/Mental Status: flat affect Cuadra dced DIAGNOSIS/ASSESSMENT Assessment & Plan FAWAD - cardiorenal syndrome / Urinary retention at presentation UA unremarkable , US Cw Chr medical disease Cr improving Supportive care, strict I/O, avoid nephrotoxins HypoKalemia mild 2/2 Diuresis, replace as needed, Normal today Chronic kidney disease 3- Cr 1.6-2.1 since 2018 per [facility] records OP baseline unknown US Right Kidney: Measures normal in length at 10.5 cm but the cortex is thinned and cortical echogenicity is increased. Left Kidney: Not visualized due to bowel gas Acute hypoxic respiratory failure secondary to congestive heart failure - Improved Recd IV Diuretics switched to 40 on 8/21 mg QD , stable Acute diastolic CHF - as above EF 15-20%., was on Milrinone gtt Acute Anemia - Hb 7.6, Primary following Transaminitis - likely congestive hepatopathy from right sided heart failure. Per GI Urinary retention - likely with BPH,Cuadra removed, Per RN No retention today H/o atrial fibrillation - On BB, not on anticoagulation H/o CVA - with residual contractures, speech deficits. [facility] resident Type 2 diabetes - Epilepsy - seizure meds PVD -On plavix Dw RN COMMENT/RELEVANT DATA Meds Current Medications Medications (Trade) Dose Ordered Sig/Isidoro Start Time Stop Time Status Last Admin Dose Admin Acetaminophen (Tylenol) 650 mg PRN Q6HRS PRN 04/22/20 12:45 Al Hydroxide/Mg Hydroxide (Mylanta Plus Xs) 30 ml 1X ONCE 04/21/20 19:15 04/21/20 19:16 DC 04/21/20 19:15 30 ML Albuterol Sulfate (Ventolin Neb Soln) 2.5 mg PRN Q4HRS PRN 04/24/20 16:15 04/25/20 15:41 2.5 MG Aspirin (Aspirin Chewable) 162 mg 1X ONCE 04/21/20 20:45 04/21/20 20:46 DC 04/21/20 21:28 162 MG Aspirin (Ecotrin) 81 mg [id number] 04/23/20 08:00 04/22/20 13:02 DC Atorvastatin Calcium (Lipitor) 20 mg QHS 04/25/20 21:00 04/26/20 22:58 20 MG Bupropion HCl (Wellbutrin Sr) 150 mg DAILY 04/22/20 13:00 04/27/20 09:40 150 MG Carbamazepine (TEGretol) 100 mg DAILY 04/22/20 13:00 04/27/20 09:40 100 MG Clopidogrel Bisulfate (Plavix) 75 mg DAILY 04/22/20 13:00 04/27/20 09:43 75 MG Dextrose (Dextrose 50%-Water Syringe) 12.5 gm PRN Q15MIN PRN 04/22/20 13:00 Famotidine (Pepcid) 20 mg 1X ONCE 04/21/20 19:15 04/21/20 19:16 DC 04/21/20 19:15 20 MG Ferrous Sulfate (Feosol) 325 mg DAILY 04/22/20 13:00 04/27/20 09:38 325 MG Furosemide (Lasix) 20 mg 1X ONCE 04/26/20 10:00 04/26/20 10:01 DC 04/26/20 10:47 20 MG Heparin Sodium (Porcine) (Heparin Sodium) 5,000 unit Q8HRS 04/22/20 14:00 04/27/20 05:21 5,000 UNIT Insulin Human Lispro (HumaLOG) 0-5 UNITS TIDWMEALS 04/22/20 17:00 04/26/20 08:29 2 UNITS Ipratropium [place] (Atrovent) 1 mg 1X ONCE 04/21/20 19:15 04/21/20 19:16 DC 04/21/20 20:25 1 MG Isosorbide Mononitrate (Imdur) 30 mg DAILY 04/22/20 13:00 04/27/20 09:38 30 MG Levetiracetam (Keppra) 250 mg BID 04/22/20 13:00 04/27/20 09:38 250 MG Loperamide HCl (Imodium) 2 mg PRN Q4HRS PRN 04/22/20 12:45 Magnesium Sulfate 50 ml @ 25 mls/hr 1X ONCE 04/24/20 16:30 04/24/20 18:29 DC 04/24/20 18:23 25 MLS/HR Methylprednisolone Sodium Succinate (SOLU-Medrol 125MG VIAL) 125 mg 1X ONCE 04/21/20 19:15 04/21/20 19:16 DC 04/21/20 19:17 125 MG Metoclopramide HCl (Reglan Vial) 5 mg 1X ONCE 04/21/20 19:15 04/21/20 19:16 DC 04/21/20 19:16 5 MG Metoprolol Succinate (Toprol Xl) 25 mg DAILY 04/23/20 09:00 04/22/20 13:01 DC Milrinone Lactate/ Dextrose 100 ml @ 2.888 mls/ hr CONT PRN 04/23/20 10:30 04/24/20 15:52 2.888 MLS/HR Nitroglycerin (Nitrostat) 0.4 mg PRN Q5MIN PRN 04/22/20 12:45 Non-Formulary Medication (Deutetrabenazine (Austedo)) 1 tab BID 04/22/20 21:00 04/22/20 16:39 DC Pantoprazole Sodium (Protonix) 40 mg DAILYAC 04/23/20 07:30 04/27/20 09:38 40 MG Polyethylene Glycol (miraLAX PACKET) 17 gm Q12HR PRN 04/22/20 12:45 04/24/20 20:44 17 GM Potassium Chloride/Water 100 ml @ 100 mls/hr Q1H 04/25/20 08:00 04/25/20 09:59 DC 04/25/20 10:25 100 MLS/HR Risperidone (RisperDAL) 2 mg QHS 04/22/20 21:00 04/26/20 22:58 2 MG Sodium Chloride 500 ml @ 500 mls/hr 1X ONCE 04/21/20 19:15 04/21/20 20:14 DC 04/21/20 19:20 500 MLS/HR Lab Laboratory Tests Test 04/26/20 17:00 04/26/20 21:02 04/27/20 06:45 04/27/20 07:51 Glucose (Fingerstick) 140 mg/dL (70-99) 189 mg/dL (70-99) 162 mg/dL (70-99) Sodium Level 138 mmol/L (136-145) Potassium Level 3.8 mmol/L (3.5-5.1) Chloride Level 100 mmol/L (98-107) Carbon Dioxide Level 29 mmol/L (21-32) Anion Gap 9 (6-14) Blood Urea Nitrogen 77 mg/dL (8-26) Creatinine 2.4 mg/dL (0.7-1.3) Estimated GFR (Cockcroft-Gault) 27.4 Glucose Level 165 mg/dL (70-99) Calcium Level 8.4 mg/dL (8.5-10.1) Test 04/27/20 11:32 Glucose (Fingerstick) 169 mg/dL (70-99) Results All relevant outside records, renal labs, imaging studies, telemetry/EKG's were reviewed. Justicifation of Admission Dx: Justifications for Admission: Justification of Admission Dx: Yes YONY LINO MD Apr 27, 2020 11:53
--- NOTE | 2020-04-27 12:11 | PDOC ---
PROGRESS NOTES Date of Service: DATE: 04/27/20 TIME: 12:11 Subjective Subjective Looks more comfortable today. Denies any chest pain or dyspnea Objective Objective Vital Signs Date Time Temp Pulse Resp B/P (MAP) Pulse Ox O2 Delivery O2 Flow Rate FiO2 04/27/20 10:50 97.8 85 22 135/81 (99) 100 Nasal Cannula 2.0 97.8 Intake and Output 04/27/20 07:00 Intake Total 750 ml Balance 750 ml Intake Oral 750 ml # Voids 4 Physical Exam Abdomen: Normal bowel sounds, Soft, No tenderness, No hepatosplenomegaly, No masses Heart: Regular rate (SR), Other (distant heart sounds) Extremities: No cyanosis, Other (2+ bilateral LE pitting edema; hand contractures) General: Alert, Cooperative, No acute distress HEENT: Atraumatic, Mucous membr. moist/pink Lungs: Other (diminished) Neuro: Normal speech Psych/Mental Status: Other (flat affect) Skin: No rashes Assessment Assessment 1. Acute on chronic systolic/diastolic CHF/ICM: EF 15-20%. negative covid. Improved with diuresis Lasix and inotropic support with milrinone. He is currently off milrinone. Continue Lasix. Pulmonary team following. 2. Atypical chest pain: Most probably GI etiology. 3. Abdominal pain with severe transaminitis: improving, GI following 4. Lactic acidosis: multifactorial with work of breathing contributing. Afebrile 5. FAWAD on CKD3-4: Manage per nephrology team 6. Mild troponin elevation: chronic RBBB no acute changes to EKG. Suspect type 2/demand ischemia. Cardiac catheterization 06/2019 showed significant LMCA/LAD stenosis, being managed medically secondary to his comorbidities. 7. Severe debility with hx of Dementia/CVA/seizures/extremity contractures 8. PAFIB: Maintaining SR. Deemed not a candidate for anticoagulation in the past 9. HTN: controlled 10. DM2: Per IM 11. HLP: Statins Plan Plan of Care Problems Medical Problems: (1) Acute respiratory distress Status: Acute (2) Acute systolic (congestive) heart failure Status: Acute Comment Review of Relevant I have reviewed the following items hair (where applicable) has been applied. Labs Laboratory Tests Test 04/26/20 17:00 04/26/20 21:02 04/27/20 06:45 04/27/20 07:51 Glucose (Fingerstick) 140 mg/dL (70-99) 189 mg/dL (70-99) 162 mg/dL (70-99) Sodium Level 138 mmol/L (136-145) Potassium Level 3.8 mmol/L (3.5-5.1) Chloride Level 100 mmol/L (98-107) Carbon Dioxide Level 29 mmol/L (21-32) Anion Gap 9 (6-14) Blood Urea Nitrogen 77 mg/dL (8-26) Creatinine 2.4 mg/dL (0.7-1.3) Estimated GFR (Cockcroft-Gault) 27.4 Glucose Level 165 mg/dL (70-99) Calcium Level 8.4 mg/dL (8.5-10.1) Test 04/27/20 11:32 Glucose (Fingerstick) 169 mg/dL (70-99) Microbiology 04/21/20 Blood Culture - Final, Complete NO GROWTH AFTER 5 DAYS Vitals/I & O Vital Sign - Last 24 Hours 04/26/20 04/26/20 04/26/20 04/26/20 15:21 19:42 20:00 22:53 Temp 97.3 97.5 97.6 97.3 97.5 97.6 Pulse 82 86 86 Resp 26 18 18 B/P (MAP) 122/66 (84) 144/61 (88) 128/77 (94) Pulse Ox 94 95 91 O2 Delivery Nasal Cannula Nasal Cannula Nasal Cannula Nasal Cannula O2 Flow Rate 1.0 1.0 1.0 1.0 04/27/20 04/27/20 04/27/20 04/27/20 03:20 07:00 08:05 09:38 Temp 97.8 98.1 97.8 98.1 Pulse 91 91 91 Resp 18 26 B/P (MAP) 144/77 (99) 129/85 (100) 129/85 Pulse Ox 100 100 O2 Delivery Nasal Cannula Nasal Cannula Nasal Cannula O2 Flow Rate 1.0 2.0 2.0 04/27/20 04/27/20 09:39 10:50 Temp 97.8 97.8 Pulse 91 85 Resp 22 B/P (MAP) 129/85 135/81 (99) Pulse Ox 100 O2 Delivery Nasal Cannula O2 Flow Rate 2.0 Intake and Output 04/26/20 04/26/20 04/27/20 15:00 23:00 07:00 Intake Total 600 ml 150 ml Balance 600 ml 150 ml NEDA SELLERS MD Apr 27, 2020 12:11
[2020-04-27 15:02] VITALS: BP 96/69
--- NOTE | 2020-04-27 15:42 | PDOC ---
PROGRESS NOTES Date of Service: DATE: 04/27/20 TIME: 15:40 Chief Complaint Chief Complaint A/P: Acute hypoxic respiratory failure secondary to congestive heart failure vs low suspicion for pneumonia or COVID 19, will await COVID 19 results. Diurese. Cardiology and pulmonology consulted Acute kidney injury - likely vasomotor nephropathy from cardiorenal syndrome, will diurese for fluid overload. Could be on chronic kidney disease. Nephrology consulted, patient has been transitioned to oral lasix, will repeat labs in am Acute Anemia - Hb 7.6, will trend Hb and transfuse if Hb < 7. Type and screen Transaminitis - likely congestive hepatopathy from right sided heart failure. Will consult GI given his epigastric pain complaints, anemia, and transaminitis, however Urinary retention - likely with BPH, mccoy placed for strict I/O with his acute CHF. H/o atrial fibrillation - sinus rhythm currently. On BB, not on anticoagulation Acute diastolic CHF - will diurese. Cardiology consulted. Cont BB, imdur, hydralazine. With Cr not on CRIS or ARB. Constipation - cont miralax H/o CVA - with residual contractures, speech deficits. group home [facility] resident Depression - cont meds Type 2 diabetes - will place on sliding scale Epilepsy - cont seizure meds PVD - cont plavix FEN - cardiac soft diet (missing bottom dentures) PPX - Heparin FULL CODE Dispo - inpatient for acute CHF at least 2 midnights follow recommendations from consultants, patient presented urinary retention and now has a mccoy in place hopefully discharge in the am History of Present Illness History of Present Illness Mr Jones is a 64 year old male group home [facility] resident with PMHx atrial fibrillation, anemia, CHF, constipation, CVA, depression, type 2 diabetes, stroke, UTI, epilepsy, PVD.who presents with complaints of epigastric abdominal pain as well as chest pain and shortness of breath. Notable for RR 44 breaths/min with accessory muscle use. Per his facility he has been progressively more short of breath recently. However he did deny any fever or chills. He reports he has no cough. He denied vomiting, diarrhea, melena or hematochezia. He states his pain is in his abdomen, 6/10. Chest x-ray with bilateral interstitial infiltrates. BNP greater than 35,000, Hb 7.4, WBC 10, platelets 245, lactate 3.9, albumin 2.8, NA 139, K4.7, BUN 54, CR 2.6, AST 926, ALT 725. INR 1.5. ABG on room air 7.39/33/less than 42, placed on 3 L nasal cannulated oxygen ABG 7.41/29/163. EKG with heart rate 82 bpm, normal sinus rhythm, left atrial enlargement, incomplete right bundle branch block. Admitted for further treatment. 04/23 Hemoglobin dropped to 7.1. COVID-19 negative. Still requiring O2, very short of breath. 04/24 Patient's heparin currently on hold given findings of anemia. Still on milrinone Plan: will give magnesium and albuterol for bronchospasm 04/25 Patient seems stable creatinine noted and lead sales consultant requested evaluation by nephrology He has been transitioned to oral Lasix and hopefully will be able to discharge in the a.m. back to his facility in [place] 04/26 Patient presented with urinary retention had about 500 cc in his bladder today, this prompted a Mccoy catheter placement, good urinary output afterwards hopefully this will alleviate his renal dysfunction as well. We will continue to follow along with consultants and hopefully will be able to transition back to [place] in the next 24 to 48 hours Vitals Vitals Vital Signs Date Time Temp Pulse Resp B/P (MAP) Pulse Ox O2 Delivery O2 Flow Rate FiO2 04/27/20 15:02 98.1 81 24 96/69 (78) 100 Nasal Cannula 2.0 98.1 Physical Exam General: Alert, Cooperative, No acute distress Heart: Regular rate (SR), Other (distant heart sounds) Lungs: Other (decrease bs) Abdomen: Normal bowel sounds, Soft, No tenderness, No hepatosplenomegaly, No masses Extremities: No cyanosis, Other (2+ bilateral LE pitting edema; hand contra ctures) Skin: No rashes Labs LABS Laboratory Tests Test 04/26/20 17:00 04/26/20 21:02 04/27/20 06:45 04/27/20 07:51 Glucose (Fingerstick) 140 mg/dL (70-99) 189 mg/dL (70-99) 162 mg/dL (70-99) Sodium Level 138 mmol/L (136-145) Potassium Level 3.8 mmol/L (3.5-5.1) Chloride Level 100 mmol/L (98-107) Carbon Dioxide Level 29 mmol/L (21-32) Anion Gap 9 (6-14) Blood Urea Nitrogen 77 mg/dL (8-26) Creatinine 2.4 mg/dL (0.7-1.3) Estimated GFR (Cockcroft-Gault) 27.4 Glucose Level 165 mg/dL (70-99) Calcium Level 8.4 mg/dL (8.5-10.1) Test 04/27/20 11:32 Glucose (Fingerstick) 169 mg/dL (70-99) Assessment and Plan Assessmemt and Plan Problems Medical Problems: (1) Acute respiratory distress Status: Acute (2) Acute systolic (congestive) heart failure Status: Acute Comment Review of Relevant I have reviewed the following items hair (where applicable) has been applied. Labs Laboratory Tests Test 04/25/20 17:22 04/25/20 20:11 04/26/20 06:00 04/26/20 07:35 Glucose (Fingerstick) 282 mg/dL (70-99) 170 mg/dL (70-99) 175 mg/dL (70-99) Sodium Level 134 mmol/L (136-145) Potassium Level 4.5 mmol/L (3.5-5.1) Chloride Level 98 mmol/L (98-107) Carbon Dioxide Level 28 mmol/L (21-32) Anion Gap 8 (6-14) Blood Urea Nitrogen 71 mg/dL (8-26) Creatinine 2.6 mg/dL (0.7-1.3) Estimated GFR (Cockcroft-Gault) 25.0 Glucose Level 199 mg/dL (70-99) Calcium Level 8.3 mg/dL (8.5-10.1) Test 04/26/20 11:31 04/26/20 17:00 04/26/20 21:02 04/27/20 06:45 Glucose (Fingerstick) 143 mg/dL (70-99) 140 mg/dL (70-99) 189 mg/dL (70-99) Sodium Level 138 mmol/L (136-145) Potassium Level 3.8 mmol/L (3.5-5.1) Chloride Level 100 mmol/L (98-107) Carbon Dioxide Level 29 mmol/L (21-32) Anion Gap 9 (6-14) Blood Urea Nitrogen 77 mg/dL (8-26) Creatinine 2.4 mg/dL (0.7-1.3) Estimated GFR (Cockcroft-Gault) 27.4 Glucose Level 165 mg/dL (70-99) Calcium Level 8.4 mg/dL (8.5-10.1) Test 04/27/20 07:51 04/27/20 11:32 Glucose (Fingerstick) 162 mg/dL (70-99) 169 mg/dL (70-99) Laboratory Tests Test 04/26/20 17:00 04/26/20 21:02 04/27/20 06:45 04/27/20 07:51 Glucose (Fingerstick) 140 mg/dL (70-99) 189 mg/dL (70-99) 162 mg/dL (70-99) Sodium Level 138 mmol/L (136-145) Potassium Level 3.8 mmol/L (3.5-5.1) Chloride Level 100 mmol/L (98-107) Carbon Dioxide Level 29 mmol/L (21-32) Anion Gap 9 (6-14) Blood Urea Nitrogen 77 mg/dL (8-26) Creatinine 2.4 mg/dL (0.7-1.3) Estimated GFR (Cockcroft-Gault) 27.4 Glucose Level 165 mg/dL (70-99) Calcium Level 8.4 mg/dL (8.5-10.1) Test 04/27/20 11:32 Glucose (Fingerstick) 169 mg/dL (70-99) Microbiology 04/21/20 Blood Culture - Final, Complete NO GROWTH AFTER 5 DAYS Medications Current Medications Ipratropium Coral (Atrovent) 1 mg 1X ONCE NEB Last administered on 04/21/20at 20:25; Start 04/21/20 at 19:15; Stop 04/21/20 at 19:16; Status DC Methylprednisolone Sodium Succinate (SOLU-Medrol 125MG VIAL) 125 mg 1X ONCE IV Last administered on 04/21/20at 19:17; Start 04/21/20 at 19:15; Stop 04/21/20 at 19:16; Status DC Albuterol Sulfate (Ventolin Neb Soln) 10 mg 1X ONCE CONT NEB Last administered on 04/21/20at 20:25; Start 04/21/20 at 19:15; Stop 04/21/20 at 19:16; Status DC Sodium Chloride 500 ml @ 500 mls/hr 1X ONCE IV Last administered on 04/21/20at 19:20; Start 04/21/20 at 19:15; Stop 04/21/20 at 20:14; Status DC Famotidine (Pepcid) 20 mg 1X ONCE PO Last administered on 04/21/20at 19:15; Start 04/21/20 at 19:15; Stop 04/21/20 at 19:16; Status DC Al Hydroxide/Mg Hydroxide (Mylanta Plus Xs) 30 ml 1X ONCE PO Last administered on 04/21/20at 19:15; Start 04/21/20 at 19:15; Stop 04/21/20 at 19:16; Status DC Metoclopramide HCl (Reglan Vial) 5 mg 1X ONCE IVP Last administered on 04/21/20at 19:16; Start 04/21/20 at 19:15; Stop 04/21/20 at 19:16; Status DC Aspirin (Aspirin Chewable) 162 mg 1X ONCE PO Last administered on 04/21/20at 21:28; Start 04/21/20 at 20:45; Stop 04/21/20 at 20:46; Status DC Furosemide (Lasix) 80 mg 1X ONCE IVP Last administered on 04/21/20at 22:48; Start 04/21/20 at 22:30; Stop 04/21/20 at 22:31; Status DC Furosemide (Lasix) 40 mg 1X ONCE IVP Last administered on 04/22/20at 15:04; Start 04/22/20 at 10:30; Stop 04/22/20 at 10:32; Status DC Pantoprazole Sodium (Protonix) 40 mg DAILYAC PO Last administered on 04/27/20at 09:38; Start 04/23/20 at 07:30 Acetaminophen (Tylenol) 650 mg PRN Q6HRS PRN PO pain or fever; Start 04/22/20 at 12:45 Aspirin (Ecotrin) 81 mg DAILY PO Last administered on 04/27/20at 09:40; Start 04/22/20 at 13:00 Bupropion HCl (Wellbutrin Sr) 150 mg DAILY PO Last administered on 04/27/20at 09:40; Start 04/22/20 at 13:00 Carbamazepine (TEGretol) 100 mg DAILY PO Last administered on 04/27/20 09:40; Start 04/22/20 at 13:00 Clopidogrel Bisulfate (Plavix) 75 mg DAILY PO Last administered on 04/27/20 09:43; Start 04/22/20 at 13:00 Ferrous Sulfate (Feosol) 325 mg DAILY PO Last administered on 04/27/20 09:38; Start 04/22/20 at 13:00 Isosorbide Mononitrate (Imdur) 30 mg DAILY PO Last administered on 04/27/20 09:38; Start 04/22/20 at 13:00 Levetiracetam (Keppra) 250 mg BID PO Last administered on 04/27/20 09:38; Start 04/22/20 at 13:00 Loperamide HCl (Imodium) 2 mg PRN Q4HRS PRN PO DIARRHEA; Start 04/22/20 at 12:45 Metoprolol Succinate (Toprol Xl) 25 mg DAILY PO Last administered on 04/27/20 09:39; Start 04/22/20 at 12:45 Nitroglycerin (Nitrostat) 0.4 mg PRN Q5MIN PRN SL CHEST PAIN; Start 04/22/20 at 12:45 Polyethylene Glycol (miraLAX PACKET) 17 gm Q12HR PRN PO CONSTIPATION Last administered on 04/24/20 20:44; Start 04/22/20 at 12:45 Risperidone (RisperDAL) 1 mg DAILY08 PO Last administered on 04/27/20 09:40; Start 04/22/20 at 13:00 Atorvastatin Calcium (Lipitor) 80 mg QHS PO Last administered on 04/24/20 20:44; Start 04/22/20 at 21:00; Stop 04/25/20 at 13:29; Status DC Non-Formulary Medication (Deutetrabenazine (Austedo)) 1 tab BID PO ; Start 04/22/20 at 21:00; Stop 04/22/20 at 16:39; Status DC Risperidone (RisperDAL) 2 mg QHS PO Last administered on 04/26/20at 22:58; Start 04/22/20 at 21:00 Heparin Sodium (Porcine) (Heparin Sodium) 5,000 unit Q8HRS SQ Last administered on 04/27/20at 05:21; Start 04/22/20 at 14:00 Insulin Human Lispro (HumaLOG) 0-5 UNITS TIDWMEALS SQ Last administered on 04/26/20at 08:29; Start 04/22/20 at 17:00 Dextrose (Dextrose 50%-Water Syringe) 12.5 gm PRN Q15MIN PRN IV SEE COMMENTS; Start 04/22/20 at 13:00 Metoprolol Succinate (Toprol Xl) 25 mg DAILY PO ; Start 04/23/20 at 09:00; Stop 04/22/20 at 13:01; Status DC Aspirin (Ecotrin) 81 mg DAILYWBKFT PO ; Start 04/23/20 at 08:00; Stop 04/22/20 at 13:02; Status DC Furosemide (Lasix) 40 mg DAILY IVP Last administered on 04/25/20at 08:44; Start 04/23/20 at 09:00; Stop 04/25/20 at 13:30; Status DC Milrinone Lactate/ Dextrose 100 ml @ 2.888 mls/ hr CONT PRN IV SEE I/O RECORD Last administered on 04/24/20at 15:52; Start 04/23/20 at 10:30 Furosemide (Lasix) 40 mg 1X ONCE IVP Last administered on 04/23/20at 16:08; St art 04/23/20 at 14:45; Stop 04/23/20 at 14:46; Status DC Furosemide (Lasix) 20 mg 1X ONCE IVP ; Start 04/23/20 at 17:00; Stop 04/23/20 at 17:01; Status DC Furosemide (Lasix) 20 mg 1X ONCE IVP Last administered on 04/23/20at 22:53; Start 04/23/20 at 22:30; Stop 04/23/20 at 22:31; Status DC Potassium Chloride/Water 100 ml @ 100 mls/hr Q1H IV Last administered on 04/24/20at 12:23; Start 04/24/20 at 08:00; Stop 04/24/20 at 09:59; Status DC Furosemide (Lasix) 40 mg 1X ONCE IVP Last administered on 04/24/20at 15:58; Start 04/24/20 at 16:00; Stop 04/24/20 at 16:01; Status DC Magnesium Sulfate 50 ml @ 25 mls/hr 1X ONCE IV Last administered on 04/24/20at 18:23; Start 04/24/20 at 16:30; Stop 04/24/20 at 18:29; Status DC Albuterol Sulfate (Ventolin Neb Soln) 2.5 mg PRN Q4HRS PRN NEB SHORTNESS OF BREATH Last administered on 04/25/20at 15:41; Start 04/24/20 at 16:15 Potassium Chloride/Water 100 ml @ 100 mls/hr Q1H IV Last administered on 04/25/20at 10:25; Start 04/25/20 at 08:00; Stop 04/25/20 at 09:59; Status DC Atorvastatin Calcium (Lipitor) 20 mg QHS PO Last administered on 04/26/20at 22:58; Start 04/25/20 at 21:00 Furosemide (Lasix) 40 mg DAILY PO Last administered on 04/27/20at 09:39; Start 04/26/20 at 09:00 Furosemide (Lasix) 20 mg 1X ONCE IVP Last administered on 04/26/20at 10:47; Start 04/26/20 at 10:00; Stop 04/26/20 at 10:01; Status DC Active Scripts Active Keppra (Levetiracetam) 250 Mg Tablet 250 Mg PO BID 60 Days Reported Vitamin D3-Aloe 1,000 Unit Tab (Ca Cmb 1/Vit D3/B-6/Fa/B12/Av) 1 Each Tablet 1 Each PO DAILY Tegretol (Carbamazepine) 200 Mg Tablet 0.5 Tab PO DAILY Klor-Con 10 (Potassium Chloride) 10 Meq Tablet.er 1 Tab PO DAILY 30 Days Clopidogrel (Clopidogrel Bisulfate) 75 Mg Tablet 1 Tab PO DAILY NITROGLYCERIN SubLingual (Nitroglycerin) 0.4 Mg Tab.subl 0.4 Mg SL PRN Q5MIN PRN Once Daily (Multivitamin) 1 Each Tablet 1 Tab PO DAILY 30 Days Ipratropium Coral 0.2 Mg/1 Ml Solution 1 Vial NEB PRN Q6HRS PRN Imodium A-D (Loperamide HCl) 2 Mg Capsule 1 Tab PO PRN PRN Folic Acid 0.8 Mg Capsule 1 Cap PO DAILY 30 Days Ferrous Sulfate 325 Mg Tablet 1 Tab PO DAILY [place] (Deutetrabenazine) 6 Mg Tablet 1 Tab PO BID 30 Days on hold 04/19-07/27 Albuterol Sulfate Neb Soln (Albuterol Sulfate) 0.63 Mg/3 Ml Vial.neb 1 Vial NEB QID PRN Metformin Hcl 500 Mg Tablet 500 Mg PO BIDWMEALS Furosemide 20 Mg Tablet 3 Tab PO DAILY Aspirin Ec (Aspirin) 81 Mg Tablet.dr 1 Tab PO DAILY Metoprolol Succinate ( Xl ) (Metoprolol Succinate) 25 Mg Tab.er.24h 1 Tab PO DAILY Atorvastatin Calcium 80 Mg Tablet 80 Mg PO QHS Nicotine Gum (Nicotine Polacrilex) 4 Mg Gum 4 Mg BC Miconazole Nitrate 45 Gm Cream.appl 45 Gm TOP BID Risperdal (Risperidone) 2 Mg Tablet 1 Tab PO QHS Alum-Mag Hydroxide-Simeth Liq (Mag Hydrox/Al Hydrox/Simeth) 360 Ml Oral.susp 30 Ml PO PRN TID PRN Miralax (Polyethylene Glycol 3350) 17 Gm Powd.pack 1 Packet PO Q12HR PRN Isosorbide Mononitrate Er (Isosorbide Mononitrate) 30 Mg Tab.er.24h 1 Tab PO DAILY Risperdal (Risperidone) 1 Mg Tablet 1 Mg PO DAILY08 Baclofen 10 Mg Tablet 5 Mg PO DAILY Wellbutrin Sr (Bupropion Hcl) 150 Mg Tablet.er 1 Tab PO DAILY Acetaminophen 325 Mg Tablet 2 Tab PO PRN Q6HRS PRN 30 Days Vitals/I & O Vital Sign - Last 24 Hours 04/26/20 04/26/20 04/26/20 04/27/20 19:42 20:00 22:53 03:20 Temp 97.5 97.6 97.8 97.5 97.6 97.8 Pulse 86 86 91 Resp 18 18 18 B/P (MAP) 144/61 (88) 128/77 (94) 144/77 (99) Pulse Ox 95 91 100 O2 Delivery Nasal Cannula Nasal Cannula Nasal Cannula Nasal Cannula O2 Flow Rate 1.0 1.0 1.0 1.0 04/27/20 04/27/20 04/27/20 04/27/20 07:00 08:05 09:38 09:39 Temp 98.1 98.1 Pulse 91 91 91 Resp 26 B/P (MAP) 129/85 (100) 129/85 129/85 Pulse Ox 100 O2 Delivery Nasal Cannula Nasal Cannula O2 Flow Rate 2.0 2.0 04/27/20 04/27/20 10:50 15:02 Temp 97.8 98.1 97.8 98.1 Pulse 85 81 Resp 22 24 B/P (MAP) 135/81 (99) 96/69 (78) Pulse Ox 100 100 O2 Delivery Nasal Cannula Nasal Cannula O2 Flow Rate 2.0 2.0 Intake and Output 04/26/20 04/26/20 04/27/20 15:00 23:00 07:00 Intake Total 600 ml 150 ml Balance 600 ml 150 ml Nutrition Consultation Dietary Evaluation: Recommendations by RD: Dietary education by RD, Increase Calorie Intake, Protein supplementation Comments: Continue w/ADA/Cardiac as ordered Continue w/glucerna bid John BID - will add REC MVI for wound healing Expected Outcomes/Goals: to meet > 75% est nutr needs - met at times, goal ongoing Malnutrition Findings: Weight Status: Overweight Fluid Accumulation (Non-Severe: Mild depletion Justicifation of Admission Dx: Justifications for Admission: Justification of Admission Dx: Yes PILI MORALES MD Apr 27, 2020 15:42
--- NOTE | 2020-04-27 16:06 | NUR ---
pt had a few episodes yesterday 04/26/2020 where it seemed like he choked when eating, so I consulted Speech and she recommended that the pt remain NPO till re-evaluation, she came back today 04/27/2020 and said she still did not feel good about letting him eat food at the moment because of his wheezing. So pt does remain NPO will speech says he can eat. Nader Mcgarry RN
[2020-04-27 19:24] VITALS: BP 146/75
[2020-04-27] MEDS: ATORVASTATIN CALCIUM 20 MG TABLET PO SCH (20:32)
[2020-04-27 22:33] VITALS: BP 139/67
[2020-04-28 03:09] VITALS: BP 116/70
[2020-04-28] MEDS: ALBUTEROL SULFATE 2.5 MG/3 ML NEBU. NEB PRN (03:37)
[2020-04-28] MEDS: HEPARIN for SUB-Q USE 5,000 UNIT/ML VIAL. SQ SCH ×3 (05:11→21:34)
[2020-04-28 05:43] LABS: CALCIUM 8.3 mg/dL (8.5-10.1); CREATININE 2.3 mg/dL (0.7-1.3); GFR 28.8; POTASSIUM 3.6 mmol/L (3.5-5.1)
[2020-04-28 07:00] VITALS: BP 102/67
[2020-04-28] MEDS: INSULIN LISPRO 300 UNITS/3 ML VIAL. SQ SCH ×3 (07:32→17:00)
[2020-04-28] MEDS: risperiDONE 1 MG TABLET. PO SCH ×2 (09:54→21:00)
[2020-04-28] MEDS: levETIRAcetam 250 MG TABLET PO SCH (09:54)
[2020-04-28] MEDS: FERROUS SULFATE 325 MG TABLET. PO SCH (09:55)
[2020-04-28] MEDS: CLOPIDOGREL BISULFATE 75 MG TABLET PO SCH (09:55)
[2020-04-28] MEDS: FUROSEMIDE 40 MG TABLET. PO SCH (09:55)
[2020-04-28] MEDS: ASPIRIN ENTERIC COATED 81 MG TABLET.DR. PO SCH (09:56)
[2020-04-28] MEDS: buPROPion SR 150 MG TABLET.SA PO SCH (09:56)
[2020-04-28] MEDS: METOPROLOL SUCC 24HR ER 25 MG TAB.ER.24H. PO SCH (09:57)
[2020-04-28] MEDS: carBAMazepine 200 MG TABLET PO SCH (09:58)
[2020-04-28] MEDS: PANTOPRAZOLE 40 MG TABLET.DR. PO SCH (09:58)
[2020-04-28] MEDS: ISOSORBIDE MONONITRATE ER 30 MG TAB.ER.24H PO SCH (09:59)
[2020-04-28] MEDS ORDERED: FUROSEMIDE 20 MG/2 ML VIAL. IVP ONE (10:15)
--- NOTE | 2020-04-28 10:49 | PDOC ---
Date of Service: DATE: 04/28/20 TIME: 10:41 Subjective: Subjective: "Indigestion" and "I didn't want to eat this morning." Objective: Objective: Looks like getting PO meds. Vital Signs: Vital Signs Date Time Temp Pulse Resp B/P (MAP) Pulse Ox O2 Delivery O2 Flow Rate FiO2 04/28/20 09:59 87 102/67 04/28/20 07:00 97.6 18 98 Nasal Cannula 2.0 97.6 Labs: Laboratory Tests Test 04/27/20 11:32 04/27/20 16:04 04/27/20 20:41 04/28/20 05:15 Glucose (Fingerstick) 169 mg/dL 138 mg/dL 155 mg/dL Sodium Level 143 mmol/L Potassium Level 3.6 mmol/L Chloride Level 103 mmol/L Carbon Dioxide Level 28 mmol/L Anion Gap 12 Blood Urea Nitrogen 72 mg/dL Creatinine 2.3 mg/dL Estimated GFR (Cockcroft-Gault) 28.8 Glucose Level 150 mg/dL Calcium Level 8.3 mg/dL Test 04/28/20 07:24 Glucose (Fingerstick) 154 mg/dL BLOOD CULTURE Final NO GROWTH AFTER 5 DAYS Imaging: CXR 04/26 IMPRESSION: Stable diffuse infiltrate and pleural effusions. 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 See full rpt in interventions. IMPRESSIONS: Moderate oropharyngeal dysphagia w/altered MS and respiratory wheezing contributing to current observations including occasional ABSENT swallow, brief and reduced hyolaryngeal excursion and airway closure and possible oropharyngeal delay. Pt demo'd overt s/s aspiration on all consistencies-single ice chip, puree and honey thick liquids. No safe consistency identified. Would consider NPO and re-assess when respiratory status improved. RECOMMENDATIONS: NPO meds and nutrition. Precautions posted. DW RN Nader Mcgarry who will obtain orders and enter. Will f/u to re-assess 04/27. Speech Path 04/27 Pt seen in f/u to dysphagia per eval of 04/26. Pt con't w/audible expiratory wheezing, slightly less effortful but as frequent as noted at eval of 04/26. Pt con't confused, sitting in chair at bedside but slipping out, NC O2 out, nose bloody and gown off. Repositioned pt w/RN Gali Horvath and observed con't intermittent wheezing throughout this time. Wheezing appeared to negatively impact phonation during attempts to talk. NO PO trials provided d/t con't risk of aspiration associated w/current respiratory status. Suspect that when respiratory status returns to baseline, pt may have a functional swallow and be able to safely resume po intake. PLAN: Con't f/u to adv to po diet when medically indicated. Intermittent wheezing appears to be a primary barrier to safe po intake and adequate airway closure. DALIA RN Nader. PE: GEN: NAD - up in chair LUNGS: diminished HEART: RRR ABD: soft, non-tender NEURO/PSYCH: confused, speaks slowly A/P: CHF, resp failure, dysphagia, confusion Elevated AST and ALT - better on 04/25, suspect related to CHF -- NPO? Will change to IV PPI until clarified. Monitor LFTs. Justicifation of Admission Dx: Justifications for Admission: Justification of Admission Dx: Yes REIJ OWENS Apr 28, 2020 10:49
--- NOTE | 2020-04-28 10:53 | PDOC ---
PULMONARY PROGRESS NOTES DATE: 04/28/20 TIME: 10:52 Subjective remains on N/C no SOB, No CP, no cough --wheezing today No overnight concerns from nursing Vitals Vital Signs Date Time Temp Pulse Resp B/P (MAP) Pulse Ox O2 Delivery O2 Flow Rate FiO2 04/28/20 09:59 87 102/67 04/28/20 07:00 97.6 18 98 Nasal Cannula 2.0 97.6 ROS: No Nausea, No Chest Pain, No Abdominal Pain, No Increase Cough General: Alert, No acute distress Lungs: Other (chest wheezing) Cardiovascular: S1 Abdomen: Soft Neuro Exam: Alert Extremities: Other (1+EDEMA) Labs Laboratory Tests Test 04/26/20 11:31 04/26/20 17:00 04/26/20 21:02 04/27/20 06:45 Glucose (Fingerstick) 143 mg/dL (70-99) 140 mg/dL (70-99) 189 mg/dL (70-99) Sodium Level 138 mmol/L (136-145) Potassium Level 3.8 mmol/L (3.5-5.1) Chloride Level 100 mmol/L (98-107) Carbon Dioxide Level 29 mmol/L (21-32) Anion Gap 9 (6-14) Blood Urea Nitrogen 77 mg/dL (8-26) Creatinine 2.4 mg/dL (0.7-1.3) Estimated GFR (Cockcroft-Gault) 27.4 Glucose Level 165 mg/dL (70-99) Calcium Level 8.4 mg/dL (8.5-10.1) Test 04/27/20 07:51 04/27/20 11:32 04/27/20 16:04 04/27/20 20:41 Glucose (Fingerstick) 162 mg/dL (70-99) 169 mg/dL (70-99) 138 mg/dL (70-99) 155 mg/dL (70-99) Test 04/28/20 05:15 04/28/20 07:24 Sodium Level 143 mmol/L (136-145) Potassium Level 3.6 mmol/L (3.5-5.1) Chloride Level 103 mmol/L (98-107) Carbon Dioxide Level 28 mmol/L (21-32) Anion Gap 12 (6-14) Blood Urea Nitrogen 72 mg/dL (8-26) Creatinine 2.3 mg/dL (0.7-1.3) Estimated GFR (Cockcroft-Gault) 28.8 Glucose Level 150 mg/dL (70-99) Calcium Level 8.3 mg/dL (8.5-10.1) Glucose (Fingerstick) 154 mg/dL (70-99) Laboratory Tests Test 04/27/20 11:32 04/27/20 16:04 04/27/20 20:41 04/28/20 05:15 Glucose (Fingerstick) 169 mg/dL (70-99) 138 mg/dL (70-99) 155 mg/dL (70-99) Sodium Level 143 mmol/L (136-145) Potassium Level 3.6 mmol/L (3.5-5.1) Chloride Level 103 mmol/L (98-107) Carbon Dioxide Level 28 mmol/L (21-32) Anion Gap 12 (6-14) Blood Urea Nitrogen 72 mg/dL (8-26) Creatinine 2.3 mg/dL (0.7-1.3) Estimated GFR (Cockcroft-Gault) 28.8 Glucose Level 150 mg/dL (70-99) Calcium Level 8.3 mg/dL (8.5-10.1) Test 04/28/20 07:24 Glucose (Fingerstick) 154 mg/dL (70-99) Medications Active Scripts Medications Dose Route/Sig Max Daily Dose Days Date Category Dose Instructions Vitamin D3-Aloe 1,000 Unit Tab (Ca Cmb 1/Vit D3/B-6/Fa/B12/Av) 1 Each Tablet 1 Each PO DAILY 04/22/20 Reported Tegretol (Carbamazepine) 200 Mg Tablet 0.5 Tab PO DAILY 04/22/20 Reported Klor-Con 10 (Potassium Chloride) 10 Meq Tablet.er 1 Tab PO DAILY 30 04/22/20 Reported Clopidogrel (Clopidogrel Bisulfate) 75 Mg Tablet 1 Tab PO DAILY 04/22/20 Reported NITROGLYCERIN SubLingual (Nitroglycerin) 0.4 Mg Tab.subl 0.4 Mg SL PRN Q5MIN PRN 04/22/20 Reported Once Daily (Multivitamin) 1 Each Tablet 1 Tab PO DAILY 30 04/22/20 [address] [place] 0.2 Mg/1 Ml Solution 1 Vial NEB PRN Q6HRS PRN 04/22/20 Reported Imodium A-D (Loperamide HCl) 2 Mg Capsule 1 Tab PO PRN PRN 04/22/20 Reported Folic Acid 0.8 Mg Capsule 1 Cap PO DAILY 30 04/22/20 Reported Ferrous Sulfate 325 Mg Tablet 1 Tab PO DAILY 04/22/20 Reported [place] (Deutetrabenazine) 6 Mg Tablet 1 Tab PO BID 30 04/22/20 Reported on hold 04/19-07/27 Albuterol Sulfate Neb Soln (Albuterol Sulfate) 0.63 Mg/3 Ml Vial.neb 1 Vial NEB QID PRN 04/22/20 Reported Metformin Hcl 500 Mg Tablet 500 Mg PO BIDWMEALS 04/22/20 Reported Furosemide 20 Mg Tablet 3 Tab PO DAILY 04/22/20 Reported Aspirin Ec (Aspirin) 81 Mg Tablet.dr 1 Tab PO DAILY 04/22/20 Reported Metoprolol Succinate ( Xl ) (Metoprolol Succinate) 25 Mg Tab.er.24h 1 Tab PO DAILY 04/22/20 Reported Atorvastatin Calcium 80 Mg Tablet 80 Mg PO QHS 04/22/20 Reported Keppra (Levetiracetam) 250 Mg Tablet 250 Mg PO BID 60 10/25/17 Rx Nicotine Gum (Nicotine Polacrilex) 4 Mg Gum 4 Mg BC 10/21/17 Reported Miconazole Nitrate 45 Gm Cream.appl 45 Gm TOP BID 10/21/17 Reported Risperdal (Risperidone) 2 Mg Tablet 1 Tab PO QHS 01/06/15 Reported Alum-Mag Hydroxide-Simeth Liq (Mag Hydrox/Al Hydrox/Simeth) 360 Ml Oral.susp 30 Ml PO PRN TID PRN 01/06/15 Reported Miralax (Polyethylene Glycol 3350) 17 Gm Powd.pack 1 Packet PO Q12HR PRN 01/06/15 Reported Isosorbide Mononitrate Er (Isosorbide Mononitrate) 30 Mg Tab.er.24h 1 Tab PO DAILY 01/06/15 Reported Risperdal (Risperidone) 1 Mg Tablet 1 Mg PO DAILY08 10/02/13 Reported Baclofen 10 Mg Tablet 5 Mg PO DAILY 10/02/13 Reported Wellbutrin Sr (Bupropion Hcl) 150 Mg Tablet.er 1 Tab PO DAILY 04/22/20 Reported Acetaminophen 325 Mg Tablet 2 Tab PO PRN Q6HRS PRN 30 04/22/20 Reported Comments IMPRESSION: 1. Small pleural effusions and mild pulmonary edema are slightly increased. <Conclusion> The Left Ventricle is mildly dilated. The ejection fraction is severely impaired. Left ventricular ejection fraction is 15 to 20%. There is severe global hypokinesis of the left ventricle. Doppler and Color Flow revealed no significant aortic regurgitation. There is no significant aortic valvular stenosis. Doppler and Color-flow revealed moderate mitral regurgitation. Doppler and Color Flow revealed mild to moderate tricuspid regurgitation. The PA pressure was estimated at 48 mmHg. Impression . 1. Acute hypoxic respiratory failure secondary to congestive heart failure. 2. Abnormal chest x-ray with bilateral interstitial infiltrates most suggestive of congestive heart failure.-- improved 3. Low suspicion for COVID-19 pneumonia. Neg test 4. Acute kidney injury. Could be on chronic kidney disease.--ongoing 5. Anemia. 6. Suspected underlying chronic obstructive pulmonary disease. 7. severe CMP/ EF15% Plan . 1. Continue present oxygen and wean gradually due to improvement in oxygenation with diuresis, 2. Echocardiogram reviewed --Left ventricular ejection fraction is 15 to 20%. 3. Follow chest x-ray 04/26 persistent CHF, extra IV lasix today. Needs Nebs 4. Follow cardiology recommendations, now on primacor gtt 5. COVID-19. NEG 6. wheezing better today, on PO lasix DVT/GI PPX Discussed with DINA REYNOLDS MD Apr 28, 2020 10:53
[2020-04-28 11:00] VITALS: BP 104/62
[2020-04-28 11:38] LABS: ALBUMIN 2.7 g/dL (3.4-5.0); DIRECT BILIRUBIN 0.4 mg/dL (0.0-0.2); TOTAL BILIRUBIN 0.7 mg/dL (0.2-1.0); TOTAL PROTEIN 6.7 g/dL (6.4-8.2)
--- NOTE | 2020-04-28 12:04 | PDOC ---
MAYA MURDOCK [employer] 04/28/20 1204: CARDIO Progress Notes Date and Time Date of Service 04/28/20 Time of Evaluation 1200 Subjective Subjective: No Chest Pain, No shortness of breath, No Palpitations Vitals Vitals Vital Signs Date Time Temp Pulse Resp B/P (MAP) Pulse Ox O2 Delivery O2 Flow Rate FiO2 04/28/20 11:00 97.8 88 18 104/62 (76) 97 Nasal Cannula 2.0 97.8 Weight Weight [ ] Input and Output Intake and Output Intake and Output 04/28/20 07:00 Intake Total 0 ml Output Total 2 ml Balance -2 ml Intake Oral 0 ml Output Urine Total 2 ml # Voids 1 Laboratory Labs Laboratory Tests Test 04/27/20 16:04 04/27/20 20:41 04/28/20 05:15 04/28/20 07:24 Glucose (Fingerstick) 138 mg/dL (70-99) 155 mg/dL (70-99) 154 mg/dL (70-99) Sodium Level 143 mmol/L (136-145) Potassium Level 3.6 mmol/L (3.5-5.1) Chloride Level 103 mmol/L (98-107) Carbon Dioxide Level 28 mmol/L (21-32) Anion Gap 12 (6-14) Blood Urea Nitrogen 72 mg/dL (8-26) Creatinine 2.3 mg/dL (0.7-1.3) Estimated GFR (Cockcroft-Gault) 28.8 Glucose Level 150 mg/dL (70-99) Calcium Level 8.3 mg/dL (8.5-10.1) Total Bilirubin 0.7 mg/dL (0.2-1.0) Direct Bilirubin 0.4 mg/dL (0.0-0.2) Aspartate Amino Transf (AST/SGOT) 38 U/L (15-37) Alanine Aminotransferase (ALT/SGPT) 251 U/L (16-63) Alkaline Phosphatase 92 U/L (46-116) Total Protein 6.7 g/dL (6.4-8.2) Albumin 2.7 g/dL (3.4-5.0) Microbiology Micro Microbiology 04/21/20 Blood Culture - Final, Complete NO GROWTH AFTER 5 DAYS Physical Exam HEENT: Neck Supple W Full Motion Chest: Symmetric LUNGS: Other (diminished) Heart: RRR (SR) Abdomen: Soft N/T Extremities: No Edema Neurology: alert, follow commands Assessment Assessment 1. Acute on chronic systolic/diastolic CHF/ICM: EF 15-20%. negative covid. Improved with diuresis and inotropic support with milrinone. off milrinone. Continue Lasix. Pulmonary team following. 2. Atypical chest pain: Most probably GI etiology. 3. Abdominal pain with severe transaminitis: improving, GI following 4. Lactic acidosis: multifactorial with work of breathing contributing. Afebrile 5. 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 As per nephrology team 6. Mild troponin elevation: chronic RBBB no acute changes to EKG. Suspect type 2/demand ischemia. Cardiac catheterization 06/2019 showed significant LMCA/LAD stenosis, 7. Severe debility with hx of Dementia/CVA/seizures/extremity contractures 8. PAFIB: Maintaining SR. Deemed not a candidate for anticoagulation in the past 9. HTN: controlled 10. DM2: Per IM 11. HLP: Statins Recommendations Lasix therapy Keep I < O Secondary prevention No ACEi with FAWAD Continue medical management secondary to his comorbidities. Supportive care Follow up with [facility] cardiology upon discharge Justicifation of Admission Dx: Justifications for Admission: Justification of Admission Dx: Yes NEDA SELLERS MD 04/28/202031: CARDIO Progress Notes Assessment Assessment Patient seen and examined. Agree with [employer]LECTION SUPPORT SPECIALIST's assessment and plan. Acute on chronic systolic heart failure better compensated with diuresis, off milrinone. Edema however slightly worse today - if worse tomorrow, will consider initiation of metolazone vs changing diuretics to bumex vs restarting milrinone LVEF 15 to 20% on 2D echo Slight troponin elevation probably demand ischemia Recent cardiac catheterization showed significant LMCA and LAD stenoses, managed conservatively secondary to his comorbidities PAF maintaining sinus rhythm MAYA MURDOCK APRN Apr 28, 2020 12:04 NEDA SELLERS MD Apr 28, 2020 20:32
--- NOTE | 2020-04-28 12:41 | PDOC ---
Renal-Progress Notes Subjective Notes Notes NO NEW COMPLAINTS History of Present Illness Hx of present illness STABLE Vitals Vitals Vital Signs Date Time Temp Pulse Resp B/P (MAP) Pulse Ox O2 Delivery O2 Flow Rate FiO2 04/28/20 11:00 97.8 88 18 104/62 (76) 97 Nasal Cannula 2.0 97.8 Weight Weight [ ] I.O. Intake and Output Intake and Output 04/28/20 07:00 Intake Total 0 ml Output Total 2 ml Balance -2 ml Intake Oral 0 ml Output Urine Total 2 ml # Voids 1 Labs Labs Laboratory Tests Test 04/27/20 16:04 04/27/20 20:41 04/28/20 05:15 04/28/20 07:24 Glucose (Fingerstick) 138 mg/dL (70-99) 155 mg/dL (70-99) 154 mg/dL (70-99) Sodium Level 143 mmol/L (136-145) Potassium Level 3.6 mmol/L (3.5-5.1) Chloride Level 103 mmol/L (98-107) Carbon Dioxide Level 28 mmol/L (21-32) Anion Gap 12 (6-14) Blood Urea Nitrogen 72 mg/dL (8-26) Creatinine 2.3 mg/dL (0.7-1.3) Estimated GFR (Cockcroft-Gault) 28.8 Glucose Level 150 mg/dL (70-99) Calcium Level 8.3 mg/dL (8.5-10.1) Total Bilirubin 0.7 mg/dL (0.2-1.0) Direct Bilirubin 0.4 mg/dL (0.0-0.2) Aspartate Amino Transf (AST/SGOT) 38 U/L (15-37) Alanine Aminotransferase (ALT/SGPT) 251 U/L (16-63) Alkaline Phosphatase 92 U/L (46-116) Total Protein 6.7 g/dL (6.4-8.2) Albumin 2.7 g/dL (3.4-5.0) Test 04/28/20 12:07 Glucose (Fingerstick) 171 mg/dL (70-99) Micro Micro Microbiology 04/21/20 Blood Culture - Final, Complete NO GROWTH AFTER 5 DAYS Review of Systems Constitutional: yes: weakness, alert Ears/Nose/Throat: Yes: no symptom reported Eyes: Yes: no symptom reported Pulmonary: Yes no symptom reported Cardiovascular: Yes no symptom reported Gastrointestional: Yes: nausea Genitourinary: Yes: no symptom reported Musculoskeletal: Yes: muscle stiffness, muscle atrophy Skin: Yes no symptom reported Psychiatric/Neurological: Yes: no symptom reported Endocrine: Yes: no symptom reported Physical Exam General Appearance: no apparent distress Skin: warm Respiratory: decreased breath sounds Heart: S1S2, no thrills Abdomen: soft, bowel sounds present Genitourinary: bladder flat Extremities: pulses present, no edema, atrophy Neurology: alert, follow commands Assessment Assessment IMP URINARY RETENTION [id number] WITH CR OF 2.3 CKD STAGE 3 WITH CR OF 1.6-2.1 ACUTE SYSTOLIC CHF CM WITH EF OF 20% ACUTE HYPOXIC RESP FAILURE PROB COPD SEVERE ANEMIA IRON DEFICIENCY PLAN DIURETICS INOTROPES RICKS OUT LOOK TO SEE IF HE CAN EMPTY WELL IF NOT MAY NEED FLOMAX WILL HOLD FOR NOW SINCE IT MAY CAUSE HYPOTENSION FOR HIM VENOFER START MATY P THERAPY CHECK PO4 WILL FOLLOW LENARD DE LA ROSA MD Apr 28, 2020 12:41
[2020-04-28] MEDS: TPN PER PHARMACY MC PRN (13:23)
[2020-04-28] MEDS ORDERED: IRON SUCROSE COMPLEX 500 MG in IV NORMAL SALINE 250ML 250 ML IV ONE (13:30)
--- NOTE | 2020-04-28 13:33 | NUR ---
Pharmacy TPN Dosing Note S: CAM DIGGS is a 64 year old M Currently receiving TPN started 04/28/20 B:Pertinent PMH: DYSPHAGIA/NPO Height: 5 feet, 4 inches Weight: 81.6 kg Current diet: LABS: Sodium: 143 Potassium: 3.6 Chloride: 103 Calcium: 8.3 Corrected Calcium: 9.34 Magnesium: CO2: 28 SCr: 2.3 Glucose: 72 Albumin: 2.7 AST: 38 ALT: 251 TPN FORMULA: TPN TYPE: AMINO ACIDS: 60 gm DEXTROSE: 195 gm LIPIDS: 20 gm SODIUM CHLORIDE: 60 mEq SODIUM ACETATE: mEq SODIUM PHOSPHATE: mmol POTASSIUM CHLORIDE: 50 mEq POTASSIUM ACETATE: mEq POTASSIUM PHOSPHATE: 13.6 mmol MAGNESIUM: 10 mEq CALCIUM: 10 mEq INSULIN: units MULTIPLE VITAMIN: 10 ml TRACE ELEMENTS: 1 ml(s) TPN PLAN: HOUSE TPN TODAY, BMP/LYTES TOMORROW. R: Begin TPN at 63 ml/hr Will monitor electrolytes, glucose, and tolerance to TPN. SAHRA ZUNIGA [facility], 04/28/20 0367
--- NOTE | 2020-04-28 14:24 | PDOC ---
PROGRESS NOTES Date of Service: DATE: 04/28/20 TIME: 14:22 Chief Complaint Chief Complaint A/P: Acute hypoxic respiratory failure secondary to congestive heart failure vs low suspicion for pneumonia or COVID 19, will await COVID 19 results. Diurese. Cardiology and pulmonology consulted Dysphagia, patient will undergo videoswallow later in the day, further recommendations based on the results, if he fails will need feeding tube most likely Acute kidney injury - likely vasomotor nephropathy from cardiorenal syndrome, will diurese for fluid overload. Could be on chronic kidney disease. Nephrology consulted, patient has been transitioned to oral lasix, will repeat labs in am Acute Anemia - Hb 7.6, will trend Hb and transfuse if Hb < 7. Type and screen Transaminitis - likely congestive hepatopathy from right sided heart failure. Will consult GI given his epigastric pain complaints, anemia, and transaminitis, however Urinary retention - likely with BPH, mccoy placed for strict I/O with his acute CHF. H/o atrial fibrillation - sinus rhythm currently. On BB, not on anticoagulation Acute diastolic CHF - will diurese. Cardiology consulted. Cont BB, imdur, hydralazine. With Cr not on CRIS or ARB. Constipation - cont miralax H/o CVA - with residual contractures, speech deficits. 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 Depression - cont meds Type 2 diabetes - will place on sliding scale Epilepsy - cont seizure meds PVD - cont plavix FEN - cardiac soft diet (missing bottom dentures) PPX - Heparin FULL CODE Dispo - inpatient for acute CHF at least 2 midnights follow recommendations from consultants, patient presented urinary retention and now has a mccoy in place hopefully discharge in the am History of Present Illness History of Present Illness Mr Jones is a 64 year old male [facility] resident with PMHx atrial fibrillation, anemia, CHF, constipation, CVA, depression, type 2 diabetes, stroke, UTI, epilepsy, PVD.who presents with complaints of epigastric abdominal pain as well as chest pain and shortness of breath. Notable for RR 44 breaths/min with accessory muscle use. Per his facility he has been progressively more short of breath recently. However he did deny any fever or chills. He reports he has no cough. He denied vomiting, diarrhea, melena or hematochezia. He states his pain is in his abdom en, 02/12. Chest x-ray with bilateral interstitial infiltrates. BNP greater than 35,000, Hb 7.4, WBC 10, platelets 245, lactate 3.9, albumin 2.8, NA 139, K4.7, BUN 54, CR 2.6, AST 926, ALT 725. INR 1.5. ABG on room air 7.39/33/less than 42, placed on 3 L nasal cannulated oxygen ABG 7.41/29/163. EKG with heart rate 82 bpm, normal sinus rhythm, left atrial enlargement, incomplete right bundle branch block. Admitted for further treatment. 04/23 Hemoglobin dropped to 7.1. COVID-19 negative. Still requiring O2, very short of breath. 04/24 Patient's heparin currently on hold given findings of anemia. Still on milrinone Plan: will give magnesium and albuterol for bronchospasm 04/25 Patient seems stable creatinine noted and student union consultant requested evaluation by nephrology He has been transitioned to oral Lasix and hopefully will be able to discharge in the a.m. back to his facility in [place] 04/26 Patient presented with urinary retention had about 500 cc in his bladder today, this prompted a Mccoy catheter placement, good urinary output afterwards hopefully this will alleviate his renal dysfunction as well. We will continue to follow along with consultants and hopefully will be able to transition back to [place] in the next 24 to 48 hours 04/28 Patient with dysphagia, will need Speech therapy evaluation no new complaints, still wants to "get around the corner" Vitals Vitals Vital Signs Date Time Temp Pulse Resp B/P (MAP) Pulse Ox O2 Delivery O2 Flow Rate FiO2 04/28/20 11:00 97.8 88 18 104/62 (76) 97 Nasal Cannula 2.0 97.8 Physical Exam General: Alert, Cooperative, No acute distress Heart: Regular rate (SR), Other (distant heart sounds) Lungs: Other (chest wheezing) Abdomen: Normal bowel sounds, Soft, No tenderness, No hepatosplenomegaly, No masses Extremities: No cyanosis, Other (2+ bilateral LE pitting edema; hand contractures) Skin: No rashes Labs LABS Laboratory Tests Test 04/27/20 16:04 04/27/20 20:41 04/28/20 05:15 04/28/20 07:24 Glucose (Fingerstick) 138 mg/dL (70-99) 155 mg/dL (70-99) 154 mg/dL (70-99) Sodium Level 143 mmol/L (136-145) Potassium Level 3.6 mmol/L (3.5-5.1) Chloride Level 103 mmol/L (98-107) Carbon Dioxide Level 28 mmol/L (21-32) Anion Gap 12 (6-14) Blood Urea Nitrogen 72 mg/dL (8-26) Creatinine 2.3 mg/dL (0.7-1.3) Estimated GFR (Cockcroft-Gault) 28.8 Glucose Level 150 mg/dL (70-99) Calcium Level 8.3 mg/dL (8.5-10.1) Total Bilirubin 0.7 mg/dL (0.2-1.0) Direct Bilirubin 0.4 mg/dL (0.0-0.2) Aspartate Amino Transf (AST/SGOT) 38 U/L (15-37) Alanine Aminotransferase (ALT/SGPT) 251 U/L (16-63) Alkaline Phosphatase 92 U/L (46-116) Total Protein 6.7 g/dL (6.4-8.2) Albumin 2.7 g/dL (3.4-5.0) Test 04/28/20 12:07 Glucose (Fingerstick) 171 mg/dL (70-99) Assessment and Plan Assessmemt and Plan Problems Medical Problems: (1) Acute respiratory distress Status: Acute (2) Acute systolic (congestive) heart failure Status: Acute Comment Review of Relevant I have reviewed the following items hair (where applicable) has been applied. Labs Laboratory Tests Test 04/26/20 17:00 04/26/20 21:02 04/27/20 06:45 04/27/20 07:51 Glucose (Fingerstick) 140 mg/dL (70-99) 189 mg/dL (70-99) 162 mg/dL (70-99) Sodium Level 138 mmol/L (136-145) Potassium Level 3.8 mmol/L (3.5-5.1) Chloride Level 100 mmol/L (98-107) Carbon Dioxide Level 29 mmol/L (21-32) Anion Gap 9 (6-14) Blood Urea Nitrogen 77 mg/dL (8-26) Creatinine 2.4 mg/dL (0.7-1.3) Estimated GFR (Cockcroft-Gault) 27.4 Glucose Level 165 mg/dL (70-99) Calcium Level 8.4 mg/dL (8.5-10.1) Test 04/27/20 11:32 04/27/20 16:04 04/27/20 20:41 04/28/20 05:15 Glucose (Fingerstick) 169 mg/dL (70-99) 138 mg/dL (70-99) 155 mg/dL (70-99) Sodium Level 143 mmol/L (136-145) Potassium Level 3.6 mmol/L (3.5-5.1) Chloride Level 103 mmol/L (98-107) Carbon Dioxide Level 28 mmol/L (21-32) Anion Gap 12 (6-14) Blood Urea Nitrogen 72 mg/dL (8-26) Creatinine 2.3 mg/dL (0.7-1.3) Estimated GFR (Cockcroft-Gault) 28.8 Glucose Level 150 mg/dL (70-99) Calcium Level 8.3 mg/dL (8.5-10.1) Total Bilirubin 0.7 mg/dL (0.2-1.0) Direct Bilirubin 0.4 mg/dL (0.0-0.2) Aspartate Amino Transf (AST/SGOT) 38 U/L (15-37) Alanine Aminotransferase (ALT/SGPT) 251 U/L (16-63) Alkaline Phosphatase 92 U/L (46-116) Total Protein 6.7 g/dL (6.4-8.2) Albumin 2.7 g/dL (3.4-5.0) Test 04/28/20 07:24 04/28/20 12:07 Glucose (Fingerstick) 154 mg/dL (70-99) 171 mg/dL (70-99) Laboratory Tests Test 04/27/20 16:04 04/27/20 20:41 04/28/20 05:15 04/28/20 07:24 Glucose (Fingerstick) 138 mg/dL (70-99) 155 mg/dL (70-99) 154 mg/dL (70-99) Sodium Level 143 mmol/L (136-145) Potassium Level 3.6 mmol/L (3.5-5.1) Chloride Level 103 mmol/L (98-107) Carbon Dioxide Level 28 mmol/L (21-32) Anion Gap 12 (6-14) Blood Urea Nitrogen 72 mg/dL (8-26) Creatinine 2.3 mg/dL (0.7-1.3) Estimated GFR (Cockcroft-Gault) 28.8 Glucose Level 150 mg/dL (70-99) Calcium Level 8.3 mg/dL (8.5-10.1) Total Bilirubin 0.7 mg/dL (0.2-1.0) Direct Bilirubin 0.4 mg/dL (0.0-0.2) Aspartate Amino Transf (AST/SGOT) 38 U/L (15-37) Alanine Aminotransferase (ALT/SGPT) 251 U/L (16-63) Alkaline Phosphatase 92 U/L (46-116) Total Protein 6.7 g/dL (6.4-8.2) Albumin 2.7 g/dL (3.4-5.0) Test 04/28/20 12:07 Glucose (Fingerstick) 171 mg/dL (70-99) Microbiology 04/21/20 Blood Culture - Final, Complete NO GROWTH AFTER 5 DAYS Medications Current Medications Ipratropium [place] (Atrovent) 1 mg 1X ONCE NEB Last administered on 04/21/20at 20:25; Start 04/21/20 at 19:15; Stop 04/21/20 at 19:16; Status DC Methylprednisolone Sodium Succinate (SOLU-Medrol 125MG VIAL) 125 mg 1X ONCE IV Last administered on 04/21/20at 19:17; Start 04/21/20 at 19:15; Stop 04/21/20 at 19:16; Status DC Albuterol Sulfate (Ventolin Neb Soln) 10 mg 1X ONCE CONT NEB Last administered on 04/21/20at 20:25; Start 04/21/20 at 19:15; Stop 04/21/20 at 19:16; Status DC Sodium Chloride 500 ml @ 500 mls/hr 1X ONCE IV Last administered on 04/21/20at 19:20; Start 04/21/20 at 19:15; Stop 04/21/20 at 20:14; Status DC Famotidine (Pepcid) 20 mg 1X ONCE PO Last administered on 04/21/20at 19:15; Start 04/21/20 at 19:15; Stop 04/21/20 at 19:16; Status DC Al Hydroxide/Mg Hydroxide (Mylanta Plus Xs) 30 ml 1X ONCE PO Last administered on 04/21/20at 19:15; Start 04/21/20 at 19:15; Stop 04/21/20 at 19:16; Status DC Metoclopramide HCl (Reglan Vial) 5 mg 1X ONCE IVP Last administered on 04/21/20at 19:16; Start 04/21/20 at 19:15; Stop 04/21/20 at 19:16; Status DC Aspirin (Aspirin Chewable) 162 mg 1X ONCE PO Last administered on 04/21/20at 21:28; Start 04/21/20 at 20:45; Stop 04/21/20 at 20:46; Status DC Furosemide (Lasix) 80 mg 1X ONCE IVP Last administered on 04/21/20at 22:48; Start 04/21/20 at 22:30; Stop 04/21/20 at 22:31; Status DC Furosemide (Lasix) 40 mg 1X ONCE IVP Last administered on 04/22/20at 15:04; Start 04/22/20 at 10:30; Stop 04/22/20 at 10:32; Status DC Pantoprazole Sodium (Protonix) 40 mg DAILYAC PO Last administered on 04/28/20 09:58; Start 04/23/20 at 07:30; Stop 04/28/20 at 10:50; Status DC Acetaminophen (Tylenol) 650 mg PRN Q6HRS PRN PO pain or fever; Start 04/22/20 at 12:45 Aspirin (Ecotrin) 81 mg DAILY PO Last administered on 04/28/20at 09:56; Start 04/22/20 at 13:00 Bupropion HCl (Wellbutrin Sr) 150 mg DAILY PO Last administered on 04/28/20 09:56; Start 04/22/20 at 13:00 Carbamazepine (TEGretol) 100 mg DAILY PO Last administered on 04/28/20 09:58; Start 04/22/20 at 13:00 Clopidogrel Bisulfate (Plavix) 75 mg DAILY PO Last administered on 04/28/20 09:55; Start 04/22/20 at 13:00 Ferrous Sulfate (Feosol) 325 mg DAILY PO Last administered on 04/28/20 09:55; Start 04/22/20 at 13:00 Isosorbide Mononitrate (Imdur) 30 mg DAILY PO Last administered on 04/28/20 09:59; Start 04/22/20 at 13:00 Levetiracetam (Keppra) 250 mg BID PO Last administered on 04/28/20 09:54; Start 04/22/20 at 13:00 Loperamide HCl (Imodium) 2 mg PRN Q4HRS PRN PO DIARRHEA; Start 04/22/20 at 12:45 Metoprolol Succinate (Toprol Xl) 25 mg DAILY PO Last administered on 04/28/20 09:57; Start 04/22/20 at 12:45 Nitroglycerin (Nitrostat) 0.4 mg PRN Q5MIN PRN SL CHEST PAIN; Start 04/22/20 at 12:45 Polyethylene Glycol (miraLAX PACKET) 17 gm Q12HR PRN PO CONSTIPATION Last administered on 04/24/20 20:44; Start 04/22/20 at 12:45 Risperidone (RisperDAL) 1 mg DAILY08 PO Last administered on 04/28/20 09:54; Start 04/22/20 at 13:00 Atorvastatin Calcium (Lipitor) 80 mg QHS PO Last administered on 04/24/20 20:44; Start 04/22/20 at 21:00; Stop 04/25/20 at 13:29; Status DC Non-Formulary Medication (Deutetrabenazine (Austedo)) 1 tab BID PO ; Start 04/22/20 at 21:00; Stop 04/22/20 at 16:39; Status DC Risperidone (RisperDAL) 2 mg QHS PO Last administered on 04/27/20 20:32; Start 04/22/20 at 21:00 Heparin Sodium (Porcine) (Heparin Sodium) 5,000 unit Q8HRS SQ Last administered on 04/28/20 14:14; Start 04/22/20 at 14:00 Insulin Human Lispro (HumaLOG) 0-5 UNITS TIDWMEALS SQ Last administered on 04/26/20 08:29; Start 04/22/20 at 17:00 Dextrose (Dextrose 50%-Water Syringe) 12.5 gm PRN Q15MIN PRN IV SEE COMMENTS; Start 04/22/20 at 13:00 Metoprolol Succinate (Toprol Xl) 25 mg DAILY PO ; Start 04/23/20 at 09:00; Stop 04/22/20 at 13:01; Status DC Aspirin (Ecotrin) 81 mg DAILYWBKFT PO ; Start 04/23/20 at 08:00; Stop 04/22/20 at 13:02; Status DC Furosemide (Lasix) 40 mg DAILY IVP Last administered on 04/25/20at 08:44; Start 04/23/20 at 09:00; Stop 04/25/20 at 13:30; Status DC Milrinone Lactate/ Dextrose 100 ml @ 2.888 mls/ hr CONT PRN IV SEE I/O RECORD Last administered on 04/24/20at 15:52; Start 04/23/20 at 10:30 Furosemide (Lasix) 40 mg 1X ONCE IVP Last administered on 04/23/20at 16:08; Start 04/23/20 at 14:45; Stop 04/23/20 at 14:46; Status DC Furosemide (Lasix) 20 mg 1X ONCE IVP ; Start 04/23/20 at 17:00; Stop 04/23/20 at 17:01; Status DC Furosemide (Lasix) 20 mg 1X ONCE IVP Last administered on 04/23/20at 22:53; Start 04/23/20 at 22:30; Stop 04/23/20 at 22:31; Status DC Potassium Chloride/Water 100 ml @ 100 mls/hr Q1H IV Last administered on 04/24/20at 12:23; Start 04/24/20 at 08:00; Stop 04/24/20 at 09:59; Status DC Furosemide (Lasix) 40 mg 1X ONCE IVP Last administered on 04/24/20at 15:58; Start 04/24/20 at 16:00; Stop 04/24/20 at 16:01; Status DC Magnesium Sulfate 50 ml @ 25 mls/hr 1X ONCE IV Last administered on 04/24/20at 18:23; Start 04/24/20 at 16:30; Stop 04/24/20 at 18:29; Status DC Albuterol Sulfate (Ventolin Neb Soln) 2.5 mg PRN Q4HRS PRN NEB SHORTNESS OF BREATH Last administered on 04/28/20at 03:37; Start 04/24/20 at 16:15 Potassium Chloride/Water 100 ml @ 100 mls/hr Q1H IV Last administered on 04/25/20at 10:25; Start 04/25/20 at 08:00; Stop 04/25/20 at 09:59; Status DC Atorvastatin Calcium (Lipitor) 20 mg QHS PO Last administered on 04/27/20at 20: 32; Start 04/25/20 at 21:00 Furosemide (Lasix) 40 mg DAILY PO Last administered on 04/28/20at 09:55; Start 04/26/20 at 09:00 Furosemide (Lasix) 20 mg 1X ONCE IVP Last administered on 04/26/20at 10:47; Start 04/26/20 at 10:00; Stop 04/26/20 at 10:01; Status DC Furosemide (Lasix) 20 mg 1X ONCE IVP Last administered on 04/28/20at 10:24; Start 04/28/20 at 10:15; Stop 04/28/20 at 10:16; Status DC Pantoprazole Sodium (PROTONIX VIAL for IV PUSH) 40 mg DAILYAC IVP ; Start 04/29/20 at 07:30 Iron Sucrose 500 mg/Sodium Chloride 275 ml @ 78.571 mls/ hr 1X ONCE IV Last administered on 04/28/20at 14:07; Start 04/28/20 at 13:30; Stop 04/28/20 at 16:59 Darbepoetin Bassam (ARANESP for NON-DIALYSIS PTS) 60 mcg 1X ONCE SQ ; Start 04/28/20 at 21:00; Stop 04/28/20 at 21:01 Sodium Chloride 60 meq/Potassium Chloride 50 meq/ Potassium Phosphate 13.6 mmol/Magnesium Sulfate 10 meq/ Calcium Gluconate 10 meq/ Multivitamins 10 ml/Chromium/ Copper/Manganese/ Seleni/Zn 1 ml/ Total Parenteral Nutrition/Amino Acids/Dextrose/ Fat Emulsion Intravenous 1,512 ml @ 63 mls/hr TPN CONT IV ; Start 04/28/20 at 22:00; Stop 04/29/20 at 21:59; Status Cancel Info (Tpn Per Pharmacy) 1 each PRN DAILY PRN MC SEE COMMENTS Last administered on 04/28/20at 13:23; Start 04/28/20 at 13:30 Sodium Chloride 60 meq/Potassium Chloride 50 meq/ Potassium Phosphate 13.6 mmol/Magnesium Sulfate 10 meq/ Calcium Gluconate 10 meq/ Multivitamins 10 ml/Chromium/ Copper/Manganese/ Seleni/Zn 1 ml/ Total Parenteral Nutrition/Amino Acids/Dextrose/ Fat Emulsion Intravenous 1,512 ml @ 63 mls/hr TPN CONT IV ; Start 04/28/20 at 22:00; Stop 04/29/20 at 21:59 Active Scripts Active Keppra (Levetiracetam) 250 Mg Tablet 250 Mg PO BID 60 Days Reported Vitamin D3-Aloe 1,000 Unit Tab (Ca Cmb 1/Vit D3/B-6/Fa/B12/Av) 1 Each Tablet 1 Each PO DAILY Tegretol (Carbamazepine) 200 Mg Tablet 0.5 Tab PO DAILY Klor-Con 10 (Potassium Chloride) 10 Meq Tablet.er 1 Tab PO DAILY 30 Days Clopidogrel (Clopidogrel Bisulfate) 75 Mg Tablet 1 Tab PO DAILY NITROGLYCERIN SubLingual (Nitroglycerin) 0.4 Mg Tab.subl 0.4 Mg SL PRN Q5MIN PRN Once Daily (Multivitamin) 1 Each Tablet 1 Tab PO DAILY 30 Days Ipratropium [place]ock 0.2 Mg/1 Ml Solution 1 Vial NEB PRN Q6HRS PRN Imodium A-D (Loperamide HCl) 2 Mg Capsule 1 Tab PO PRN PRN Folic Acid 0.8 Mg Capsule 1 Cap PO DAILY 30 Days Ferrous Sulfate 325 Mg Tablet 1 Tab PO DAILY [place] (Deutetrabenazine) 6 Mg Tablet 1 Tab PO BID 30 Days on hold 04/19-07/27 Albuterol Sulfate Neb Soln (Albuterol Sulfate) 0.63 Mg/3 Ml Vial.neb 1 Vial NEB QID PRN Metformin Hcl 500 Mg Tablet 500 Mg PO BIDWMEALS Furosemide 20 Mg Tablet 3 Tab PO DAILY Aspirin Ec (Aspirin) 81 Mg Tablet.dr 1 Tab PO DAILY Metoprolol Succinate ( Xl ) (Metoprolol Succinate) 25 Mg Tab.er.24h 1 Tab PO DAILY Atorvastatin Calcium 80 Mg Tablet 80 Mg PO QHS Nicotine Gum (Nicotine Polacrilex) 4 Mg Gum 4 Mg BC Miconazole Nitrate 45 Gm Cream.appl 45 Gm TOP BID Risperdal (Risperidone) 2 Mg Tablet 1 Tab PO QHS Alum-Mag Hydroxide-Simeth Liq (Mag Hydrox/Al Hydrox/Simeth) 360 Ml Oral.susp 30 Ml PO PRN TID PRN Miralax (Polyethylene Glycol 3350) 17 Gm Powd.pack 1 Packet PO Q12HR PRN Isosorbide Mononitrate Er (Isosorbide Mononitrate) 30 Mg Tab.er.24h 1 Tab PO DAILY Risperdal (Risperidone) 1 Mg Tablet 1 Mg PO DAILY08 Baclofen 10 Mg Tablet 5 Mg PO DAILY Wellbutrin Sr (Bupropion Hcl) 150 Mg Tablet.er 1 Tab PO DAILY Acetaminophen 325 Mg Tablet 2 Tab PO PRN Q6HRS PRN 30 Days Vitals/I & O Vital Sign - Last 24 Hours 04/27/20 04/27/20 04/27/20 04/27/20 15:02 19:24 19:30 22:33 Temp 98.1 97.8 97.4 98.1 97.8 97.4 Pulse 81 82 83 Resp 18 B/P (MAP) 96/69 (78) 146/75 (98) 139/67 (91) Pulse Ox 100 95 94 O2 Delivery Nasal Cannula Nasal Cannula Nasal Cannula Nasal Cannula O2 Flow Rate 2.0 2.0 2.0 2.0 04/28/20 04/28/20 04/28/20 04/28/20 03:09 03:37 07:00 08:00 Temp 98.0 97.6 98.0 97.6 Pulse 82 87 Resp 18 18 B/P (MAP) 116/70 (85) 102/67 (79) Pulse Ox 99 97 98 O2 Delivery Nasal Cannula Nasal Cannula Nasal Cannula Nasal Cannula O2 Flow Rate 2.0 2.0 2.0 2.0 04/28/20 04/28/20 04/28/20 09:57 09:59 11:00 Temp 97.8 97.8 Pulse 87 87 88 Resp 18 B/P (MAP) 102/67 102/67 104/62 (76) Pulse Ox 97 O2 Delivery Nasal Cannula O2 Flow Rate 2.0 Intake and Output 04/27/20 04/27/20 04/28/20 15:00 23:00 07:00 Intake Total 0 ml 0 ml Output Total 1 ml 1 ml Balance -1 ml -1 ml Nutrition Consultation Dietary Evaluation: Recommendations by RD: Dietary education by RD, Increase Calorie Intake, Protein supplementation Comments: Continue w/ADA/Cardiac as ordered Continue w/glucerna bid John BID - will add REC MVI for wound healing Expected Outcomes/Goals: to meet > 75% est nutr needs - met at times, goal ongoing Malnutrition Findings: Weight Status: Overweight Fluid Accumulation (Non-Severe: Mild depletion Justicifation of Admission Dx: Justifications for Admission: Justification of Admission Dx: Yes PILI MORALES MD Apr 28, 2020 14:24
[2020-04-28 15:00] VITALS: BP 123/84
[2020-04-28 19:10] VITALS: BP 107/73
[2020-04-28] MEDS: ALBUTEROL SULFATE 2.5 MG/3 ML NEBU. NEB SCH (20:00)
[2020-04-28] MEDS ORDERED: levETIRAcetam 250 MG in IV DEXTROSE 5% 100ML 100 ML IV SCH (21:00)
[2020-04-28] MEDS ORDERED: DARBEPOETIN ALFA 60 MCG/0.3 ML DISP.SYRIN. SQ ONE (21:00)
[2020-04-28] MEDS: ATORVASTATIN CALCIUM 20 MG TABLET PO SCH (21:00)
[2020-04-28] MEDS: levETIRAcetam 250 MG in IV DEXTROSE 5% 100ML 100 ML IV SCH (21:20)
[2020-04-28] MEDS ORDERED: DEXTROSE 70% IV SCH ×2 (22:00)
[2020-04-28] MEDS ORDERED: AMINO ACID IV SCH ×2 (22:00)
[2020-04-28] MEDS ORDERED: [UNRECOGNIZED DRUG - OTHER] IV SCH ×2 (22:00)
[2020-04-28] MEDS ORDERED: TOTAL PARENTERAL NUTRITION IV SCH ×2 (22:00)
[2020-04-28 22:23] VITALS: BP 97/64
[2020-04-29 03:16] VITALS: BP 125/83
[2020-04-29] MEDS: HEPARIN for SUB-Q USE 5,000 UNIT/ML VIAL. SQ SCH ×3 (05:40→22:14)
[2020-04-29] MEDS: METOPROLOL TARTRATE 5 MG/5 ML VIAL. IVP SCH ×5 (05:41→23:42)
[2020-04-29 06:21] LABS: CALCIUM 8.2 mg/dL (8.5-10.1); CREATININE 2.3 mg/dL (0.7-1.3); GFR 28.8; PHOSPHORUS 4.4 mg/dL (2.6-4.7); POTASSIUM 3.9 mmol/L (3.5-5.1)
[2020-04-29 07:00] VITALS: BP 127/76
[2020-04-29] MEDS: ALBUTEROL SULFATE 2.5 MG/3 ML NEBU. NEB SCH ×3 (07:24→20:19)
[2020-04-29] MEDS: INSULIN LISPRO 300 UNITS/3 ML VIAL. SQ SCH ×3 (08:00→17:00)
[2020-04-29] MEDS: risperiDONE 1 MG TABLET. PO SCH ×2 (08:00→20:39)
[2020-04-29] MEDS: TPN PER PHARMACY MC PRN (08:55)
[2020-04-29] MEDS: FERROUS SULFATE 325 MG TABLET. PO SCH (09:00)
[2020-04-29] MEDS: carBAMazepine 200 MG TABLET PO SCH (09:00)
[2020-04-29] MEDS: ASPIRIN ENTERIC COATED 81 MG TABLET.DR. PO SCH (09:00)
[2020-04-29] MEDS: CLOPIDOGREL BISULFATE 75 MG TABLET PO SCH (09:00)
[2020-04-29] MEDS: ISOSORBIDE MONONITRATE ER 30 MG TAB.ER.24H PO SCH (09:00)
[2020-04-29] MEDS: buPROPion SR 150 MG TABLET.SA PO SCH (09:00)
[2020-04-29] MEDS: levETIRAcetam 250 MG in IV DEXTROSE 5% 100ML 100 ML IV SCH ×2 (09:08→20:39)
[2020-04-29] MEDS: PANTOPRAZOLE IV PUSH 40 MG VIAL. IVP SCH (09:08)
[2020-04-29] MEDS: FUROSEMIDE 40 MG/4 ML VIAL. IVP SCH (09:20)
--- NOTE | 2020-04-29 10:35 | PDOC ---
Date of Service: DATE: 04/29/20 TIME: 10:31 Objective: Objective: Now on TPN. Vital Signs: Vital Signs Date Time Temp Pulse Resp B/P (MAP) Pulse Ox O2 Delivery O2 Flow Rate FiO2 04/29/20 09:00 83 127/76 04/29/20 07:26 99 Nasal Cannula 2.0 04/29/20 07:00 97.6 18 97.6 Labs: Laboratory Tests Test 04/28/20 12:07 04/28/20 16:57 04/29/20 05:50 04/29/20 07:11 Glucose (Fingerstick) 171 mg/dL 141 mg/dL 244 mg/dL Sodium Level 144 mmol/L Potassium Level 3.9 mmol/L Chloride Level 105 mmol/L Carbon Dioxide Level 29 mmol/L Anion Gap 10 Blood Urea Nitrogen 70 mg/dL Creatinine 2.3 mg/dL Estimated GFR (Cockcroft-Gault) 28.8 Glucose Level 258 mg/dL Calcium Level 8.2 mg/dL Phosphorus Level 4.4 mg/dL Magnesium Level 2.5 mg/dL 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 Moving chair to upright position resulted in immediate audible wheezing. Wheezing resolved after approx. 1-1.5 min rest, and prior to attempting PO trials. Pt demo's consistent multiple subtle s/s aspiration and intermittent overt s/s aspiration across consistencies. Noted immediate reactive wheezing post 100% of PO trials, as well as aphonia and wet sounding phonation. Intermittently, pt demo's delayed, low intensity, productive cough. No safe PO consistency identified. RECOMMENDATIONS: Continue NPO meds and nutrition. Will continue OPERATIONS ADMINISTRATOR f/u including reassessment. NPO Precautions remain posted. DALIA Bray. PE: GEN: chronically ill LUNGS: diminished, less wheezing ABD: non-distended EXTREM: UE contracture NEURO/PSYCH: sleeping, did not awaken A/P: CHF Dysphagia - on TPN, IV PPI Elevated AST and ALT - improved -- Continue support per GI. Justicifation of Admission Dx: Justifications for Admission: Justification of Admission Dx: Yes REJI OWENS Apr 29, 2020 10:35
[2020-04-29 11:00] VITALS: BP 119/75
--- NOTE | 2020-04-29 12:00 | PDOC ---
PULMONARY PROGRESS NOTES DATE: 04/29/20 TIME: 11:59 Subjective remains on N/C no SOB, No CP, no cough --wheezing today No overnight concerns from nursing Vitals Vital Signs Date Time Temp Pulse Resp B/P (MAP) Pulse Ox O2 Delivery O2 Flow Rate FiO2 04/29/20 11:34 Nasal Cannula 2.0 04/29/20 11:00 97.8 82 20 119/75 (90) 90 97.8 ROS: No Nausea, No Chest Pain, No Abdominal Pain, No Increase Cough General: Alert, No acute distress Lungs: Other (chest wheezing) Cardiovascular: S1 Abdomen: Soft Neuro Exam: Alert Extremities: Other (1+EDEMA) Labs Laboratory Tests Test 04/27/20 16:04 04/27/20 20:41 04/28/20 05:15 04/28/20 07:24 Glucose (Fingerstick) 138 mg/dL (70-99) 155 mg/dL (70-99) 154 mg/dL (70-99) Sodium Level 143 mmol/L (136-145) Potassium Level 3.6 mmol/L (3.5-5.1) Chloride Level 103 mmol/L (98-107) Carbon Dioxide Level 28 mmol/L (21-32) Anion Gap 12 (6-14) Blood Urea Nitrogen 72 mg/dL (8-26) Creatinine 2.3 mg/dL (0.7-1.3) Estimated GFR (Cockcroft-Gault) 28.8 Glucose Level 150 mg/dL (70-99) Calcium Level 8.3 mg/dL (8.5-10.1) Total Bilirubin 0.7 mg/dL (0.2-1.0) Direct Bilirubin 0.4 mg/dL (0.0-0.2) Aspartate Amino Transf (AST/SGOT) 38 U/L (15-37) Alanine Aminotransferase (ALT/SGPT) 251 U/L (16-63) Alkaline Phosphatase 92 U/L (46-116) Total Protein 6.7 g/dL (6.4-8.2) Albumin 2.7 g/dL (3.4-5.0) Test 04/28/20 12:07 04/28/20 16:57 04/29/20 05:50 04/29/20 07:11 Glucose (Fingerstick) 171 mg/dL (70-99) 141 mg/dL (70-99) 244 mg/dL (70-99) Sodium Level 144 mmol/L (136-145) Potassium Level 3.9 mmol/L (3.5-5.1) Chloride Level 105 mmol/L (98-107) Carbon Dioxide Level 29 mmol/L (21-32) Anion Gap 10 (6-14) Blood Urea Nitrogen 70 mg/dL (8-26) Creatinine 2.3 mg/dL (0.7-1.3) Estimated GFR (Cockcroft-Gault) 28.8 Glucose Level 258 mg/dL (70-99) Calcium Level 8.2 mg/dL (8.5-10.1) Phosphorus Level 4.4 mg/dL (2.6-4.7) Magnesium Level 2.5 mg/dL (1.8-2.4) Test 04/29/20 11:52 Glucose (Fingerstick) 259 mg/dL (70-99) Laboratory Tests Test 04/28/20 12:07 04/28/20 16:57 04/29/20 05:50 04/29/20 07:11 Glucose (Fingerstick) 171 mg/dL (70-99) 141 mg/dL (70-99) 244 mg/dL (70-99) Sodium Level 144 mmol/L (136-145) Potassium Level 3.9 mmol/L (3.5-5.1) Chloride Level 105 mmol/L (98-107) Carbon Dioxide Level 29 mmol/L (21-32) Anion Gap 10 (6-14) Blood Urea Nitrogen 70 mg/dL (8-26) Creatinine 2.3 mg/dL (0.7-1.3) Estimated GFR (Cockcroft-Gault) 28.8 Glucose Level 258 mg/dL (70-99) Calcium Level 8.2 mg/dL (8.5-10.1) Phosphorus Level 4.4 mg/dL (2.6-4.7) Magnesium Level 2.5 mg/dL (1.8-2.4) Test 04/29/20 11:52 Glucose (Fingerstick) 259 mg/dL (70-99) Medications Active Scripts Medications Dose Route/Sig Max Daily Dose Days Date Category Dose Instructions Vitamin D3-Aloe 1,000 Unit Tab (Ca Cmb 1/Vit D3/B-6/Fa/B12/Av) 1 Each Tablet 1 Each PO DAILY 04/22/20 Reported Tegretol (Carbamazepine) 200 Mg Tablet 0.5 Tab PO DAILY 04/22/20 Reported Klor-Con 10 (Potassium Chloride) 10 Meq Tablet.er 1 Tab PO DAILY 30 04/22/20 Reported Clopidogrel (Clopidogrel Bisulfate) 75 Mg Tablet 1 Tab PO DAILY 04/22/20 Reported NITROGLYCERIN SubLingual (Nitroglycerin) 0.4 Mg Tab.subl 0.4 Mg SL PRN Q5MIN PRN 04/22/20 Reported Once Daily (Multivitamin) 1 Each Tablet 1 Tab PO DAILY 30 04/22/20 Reported Ipratropium [place] 0.2 Mg/1 Ml Solution 1 Vial NEB PRN Q6HRS PRN 04/22/20 Reported Imodium A-D (Loperamide HCl) 2 Mg Capsule 1 Tab PO PRN PRN 04/22/20 Reported Folic Acid 0.8 Mg Capsule 1 Cap PO DAILY 30 04/22/20 Reported Ferrous Sulfate 325 Mg Tablet 1 Tab PO DAILY 04/22/20 Reported [place] (Deutetrabenazine) 6 Mg Tablet 1 Tab PO BID 30 04/22/20 Reported on hold 04/19-07/27 Albuterol Sulfate Neb Soln (Albuterol Sulfate) 0.63 Mg/3 Ml Vial.neb 1 Vial NEB QID PRN 04/22/20 Reported Metformin Hcl 500 Mg Tablet 500 Mg PO BIDWMEALS 04/22/20 Reported Furosemide 20 Mg Tablet 3 Tab PO DAILY 04/22/20 Reported Aspirin Ec (Aspirin) 81 Mg Tablet.dr 1 Tab PO DAILY 04/22/20 Reported Metoprolol Succinate ( Xl ) (Metoprolol Succinate) 25 Mg Tab.er.24h 1 Tab PO DAILY 04/22/20 Reported Atorvastatin Calcium 80 Mg Tablet 80 Mg PO QHS 04/22/20 Reported Keppra (Levetiracetam) 250 Mg Tablet 250 Mg PO BID 60 10/25/17 Rx Nicotine Gum (Nicotine Polacrilex) 4 Mg Gum 4 Mg BC 10/21/17 Reported Miconazole Nitrate 45 Gm Cream.appl 45 Gm TOP BID 10/21/17 Reported Risperdal (Risperidone) 2 Mg Tablet 1 Tab PO QHS 01/06/15 Reported Alum-Mag Hydroxide-Simeth Liq (Mag Hydrox/Al Hydrox/Simeth) 360 Ml Oral.susp 30 Ml PO PRN TID PRN 01/06/15 Reported Miralax (Polyethylene Glycol 3350) 17 Gm Powd.pack 1 Packet PO Q12HR PRN 01/06/15 Reported Isosorbide Mononitrate Er (Isosorbide Mononitrate) 30 Mg Tab.er.24h 1 Tab PO DAILY 01/06/15 Reported Risperdal (Risperidone) 1 Mg Tablet 1 Mg PO DAILY08 10/02/13 Reported Baclofen 10 Mg Tablet 5 Mg PO DAILY 10/02/13 Reported Wellbutrin Sr (Bupropion Hcl) 150 Mg Tablet.er 1 Tab PO DAILY 04/22/20 Reported Acetaminophen 325 Mg Tablet 2 Tab PO PRN Q6HRS PRN 30 04/22/20 Reported Comments IMPRESSION: 1. Small pleural effusions and mild pulmonary edema are slightly increased. <Conclusion> The Left Ventricle is mildly dilated. The ejection fraction is severely impaired. Left ventricular ejection fraction is 15 to 20%. There is severe global hypokinesis of the left ventricle. Doppler and Color Flow revealed no significant aortic regurgitation. There is no significant aortic valvular stenosis. Doppler and Color-flow revealed moderate mitral regurgitation. Doppler and Color Flow revealed mild to moderate tricuspid regurgitation. The PA pressure was estimated at 48 mmHg. Impression . 1. Acute hypoxic respiratory failure secondary to congestive heart failure. 2. Abnormal chest x-ray with bilateral interstitial infiltrates most suggestive of congestive heart failure.-- improved 3. Low suspicion for COVID-19 pneumonia. Neg test 4. Acute kidney injury. Could be on chronic kidney disease.--ongoing 5. Anemia. 6. Suspected underlying chronic obstructive pulmonary disease. 7. severe CMP/ EF15% Plan . 1. Continue present oxygen and wean gradually due to improvement in oxygenation with diuresis, 2. Echocardiogram reviewed --Left ventricular ejection fraction is 15 to 20%. 3. Follow chest x-ray 04/26 persistent CHF, extra IV lasix prn. Needs Nebs 4. Follow cardiology recommendations, now on primacor gtt 5. COVID-19. NEG 6. eval for LTAC 7. Pt is DNR per RN DVT/GI PPX Discussed with DINA REYNOLDS MD Apr 29, 2020 12:00
--- NOTE | 2020-04-29 12:24 | PDOC ---
[facility] 04/29/20 1224: CARDIO Progress Notes Date and Time Date of Service 04/29/2020 Time of Evaluation 1020 Subjective Subjective: No Chest Pain, No shortness of breath, No Palpitations Vitals Vitals Vital Signs Date Time Temp Pulse Resp B/P (MAP) Pulse Ox O2 Delivery O2 Flow Rate FiO2 04/29/20 12:00 82 119/75 04/29/20 11:34 Nasal Cannula 2.0 04/29/20 11:00 97.8 20 90 97.8 Weight Weight [ ] Input and Output Intake and Output Intake and Output 04/29/20 07:00 Intake Total 0 ml Balance 0 ml Intake Oral 0 ml # Voids 8 # Bowel Movements 1 Laboratory Labs Laboratory Tests Test 04/28/20 16:57 04/29/20 05:50 04/29/20 07:11 04/29/20 11:52 Glucose (Fingerstick) 141 mg/dL (70-99) 244 mg/dL (70-99) 259 mg/dL (70-99) Sodium Level 144 mmol/L (136-145) Potassium Level 3.9 mmol/L (3.5-5.1) Chloride Level 105 mmol/L (98-107) Carbon Dioxide Level 29 mmol/L (21-32) Anion Gap 10 (6-14) Blood Urea Nitrogen 70 mg/dL (8-26) Creatinine 2.3 mg/dL (0.7-1.3) Estimated GFR (Cockcroft-Gault) 28.8 Glucose Level 258 mg/dL (70-99) Calcium Level 8.2 mg/dL (8.5-10.1) Phosphorus Level 4.4 mg/dL (2.6-4.7) Magnesium Level 2.5 mg/dL (1.8-2.4) Microbiology Micro Microbiology 04/21/20 Blood Culture - Final, Complete NO GROWTH AFTER 5 DAYS Review of Systems Constitutional: yes: weakness, alert Ears/Nose/Throat: Yes: no symptom reported Eyes: Yes: no symptom reported Pulmonary: Yes no symptom reported Cardiovascular: Yes no symptom reported Gastrointestional: Yes: nausea Genitourinary: Yes: no symptom reported Musculoskeletal: Yes: muscle stiffness, muscle atrophy Skin: Yes no symptom reported Psychiatric/Neurological: Yes: no symptom reported Endocrine: Yes: no symptom reported Physical Exam HEENT: Neck Supple W Full Motion Chest: Symmetric LUNGS: Other (diminished; upper audible wheeze) Heart: RRR (SR) Abdomen: Soft N/T Extremities: No Edema Neurology: alert, follow commands Assessment Assessment 1. Acute on chronic systolic/diastolic CHF/ICM: EF 15-20%. negative covid, post milrinone, appears compensated 2. Atypical chest pain: Most probably GI etiology. 3. Abdominal pain with severe transaminitis: improving, GI following 4. Lactic acidosis: multifactorial with work of breathing contributing. Afebrile 5. 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 As per nephrology team. Cr at 2.3 likely his new baseline 6. Mild troponin elevation: chronic RBBB no acute changes to EKG. Suspect type 2/demand ischemia. Cardiac catheterization 06/2019 showed significant LMCA/LAD stenosis, 7. Severe debility with hx of Dementia/CVA/seizures/extremity contractures 8. PAFIB: Maintaining SR. Deemed not a candidate for anticoagulation in the past 9. HTN: controlled 10. DM2: Per IM 11. HLP: Statins 12. Dysphagia with possible aspiration: failed swallow study Recommendations No PO meds currently. IV lopressor/lasix Pending [facility] evaluation Secondary prevention No ACEi with FAWAD Continue medical management secondary to his comorbidities. Will be converted to DNR per SS and DPOA. Supportive care Follow up with [facility] cardiology upon discharge 1. Acute on chronic systolic/diastolic CHF/ICM: EF 15-20%. negative covid. appears compensated 2. Atypical chest pain: more from abdominal pain, resolved 3. Abdominal pain with severe transaminitis: improving. 4. Lactic acidosis: multifactorial with work of breathing contributing. Afebrile 5. 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 Mild troponin elevation: chronic RBBB no acute changes to EKG. Suspect type 2 7. Mild coagulopathy 8. Normocytic anemia: no obvious bleed. Post transfusion Hgb now at 7.9 9. Severe debility with hx of Dementia/CVA/seizures/extremity contractures 10. CAD: see recent [facility] 06/2019 as above. 11. PAFIB: Maintaining SR. Deemed not a candidate for anticoagulation in the past 12. HTN: controlled 13. DM2 14. HLP 15. Cardiohepatorenal syndrome Recommendations 1. Lasix therapy, change to PO tomorrow. Stop milrinone. Consult nephrology 2. ASA, Plavix. Continue metoprolol per BP trend 3. Hold nephrotoxic agents 4. He was seen briefly by our group few years back and has bben following with [facility] cardiology group. He has known ICM and complex CAD and CKD and significant discussion was made with him and his family per [facility] and due to his significant comorbid conditions and being high risk for any intervention he was deemed for medical therapy. Having said that further discussion would be needed in regards to his code status given the latter. Continue medical therapy 5. Continue optimization per GDMT. No metformin. 6. Start lipitor at 20 and will uptitrate to his regular dose when LFTs are normalized. Anticipate DC tomorrow and follow up with [facility] cardiology Justicifation of Admission Dx: Justifications for Admission: Justification of Admission Dx: Yes NEDA SELLERS MD 04/29/20 1254: CARDIO Progress Notes Assessment Assessment Patient seen and examined. Agree with FABRICATION ENGINEER's assessment and plan. Acute on chronic systolic heart failure better compensated with diuresis, off milrinone gtt. Continue intravenous Lasix. LVEF 15 to 20% on 2D echo Slight troponin elevation probably demand ischemia Recent cardiac catheterization showed significant LMCA and LAD stenoses, managed conservatively secondary to his comorbidities PAF maintaining sinus rhythm VIKA CAZARES APRN Apr 29, 2020 12:24 NEDA SELLERS MD Apr 29, 2020 12:54
--- NOTE | 2020-04-29 13:18 | PDOC ---
Renal-Progress Notes Subjective Notes Notes NO NEW COMPLAINTS History of Present Illness Hx of present illness NO CHANGE Vitals Vitals Vital Signs Date Time Temp Pulse Resp B/P (MAP) Pulse Ox O2 Delivery O2 Flow Rate FiO2 04/29/20 12:00 82 119/75 04/29/20 11:34 Nasal Cannula 2.0 04/29/20 11:00 97.8 20 90 97.8 Weight Weight [ ] I.O. Intake and Output Intake and Output 04/29/20 07:00 Intake Total 0 ml Balance 0 ml Intake Oral 0 ml # Voids 8 # Bowel Movements 1 Labs Labs Laboratory Tests Test 04/28/20 16:57 04/29/20 05:50 04/29/20 07:11 04/29/20 11:52 Glucose (Fingerstick) 141 mg/dL (70-99) 244 mg/dL (70-99) 259 mg/dL (70-99) Sodium Level 144 mmol/L (136-145) Potassium Level 3.9 mmol/L (3.5-5.1) Chloride Level 105 mmol/L (98-107) Carbon Dioxide Level 29 mmol/L (21-32) Anion Gap 10 (6-14) Blood Urea Nitrogen 70 mg/dL (8-26) Creatinine 2.3 mg/dL (0.7-1.3) Estimated GFR (Cockcroft-Gault) 28.8 Glucose Level 258 mg/dL (70-99) Calcium Level 8.2 mg/dL (8.5-10.1) Phosphorus Level 4.4 mg/dL (2.6-4.7) Magnesium Level 2.5 mg/dL (1.8-2.4) Micro Micro Microbiology 04/21/20 Blood Culture - Final, Complete NO GROWTH AFTER 5 DAYS Review of Systems Constitutional: yes: weakness, alert Ears/Nose/Throat: Yes: no symptom reported Eyes: Yes: no symptom reported Pulmonary: Yes no symptom reported Cardiovascular: Yes no symptom reported Gastrointestional: Yes: nausea Genitourinary: Yes: no symptom reported Musculoskeletal: Yes: muscle stiffness, muscle atrophy Skin: Yes no symptom reported Psychiatric/Neurological: Yes: no symptom reported Endocrine: Yes: no symptom reported Physical Exam General Appearance: no apparent distress Skin: warm Respiratory: decreased breath sounds Heart: S1S2, no thrills Abdomen: soft, bowel sounds present Genitourinary: bladder flat Extremities: pulses present, no edema, atrophy Neurology: alert, follow commands Assessment Assessment IMP URINARY RETENTION [id number] WITH CR OF 2.3 CKD STAGE 3 WITH CR OF 1.6-2.1 ACUTE SYSTOLIC CHF CM WITH EF OF 20% ACUTE HYPOXIC RESP FAILURE PROB COPD SEVERE ANEMIA IRON DEFICIENCY PLAN DIURETICS ON TPN INOTROPES RICKS OUT LOOK TO SEE IF HE CAN EMPTY WELL IF NOT MAY NEED FLOMAX WILL HOLD FOR NOW SINCE IT MAY CAUSE HYPOTENSION FOR HIM VENOFER START MATY P THERAPY CHECK PO4 WILL FOLLOW LENARD DE LA ROSA MD Apr 29, 2020 13:18
--- NOTE | 2020-04-29 14:57 | PDOC ---
PROGRESS NOTES Date of Service: DATE: 04/29/20 TIME: 14:51 Chief Complaint Chief Complaint A/P: Acute hypoxic respiratory failure secondary to congestive heart failure Dysphagia, case discussed with his DPOA who has known the patient and his wishes for a long time, he did not want to be kept alive by artificial means including parenteral nutrition, he will be transitioned to hospice care at [place] where he currently resides. Acute kidney injury - likely vasomotor nephropathy Acute Anemia - Hb 7.6, no active bleeding. Transaminitis - likely congestive hepatopathy from right sided heart failure Urinary retention - likely with BPH, mccoy placed H/o atrial fibrillation - sinus rhythm currently. On BB, not on anticoagulation Acute diastolic CHF - will diurese. Cardiology consulted. Cont BB, imdur, hydralazine. With Cr not on CRIS or ARB. Constipation - cont miralax H/o CVA - with residual contractures, speech deficits. [facility] resident Depression - cont meds Type 2 diabetes - will place on sliding scale Epilepsy - cont seizure meds PVD - cont plavix FEN - cardiac soft diet (missing bottom dentures) PPX - Heparin FULL CODE Dispo - referral made to hospice most likely will discharge in the next 24 hours once arrangements have been made at [facility] History of Present Illness History of Present Illness Mr Jones is a 64 year old male [employer] [facility] resident with PMHx atrial fibrillation, anemia, CHF, constipation, CVA, depression, type 2 diabetes, stroke, UTI, epilepsy, PVD.who presents with complaints of epigastric abdominal pain as well as chest pain and shortness of breath. Notable for RR 44 breaths/min with accessory muscle use. Per his facility he has been progressively more short of breath recently. However he did deny any fever or chills. He reports he has no cough. He denied vomiting, diarrhea, melena or hematochezia. He states his pain is in his abdomen, 6/10. Chest x-ray with bilateral interstitial infiltrates. BNP greater than 35,000, Hb 7.4, WBC 10, platelets 245, lactate 3.9, albumin 2.8, NA 139, K4.7, BUN 54, CR 2.6, AST 926, ALT 725. INR 1.5. ABG on room air 7.39/33/less than 42, placed on 3 L nasal cannulated oxygen ABG 7.41/29/163. EKG with heart rate 82 bpm, normal sinus rhythm, left atrial enlargement, incomplete right bundle branch block. Admitted for further treatment. 04/23 Hemoglobin dropped to 7.1. COVID-19 negative. Still requiring O2, very short of breath. 04/24 Patient's heparin currently on hold given findings of anemia. Still on milrinone Plan: will give magnesium and albuterol for bronchospasm 04/25 Patient seems stable creatinine noted and media consultant requested evaluation by nephrology He has been transitioned to oral Lasix and hopefully will be able to discharge in the a.m. back to his facility in [place] 04/26 Patient presented with urinary retention had about 500 cc in his bladder today, this prompted a Mccoy catheter placement, good urinary output afterwards hopefully this will alleviate his renal dysfunction as well. We will continue to follow along with consultants and hopefully will be able to transition back to [place] in the next 24 to 48 hours 04/28 Patient with dysphagia, will need Speech therapy evaluation no new complaints, still wants to "get around the corner 04/29 Failed swallow study he has been progressing since his stroke up until this point where he can no longer have oral route nutrition. He does not want to continue with aritifical means as he has expressed to his DPOA in the past, I spoke with him and his emergency medical technician basic at length. All concerns addressed to the best of my abilities. Vitals Vitals Vital Signs Date Time Temp Pulse Resp B/P (MAP) Pulse Ox O2 Delivery O2 Flow Rate FiO2 04/29/20 12:00 82 119/75 04/29/20 11:34 Nasal Cannula 2.0 04/29/20 11:00 97.8 20 90 97.8 Physical Exam General: Alert, Cooperative, No acute distress Heart: Regular rate (SR), Other (distant heart sounds) Lungs: Other (chest wheezing) Abdomen: Normal bowel sounds, Soft, No tenderness, No hepatosplenomegaly, No masses Extremities: No cyanosis, Other (2+ bilateral LE pitting edema; hand contractur es) Skin: No rashes Labs LABS Laboratory Tests Test 04/28/20 16:57 04/29/20 05:50 04/29/20 07:11 04/29/20 11:52 Glucose (Fingerstick) 141 mg/dL (70-99) 244 mg/dL (70-99) 259 mg/dL (70-99) Sodium Level 144 mmol/L (136-145) Potassium Level 3.9 mmol/L (3.5-5.1) Chloride Level 105 mmol/L (98-107) Carbon Dioxide Level 29 mmol/L (21-32) Anion Gap 10 (6-14) Blood Urea Nitrogen 70 mg/dL (8-26) Creatinine 2.3 mg/dL (0.7-1.3) Estimated GFR (Cockcroft-Gault) 28.8 Glucose Level 258 mg/dL (70-99) Calcium Level 8.2 mg/dL (8.5-10.1) Phosphorus Level 4.4 mg/dL (2.6-4.7) Magnesium Level 2.5 mg/dL (1.8-2.4) Assessment and Plan Assessmemt and Plan Problems Medical Problems: (1) Acute respiratory distress Status: Acute (2) Acute systolic (congestive) heart failure Status: Acute Comment Review of Relevant I have reviewed the following items hair (where applicable) has been applied. Labs Laboratory Tests Test 04/27/20 16:04 04/27/20 20:41 04/28/20 05:15 04/28/20 07:24 Glucose (Fingerstick) 138 mg/dL (70-99) 155 mg/dL (70-99) 154 mg/dL (70-99) Sodium Level 143 mmol/L (136-145) Potassium Level 3.6 mmol/L (3.5-5.1) Chloride Level 103 mmol/L (98-107) Carbon Dioxide Level 28 mmol/L (21-32) Anion Gap 12 (6-14) Blood Urea Nitrogen 72 mg/dL (8-26) Creatinine 2.3 mg/dL (0.7-1.3) Estimated GFR (Cockcroft-Gault) 28.8 Glucose Level 150 mg/dL (70-99) Calcium Level 8.3 mg/dL (8.5-10.1) Total Bilirubin 0.7 mg/dL (0.2-1.0) Direct Bilirubin 0.4 mg/dL (0.0-0.2) Aspartate Amino Transf (AST/SGOT) 38 U/L (15-37) Alanine Aminotransferase (ALT/SGPT) 251 U/L (16-63) Alkaline Phosphatase 92 U/L (46-116) Total Protein 6.7 g/dL (6.4-8.2) Albumin 2.7 g/dL (3.4-5.0) Test 04/28/20 12:07 04/28/20 16:57 04/29/20 05:50 04/29/20 07:11 Glucose (Fingerstick) 171 mg/dL (70-99) 141 mg/dL (70-99) 244 mg/dL (70-99) Sodium Level 144 mmol/L (136-145) Potassium Level 3.9 mmol/L (3.5-5.1) Chloride Level 105 mmol/L (98-107) Carbon Dioxide Level 29 mmol/L (21-32) Anion Gap 10 (6-14) Blood Urea Nitrogen 70 mg/dL (8-26) Creatinine 2.3 mg/dL (0.7-1.3) Estimated GFR (Cockcroft-Gault) 28.8 Glucose Level 258 mg/dL (70-99) Calcium Level 8.2 mg/dL (8.5-10.1) Phosphorus Level 4.4 mg/dL (2.6-4.7) Magnesium Level 2.5 mg/dL (1.8-2.4) Test 04/29/20 11:52 Glucose (Fingerstick) 259 mg/dL (70-99) Laboratory Tests Test 04/28/20 16:57 04/29/20 05:50 04/29/20 07:11 04/29/20 11:52 Glucose (Fingerstick) 141 mg/dL (70-99) 244 mg/dL (70-99) 259 mg/dL (70-99) Sodium Level 144 mmol/L (136-145) Potassium Level 3.9 mmol/L (3.5-5.1) Chloride Level 105 mmol/L (98-107) Carbon Dioxide Level 29 mmol/L (21-32) Anion Gap 10 (6-14) Blood Urea Nitrogen 70 mg/dL (8-26) Creatinine 2.3 mg/dL (0.7-1.3) Estimated GFR (Cockcroft-Gault) 28.8 Glucose Level 258 mg/dL (70-99) Calcium Level 8.2 mg/dL (8.5-10.1) Phosphorus Level 4.4 mg/dL (2.6-4.7) Magnesium Level 2.5 mg/dL (1.8-2.4) Microbiology 04/21/20 Blood Culture - Final, Complete NO GROWTH AFTER 5 DAYS Medications Current Medications Ipratropium Penelope (Atrovent) 1 mg 1X ONCE NEB Last administered on 04/21/20at 20:25; Start 04/21/20 at 19:15; Stop 04/21/20 at 19:16; Status DC Methylprednisolone Sodium Succinate (SOLU-Medrol 125MG VIAL) 125 mg 1X ONCE IV Last administered on 04/21/20at 19:17; Start 04/21/20 at 19:15; Stop 04/21/20 at 19:16; Status DC Albuterol Sulfate (Ventolin Neb Soln) 10 mg 1X ONCE CONT NEB Last administered on 04/21/20at 20:25; Start 04/21/20 at 19:15; Stop 04/21/20 at 19:16; Status DC Sodium Chloride 500 ml @ 500 mls/hr 1X ONCE IV Last administered on 04/21/20at 19:20; Start 04/21/20 at 19:15; Stop 04/21/20 at 20:14; Status DC Famotidine (Pepcid) 20 mg 1X ONCE PO Last administered on 04/21/20at 19:15; Start 04/21/20 at 19:15; Stop 04/21/20 at 19:16; Status DC Al Hydroxide/Mg Hydroxide (Mylanta Plus Xs) 30 ml 1X ONCE PO Last administered on 04/21/20at 19:15; Start 04/21/20 at 19:15; Stop 04/21/20 at 19:16; Status DC Metoclopramide HCl (Reglan Vial) 5 mg 1X ONCE IVP Last administered on 04/21/20at 19:16; Start 04/21/20 at 19:15; Stop 04/21/20 at 19:16; Status DC Aspirin (Aspirin Chewable) 162 mg 1X ONCE PO Last administered on 04/21/20at 21:28; Start 04/21/20 at 20:45; Stop 04/21/20 at 20:46; Status DC Furosemide (Lasix) 80 mg 1X ONCE IVP Last administered on 04/21/20at 22:48; Start 04/21/20 at 22:30; Stop 04/21/20 at 22:31; Status DC Furosemide (Lasix) 40 mg 1X ONCE IVP Last administered on 04/22/20at 15:04; Start 04/22/20 at 10:30; Stop 04/22/20 at 10:32; Status DC Pantoprazole Sodium (Protonix) 40 mg DAILYAC PO Last administered on 04/28/20 09:58; Start 04/23/20 at 07:30; Stop 04/28/20 at 10:50; Status DC Acetaminophen (Tylenol) 650 mg PRN Q6HRS PRN PO pain or fever; Start 04/22/20 at 12:45 Aspirin (Ecotrin) 81 mg DAILY PO Last administered on 04/28/20 09:56; Start 04/22/20 at 13:00 Bupropion HCl (Wellbutrin Sr) 150 mg DAILY PO Last administered on 04/28/20 09:56; Start 04/22/20 at 13:00 Carbamazepine (TEGretol) 100 mg DAILY PO Last administered on 04/28/20 09:58; Start 04/22/20 at 13:00 Clopidogrel Bisulfate (Plavix) 75 mg DAILY PO Last administered on 04/28/20 09:55; Start 04/22/20 at 13:00 Ferrous Sulfate (Feosol) 325 mg DAILY PO Last administered on 04/28/20 09:55; Start 04/22/20 at 13:00 Isosorbide Mononitrate (Imdur) 30 mg DAILY PO Last administered on 04/28/20 09:59; Start 04/22/20 at 13:00 Levetiracetam (Keppra) 250 mg BID PO Last administered on 04/28/20 09:54; Start 04/22/20 at 13:00; Stop 04/28/20 at 19:43; Status DC Loperamide HCl (Imodium) 2 mg PRN Q4HRS PRN PO DIARRHEA; Start 04/22/20 at 12:45 Metoprolol Succinate (Toprol Xl) 25 mg DAILY PO Last administered on 04/28/20 09:57; Start 04/22/20 at 12:45; Stop 04/28/20 at 19:44; Status DC Nitroglycerin (Nitrostat) 0.4 mg PRN Q5MIN PRN SL CHEST PAIN; Start 04/22/20 at 12:45 Polyethylene Glycol (miraLAX PACKET) 17 gm Q12HR PRN PO CONSTIPATION Last administered on 04/24/20at 20:44; Start 04/22/20 at 12:45 Risperidone (RisperDAL) 1 mg DAILY08 PO Last administered on 04/28/20at 09:54; Start 04/22/20 at 13:00 Atorvastatin Calcium (Lipitor) 80 mg QHS PO Last administered on 04/24/20at 20:44; Start 04/22/20 at 21:00; Stop 04/25/20 at 13:29; Status DC Non-Formulary Medication (Deutetrabenazine (Austedo)) 1 tab BID PO ; Start 04/22/20 at 21:00; Stop 04/22/20 at 16:39; Status DC Risperidone (RisperDAL) 2 mg QHS PO Last administered on 04/27/20at 20:32; Start 04/22/20 at 21:00 Heparin Sodium (Porcine) (Heparin Sodium) 5,000 unit Q8HRS SQ Last administered on 04/29/20at 05:40; Start 04/22/20 at 14:00 Insulin Human Lispro (HumaLOG) 0-5 UNITS TIDWMEALS SQ Last administered on 04/29/20at 12:07; Start 04/22/20 at 17:00 Dextrose (Dextrose 50%-Water Syringe) 12.5 gm PRN Q15MIN PRN IV SEE COMMENTS; Start 04/22/20 at 13:00 Metoprolol Succinate (Toprol Xl) 25 mg DAILY PO ; Start 04/23/20 at 09:00; Stop 04/22/20 at 13:01; Status DC Aspirin (Ecotrin) 81 mg DAILYWBKFT PO ; Start 04/23/20 at 08:00; Stop 04/22/20 at 13:02; Status DC Furosemide (Lasix) 40 mg DAILY IVP Last administered on 04/25/20at 08:44; Start 04/23/20 at 09:00; Stop 04/25/20 at 13:30; Status DC Milrinone Lactate/ Dextrose 100 ml @ 2.888 mls/ hr CONT PRN IV SEE I/O RECORD Last administered on 04/24/20at 15:52; Start 04/23/20 at 10:30 Furosemide (Lasix) 40 mg 1X ONCE IVP Last administered on 04/23/20at 16:08; Start 04/23/20 at 14:45; Stop 04/23/20 at 14:46; Status DC Furosemide (Lasix) 20 mg 1X ONCE IVP ; Start 04/23/20 at 17:00; Stop 04/23/20 at 17:01; Status DC Furosemide (Lasix) 20 mg 1X ONCE IVP Last administered on 04/23/20at 22:53; Start 04/23/20 at 22:30; Stop 04/23/20 at 22:31; Status DC Potassium Chloride/Water 100 ml @ 100 mls/hr Q1H IV Last administered on 04/24/20at 12:23; Start 04/24/20 at 08:00; Stop 04/24/20 at 09:59; Status DC Furosemide (Lasix) 40 mg 1X ONCE IVP Last administered on 04/24/20at 15:58; Start 04/24/20 at 16:00; Stop 04/24/20 at 16:01; Status DC Magnesium Sulfate 50 ml @ 25 mls/hr 1X ONCE IV Last administered on 04/24/20at 18:23; Start 04/24/20 at 16:30; Stop 04/24/20 at 18:29; Status DC Albuterol Sulfate (Ventolin Neb Soln) 2.5 mg PRN Q4HRS PRN NEB SHORTNESS OF BREATH Last administered on 04/28/20at 03:37; Start 04/24/20 at 16:15 Potassium Chloride/Water 100 ml @ 100 mls/hr Q1H IV Last administered on 04/25/20at 10:25; Start 04/25/20 at 08:00; Stop 04/25/20 at 09:59; Status DC Atorvastatin Calcium (Lipitor) 20 mg QHS PO Last administered on 04/27/20at 20:32; Start 04/25/20 at 21:00 Furosemide (Lasix) 40 mg DAILY PO Last administered on 04/28/20at 09:55; Start 04/26/20 at 09:00; Stop 04/28/20 at 19:44; Status DC Furosemide (Lasix) 20 mg 1X ONCE IVP Last administered on 04/26/20at 10:47; Start 04/26/20 at 10:00; Stop 04/26/20 at 10:01; Status DC Furosemide (Lasix) 20 mg 1X ONCE IVP Last administered on 04/28/20at 10:24; Start 04/28/20 at 10:15; Stop 04/28/20 at 10:16; Status DC Pantoprazole Sodium (PROTONIX VIAL for IV PUSH) 40 mg DAILYAC IVP Last administered on 04/29/20at 09:08; Start 04/29/20 at 07:30 Iron Sucrose 500 mg/Sodium Chloride 275 ml @ 78.571 mls/ hr 1X ONCE IV Last administered on 04/28/20at 14:07; Start 04/28/20 at 13:30; Stop 04/28/20 at 16:59; Status DC Darbepoetin Bassam (ARANESP for NON-DIALYSIS PTS) 60 mcg 1X ONCE SQ Last administered on 04/28/20at 21:27; Start 04/28/20 at 21:00; Stop 04/28/20 at 21:01; Status DC Sodium Chloride 60 meq/Potassium Chloride 50 meq/ Potassium Phosphate 13.6 mmol/Magnesium Sulfate 10 meq/ Calcium Gluconate 10 meq/ Multivitamins 10 ml/Chromium/ Copper/Manganese/ Seleni/Zn 1 ml/ Total Parenteral Nutrition/Amino Acids/Dextrose/ Fat Emulsion Intravenous 1,512 ml @ 63 mls/hr TPN CONT IV ; Start 04/28/20 at 22:00; Stop 04/29/20 at 21:59; Status Cancel Info (Tpn Per Pharmacy) 1 each PRN DAILY PRN MC SEE COMMENTS Last administered on 04/29/20at 08:55; Start 04/28/20 at 13:30 Sodium Chloride 60 meq/Potassium Chloride 50 meq/ Potassium Phosphate 13.6 mmol/Magnesium Sulfate 10 meq/ Calcium Gluconate 10 meq/ Multivitamins 10 ml/Chromium/ Copper/Manganese/ Seleni/Zn 1 ml/ Total Parenteral Nutrition/Amino Acids/Dextrose/ Fat Emulsion Intravenous 1,512 ml @ 63 mls/hr TPN CONT IV Last administered on 04/28/20at 21:27; Start 04/28/20 at 22:00; Stop 04/29/20 at 21:59 Albuterol Sulfate (Ventolin Neb Soln) 2.5 mg RTQID NEB Last administered on 04/29/20at 11:33; Start 04/28/20 at 20:00 Furosemide (Lasix) 40 mg DAILY IVP Last administered on 04/29/20at 09:20; Start 04/29/20 at 09:00 Metoprolol Tartrate (Lopressor Vial) 5 mg Q6HRS IVP Last administered on 04/29/20at 12:00; Start 04/29/20 at 00:00 Levetiracetam 250 mg/Dextrose 102.5 ml @ 420 mls/hr Q12HR IV ; Start 04/28/20 at 21:00; Stop 04/28/20 at 20:55; Status DC Levetiracetam 250 mg/Dextrose 102.5 ml @ 419.795 mls/hr Q12HR IV Last administered on 04/29/20at 09:08; Start 04/28/20 at 21:00 Sodium Chloride 50 meq/Potassium Chloride 50 meq/ Potassium Phosphate 13.6 mmol/Magnesium Sulfate 5 meq/ Calcium Gluconate 10 meq/ Multivitamins 10 ml/Chromium/ Copper/Manganese/ Seleni/Zn 1 ml/ Total Parenteral Nutrition/Amino Acids/Dextrose/ Fat Emulsion Intravenous 1,512 ml @ 63 mls/hr TPN CONT IV ; Start 04/29/20 at 22:00; Stop 04/30/20 at 21:59 Active Scripts Active Keppra (Levetiracetam) 250 Mg Tablet 250 Mg PO BID 60 Days Reported Vitamin D3-Aloe 1,000 Unit Tab (Ca Cmb 1/Vit D3/B-6/Fa/B12/Av) 1 Each Tablet 1 Each PO DAILY Tegretol (Carbamazepine) 200 Mg Tablet 0.5 Tab PO DAILY Klor-Con 10 (Potassium Chloride) 10 Meq Tablet.er 1 Tab PO DAILY 30 Days Clopidogrel (Clopidogrel Bisulfate) 75 Mg Tablet 1 Tab PO DAILY NITROGLYCERIN SubLingual (Nitroglycerin) 0.4 Mg Tab.subl 0.4 Mg SL PRN Q5MIN PRN Once Daily (Multivitamin) 1 Each Tablet 1 Tab PO DAILY 30 Days Ipratropium Penelope 0.2 Mg/1 Ml Solution 1 Vial NEB PRN Q6HRS PRN Imodium A-D (Loperamide HCl) 2 Mg Capsule 1 Tab PO PRN PRN Folic Acid 0.8 Mg Capsule 1 Cap PO DAILY 30 Days Ferrous Sulfate 325 Mg Tablet 1 Tab PO DAILY [place] (Deutetrabenazine) 6 Mg Tablet 1 Tab PO BID 30 Days on hold 04/19-07/27 Albuterol Sulfate Neb Soln (Albuterol Sulfate) 0.63 Mg/3 Ml Vial.neb 1 Vial NEB QID PRN Metformin Hcl 500 Mg Tablet 500 Mg PO BIDWMEALS Furosemide 20 Mg Tablet 3 Tab PO DAILY Aspirin Ec (Aspirin) 81 Mg Tablet.dr 1 Tab PO DAILY Metoprolol Succinate ( Xl ) (Metoprolol Succinate) 25 Mg Tab.er.24h 1 Tab PO DAILY Atorvastatin Calcium 80 Mg Tablet 80 Mg PO QHS Nicotine Gum (Nicotine Polacrilex) 4 Mg Gum 4 Mg BC Miconazole Nitrate 45 Gm Cream.appl 45 Gm TOP BID Risperdal (Risperidone) 2 Mg Tablet 1 Tab PO QHS Alum-Mag Hydroxide-Simeth Liq (Mag Hydrox/Al Hydrox/Simeth) 360 Ml Oral.susp 30 Ml PO PRN TID PRN Miralax (Polyethylene Glycol 3350) 17 Gm Powd.pack 1 Packet PO Q12HR PRN Isosorbide Mononitrate Er (Isosorbide Mononitrate) 30 Mg Tab.er.24h 1 Tab PO DAILY Risperdal (Risperidone) 1 Mg Tablet 1 Mg PO DAILY08 Baclofen 10 Mg Tablet 5 Mg PO DAILY Wellbutrin Sr (Bupropion Hcl) 150 Mg Tablet.er 1 Tab PO DAILY Acetaminophen 325 Mg Tablet 2 Tab PO PRN Q6HRS PRN 30 Days Vitals/I & O Vital Sign - Last 24 Hours 04/28/20 04/28/20 04/28/20 04/28/20 15:00 19:10 19:20 22:23 Temp 97.5 98.0 97.9 97.5 98.0 97.9 Pulse 83 81 82 Resp 18 18 22 B/P (MAP) 123/84 (97) 107/73 (84) 97/64 (75) Pulse Ox 9 97 97 O2 Delivery Nasal Cannula Nasal Cannula Nasal Cannula Nasal Cannula O2 Flow Rate 2.0 2.0 2.0 2.0 04/29/20 04/29/20 04/29/20 04/29/20 03:16 05:41 07:00 07:26 Temp 97.4 97.6 97.4 97.6 Pulse 83 85 83 Resp 20 18 B/P (MAP) 125/83 (97) 102/71 127/76 (93) Pulse Ox 97 97 99 O2 Delivery Nasal Cannula Nasal Cannula Nasal Cannula O2 Flow Rate 2.0 2.0 2.0 04/29/20 04/29/20 04/29/20 04/29/20 08:00 09:00 11:00 11:34 Temp 97.8 97.8 Pulse 83 82 Resp 20 B/P (MAP) 127/76 119/75 (90) Pulse Ox 90 O2 Delivery Nasal Cannula Nasal Cannula Nasal Cannula O2 Flow Rate 2.0 2.0 2.0 04/29/20 12:00 Pulse 82 B/P (MAP) 119/75 Intake and Output 04/28/20 04/28/20 04/29/20 15:00 23:00 07:00 Intake Total 0 ml 0 ml Balance 0 ml 0 ml Nutrition Consultation Dietary Evaluation: Recommendations by RD: Dietary education by RD, Increase Calorie Intake, Protein supplementation Comments: Continue w/ADA/Cardiac as ordered Continue w/glucerna bid John BID - will add REC MVI for wound healing Expected Outcomes/Goals: to meet > 75% est nutr needs - met at times, goal ongoing Malnutrition Findings: Weight Status: Overweight Fluid Accumulation (Non-Severe: Mild depletion Justicifation of Admission Dx: Justifications for Admission: Justification of Admission Dx: Yes PILI MORALES MD Apr 29, 2020 14:57
[2020-04-29 15:00] VITALS: BP 119/72
--- NOTE | 2020-04-29 16:39 | NUR ---
Wound Care Wound Type/Assessment: Follow up to bilateral sacral stage III pressure ulcers, and L heel ST II ulcers. Bilateral sacral ulcers healed, barrier cream applied and left MANAGER NIGHT. L heel covered with xeroform and foam dressing. Foam dressing for protection to R heel. No other open areas noted on head to toe assessment. Treatment Recommendations/Plan: Continue barrier cream to buttocks TID. Continue xeroform and foam to L heel. Change every 2-3 days. Foam to R heel for protection. Change sundays. Education provided: Pt AOx1. Educated staff to turn Q2H and position with pillows. Offloading surface/device: P500, heel medic boot to L foot . Floatheels with pillows. Pt may sign onto hospice vs eval for G tube.. Follow up 05/07/20
[2020-04-29 19:29] VITALS: BP 145/75
[2020-04-29] MEDS: ATORVASTATIN CALCIUM 20 MG TABLET PO SCH (20:39)
[2020-04-29] MEDS ORDERED: AMINO ACID IV SCH (22:00)
[2020-04-29] MEDS ORDERED: [UNRECOGNIZED DRUG - OTHER] IV SCH (22:00)
[2020-04-29] MEDS ORDERED: TOTAL PARENTERAL NUTRITION IV SCH (22:00)
[2020-04-29] MEDS ORDERED: DEXTROSE 70% IV SCH (22:00)
[2020-04-29 22:49] VITALS: BP 129/72
[2020-04-30 03:03] VITALS: BP 147/71
[2020-04-30] MEDS: HEPARIN for SUB-Q USE 5,000 UNIT/ML VIAL. SQ SCH ×3 (05:50→21:25)
[2020-04-30] MEDS: METOPROLOL TARTRATE 5 MG/5 ML VIAL. IVP SCH ×4 (05:53→23:57)
[2020-04-30 06:23] LABS: CALCIUM 8.8 mg/dL (8.5-10.1); CREATININE 2.2 mg/dL (0.7-1.3); GFR 30.3; MAGNESIUM 2.3 mg/dL (1.8-2.4); PHOSPHORUS 4.1 mg/dL (2.6-4.7); POTASSIUM 3.8 mmol/L (3.5-5.1)
[2020-04-30 07:00] VITALS: BP 110/75
[2020-04-30] MEDS: ALBUTEROL SULFATE 2.5 MG/3 ML NEBU. NEB SCH ×4 (07:05→19:46)
[2020-04-30] MEDS: risperiDONE 1 MG TABLET. PO SCH ×2 (08:00→21:00)
[2020-04-30] MEDS: carBAMazepine 200 MG TABLET PO SCH (09:00)
[2020-04-30] MEDS: ASPIRIN ENTERIC COATED 81 MG TABLET.DR. PO SCH (09:00)
[2020-04-30] MEDS: CLOPIDOGREL BISULFATE 75 MG TABLET PO SCH (09:00)
[2020-04-30] MEDS: buPROPion SR 150 MG TABLET.SA PO SCH (09:00)
[2020-04-30] MEDS: FERROUS SULFATE 325 MG TABLET. PO SCH (09:00)
[2020-04-30] MEDS: ISOSORBIDE MONONITRATE ER 30 MG TAB.ER.24H PO SCH (09:00)
[2020-04-30] MEDS: FUROSEMIDE 40 MG/4 ML VIAL. IVP SCH (09:13)
[2020-04-30] MEDS: PANTOPRAZOLE IV PUSH 40 MG VIAL. IVP SCH (09:13)
[2020-04-30] MEDS: INSULIN LISPRO 300 UNITS/3 ML VIAL. SQ SCH ×3 (09:36→17:00)
--- NOTE | 2020-04-30 09:37 | PDOC ---
PULMONARY PROGRESS NOTES DATE: 04/30/20 TIME: 09:36 Subjective remains on N/C no SOB, No CP, no cough --wheezing resolved No overnight concerns from nursing Vitals Vital Signs Date Time Temp Pulse Resp B/P (MAP) Pulse Ox O2 Delivery O2 Flow Rate FiO2 04/30/20 07:05 99 Nasal Cannula 2.0 04/30/20 07:00 97.8 75 24 110/75 (87) 97.8 ROS: No Nausea, No Chest Pain, No Abdominal Pain, No Increase Cough General: Alert, No acute distress Lungs: Other (chest wheezing) Cardiovascular: S1 Abdomen: Soft Neuro Exam: Alert Extremities: Other (1+EDEMA) Labs Laboratory Tests Test 04/28/20 12:07 04/28/20 16:57 04/29/20 05:50 04/29/20 07:11 Glucose (Fingerstick) 171 mg/dL (70-99) 141 mg/dL (70-99) 244 mg/dL (70-99) Sodium Level 144 mmol/L (136-145) Potassium Level 3.9 mmol/L (3.5-5.1) Chloride Level 105 mmol/L (98-107) Carbon Dioxide Level 29 mmol/L (21-32) Anion Gap 10 (6-14) Blood Urea Nitrogen 70 mg/dL (8-26) Creatinine 2.3 mg/dL (0.7-1.3) Estimated GFR (Cockcroft-Gault) 28.8 Glucose Level 258 mg/dL (70-99) Calcium Level 8.2 mg/dL (8.5-10.1) Phosphorus Level 4.4 mg/dL (2.6-4.7) Magnesium Level 2.5 mg/dL (1.8-2.4) Test 04/29/20 11:52 04/29/20 16:57 04/30/20 00:13 04/30/20 05:30 Glucose (Fingerstick) 259 mg/dL (70-99) 212 mg/dL (70-99) 267 mg/dL (70-99) Sodium Level 147 mmol/L (136-145) Potassium Level 3.8 mmol/L (3.5-5.1) Chloride Level 108 mmol/L (98-107) Carbon Dioxide Level 30 mmol/L (21-32) Anion Gap 9 (6-14) Blood Urea Nitrogen 62 mg/dL (8-26) Creatinine 2.2 mg/dL (0.7-1.3) Estimated GFR (Cockcroft-Gault) 30.3 Glucose Level 270 mg/dL (70-99) Calcium Level 8.8 mg/dL (8.5-10.1) Phosphorus Level 4.1 mg/dL (2.6-4.7) Magnesium Level 2.3 mg/dL (1.8-2.4) Triglycerides Level 47 mg/dL (0-150) Test 04/30/20 06:59 Glucose (Fingerstick) 251 mg/dL (70-99) Laboratory Tests Test 04/29/20 11:52 04/29/20 16:57 04/30/20 00:13 04/30/20 05:30 Glucose (Fingerstick) 259 mg/dL (70-99) 212 mg/dL (70-99) 267 mg/dL (70-99) Sodium Level 147 mmol/L (136-145) Potassium Level 3.8 mmol/L (3.5-5.1) Chloride Level 108 mmol/L (98-107) Carbon Dioxide Level 30 mmol/L (21-32) Anion Gap 9 (6-14) Blood Urea Nitrogen 62 mg/dL (8-26) Creatinine 2.2 mg/dL (0.7-1.3) Estimated GFR (Cockcroft-Gault) 30.3 Glucose Level 270 mg/dL (70-99) Calcium Level 8.8 mg/dL (8.5-10.1) Phosphorus Level 4.1 mg/dL (2.6-4.7) Magnesium Level 2.3 mg/dL (1.8-2.4) Triglycerides Level 47 mg/dL (0-150) Test 04/30/20 06:59 Glucose (Fingerstick) 251 mg/dL (70-99) Medications Active Scripts Medications Dose Route/Sig Max Daily Dose Days Date Category Dose Instructions Vitamin D3-Aloe 1,000 Unit Tab (Ca Cmb 1/Vit D3/B-6/Fa/B12/Av) 1 Each Tablet 1 Each PO DAILY 04/22/20 Reported Tegretol (Carbamazepine) 200 Mg Tablet 0.5 Tab PO DAILY 04/22/20 Reported Klor-Con 10 (Potassium Chloride) 10 Meq Tablet.er 1 Tab PO DAILY 30 04/22/20 Reported Clopidogrel (Clopidogrel Bisulfate) 75 Mg Tablet 1 Tab PO DAILY 04/22/20 Reported NITROGLYCERIN SubLingual (Nitroglycerin) 0.4 Mg Tab.subl 0.4 Mg SL PRN Q5MIN PRN 04/22/20 Reported Once Daily (Multivitamin) 1 Each Tablet 1 Tab PO DAILY 30 04/22/20 Reported Ipratropium Stanton 0.2 Mg/1 Ml Solution 1 Vial NEB PRN Q6HRS PRN 04/22/20 Reported Imodium A-D (Loperamide HCl) 2 Mg Capsule 1 Tab PO PRN PRN 04/22/20 Reported Folic Acid 0.8 Mg Capsule 1 Cap PO DAILY 30 04/22/20 Reported Ferrous Sulfate 325 Mg Tablet 1 Tab PO DAILY 04/22/20 Reported Austedo (Deutetrabenazine) 6 Mg Tablet 1 Tab PO BID 30 04/22/20 Reported on hold 04/19-07/27 Albuterol Sulfate Neb Soln (Albuterol Sulfate) 0.63 Mg/3 Ml Vial.neb 1 Vial NEB QID PRN 04/22/20 Reported Metformin Hcl 500 Mg Tablet 500 Mg PO BIDWMEALS 04/22/20 Reported Furosemide 20 Mg Tablet 3 Tab PO DAILY 04/22/20 Reported Aspirin Ec (Aspirin) 81 Mg Tablet.dr 1 Tab PO DAILY 04/22/20 Reported Metoprolol Succinate ( Xl ) (Metoprolol Succinate) 25 Mg Tab.er.24h 1 Tab PO DAILY 04/22/20 Reported Atorvastatin Calcium 80 Mg Tablet 80 Mg PO QHS 04/22/20 Reported Keppra (Levetiracetam) 250 Mg Tablet 250 Mg PO BID 60 10/25/17 Rx Nicotine Gum (Nicotine Polacrilex) 4 Mg Gum 4 Mg BC 10/21/17 Reported Miconazole Nitrate 45 Gm Cream.appl 45 Gm TOP BID 10/21/17 Reported Risperdal (Risperidone) 2 Mg Tablet 1 Tab PO QHS 01/06/15 Reported Alum-Mag Hydroxide-Simeth Liq (Mag Hydrox/Al Hydrox/Simeth) 360 Ml Oral.susp 30 Ml PO PRN TID PRN 01/06/15 Reported Miralax (Polyethylene Glycol 3350) 17 Gm Powd.pack 1 Packet PO Q12HR PRN 01/06/15 Reported Isosorbide Mononitrate Er (Isosorbide Mononitrate) 30 Mg Tab.er.24h 1 Tab PO DAILY 01/06/15 Reported Risperdal (Risperidone) 1 Mg Tablet 1 Mg PO DAILY08 10/02/13 Reported Baclofen 10 Mg Tablet 5 Mg PO DAILY 10/02/13 Reported Wellbutrin Sr (Bupropion Hcl) 150 Mg Tablet.er 1 Tab PO DAILY 04/22/20 Reported Acetaminophen 325 Mg Tablet 2 Tab PO PRN Q6HRS PRN 30 04/22/20 Reported Comments IMPRESSION: 1. Small pleural effusions and mild pulmonary edema are slightly increased. <Conclusion> The Left Ventricle is mildly dilated. The ejection fraction is severely impaired. Left ventricular ejection fraction is 15 to 20%. There is severe global hypokinesis of the left ventricle. Doppler and Color Flow revealed no significant aortic regurgitation. There is no significant aortic valvular stenosis. Doppler and Color-flow revealed moderate mitral regurgitation. Doppler and Color Flow revealed mild to moderate tricuspid regurgitation. The PA pressure was estimated at 48 mmHg. Impression . 1. Acute hypoxic respiratory failure secondary to congestive heart failure. 2. Abnormal chest x-ray with bilateral interstitial infiltrates most suggestive of congestive heart failure.-- improved 3. Low suspicion for COVID-19 pneumonia. Neg test 4. Acute kidney injury. Could be on chronic kidney disease.--ongoing 5. Anemia. 6. Suspected underlying chronic obstructive pulmonary disease. 7. severe CMP/ EF15% Plan . 1. Continue present oxygen and wean gradually due to improvement in oxygenation with diuresis, 2. Echocardiogram reviewed --Left ventricular ejection fraction is 15 to 20%. 3. Follow chest x-ray 04/26 persistent CHF, extra IV lasix prn. Needs Nebs 4. Follow cardiology recommendations, now on primacor gtt 5. COVID-19. NEG 6. eval for LTAC 7. Pt is DNR per RN DVT/GI PPX Discussed with RN/ plan for hospice. Agree. d/w family will sign off DINA FONSECA MD Apr 30, 2020 09:37
[2020-04-30] MEDS: levETIRAcetam 250 MG in IV DEXTROSE 5% 100ML 100 ML IV SCH ×2 (10:28→21:26)
[2020-04-30 11:03] VITALS: BP 107/73
--- NOTE | 2020-04-30 11:08 | PDOC ---
Date of Service: DATE: 04/30/20 TIME: 11:06 Subjective: Subjective: Says calista. Objective: Objective: No GI concerns per nurse. Now DNR, plans for Hospice. Vital Signs: Vital Signs Date Time Temp Pulse Resp B/P (MAP) Pulse Ox O2 Delivery O2 Flow Rate FiO2 04/30/20 11:03 98.2 79 26 107/73 (84) 97 Nasal Cannula 2.0 98.2 Labs: Laboratory Tests Test 04/29/20 11:52 04/29/20 16:57 04/30/20 00:13 04/30/20 05:30 Glucose (Fingerstick) 259 mg/dL 212 mg/dL 267 mg/dL Sodium Level 147 mmol/L Potassium Level 3.8 mmol/L Chloride Level 108 mmol/L Carbon Dioxide Level 30 mmol/L Anion Gap 9 Blood Urea Nitrogen 62 mg/dL Creatinine 2.2 mg/dL Estimated GFR (Cockcroft-Gault) 30.3 Glucose Level 270 mg/dL Calcium Level 8.8 mg/dL Phosphorus Level 4.1 mg/dL Magnesium Level 2.3 mg/dL Triglycerides Level 47 mg/dL Test 04/30/20 06:59 Glucose (Fingerstick) 251 mg/dL PE: GEN: chronically ill LUNGS: diminished, NC HEART: RRR ABD: soft NEURO/PSYCH: awake and alert, ?confused A/P: CHF, dysphagia -- Plans for Hospice as above. Justicifation of Admission Dx: Justifications for Admission: Justification of Admission Dx: Yes REJI OWENS Apr 30, 2020 11:08
--- NOTE | 2020-04-30 11:35 | PDOC ---
PROGRESS NOTES Date of Service: DATE: 04/30/20 TIME: 11:29 Chief Complaint Chief Complaint Acute hypoxic respiratory failure secondary to congestive heart failure Dysphagia, case discussed with his DPOA who has known the patient and his wishes for a long time, he did not want to be kept alive by artificial means including parenteral nutrition, he will be transitioned to hospice care at [place] where he currently resides. Acute kidney injury - likely vasomotor nephropathy Acute Anemia - Hb 7.6, no active bleeding. Transaminitis - likely congestive hepatopathy from right sided heart failure Urinary retention - likely with BPH, mccoy placed H/o atrial fibrillation - sinus rhythm currently. On BB, not on anticoagulation Acute diastolic CHF - will diurese. Cardiology consulted. Cont BB, imdur, hydralazine. With Cr not on CRIS or ARB. Constipation - cont miralax H/o CVA - with residual contractures, speech deficits. 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 Notable for RR 44 breaths/min with accessory muscle use. Per his facility he has been progressively more short of breath recently. However he did deny any fever or chills. He reports he has no cough. He denied vomiting, diarrhea, melena or hematochezia. He states his pain is in his abdomen, 6/10. Chest x-ray with bilateral interstitial infiltrates. BNP greater than 35,000, Hb 7.4, WBC 10, platelets 245, lactate 3.9, albumin 2.8, NA 139, K4.7, BUN 54, CR 2.6, AST 926, ALT 725. INR 1.5. ABG on room air 7.39/33/less than 42, placed on 3 L nasal cannulated oxygen ABG 7.41/29/163. EKG with heart rate 82 bpm, normal sinus rhythm, left atrial enlargement, incomplete right bundle branch block. Admitted for further treatment. 04/23 Hemoglobin dropped to 7.1. COVID-19 negative. Still requiring O2, very short of breath. 04/24 Patient's heparin currently on hold given findings of anemia. Still on milrinone Plan: will give magnesium and albuterol for bronchospasm 04/25 Patient seems stable creatinine noted and senior compensation consultant requested evaluation by nephrology He has been transitioned to oral Lasix and hopefully will be able to discharge in the a.m. back to his facility in [place] 04/26 Patient presented with urinary retention had about 500 cc in his bladder today, this prompted a Mccoy catheter placement, good urinary output afterwards hopefully this will alleviate his renal dysfunction as well. We will continue to follow along with consultants and hopefully will be able to transition back to [place] in the next 24 to 48 hours 04/28 Patient with dysphagia, will need Speech therapy evaluation no new complaints, still wants to "get around the corner 04/29 Failed swallow study he has been progressing since his stroke up until this point where he can no longer have oral route nutrition. He does not want to continue with aritifical means as he has expressed to his DPOA in the past, I spoke with him and his brigadier at length. All concerns addressed to the best of my abilities. 04/30 Patient evaluated at bedside, with no complaints. Per nursing staff, patient will return to [facility] on hospice. Vitals Vitals Vital Signs Date Time Temp Pulse Resp B/P (MAP) Pulse Ox O2 Delivery O2 Flow Rate FiO2 04/30/20 11:03 98.2 79 26 107/73 (84) 97 Nasal Cannula 2.0 98.2 Physical Exam General: Alert, Cooperative, No acute distress Heart: Regular rate (SR), Other (distant heart sounds) Lungs: Other (chest wheezing) Abdomen: Normal bowel sounds, Soft, No tenderness, No hepatosplenomegaly, No masses Extremities: No cyanosis, Other (2+ bilateral LE pitting edema; hand contractures) Skin: No rashes Labs LABS Laboratory Tests Test 04/29/20 11:52 04/29/20 16:57 04/30/20 00:13 04/30/20 05:30 Glucose (Fingerstick) 259 mg/dL (70-99) 212 mg/dL (70-99) 267 mg/dL (70-99) Sodium Level 147 mmol/L (136-145) Potassium Level 3.8 mmol/L (3.5-5.1) Chloride Level 108 mmol/L (98-107) Carbon Dioxide Level 30 mmol/L (21-32) Anion Gap 9 (6-14) Blood Urea Nitrogen 62 mg/dL (8-26) Creatinine 2.2 mg/dL (0.7-1.3) Estimated GFR (Cockcroft-Gault) 30.3 Glucose Level 270 mg/dL (70-99) Calcium Level 8.8 mg/dL (8.5-10.1) Phosphorus Level 4.1 mg/dL (2.6-4.7) Magnesium Level 2.3 mg/dL (1.8-2.4) Triglycerides Level 47 mg/dL (0-150) Test 04/30/20 06:59 Glucose (Fingerstick) 251 mg/dL (70-99) Review of Systems Review of Systems Denies all review of systems Assessment and Plan Assessmemt and Plan Problems Medical Problems: (1) Acute respiratory distress Status: Acute (2) Acute systolic (congestive) heart failure Status: Acute Comment Review of Relevant I have reviewed the following items hair (where applicable) has been applied. Labs Laboratory Tests Test 04/28/20 12:07 04/28/20 16:57 04/29/20 05:50 04/29/20 07:11 Glucose (Fingerstick) 171 mg/dL (70-99) 141 mg/dL (70-99) 244 mg/dL (70-99) Sodium Level 144 mmol/L (136-145) Potassium Level 3.9 mmol/L (3.5-5.1) Chloride Level 105 mmol/L (98-107) Carbon Dioxide Level 29 mmol/L (21-32) Anion Gap 10 (6-14) Blood Urea Nitrogen 70 mg/dL (8-26) Creatinine 2.3 mg/dL (0.7-1.3) Estimated GFR (Cockcroft-Gault) 28.8 Glucose Level 258 mg/dL (70-99) Calcium Level 8.2 mg/dL (8.5-10.1) Phosphorus Level 4.4 mg/dL (2.6-4.7) Magnesium Level 2.5 mg/dL (1.8-2.4) Test 04/29/20 11:52 04/29/20 16:57 04/30/20 00:13 04/30/20 05:30 Glucose (Fingerstick) 259 mg/dL (70-99) 212 mg/dL (70-99) 267 mg/dL (70-99) Sodium Level 147 mmol/L (136-145) Potassium Level 3.8 mmol/L (3.5-5.1) Chloride Level 108 mmol/L (98-107) Carbon Dioxide Level 30 mmol/L (21-32) Anion Gap 9 (6-14) Blood Urea Nitrogen 62 mg/dL (8-26) Creatinine 2.2 mg/dL (0.7-1.3) Estimated GFR (Cockcroft-Gault) 30.3 Glucose Level 270 mg/dL (70-99) Calcium Level 8.8 mg/dL (8.5-10.1) Phosphorus Level 4.1 mg/dL (2.6-4.7) Magnesium Level 2.3 mg/dL (1.8-2.4) Triglycerides Level 47 mg/dL (0-150) Test 04/30/20 06:59 Glucose (Fingerstick) 251 mg/dL (70-99) Laboratory Tests Test 04/29/20 11:52 04/29/20 16:57 04/30/20 00:13 04/30/20 05:30 Glucose (Fingerstick) 259 mg/dL (70-99) 212 mg/dL (70-99) 267 mg/dL (70-99) Sodium Level 147 mmol/L (136-145) Potassium Level 3.8 mmol/L (3.5-5.1) Chloride Level 108 mmol/L (98-107) Carbon Dioxide Level 30 mmol/L (21-32) Anion Gap 9 (6-14) Blood Urea Nitrogen 62 mg/dL (8-26) Creatinine 2.2 mg/dL (0.7-1.3) Estimated GFR (Cockcroft-Gault) 30.3 Glucose Level 270 mg/dL (70-99) Calcium Level 8.8 mg/dL (8.5-10.1) Phosphorus Level 4.1 mg/dL (2.6-4.7) Magnesium Level 2.3 mg/dL (1.8-2.4) Triglycerides Level 47 mg/dL (0-150) Test 04/30/20 06:59 Glucose (Fingerstick) 251 mg/dL (70-99) Microbiology 04/21/20 Blood Culture - Final, Complete NO GROWTH AFTER 5 DAYS Medications Current Medications Ipratropium [place] (Atrovent) 1 mg 1X ONCE NEB Last administered on 04/21/20at 20:25; Start 04/21/20 at 19:15; Stop 04/21/20 at 19:16; Status DC Methylprednisolone Sodium Succinate (SOLU-Medrol 125MG VIAL) 125 mg 1X ONCE IV Last administered on 04/21/20at 19:17; Start 04/21/20 at 19:15; Stop 04/21/20 at 19:16; Status DC Albuterol Sulfate (Ventolin Neb Soln) 10 mg 1X ONCE CONT NEB Last administered on 04/21/20at 20:25; Start 04/21/20 at 19:15; Stop 04/21/20 at 19:16; Status DC Sodium Chloride 500 ml @ 500 mls/hr 1X ONCE IV Last administered on 04/21/20at 19:20; Start 04/21/20 at 19:15; Stop 04/21/20 at 20:14; Status DC Famotidine (Pepcid) 20 mg 1X ONCE PO Last administered on 04/21/20at 19:15; Start 04/21/20 at 19:15; Stop 04/21/20 at 19:16; Status DC Al Hydroxide/Mg Hydroxide (Mylanta Plus Xs) 30 ml 1X ONCE PO Last administered on 04/21/20at 19:15; Start 04/21/20 at 19:15; Stop 04/21/20 at 19:16; Status DC Metoclopramide HCl (Reglan Vial) 5 mg 1X ONCE IVP Last administered on 04/21/20at 19:16; Start 04/21/20 at 19:15; Stop 04/21/20 at 19:16; Status DC Aspirin (Aspirin Chewable) 162 mg 1X ONCE PO Last administered on 04/21/20at 21:28; Start 04/21/20 at 20:45; Stop 04/21/20 at 20:46; Status DC Furosemide (Lasix) 80 mg 1X ONCE IVP Last administered on 04/21/20at 22:48; Start 04/21/20 at 22:30; Stop 04/21/20 at 22:31; Status DC Furosemide (Lasix) 40 mg 1X ONCE IVP Last administered on 04/22/20at 15:04; Start 04/22/20 at 10:30; Stop 04/22/20 at 10:32; Status DC Pantoprazole Sodium (Protonix) 40 mg DAILYAC PO Last administered on 04/28/20 09:58; Start 04/23/20 at 07:30; Stop 04/28/20 at 10:50; Status DC Acetaminophen (Tylenol) 650 mg PRN Q6HRS PRN PO pain or fever; Start 04/22/20 at 12:45 Aspirin (Ecotrin) 81 mg DAILY PO Last administered on 04/28/20 09:56; Start 04/22/20 at 13:00 Bupropion HCl (Wellbutrin Sr) 150 mg DAILY PO Last administered on 04/28/20 09:56; Start 04/22/20 at 13:00 Carbamazepine (TEGretol) 100 mg DAILY PO Last administered on 04/28/20 09:58; Start 04/22/20 at 13:00 Clopidogrel Bisulfate (Plavix) 75 mg DAILY PO Last administered on 04/28/20 09:55; Start 04/22/20 at 13:00 Ferrous Sulfate (Feosol) 325 mg DAILY PO Last administered on 04/28/20 09:55; Start 04/22/20 at 13:00 Isosorbide Mononitrate (Imdur) 30 mg DAILY PO Last administered on 04/28/20 09:59; Start 04/22/20 at 13:00 Levetiracetam (Keppra) 250 mg BID PO Last administered on 04/28/20 09:54; Start 04/22/20 at 13:00; Stop 04/28/20 at 19:43; Status DC Loperamide HCl (Imodium) 2 mg PRN Q4HRS PRN PO DIARRHEA; Start 04/22/20 at 12:45 Metoprolol Succinate (Toprol Xl) 25 mg DAILY PO Last administered on 04/28/20 09:57; Start 04/22/20 at 12:45; Stop 04/28/20 at 19:44; Status DC Nitroglycerin (Nitrostat) 0.4 mg PRN Q5MIN PRN SL CHEST PAIN; Start 04/22/20 at 12:45 Polyethylene Glycol (miraLAX PACKET) 17 gm Q12HR PRN PO CONSTIPATION Last adm inistered on 04/24/20at 20:44; Start 04/22/20 at 12:45 Risperidone (RisperDAL) 1 mg DAILY08 PO Last administered on 04/28/20at 09:54; Start 04/22/20 at 13:00 Atorvastatin Calcium (Lipitor) 80 mg QHS PO Last administered on 04/24/20at 20:44; Start 04/22/20 at 21:00; Stop 04/25/20 at 13:29; Status DC Non-Formulary Medication (Deutetrabenazine (Austedo)) 1 tab BID PO ; Start 04/22/20 at 21:00; Stop 04/22/20 at 16:39; Status DC Risperidone (RisperDAL) 2 mg QHS PO Last administered on 04/27/20at 20:32; Start 04/22/20 at 21:00 Heparin Sodium (Porcine) (Heparin Sodium) 5,000 unit Q8HRS SQ Last administered on 04/30/20at 05:50; Start 04/22/20 at 14:00 Insulin Human Lispro (HumaLOG) 0-5 UNITS TIDWMEALS SQ Last administered on 04/30/20at 09:36; Start 04/22/20 at 17:00 Dextrose (Dextrose 50%-Water Syringe) 12.5 gm PRN Q15MIN PRN IV SEE COMMENTS; Start 04/22/20 at 13:00 Metoprolol Succinate (Toprol Xl) 25 mg DAILY PO ; Start 04/23/20 at 09:00; Stop 04/22/20 at 13:01; Status DC Aspirin (Ecotrin) 81 mg DAILYWBKFT PO ; Start 04/23/20 at 08:00; Stop 04/22/20 at 13:02; Status DC Furosemide (Lasix) 40 mg DAILY IVP Last administered on 04/25/20at 08:44; Start 04/23/20 at 09:00; Stop 04/25/20 at 13:30; Status DC Milrinone Lactate/ Dextrose 100 ml @ 2.888 mls/ hr CONT PRN IV SEE I/O RECORD Last administered on 04/24/20at 15:52; Start 04/23/20 at 10:30 Furosemide (Lasix) 40 mg 1X ONCE IVP Last administered on 04/23/20at 16:08; Start 04/23/20 at 14:45; Stop 04/23/20 at 14:46; Status DC Furosemide (Lasix) 20 mg 1X ONCE IVP ; Start 04/23/20 at 17:00; Stop 04/23/20 at 17:01; Status DC Furosemide (Lasix) 20 mg 1X ONCE IVP Last administered on 04/23/20at 22:53; Start 04/23/20 at 22:30; Stop 04/23/20 at 22:31; Status DC Potassium Chloride/Water 100 ml @ 100 mls/hr Q1H IV Last administered on 04/24/20at 12:23; Start 04/24/20 at 08:00; Stop 04/24/20 at 09:59; Status DC Furosemide (Lasix) 40 mg 1X ONCE IVP Last administered on 04/24/20at 15:58; Start 04/24/20 at 16:00; Stop 04/24/20 at 16:01; Status DC Magnesium Sulfate 50 ml @ 25 mls/hr 1X ONCE IV Last administered on 04/24/20at 18:23; Start 04/24/20 at 16:30; Stop 04/24/20 at 18:29; Status DC Albuterol Sulfate (Ventolin Neb Soln) 2.5 mg PRN Q4HRS PRN NEB SHORTNESS OF BREATH Last administered on 04/28/20at 03:37; Start 04/24/20 at 16:15 Potassium Chloride/Water 100 ml @ 100 mls/hr Q1H IV Last administered on 04/25/20at 10:25; Start 04/25/20 at 08:00; Stop 04/25/20 at 09:59; Status DC Atorvastatin Calcium (Lipitor) 20 mg QHS PO Last administered on 04/27/20at 20:32; Start 04/25/20 at 21:00 Furosemide (Lasix) 40 mg DAILY PO Last administered on 04/28/20at 09:55; Start 04/26/20 at 09:00; Stop 04/28/20 at 19:44; Status DC Furosemide (Lasix) 20 mg 1X ONCE IVP Last administered on 04/26/20at 10:47; Start 04/26/20 at 10:00; Stop 04/26/20 at 10:01; Status DC Furosemide (Lasix) 20 mg 1X ONCE IVP Last administered on 04/28/20at 10:24; Start 04/28/20 at 10:15; Stop 04/28/20 at 10:16; Status DC Pantoprazole Sodium (PROTONIX VIAL for IV PUSH) 40 mg DAILYAC IVP Last administered on 04/30/20at 09:13; Start 04/29/20 at 07:30 Iron Sucrose 500 mg/Sodium Chloride 275 ml @ 78.571 mls/ hr 1X ONCE IV Last administered on 04/28/20at 14:07; Start 04/28/20 at 13:30; Stop 04/28/20 at 16:59; Status DC Darbepoetin Bassam (ARANESP for NON-DIALYSIS PTS) 60 mcg 1X ONCE SQ Last administered on 04/28/20at 21:27; Start 04/28/20 at 21:00; Stop 04/28/20 at 21:01; Status DC Sodium Chloride 60 meq/Potassium Chloride 50 meq/ Potassium Phosphate 13.6 mmol/Magnesium Sulfate 10 meq/ Calcium Gluconate 10 meq/ Multivitamins 10 ml/Chromium/ Copper/Manganese/ Seleni/Zn 1 ml/ Total Parenteral Nutrition/Amino Acids/Dextrose/ Fat Emulsion Intravenous 1,512 ml @ 63 mls/hr TPN CONT IV ; Start 04/28/20 at 22:00; Stop 04/29/20 at 21:59; Status Cancel Info (Tpn Per Pharmacy) 1 each PRN DAILY PRN MC SEE COMMENTS Last administered on 04/29/20at 08:55; Start 04/28/20 at 13:30 Sodium Chloride 60 meq/Potassium Chloride 50 meq/ Potassium Phosphate 13.6 mmol/Magnesium Sulfate 10 meq/ Calcium Gluconate 10 meq/ Multivitamins 10 ml/C hromium/ Copper/Manganese/ Seleni/Zn 1 ml/ Total Parenteral Nutrition/Amino Acids/Dextrose/ Fat Emulsion Intravenous 1,512 ml @ 63 mls/hr TPN CONT IV Last administered on 04/28/20at 21:27; Start 04/28/20 at 22:00; Stop 04/29/20 at 21:59; Status DC Albuterol Sulfate (Ventolin Neb Soln) 2.5 mg RTQID NEB Last administered on 04/30/20at 11:02; Start 04/28/20 at 20:00 Furosemide (Lasix) 40 mg DAILY IVP Last administered on 04/30/20at 09:13; Start 04/29/20 at 09:00 Metoprolol Tartrate (Lopressor Vial) 5 mg Q6HRS IVP Last administered on 04/30/20at 05:53; Start 04/29/20 at 00:00 Levetiracetam 250 mg/Dextrose 102.5 ml @ 420 mls/hr Q12HR IV ; Start 04/28/20 at 21:00; Stop 04/28/20 at 20:55; Status DC Levetiracetam 250 mg/Dextrose 102.5 ml @ 419.795 mls/hr Q12HR IV Last administered on 04/30/20at 10:28; Start 04/28/20 at 21:00 Sodium Chloride 50 meq/Potassium Chloride 50 meq/ Potassium Phosphate 13.6 mmol/Magnesium Sulfate 5 meq/ Calcium Gluconate 10 meq/ Multivitamins 10 ml/Chromium/ Copper/Manganese/ Seleni/Zn 1 ml/ Total Parenteral Nutrition/Amino Acids/Dextrose/ Fat Emulsion Intravenous 1,512 ml @ 63 mls/hr TPN CONT IV Last administered on 04/29/20at 22:20; Start 04/29/20 at 22:00; Stop 04/30/20 at 21:59 Active Scripts Active Keppra (Levetiracetam) 250 Mg Tablet 250 Mg PO BID 60 Days Reported Vitamin D3-Aloe 1,000 Unit Tab (Ca Cmb 1/Vit D3/B-6/Fa/B12/Av) 1 Each Tablet 1 Each PO DAILY Tegretol (Carbamazepine) 200 Mg Tablet 0.5 Tab PO DAILY Klor-Con 10 (Potassium Chloride) 10 Meq Tablet.er 1 Tab PO DAILY 30 Days Clopidogrel (Clopidogrel Bisulfate) 75 Mg Tablet 1 Tab PO DAILY NITROGLYCERIN SubLingual (Nitroglycerin) 0.4 Mg Tab.subl 0.4 Mg SL PRN Q5MIN PRN Once Daily (Multivitamin) 1 Each Tablet 1 Tab PO DAILY 30 Days Ipratropium [place] 0.2 Mg/1 Ml Solution 1 Vial NEB PRN Q6HRS PRN Imodium A-D (Loperamide HCl) 2 Mg Capsule 1 Tab PO PRN PRN Folic Acid 0.8 Mg Capsule 1 Cap PO DAILY 30 Days Ferrous Sulfate 325 Mg Tablet 1 Tab PO DAILY [place] (Deutetrabenazine) 6 Mg Tablet 1 Tab PO BID 30 Days on hold 04/19-07/27 Albuterol Sulfate Neb Soln (Albuterol Sulfate) 0.63 Mg/3 Ml Vial.neb 1 Vial NEB QID PRN Metformin Hcl 500 Mg Tablet 500 Mg PO BIDWMEALS Furosemide 20 Mg Tablet 3 Tab PO DAILY Aspirin Ec (Aspirin) 81 Mg Tablet.dr 1 Tab PO DAILY Metoprolol Succinate ( Xl ) (Metoprolol Succinate) 25 Mg Tab.er.24h 1 Tab PO DAILY Atorvastatin Calcium 80 Mg Tablet 80 Mg PO QHS Nicotine Gum (Nicotine Polacrilex) 4 Mg Gum 4 Mg BC Miconazole Nitrate 45 Gm Cream.appl 45 Gm TOP BID Risperdal (Risperidone) 2 Mg Tablet 1 Tab PO QHS Alum-Mag Hydroxide-Simeth Liq (Mag Hydrox/Al Hydrox/Simeth) 360 Ml Oral.susp 30 Ml PO PRN TID PRN Miralax (Polyethylene Glycol 3350) 17 Gm Powd.pack 1 Packet PO Q12HR PRN Isosorbide Mononitrate Er (Isosorbide Mononitrate) 30 Mg Tab.er.24h 1 Tab PO DAILY Risperdal (Risperidone) 1 Mg Tablet 1 Mg PO DAILY08 Baclofen 10 Mg Tablet 5 Mg PO DAILY Wellbutrin Sr (Bupropion Hcl) 150 Mg Tablet.er 1 Tab PO DAILY Acetaminophen 325 Mg Tablet 2 Tab PO PRN Q6HRS PRN 30 Days Vitals/I & O Vital Sign - Last 24 Hours 04/29/20 04/29/20 04/29/20 04/29/20 11:34 12:00 15:00 18:26 Temp 97.6 97.6 Pulse 82 76 76 Resp 18 B/P (MAP) 119/75 119/72 (88) 119/72 Pulse Ox 100 O2 Delivery Nasal Cannula Nasal Cannula O2 Flow Rate 2.0 2.0 04/29/20 04/29/20 04/29/20 04/29/20 19:17 19:29 20:20 22:49 Temp 97.4 97.9 97.4 97.9 Pulse 74 72 Resp 18 18 B/P (MAP) 145/75 (98) 129/72 (91) Pulse Ox 95 100 100 O2 Delivery Nasal Cannula Nasal Cannula Nasal Cannula Nasal Cannula O2 Flow Rate 2.0 2.0 2.0 2.0 04/29/20 04/30/20 04/30/20 04/30/20 23:42 03:03 05:53 07:00 Temp 97.4 97.8 97.4 97.8 Pulse 77 81 81 75 Resp 18 24 B/P (MAP) 105/64 147/71 (96) 108/65 110/75 (87) Pulse Ox 91 100 O2 Delivery Nasal Cannula Nasal Cannula O2 Flow Rate 2.0 2.0 04/30/20 04/30/20 04/30/20 04/30/20 07:05 08:00 11:02 11:03 Temp 98.2 98.2 Pulse 79 Resp 26 B/P (MAP) 107/73 (84) Pulse Ox 99 99 97 O2 Delivery Nasal Cannula Nasal Cannula Nasal Cannula Nasal Cannula O2 Flow Rate 2.0 2.0 2.0 2.0 Intake and Output 04/29/20 04/29/20 04/30/20 15:00 23:00 07:00 Intake Total 0 ml 0 ml 0 ml Balance 0 ml 0 ml 0 ml Nutrition Consultation Dietary Evaluation: Recommendations by RD: Dietary education by RD, Increase Calorie Intake, Protein supplementation, PPN/TPN Comments: REC adjust TPN to following to best meet nutrition needs at this time: 225 g dextrose, 90 g AA, 20 g lipids If continued aggressive care desired and pt remains NPO, would recommend consideration of feeding tube placement for TFs to best meet nutrition needs, TFs per following: Glucerna 1.5@goal rate 45 ml/hr w/200 ml water flushes q4 hrs or flushes per , w/John BID via feeding tube and liquid MVI for wound healing Expected Outcomes/Goals: to meet > 75% est nutr needs - not met, new goal established New goal 04/29: Nutrition support to meet >75% est needs Malnutrition Findings: Weight Status: Overweight Fluid Accumulation (Non-Severe: Mild depletion Justicifation of Admission Dx: Justifications for Admission: Justification of Admission Dx: Yes SUKHI DAVISON MD Apr 30, 2020 11:35
[2020-04-30] MEDS: TPN PER PHARMACY MC PRN (12:10)
--- NOTE | 2020-04-30 13:40 | SNU/HH DC ---
DISCHARGE ORDERS DISCHARGE INFORMATION: FINAL DIAGNOSIS Problems Medical Problems: (1) Acute respiratory distress Status: Acute (2) Acute systolic (congestive) heart failure Status: Acute CONDITION ON DISCHARGE: Stable CODE STATUS: Code Status: DNR/DNI HOSPICE: HOSPICE: Yes HOSPICE EVAL & TREAT: Yes POST DISCHARGE ORDERS: ACTIVITY ORDERS: No restrictions WEIGHT BEARING STATUS: No restrictions DISCHARGE MEDICATIONS: Home Meds Active Scripts Levetiracetam (KEPPRA) 250 Mg Tablet, 250 MG PO BID for 60 Days, #120 TAB Prov:KULWINDER SONI MD 10/25/17 Reported Medications Bupropion Hcl (WELLBUTRIN SR) 150 Mg Tablet.er, 1 TAB PO DAILY for depression, #60 TAB 5 Refills 04/22/20 Acetaminophen (ACETAMINOPHEN) 325 Mg Tablet, 2 TAB PO PRN Q6HRS PRN for pain or fever for 30 Days, #30 TAB 0 Refills 04/22/20 Ca Cmb 1/Vit D3/B-6/Fa/B12/Av (VITAMIN D3-ALOE 1,000 UNIT TAB) 1 Each Tablet, 1 EACH PO DAILY for supplement, TAB 04/22/20 Carbamazepine (TEGRETOL) 200 Mg Tablet, 0.5 TAB PO DAILY for seizures, #60 TAB 1 Refill 04/22/20 Potassium Chloride (KLOR-CON 10) 10 Meq Tablet.er, 1 TAB PO DAILY for chf for 30 Days, #30 TAB 0 Refills 04/22/20 Clopidogrel Bisulfate (CLOPIDOGREL) 75 Mg Tablet, 1 TAB PO DAILY for blood thinner, #90 TAB 1 Refill 04/22/20 Nitroglycerin (NITROGLYCERIN SubLingual) 0.4 Mg Tab.subl, 0.4 MG SL PRN Q5MIN PRN for CHEST PAIN, BOTTLE 04/22/20 Multivitamin (ONCE DAILY) 1 Each Tablet, 1 TAB PO DAILY for supplement for 30 Days, #30 TAB 0 Refills 04/22/20 Ipratropium [place] (IPRATROPIUM BROMIDE) 0.2 Mg/1 Ml Solution, 1 VIAL NEB PRN Q6HRS PRN for SHORTNESS OF BREATH, #300 ML 5 Refills 04/22/20 Loperamide HCl (Imodium A-D) 2 Mg Capsule, 1 TAB PO PRN PRN for DIARRHEA, CAP 04/22/20 Folic Acid (Folic Acid) 0.8 Mg Capsule, 1 CAP PO DAILY for anemia for 30 Days, #30 CAP 0 Refills 04/22/20 Ferrous Sulfate (FERROUS SULFATE) 325 Mg Tablet, 1 TAB PO DAILY for iron deficiency, #30 TAB 3 Refills 04/22/20 Deutetrabenazine (Austedo) 6 Mg Tablet, 1 TAB PO BID for dyskinesia for 30 Days, #60 TAB 0 Refills on hold 04/19-07/2704/22/20 Albuterol Sulfate (ALBUTEROL SULFATE NEB SOLN) 0.63 Mg/3 Ml Vial.neb, 1 VIAL NEB QID PRN for SHORTNESS OF BREATH, #150 ML 1 Refill 04/22/20 Metformin Hcl (METFORMIN HCL) 500 Mg Tablet, 500 MG PO BIDWMEALS for ANTI-DIABE TIC, TAB 0 Refills 04/22/20 Furosemide (FUROSEMIDE) 20 Mg Tablet, 3 TAB PO DAILY for chf, #90 TAB 1 Refill 04/22/20 Aspirin (ASPIRIN EC) 81 Mg Tablet.dr, 1 TAB PO DAILY for prophylaxis, #30 TAB 3 Refills 04/22/20 Metoprolol Succinate (METOPROLOL SUCCINATE ( XL )) 25 Mg Tab.er.24h, 1 TAB PO DAILY for htn, #30 TAB 5 Refills 04/22/20 Atorvastatin Calcium (Atorvastatin Calcium) 80 Mg Tablet, 80 MG PO QHS for FOR HIGH CHOLESTEROL, TAB 04/22/20 Nicotine Polacrilex (NICOTINE GUM) 4 Mg Gum, 4 MG BC, EACH 10/21/17 Miconazole Nitrate (MICONAZOLE NITRATE) 45 Gm Cream.appl, 45 GM TOP BID, EACH 10/21/17 Risperidone (RISPERDAL) 2 Mg Tablet, 1 TAB PO QHS, #30 TAB 1 Refill 01/06/15 Mag Hydrox/Al Hydrox/Simeth (ALUM-MAG HYDROXIDE-SIMETH LIQ) 360 Ml Oral.susp, 30 ML PO PRN TID PRN for DYSPEPSIA 01/06/15 Polyethylene Glycol 3350 (MIRALAX) 17 Gm Powd.pack, 1 PACKET PO Q12HR PRN for CONSTIPATION, #30 PACKET 3 Refills 01/06/15 Isosorbide Mononitrate (ISOSORBIDE MONONITRATE ER) 30 Mg Tab.er.24h, 1 TAB PO DAILY, #30 TAB 5 Refills 01/06/15 Risperidone (RISPERDAL) 1 Mg Tablet, 1 MG PO DAILY08 10/02/13 Baclofen (BACLOFEN) 10 Mg Tablet, 5 MG PO DAILY for parkinsonism 10/02/13 SUKHI DAVISON MD Apr 30, 2020 13:40
--- NOTE | 2020-04-30 14:03 | PDOC3 ---
Discharge Summary Visit Information Date of Admission: Apr 22, 2020 Date of Discharge: Apr 30, 2020 Final Diagnosis Problems Medical Problems: (1) Acute respiratory distress Status: Acute (2) Acute systolic (congestive) heart failure Status: Acute Brief Hospital Course Allergies Allergies Coded Allergies Type Severity Reaction Last Updated Verified No Known Drug Allergies 10/26/17 No Vital Signs Vital Signs Date Time Temp Pulse Resp B/P (MAP) Pulse Ox O2 Delivery O2 Flow Rate FiO2 04/30/20 12:08 79 107/73 04/30/20 11:03 98.2 26 97 Nasal Cannula 2.0 98.2 Lab Results Laboratory Tests Test 04/28/20 16:57 04/29/20 05:50 04/29/20 07:11 04/29/20 11:52 Glucose (Fingerstick) 141 mg/dL (70-99) 244 mg/dL (70-99) 259 mg/dL (70-99) Sodium Level 144 mmol/L (136-145) Potassium Level 3.9 mmol/L (3.5-5.1) Chloride Level 105 mmol/L (98-107) Carbon Dioxide Level 29 mmol/L (21-32) Anion Gap 10 (6-14) Blood Urea Nitrogen 70 mg/dL (8-26) Creatinine 2.3 mg/dL (0.7-1.3) Estimated GFR (Cockcroft-Gault) 28.8 Glucose Level 258 mg/dL (70-99) Calcium Level 8.2 mg/dL (8.5-10.1) Phosphorus Level 4.4 mg/dL (2.6-4.7) Magnesium Level 2.5 mg/dL (1.8-2.4) Test 04/29/20 16:57 04/30/20 00:13 04/30/20 05:30 04/30/20 06:59 Glucose (Fingerstick) 212 mg/dL (70-99) 267 mg/dL (70-99) 251 mg/dL (70-99) Sodium Level 147 mmol/L (136-145) Potassium Level 3.8 mmol/L (3.5-5.1) Chloride Level 108 mmol/L (98-107) Carbon Dioxide Level 30 mmol/L (21-32) Anion Gap 9 (6-14) Blood Urea Nitrogen 62 mg/dL (8-26) Creatinine 2.2 mg/dL (0.7-1.3) Estimated GFR (Cockcroft-Gault) 30.3 Glucose Level 270 mg/dL (70-99) Calcium Level 8.8 mg/dL (8.5-10.1) Phosphorus Level 4.1 mg/dL (2.6-4.7) Magnesium Level 2.3 mg/dL (1.8-2.4) Triglycerides Level 47 mg/dL (0-150) Test 04/30/20 11:29 Glucose (Fingerstick) 279 mg/dL (70-99) Laboratory Tests Test 04/29/20 16:57 04/30/20 00:13 04/30/20 05:30 04/30/20 06:59 Glucose (Fingerstick) 212 mg/dL (70-99) 267 mg/dL (70-99) 251 mg/dL (70-99) Sodium Level 147 mmol/L (136-145) Potassium Level 3.8 mmol/L (3.5-5.1) Chloride Level 108 mmol/L (98-107) Carbon Dioxide Level 30 mmol/L (21-32) Anion Gap 9 (6-14) Blood Urea Nitrogen 62 mg/dL (8-26) Creatinine 2.2 mg/dL (0.7-1.3) Estimated GFR (Cockcroft-Gault) 30.3 Glucose Level 270 mg/dL (70-99) Calcium Level 8.8 mg/dL (8.5-10.1) Phosphorus Level 4.1 mg/dL (2.6-4.7) Magnesium Level 2.3 mg/dL (1.8-2.4) Triglycerides Level 47 mg/dL (0-150) Test 04/30/20 11:29 Glucose (Fingerstick) 279 mg/dL (70-99) Brief Hospital Course Mr. Jones is a 64 old male with extensive past medical history, who presented with acute hypoxic respiratory failure secondary to combined heart failure, acute kidney injury, acute anemia, transaminitis, urinary retention. C onsults were placed to Cardiology, pulmonology, nephrology, and GI. Patient was treated with appropriate heart failure medications, however his multiple comorbidities complicated the improvement of his hospital course. Patient was evaluated by speech therapy, and due to his progressive dysphagia he was deemed not safe for oral nutrition. He was being treated with TPN, but after discussion with his DPOA it was deemed that patient would not want to continue with further invasive life-prolonging measures. He is to discharge to inpatient hospice. Assessment Assessment Discharge to hospice care. Discharge Information Condition at Discharge: Stable Disposition/Orders: D/C to Another Facility Scheduled Aspirin (Aspirin Ec) 81 Mg Tablet.dr, 1 TAB PO DAILY for prophylaxis, #30 Ref 3 (Reported) Entered as Reported by: Lalit Polanco on 04/22/20543 Last Action: Continued on 04/22/201237 by JOSELINE SANTACRUZ MD Atorvastatin Calcium (Atorvastatin Calcium) 80 Mg Tablet, 80 MG PO QHS for FOR HIGH CHOLESTEROL, (Reported) Entered as Reported by: Lalit Polanco on 04/22/20536 Last Action: Converted on 04/22/201237 by JOSELINE SANTACRUZ MD Baclofen (Baclofen) 10 Mg Tablet, 5 MG PO DAILY for parkinsonism, (Reported) Entered as Reported by: LEANNE ZIEGLER on 10/02/13727 Last Action: Edited on 04/22/20536 by Lalit Polanco Bupropion Hcl (Wellbutrin Sr) 150 Mg Tablet.er, 1 TAB PO DAILY for depression, #60 Ref 5 (Reported) Entered as Reported by: Lalit Polanco on 04/22/20611 Last Action: Continued on 04/22/201237 by JOSELINE SANTACRUZ MD Ca Cmb 1/Vit D3/B-6/Fa/B12/Av (Vitamin D3-Aloe 1,000 Unit Tab) 1 Each Tablet, 1 EACH PO DAILY for supplement, (Reported) Entered as Reported by: Lalit Polanco on 04/22/20611 Last Action: New Order on 04/22/20611 by Lalit Polanco Carbamazepine (Tegretol) 200 Mg Tablet, 0.5 TAB PO DAILY for seizures, #60 Ref 1 (Reported) Entered as Reported by: Lalit Polanco on 04/22/20611 Last Action: Continued on 04/22/201237 by JOSELINE SANTACRUZ MD Clopidogrel Bisulfate (Clopidogrel) 75 Mg Tablet, 1 TAB PO DAILY for blood thinner, #90 Ref 1 (Reported) Entered as Reported by: Lalit Polanco on 04/22/20611 Last Action: Continued on 04/22/201237 by JOSELINE SANTACRUZ MD Deutetrabenazine (Austedo) 6 Mg Tablet, 1 TAB PO BID for dyskinesia for 30 Days, #60 Ref 0 (Reported) on hold 04/19-07/27 Entered as Reported by: Lalit Polanco on 04/22/20611 Last Action: Converted on 04/22/201237 by JOSELINE SANTACRUZ MD Ferrous Sulfate (Ferrous Sulfate) 325 Mg Tablet, 1 TAB PO DAILY for iron deficiency, #30 Ref 3 (Reported) Entered as Reported by: Lalit Polanco on 04/22/20611 Last Action: Continued on 04/22/201237 by JOSELINE SANTACRUZ MD Folic Acid (Folic Acid) 0.8 Mg Capsule, 1 CAP PO DAILY for anemia for 30 Days, #30 Ref 0 (Reported) Entered as Reported by: Lalit Polanco on 04/22/20611 Last Action: New Order on 04/22/20611 by Lalit Polanco Furosemide (Furosemide) 20 Mg Tablet, 3 TAB PO DAILY for chf, #90 Ref 1 (Reported) Entered as Reported by: Lalit Polanco on 04/22/20543 Last Action: New Order on 04/22/20543 by Lalit Polanco Isosorbide Mononitrate (Isosorbide Mononitrate Er) 30 Mg Tab.er.24h, 1 TAB PO DAILY, #30 Ref 5 (Reported) Entered as Reported by: Becca Guajardo on 01/06/152042 Last Action: Continued on 04/22/201237 by JOSELINE SANTACRUZ MD Levetiracetam (Keppra) 250 Mg Tablet, 250 MG PO BID for 60 Days, #120 Prescribed by: KULWINDER SONI on 10/25/17 1309 Last Action: Continued on 04/22/201237 by JOSELINE SANTACRUZ MD Metformin Hcl (Metformin Hcl) 500 Mg Tablet, 500 MG PO BIDWMEALS for ANTI- DIABETIC, Ref 0 (Reported) Entered as Reported by: Lalit Polanco on 04/22/20546 Last Action: New Order on 04/22/20546 by Lalit Polanco Metoprolol Succinate (Metoprolol Succinate ( Xl )) 25 Mg Tab.er.24h, 1 TAB PO DAILY for htn, #30 Ref 5 (Reported) Entered as Reported by: Lalit Polanco on 04/22/20538 Last Action: Continued on 04/22/201237 by JOSELINE SANTACRUZ MD Miconazole Nitrate (Miconazole Nitrate) 45 Gm Cream.appl, 45 GM TOP BID, (Reported) Entered as Reported by: JETT MORRIS on 10/21/172028 Multivitamin (Once Daily) 1 Each Tablet, 1 TAB PO DAILY for supplement for 30 Days, #30 Ref 0 (Reported) Entered as Reported by: Lalit Polanco on 04/22/20611 Last Action: New Order on 04/22/20611 by Lalit Polanco Potassium Chloride (Klor-Con 10) 10 Meq Tablet.er, 1 TAB PO DAILY for chf for 30 Days, #30 Ref 0 (Reported) Entered as Reported by: Lalit Polanco on 04/22/20611 Last Action: New Order on 04/22/20611 by Lalit Polanco Risperidone (Risperdal) 1 Mg Tablet, 1 MG PO DAILY08, (Reported) Entered as Reported by: LEANNE ZIEGLER on 10/02/13727 Last Action: Continued on 04/22/201237 by JOSELINE SANTACRUZ MD Risperidone (Risperdal) 2 Mg Tablet, 1 TAB PO QHS, #30 Ref 1 (Reported) Entered as Reported by: Becca Guajardo on 01/06/152055 Last Action: Converted on 04/22/201237 by JOSELINE SANTACRUZ MD Scheduled PRN Acetaminophen (Acetaminophen) 325 Mg Tablet, 2 TAB PO PRN Q6HRS PRN for pain or fever for 30 Days, #30 Ref 0 (Reported) Entered as Reported by: Lalit Polanco on 04/22/20611 Last Action: Continued on 04/22/201237 by JOSELINE SANTACRUZ MD Albuterol Sulfate (Albuterol Sulfate Neb Soln) 0.63 Mg/3 Ml Vial.neb, 1 VIAL NEB QID PRN for SHORTNESS OF BREATH, #150 Ref 1 (Reported) Entered as Reported by: Lalit Polanco on 04/22/20611 Last Action: New Order on 04/22/20611 by Lalit Polanco Ipratropium [place] (Ipratropium [place]) 0.2 Mg/1 Ml Solution, 1 VIAL NEB PRN Q6HRS PRN for SHORTNESS OF BREATH, #300 Ref 5 (Reported) Entered as Reported by: Lalit Polanco on 04/22/20611 Last Action: New Order on 04/22/20611 by Lalit Polanco Loperamide HCl (Imodium A-D) 2 Mg Capsule, 1 TAB PO PRN PRN for DIARRHEA, (Reported) Entered as Reported by: Lalit Polanco on 04/22/20611 Last Action: Continued on 04/22/201237 by JOSELINE SANTACRUZ MD Mag Hydrox/Al Hydrox/Simeth (Alum-Mag Hydroxide-Simeth Liq) 360 Ml Oral.susp, 30 ML PO PRN TID PRN for DYSPEPSIA, (Reported) Entered as Reported by: Becca Guajardo on 01/06/152042 Nitroglycerin (NITROGLYCERIN SubLingual) 0.4 Mg Tab.subl, 0.4 MG SL PRN Q5MIN PRN for CHEST PAIN, (Reported) Entered as Reported by: Lalit Polanco on 04/22/20611 Last Action: Continued on 04/22/201237 by JOSELINE SANTACRUZ MD Polyethylene Glycol 3350 (Miralax) 17 Gm Powd.pack, 1 PACKET PO Q12HR PRN for CONSTIPATION, #30 Ref 3 (Reported) Entered as Reported by: Becca Guajardo on 01/06/152042 Last Action: Continued on 04/22/201237 by JOSELINE SANTACRUZ MD Miscellaneous Medications Nicotine Polacrilex (Nicotine Gum) 4 Mg Gum, 4 MG BC, (Reported) Entered as Reported by: JETT MORRIS on 10/21/172028 Justicifation of Admission Dx: Justifications for Admission: Justification of Admission Dx: Yes SUKHI DAVISON MD Apr 30, 2020 14:03
--- NOTE | 2020-04-30 14:11 | NUR ---
Received a phone call from [facility], this nurse was informed that they need a new COVID test result (less than 3 days) prior to accepting the patient back to the facility. Dr. Hill notified of the update.
--- NOTE | 2020-04-30 14:25 | PDOC ---
Renal-Progress Notes Subjective Notes Notes NO NEW COMPLAINTS History of Present Illness Hx of present illness STABLE Vitals Vitals Vital Signs Date Time Temp Pulse Resp B/P (MAP) Pulse Ox O2 Delivery O2 Flow Rate FiO2 04/30/20 12:08 79 107/73 04/30/20 11:03 98.2 26 97 Nasal Cannula 2.0 98.2 Weight Weight [ ] I.O. Intake and Output Intake and Output 04/30/20 07:00 Intake Total 0 ml Balance 0 ml Intake Oral 0 ml # Voids 5 # Bowel Movements 2 Labs Labs Laboratory Tests Test 04/29/20 16:57 04/30/20 00:13 04/30/20 05:30 04/30/20 06:59 Glucose (Fingerstick) 212 mg/dL (70-99) 267 mg/dL (70-99) 251 mg/dL (70-99) Sodium Level 147 mmol/L (136-145) Potassium Level 3.8 mmol/L (3.5-5.1) Chloride Level 108 mmol/L (98-107) Carbon Dioxide Level 30 mmol/L (21-32) Anion Gap 9 (6-14) Blood Urea Nitrogen 62 mg/dL (8-26) Creatinine 2.2 mg/dL (0.7-1.3) Estimated GFR (Cockcroft-Gault) 30.3 Glucose Level 270 mg/dL (70-99) Calcium Level 8.8 mg/dL (8.5-10.1) Phosphorus Level 4.1 mg/dL (2.6-4.7) Magnesium Level 2.3 mg/dL (1.8-2.4) Triglycerides Level 47 mg/dL (0-150) Test 04/30/20 11:29 Glucose (Fingerstick) 279 mg/dL (70-99) Micro Micro Microbiology 04/21/20 Blood Culture - Final, Complete NO GROWTH AFTER 5 DAYS Review of Systems Constitutional: yes: weakness, alert Ears/Nose/Throat: Yes: no symptom reported Eyes: Yes: no symptom reported Pulmonary: Yes no symptom reported Cardiovascular: Yes no symptom reported Gastrointestional: Yes: nausea Genitourinary: Yes: no symptom reported Musculoskeletal: Yes: muscle stiffness, muscle atrophy Skin: Yes no symptom reported Psychiatric/Neurological: Yes: no symptom reported Endocrine: Yes: no symptom reported Physical Exam General Appearance: no apparent distress Skin: warm Respiratory: decreased breath sounds Heart: S1S2, no thrills Abdomen: soft, bowel sounds present Genitourinary: bladder flat Extremities: pulses present, no edema, atrophy Neurology: alert, follow commands Assessment Assessment IMP URINARY RETENTION-RICKS OUT-AM CONCERNED ABOUT RECURRENCE [id number] WITH CR OF 2.3 CKD STAGE 3 WITH CR OF 1.6-2.1 ACUTE SYSTOLIC CHF CM WITH EF OF 20% ACUTE HYPOXIC RESP FAILURE PROB COPD SEVERE ANEMIA IRON DEFICIENCY PLAN DIURETICS ON TPN INOTROPES RICKS OUT P THERAPY BLADDER SCAN TODAY WILL FOLLOW LENARD DE LA ROSA MD Apr 30, 2020 14:25
[2020-04-30 14:58] VITALS: BP 128/80
--- NOTE | 2020-04-30 15:03 | NUR ---
Bladder scan done today showed 175ml, notified Dr. Martinez of the result.
[2020-04-30 19:12] VITALS: BP 107/65
[2020-04-30] MEDS: ATORVASTATIN CALCIUM 20 MG TABLET PO SCH (21:00)
[2020-04-30] MEDS ORDERED: AMINO ACID IV SCH (22:00)
[2020-04-30] MEDS ORDERED: DEXTROSE 70% IV SCH (22:00)
[2020-04-30] MEDS ORDERED: TOTAL PARENTERAL NUTRITION IV SCH (22:00)
[2020-04-30] MEDS ORDERED: [UNRECOGNIZED DRUG - OTHER] IV SCH (22:00)
[2020-04-30 22:35] VITALS: BP 96/77
[2020-05-01 02:02] VITALS: BP 127/76
[2020-05-01] MEDS: HEPARIN for SUB-Q USE 5,000 UNIT/ML VIAL. SQ SCH ×2 (05:38→13:44)
[2020-05-01] MEDS: METOPROLOL TARTRATE 5 MG/5 ML VIAL. IVP SCH ×2 (05:38→11:19)
[2020-05-01 06:32] LABS: CALCIUM 8.5 mg/dL (8.5-10.1); CREATININE 2.2 mg/dL (0.7-1.3); GFR 30.3; MAGNESIUM 2.3 mg/dL (1.8-2.4); PHOSPHORUS 4.2 mg/dL (2.6-4.7); POTASSIUM 3.7 mmol/L (3.5-5.1)
[2020-05-01 07:00] VITALS: BP 102/66
[2020-05-01] MEDS: ALBUTEROL SULFATE 2.5 MG/3 ML NEBU. NEB SCH ×2 (07:33→11:32)
[2020-05-01] MEDS: risperiDONE 1 MG TABLET. PO SCH (08:00)
[2020-05-01] MEDS: INSULIN LISPRO 300 UNITS/3 ML VIAL. SQ SCH ×2 (08:00→12:00)
[2020-05-01] MEDS: ISOSORBIDE MONONITRATE ER 30 MG TAB.ER.24H PO SCH (09:00)
[2020-05-01] MEDS: buPROPion SR 150 MG TABLET.SA PO SCH (09:00)
[2020-05-01] MEDS: FERROUS SULFATE 325 MG TABLET. PO SCH (09:00)
[2020-05-01] MEDS: carBAMazepine 200 MG TABLET PO SCH (09:00)
[2020-05-01] MEDS: CLOPIDOGREL BISULFATE 75 MG TABLET PO SCH (09:00)
[2020-05-01] MEDS: ASPIRIN ENTERIC COATED 81 MG TABLET.DR. PO SCH (09:00)
--- NOTE | 2020-05-01 10:54 | PDOC ---
Date of Service: DATE: 05/01/20 TIME: 10:53 Subjective: Subjective: Smiles, asks for something to eat. Objective: Objective: Hospice still seems like the plan but needed another COVID test. Vital Signs: Vital Signs Date Time Temp Pulse Resp B/P (MAP) Pulse Ox O2 Delivery O2 Flow Rate FiO2 05/01/20 07:00 97.5 79 20 102/66 (78) 99 Nasal Cannula 2.0 97.5 Labs: Laboratory Tests Test 04/30/20 11:29 04/30/20 16:11 05/01/20 05:45 05/01/20 08:07 Glucose (Fingerstick) 279 mg/dL 245 mg/dL 152 mg/dL Sodium Level 150 mmol/L Potassium Level 3.7 mmol/L Chloride Level 111 mmol/L Carbon Dioxide Level 30 mmol/L Anion Gap 9 Blood Urea Nitrogen 59 mg/dL Creatinine 2.2 mg/dL Estimated GFR (Cockcroft-Gault) 30.3 Glucose Level 153 mg/dL Calcium Level 8.5 mg/dL Phosphorus Level 4.2 mg/dL Magnesium Level 2.3 mg/dL PE: GEN: chronically ill NEURO/PSYCH: ?confused A/P: CHF, dysphagia -- Plans to DC w/ Hospice pending COVID swab. Asking to eat - defer to primary. Justicifation of Admission Dx: Justifications for Admission: Justification of Admission Dx: Yes REJI OWENS May 01, 2020 10:54
[2020-05-01] MEDS: levETIRAcetam 250 MG in IV DEXTROSE 5% 100ML 100 ML IV SCH (10:58)
[2020-05-01] MEDS: FUROSEMIDE 40 MG/4 ML VIAL. IVP SCH (10:59)
[2020-05-01 11:00] VITALS: BP 96/62
[2020-05-01] MEDS: PANTOPRAZOLE IV PUSH 40 MG VIAL. IVP SCH (11:13)
--- NOTE | 2020-05-01 11:34 | PDOC ---
Renal-Progress Notes Subjective Notes Notes NO NEW COMPLAINTS History of Present Illness Hx of present illness NO CHANGE Vitals Vitals Vital Signs Date Time Temp Pulse Resp B/P (MAP) Pulse Ox O2 Delivery O2 Flow Rate FiO2 05/01/20 11:19 64 86/62 05/01/20 07:00 97.5 20 99 Nasal Cannula 2.0 97.5 Weight Weight [ ] I.O. Intake and Output Intake and Output 05/01/20 07:00 # Voids 6 Labs Labs Laboratory Tests Test 04/30/20 16:11 05/01/20 05:45 05/01/20 08:07 05/01/20 11:30 Glucose (Fingerstick) 245 mg/dL (70-99) 152 mg/dL (70-99) 194 mg/dL (70-99) Sodium Level 150 mmol/L (136-145) Potassium Level 3.7 mmol/L (3.5-5.1) Chloride Level 111 mmol/L (98-107) Carbon Dioxide Level 30 mmol/L (21-32) Anion Gap 9 (6-14) Blood Urea Nitrogen 59 mg/dL (8-26) Creatinine 2.2 mg/dL (0.7-1.3) Estimated GFR (Cockcroft-Gault) 30.3 Glucose Level 153 mg/dL (70-99) Calcium Level 8.5 mg/dL (8.5-10.1) Phosphorus Level 4.2 mg/dL (2.6-4.7) Magnesium Level 2.3 mg/dL (1.8-2.4) Micro Micro Microbiology 04/21/20 Blood Culture - Final, Complete NO GROWTH AFTER 5 DAYS Review of Systems Constitutional: yes: weakness, alert Ears/Nose/Throat: Yes: no symptom reported Eyes: Yes: no symptom reported Pulmonary: Yes no symptom reported Cardiovascular: Yes no symptom reported Gastrointestional: Yes: nausea Genitourinary: Yes: no symptom reported Musculoskeletal: Yes: muscle stiffness, muscle atrophy Skin: Yes no symptom reported Psychiatric/Neurological: Yes: no symptom reported Endocrine: Yes: no symptom reported Physical Exam General Appearance: no apparent distress Skin: warm Respiratory: decreased breath sounds Heart: S1S2, no thrills Abdomen: soft, bowel sounds present Genitourinary: bladder flat Extremities: pulses present, no edema, atrophy Neurology: alert, follow commands Assessment Assessment IMP URINARY RETENTION-RICKS OUT-AM CONCERNED ABOUT RECURRENCE [id number] WITH CR OF 2.2 CKD STAGE 3 WITH CR OF 1.6-2.1 ACUTE SYSTOLIC CHF CM WITH EF OF 20% ACUTE HYPOXIC RESP FAILURE PROB COPD SEVERE ANEMIA IRON DEFICIENCY PLAN HOSPICE PLANS NOTED WILL FOLLOW LENARD BRA MD May 01, 2020 11:34
--- NOTE | 2020-05-01 13:52 | PDOC ---
PROGRESS NOTES Date of Service: DATE: 05/01/20 TIME: 13:50 Chief Complaint Chief Complaint Acute hypoxic respiratory failure secondary to congestive heart failure Dysphagia, case discussed with his DPOA who has known the patient and his wishes for a long time, he did not want to be kept alive by artificial means including parenteral nutrition, he will be transitioned to hospice care at [facility] where he currently resides. Acute kidney injury - likely vasomotor nephropathy Acute Anemia - Hb 7.6, no active bleeding. Transaminitis - likely congestive hepatopathy from right sided heart failure Urinary retention - likely with BPH, mccoy placed H/o atrial fibrillation - sinus rhythm currently. On BB, not on anticoagulation Acute diastolic CHF - will diurese. Cardiology consulted. Cont BB, imdur, hydralazine. With Cr not on CRIS or ARB. Constipation - cont miralax H/o CVA - with residual contractures, speech deficits. 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 Notable for RR 44 breaths/min with accessory muscle use. Per his facility he has been progressively more short of breath recently. However he did deny any fever or chills. He reports he has no cough. He denied vomiting, diarrhea, melena or hematochezia. He states his pain is in his abdomen, 6/10. Chest x-ray with bilateral interstitial infiltrates. BNP greater than 35,000, Hb 7.4, WBC 10, platelets 245, lactate 3.9, albumin 2.8, NA 139, K4.7, BUN 54, CR 2.6, AST 926, ALT 725. INR 1.5. ABG on room air 7.39/33/less than 42, placed on 3 L nasal cannulated oxygen ABG 7.41/29/163. EKG with heart rate 82 bpm, normal sinus rhythm, left atrial enlargement, incomplete right bundle branch block. Admitted for further treatment. 04/23 Hemoglobin dropped to 7.1. COVID-19 negative. Still requiring O2, very short of breath. 04/24 Patient's heparin currently on hold given findings of anemia. Still on milrinone Plan: will give magnesium and albuterol for bronchospasm 04/25 Patient seems stable creatinine noted and student union consultant requested evaluation by nephrology He has been transitioned to oral Lasix and hopefully will be able to discharge in the a.m. back to his facility in [facility] 04/26 Patient presented with urinary retention had about 500 cc in his bladder today, this prompted a Mccoy catheter placement, good urinary output afterwards hopefully this will alleviate his renal dysfunction as well. We will continue to follow along with consultants and hopefully will be able to transition back to [facility] in the next 24 to 48 hours 04/28 Patient with dysphagia, will need Speech therapy evaluation no new complaints, still wants to "get around the corner 04/29 Failed swallow study he has been progressing since his stroke up until this point where he can no longer have oral route nutrition. He does not want to continue with aritifical means as he has expressed to his DPOA in the past, I spoke with him and his manager of customer billing at length. All concerns addressed to the best of my abilities. 04/30 Patient evaluated at bedside, with no complaints. Per nursing staff, patient will return to [facility] on hospice. 05/01 Patient evaluated with family at bedside. Patient is resting comfortably. Family has no questions. Discussed with family the discharge was held up due to required COVID testing, which will be completed today. Vitals Vitals Vital Signs Date Time Temp Pulse Resp B/P (MAP) Pulse Ox O2 Delivery O2 Flow Rate FiO2 05/01/20 11:19 64 86/62 05/01/20 11:00 97.7 20 96 Nasal Cannula 2.0 97.7 Physical Exam General: Alert, Cooperative, No acute distress Heart: Regular rate (SR), Other (distant heart sounds) Lungs: Other (chest wheezing) Abdomen: Normal bowel sounds, Soft, No tenderness, No hepatosplenomegaly, No masses Extremities: No cyanosis, Other (2+ bilateral LE pitting edema; hand contractures) Skin: No rashes Labs LABS Laboratory Tests Test 04/30/20 14:45 04/30/20 16:11 05/01/20 05:45 05/01/20 08:07 Coronavirus (PCR) Not detected (Not Detected) Glucose (Fingerstick) 245 mg/dL (70-99) 152 mg/dL (70-99) Sodium Level 150 mmol/L (136-145) Potassium Level 3.7 mmol/L (3.5-5.1) Chloride Level 111 mmol/L (98-107) Carbon Dioxide Level 30 mmol/L (21-32) Anion Gap 9 (6-14) Blood Urea Nitrogen 59 mg/dL (8-26) Creatinine 2.2 mg/dL (0.7-1.3) Estimated GFR (Cockcroft-Gault) 30.3 Glucose Level 153 mg/dL (70-99) Calcium Level 8.5 mg/dL (8.5-10.1) Phosphorus Level 4.2 mg/dL (2.6-4.7) Magnesium Level 2.3 mg/dL (1.8-2.4) Test 05/01/20 11:30 Glucose (Fingerstick) 194 mg/dL (70-99) Review of Systems Review of Systems Medical to obtain due to clinical condition Assessment and Plan Assessmemt and Plan Problems Medical Problems: (1) Acute respiratory distress Status: Acute (2) Acute systolic (congestive) heart failure Status: Acute Comment Review of Relevant I have reviewed the following items hair (where applicable) has been applied. Labs Laboratory Tests Test 04/29/20 16:57 04/30/20 00:13 04/30/20 05:30 04/30/20 06:59 Glucose (Fingerstick) 212 mg/dL (70-99) 267 mg/dL (70-99) 251 mg/dL (70-99) Sodium Level 147 mmol/L (136-145) Potassium Level 3.8 mmol/L (3.5-5.1) Chloride Level 108 mmol/L (98-107) Carbon Dioxide Level 30 mmol/L (21-32) Anion Gap 9 (6-14) Blood Urea Nitrogen 62 mg/dL (8-26) Creatinine 2.2 mg/dL (0.7-1.3) Estimated GFR (Cockcroft-Gault) 30.3 Glucose Level 270 mg/dL (70-99) Calcium Level 8.8 mg/dL (8.5-10.1) Phosphorus Level 4.1 mg/dL (2.6-4.7) Magnesium Level 2.3 mg/dL (1.8-2.4) Triglycerides Level 47 mg/dL (0-150) Test 04/30/20 11:29 04/30/20 14:45 04/30/20 16:11 05/01/20 05:45 Glucose (Fingerstick) 279 mg/dL (70-99) 245 mg/dL (70-99) Coronavirus (PCR) Not detected (Not Detected) Sodium Level 150 mmol/L (136-145) Potassium Level 3.7 mmol/L (3.5-5.1) Chloride Level 111 mmol/L (98-107) Carbon Dioxide Level 30 mmol/L (21-32) Anion Gap 9 (6-14) Blood Urea Nitrogen 59 mg/dL (8-26) Creatinine 2.2 mg/dL (0.7-1.3) Estimated GFR (Cockcroft-Gault) 30.3 Glucose Level 153 mg/dL (70-99) Calcium Level 8.5 mg/dL (8.5-10.1) Phosphorus Level 4.2 mg/dL (2.6-4.7) Magnesium Level 2.3 mg/dL (1.8-2.4) Test 05/01/20 08:07 05/01/20 11:30 Glucose (Fingerstick) 152 mg/dL (70-99) 194 mg/dL (70-99) Laboratory Tests Test 04/30/20 14:45 04/30/20 16:11 05/01/20 05:45 05/01/20 08:07 Coronavirus (PCR) Not detected (Not Detected) Glucose (Fingerstick) 245 mg/dL (70-99) 152 mg/dL (70-99) Sodium Level 150 mmol/L (136-145) Potassium Level 3.7 mmol/L (3.5-5.1) Chloride Level 111 mmol/L (98-107) Carbon Dioxide Level 30 mmol/L (21-32) Anion Gap 9 (6-14) Blood Urea Nitrogen 59 mg/dL (8-26) Creatinine 2.2 mg/dL (0.7-1.3) Estimated GFR (Cockcroft-Gault) 30.3 Glucose Level 153 mg/dL (70-99) Calcium Level 8.5 mg/dL (8.5-10.1) Phosphorus Level 4.2 mg/dL (2.6-4.7) Magnesium Level 2.3 mg/dL (1.8-2.4) Test 05/01/20 11:30 Glucose (Fingerstick) 194 mg/dL (70-99) Microbiology 04/21/20 Blood Culture - Final, Complete NO GROWTH AFTER 5 DAYS Medications Current Medications Ipratropium [place] (Atrovent) 1 mg 1X ONCE NEB Last administered on 04/21/20at 20:25; Start 04/21/20 at 19:15; Stop 04/21/20 at 19:16; Status DC Methylprednisolone Sodium Succinate (SOLU-Medrol 125MG VIAL) 125 mg 1X ONCE IV Last administered on 04/21/20at 19:17; Start 04/21/20 at 19:15; Stop 04/21/20 at 19:16; Status DC Albuterol Sulfate (Ventolin Neb Soln) 10 mg 1X ONCE CONT NEB Last administered on 04/21/20at 20:25; Start 04/21/20 at 19:15; Stop 04/21/20 at 19:16; Status DC Sodium Chloride 500 ml @ 500 mls/hr 1X ONCE IV Last administered on 04/21/20at 19:20; Start 04/21/20 at 19:15; Stop 04/21/20 at 20:14; Status DC Famotidine (Pepcid) 20 mg 1X ONCE PO Last administered on 04/21/20at 19:15; Start 04/21/20 at 19:15; Stop 04/21/20 at 19:16; Status DC Al Hydroxide/Mg Hydroxide (Mylanta Plus Xs) 30 ml 1X ONCE PO Last administered on 04/21/20at 19:15; Start 04/21/20 at 19:15; Stop 04/21/20 at 19:16; Status DC Metoclopramide HCl (Reglan Vial) 5 mg 1X ONCE IVP Last administered on 04/21/20at 19:16; Start 04/21/20 at 19:15; Stop 04/21/20 at 19:16; Status DC Aspirin (Aspirin Chewable) 162 mg 1X ONCE PO Last administered on 04/21/20at 21:28; Start 04/21/20 at 20:45; Stop 04/21/20 at 20:46; Status DC Furosemide (Lasix) 80 mg 1X ONCE IVP Last administered on 04/21/20at 22:48; Start 04/21/20 at 22:30; Stop 04/21/20 at 22:31; Status DC Furosemide (Lasix) 40 mg 1X ONCE IVP Last administered on 04/22/20at 15:04; Start 04/22/20 at 10:30; Stop 04/22/20 at 10:32; Status DC Pantoprazole Sodium (Protonix) 40 mg DAILYAC PO Last administered on 04/28/20 09:58; Start 04/23/20 at 07:30; Stop 04/28/20 at 10:50; Status DC Acetaminophen (Tylenol) 650 mg PRN Q6HRS PRN PO pain or fever; Start 04/22/20 at 12:45 Aspirin (Ecotrin) 81 mg DAILY PO Last administered on 04/28/20 09:56; Start 04/22/20 at 13:00 Bupropion HCl (Wellbutrin Sr) 150 mg DAILY PO Last administered on 04/28/20 09:56; Start 04/22/20 at 13:00 Carbamazepine (TEGretol) 100 mg DAILY PO Last administered on 04/28/20 09:58; Start 04/22/20 at 13:00 Clopidogrel Bisulfate (Plavix) 75 mg DAILY PO Last administered on 04/28/20 09:55; Start 04/22/20 at 13:00 Ferrous Sulfate (Feosol) 325 mg DAILY PO Last administered on 04/28/20 09:55; Start 04/22/20 at 13:00 Isosorbide Mononitrate (Imdur) 30 mg DAILY PO Last administered on 04/28/20 09 :59; Start 04/22/20 at 13:00 Levetiracetam (Keppra) 250 mg BID PO Last administered on 04/28/20 09:54; Start 04/22/20 at 13:00; Stop 04/28/20 at 19:43; Status DC Loperamide HCl (Imodium) 2 mg PRN Q4HRS PRN PO DIARRHEA; Start 04/22/20 at 12:45 Metoprolol Succinate (Toprol Xl) 25 mg DAILY PO Last administered on 04/28/20at 09:57; Start 04/22/20 at 12:45; Stop 04/28/20 at 19:44; Status DC Nitroglycerin (Nitrostat) 0.4 mg PRN Q5MIN PRN SL CHEST PAIN; Start 04/22/20 at 12:45 Polyethylene Glycol (miraLAX PACKET) 17 gm Q12HR PRN PO CONSTIPATION Last administered on 04/24/20at 20:44; Start 04/22/20 at 12:45 Risperidone (RisperDAL) 1 mg DAILY08 PO Last administered on 04/28/20at 09:54; Start 04/22/20 at 13:00 Atorvastatin Calcium (Lipitor) 80 mg QHS PO Last administered on 04/24/20at 20:44; Start 04/22/20 at 21:00; Stop 04/25/20 at 13:29; Status DC Non-Formulary Medication (Deutetrabenazine (Austedo)) 1 tab BID PO ; Start 04/22/20 at 21:00; Stop 04/22/20 at 16:39; Status DC Risperidone (RisperDAL) 2 mg QHS PO Last administered on 04/27/20at 20:32; Start 04/22/20 at 21:00 Heparin Sodium (Porcine) (Heparin Sodium) 5,000 unit Q8HRS SQ Last administered on 05/01/20at 13:44; Start 04/22/20 at 14:00 Insulin Human Lispro (HumaLOG) 0-5 UNITS TIDWMEALS SQ Last administered on 04/30/20at 12:16; Start 04/22/20 at 17:00 Dextrose (Dextrose 50%-Water Syringe) 12.5 gm PRN Q15MIN PRN IV SEE COMMENTS; Start 04/22/20 at 13:00 Metoprolol Succinate (Toprol Xl) 25 mg DAILY PO ; Start 04/23/20 at 09:00; Stop 04/22/20 at 13:01; Status DC Aspirin (Ecotrin) 81 mg DAILYWBKFT PO ; Start 04/23/20 at 08:00; Stop 04/22/20 at 13:02; Status DC Furosemide (Lasix) 40 mg DAILY IVP Last administered on 04/25/20at 08:44; Start 04/23/20 at 09:00; Stop 04/25/20 at 13:30; Status DC Milrinone Lactate/ Dextrose 100 ml @ 2.888 mls/ hr CONT PRN IV SEE I/O RECORD Last administered on 04/24/20at 15:52; Start 04/23/20 at 10:30 Furosemide (Lasix) 40 mg 1X ONCE IVP Last administered on 04/23/20at 16:08; Start 04/23/20 at 14:45; Stop 04/23/20 at 14:46; Status DC Furosemide (Lasix) 20 mg 1X ONCE IVP ; Start 04/23/20 at 17:00; Stop 04/23/20 at 17:01; Status DC Furosemide (Lasix) 20 mg 1X ONCE IVP Last administered on 04/23/20at 22:53; Start 04/23/20 at 22:30; Stop 04/23/20 at 22:31; Status DC Potassium Chloride/Water 100 ml @ 100 mls/hr Q1H IV Last administered on 04/24/20at 12:23; Start 04/24/20 at 08:00; Stop 04/24/20 at 09:59; Status DC Furosemide (Lasix) 40 mg 1X ONCE IVP Last administered on 04/24/20at 15:58; Start 04/24/20 at 16:00; Stop 04/24/20 at 16:01; Status DC Magnesium Sulfate 50 ml @ 25 mls/hr 1X ONCE IV Last administered on 04/24/20at 18:23; Start 04/24/20 at 16:30; Stop 04/24/20 at 18:29; Status DC Albuterol Sulfate (Ventolin Neb Soln) 2.5 mg PRN Q4HRS PRN NEB SHORTNESS OF BREATH Last administered on 04/28/20at 03:37; Start 04/24/20 at 16:15 Potassium Chloride/Water 100 ml @ 100 mls/hr Q1H IV Last administered on 04/25/20at 10:25; Start 04/25/20 at 08:00; Stop 04/25/20 at 09:59; Status DC Atorvastatin Calcium (Lipitor) 20 mg QHS PO Last administered on 04/27/20at 20:32; Start 04/25/20 at 21:00 Furosemide (Lasix) 40 mg DAILY PO Last administered on 04/28/20at 09:55; Start 04/26/20 at 09:00; Stop 04/28/20 at 19:44; Status DC Furosemide (Lasix) 20 mg 1X ONCE IVP Last administered on 04/26/20at 10:47; Start 04/26/20 at 10:00; Stop 04/26/20 at 10:01; Status DC Furosemide (Lasix) 20 mg 1X ONCE IVP Last administered on 04/28/20at 10:24; Start 04/28/20 at 10:15; Stop 04/28/20 at 10:16; Status DC Pantoprazole Sodium (PROTONIX VIAL for IV PUSH) 40 mg DAILYAC IVP Last administered on 05/01/20at 11:13; Start 04/29/20 at 07:30 Iron Sucrose 500 mg/Sodium Chloride 275 ml @ 78.571 mls/ hr 1X ONCE IV Last administered on 04/28/20at 14:07; Start 04/28/20 at 13:30; Stop 04/28/20 at 16:59; Status DC Darbepoetin Bassam (ARANESP for NON-DIALYSIS PTS) 60 mcg 1X ONCE SQ Last administered on 04/28/20at 21:27; Start 04/28/20 at 21:00; Stop 04/28/20 at 21:01; Status DC Sodium Chloride 60 meq/Potassium Chloride 50 meq/ Potassium Phosphate 13.6 mmol/Magnesium Sulfate 10 meq/ Calcium Gluconate 10 meq/ Multivitamins 10 ml/Chromium/ Copper/Manganese/ Seleni/Zn 1 ml/ Total Parenteral Nutrition/Amino Acids/Dextrose/ Fat Emulsion Intravenous 1,512 ml @ 63 mls/hr TPN CONT IV ; Start 04/28/20 at 22:00; Stop 04/29/20 at 21:59; Status Cancel Info (Tpn Per Pharmacy) 1 each PRN DAILY PRN MC SEE COMMENTS Last administered on 04/30/20at 12:10; Start 04/28/20 at 13:30; Stop 04/30/20 at 13:21; Status DC Sodium Chloride 60 meq/Potassium Chloride 50 meq/ Potassium Phosphate 13.6 mmol/Magnesium Sulfate 10 meq/ Calcium Gluconate 10 meq/ Multivitamins 10 ml/Chromium/ Copper/Manganese/ Seleni/Zn 1 ml/ Total Parenteral Nutrition/Amino Acids/Dextrose/ Fat Emulsion Intravenous 1,512 ml @ 63 mls/hr TPN CONT IV Last administered on 04/28/20at 21:27; Start 04/28/20 at 22:00; Stop 04/29/20 at 21:59; Status DC Albuterol Sulfate (Ventolin Neb Soln) 2.5 mg RTQID NEB Last administered on 04/30/20at 19:46; Start 04/28/20 at 20:00 Furosemide (Lasix) 40 mg DAILY IVP Last administered on 05/01/20at 10:59; Start 04/29/20 at 09:00 Metoprolol Tartrate (Lopressor Vial) 5 mg Q6HRS IVP Last administered on 05/01/20at 05:38; Start 04/29/20 at 00:00 Levetiracetam 250 mg/Dextrose 102.5 ml @ 420 mls/hr Q12HR IV ; Start 04/28/20 at 21:00; Stop 04/28/20 at 20:55; Status DC Levetiracetam 250 mg/Dextrose 102.5 ml @ 419.795 mls/hr Q12HR IV Last administered on 05/01/20at 10:58; Start 04/28/20 at 21:00 Sodium Chloride 50 meq/Potassium Chloride 50 meq/ Potassium Phosphate 13.6 mmol/Magnesium Sulfate 5 meq/ Calcium Gluconate 10 meq/ Multivitamins 10 ml/Chromium/ Copper/Manganese/ Seleni/Zn 1 ml/ Total Parenteral Nutrition/Amino Acids/Dextrose/ Fat Emulsion Intravenous 1,512 ml @ 63 mls/hr TPN CONT IV Last administered on 04/29/20at 22:20; Start 04/29/20 at 22:00; Stop 04/30/20 at 21:59; Status DC Sodium Acetate 50 meq/Potassium Chloride 50 meq/ Potassium Phosphate 13.6 mmol/Magnesium Sulfate 5 meq/ Calcium Gluconate 10 meq/ Multivitamins 10 ml/Chromium/ Copper/Manganese/ Seleni/Zn 1 ml/ Total Parenteral Nutrition/Amino Acids/Dextrose/ Fat Emulsion Intravenous 1,512 ml @ 63 mls/hr TPN CONT IV ; Start 04/30/20 at 22:00; Stop 05/01/20 at 21:59; Status Cancel Active Scripts Active Keppra (Levetiracetam) 250 Mg Tablet 250 Mg PO BID 60 Days Reported Wellbutrin Sr (Bupropion Hcl) 150 Mg Tablet.er 1 Tab PO DAILY Acetaminophen 325 Mg Tablet 2 Tab PO PRN Q6HRS PRN 30 Days Vitamin D3-Aloe 1,000 Unit Tab (Ca Cmb 1/Vit D3/B-6/Fa/B12/Av) 1 Each Tablet 1 Each PO DAILY Tegretol (Carbamazepine) 200 Mg Tablet 0.5 Tab PO DAILY Klor-Con 10 (Potassium Chloride) 10 Meq Tablet.er 1 Tab PO DAILY 30 Days Clopidogrel (Clopidogrel Bisulfate) 75 Mg Tablet 1 Tab PO DAILY NITROGLYCERIN SubLingual (Nitroglycerin) 0.4 Mg Tab.subl 0.4 Mg SL PRN Q5MIN PRN Once Daily (Multivitamin) 1 Each Tablet 1 Tab PO DAILY 30 Days Ipratropium [place] 0.2 Mg/1 Ml Solution 1 Vial NEB PRN Q6HRS PRN Imodium A-D (Loperamide HCl) 2 Mg Capsule 1 Tab PO PRN PRN Folic Acid 0.8 Mg Capsule 1 Cap PO DAILY 30 Days Ferrous Sulfate 325 Mg Tablet 1 Tab PO DAILY [place] (Deutetrabenazine) 6 Mg Tablet 1 Tab PO BID 30 Days on hold 04/19-07/27 Albuterol Sulfate Neb Soln (Albuterol Sulfate) 0.63 Mg/3 Ml Vial.neb 1 Vial NEB QID PRN Metformin Hcl 500 Mg Tablet 500 Mg PO BIDWMEALS Furosemide 20 Mg Tablet 3 Tab PO DAILY Aspirin Ec (Aspirin) 81 Mg Tablet.dr 1 Tab PO DAILY Metoprolol Succinate ( Xl ) (Metoprolol Succinate) 25 Mg Tab.er.24h 1 Tab PO DAILY Atorvastatin Calcium 80 Mg Tablet 80 Mg PO QHS Nicotine Gum (Nicotine Polacrilex) 4 Mg Gum 4 Mg BC Miconazole Nitrate 45 Gm Cream.appl 45 Gm TOP BID Risperdal (Risperidone) 2 Mg Tablet 1 Tab PO QHS Alum-Mag Hydroxide-Simeth Liq (Mag Hydrox/Al Hydrox/Simeth) 360 Ml Oral.susp 30 Ml PO PRN TID PRN Miralax (Polyethylene Glycol 3350) 17 Gm Powd.pack 1 Packet PO Q12HR PRN Isosorbide Mononitrate Er (Isosorbide Mononitrate) 30 Mg Tab.er.24h 1 Tab PO DAILY Risperdal (Risperidone) 1 Mg Tablet 1 Mg PO DAILY08 Baclofen 10 Mg Tablet 5 Mg PO DAILY Vitals/I & O Vital Sign - Last 24 Hours 04/30/20 04/30/20 04/30/20 04/30/20 14:58 15:05 18:05 19:12 Temp 98.4 98.2 98.4 98.2 Pulse 82 82 80 Resp 24 22 B/P (MAP) 128/80 (96) 128/80 107/65 (79) Pulse Ox 98 100 97 O2 Delivery Nasal Cannula Nasal Cannula Nasal Cannula O2 Flow Rate 2.0 2.0 2.0 04/30/20 04/30/20 04/30/20 04/30/20 19:36 19:48 22:35 23:57 Temp 98.2 98.2 Pulse 84 84 Resp 22 B/P (MAP) 96/77 (83) 109/72 Pulse Ox 97 96 O2 Delivery Nasal Cannula Nasal Cannula Nasal Cannula O2 Flow Rate 2.0 2.0 2.0 05/01/20 05/01/20 05/01/20 05/01/20 02:02 05:38 07:00 08:00 Temp 97.9 97.5 97.9 97.5 Pulse 87 81 79 Resp 20 B/P (MAP) 127/76 (93) 116/71 102/66 (78) Pulse Ox 97 99 O2 Delivery Nasal Cannula Nasal Cannula Nasal Cannula O2 Flow Rate 2.0 2.0 2.0 05/01/20 05/01/20 11:00 11:19 Temp 97.7 97.7 Pulse 66 64 Resp 20 B/P (MAP) 96/62 (73) 86/62 Pulse Ox 96 O2 Delivery Nasal Cannula O2 Flow Rate 2.0 Nutrition Consultation Dietary Evaluation: Recommendations by RD: Dietary education by RD, Increase Calorie Intake, Protein supplementation, PPN/TPN Comments: REC adjust TPN to following to best meet nutrition needs at this time: 225 g dextrose, 90 g AA, 20 g lipids If continued aggressive care desired and pt remains NPO, would recommend consideration of feeding tube placement for TFs to best meet nutrition needs, TFs per following: Glucerna 1.5@goal rate 45 ml/hr w/200 ml water flushes q4 hrs or flushes per MD, w/John BID via feeding tube and liquid MVI for wound healing Expected Outcomes/Goals: to meet > 75% est nutr needs - not met, new goal established New goal 04/29: Nutrition support to meet >75% est needs Malnutrition Findings: Weight Status: Overweight Fluid Accumulation (Non-Severe: Mild depletion Justicifation of Admission Dx: Justifications for Admission: Justification of Admission Dx: Yes SUKHI DAVISON MD May 01, 2020 13:52
[2020-05-01 14:45] VITALS: BP 135/100
== END 2020-05-01 15:50 | disposition hospice, inpatient (51) | DRG 291 ==
LOC: ER 18:24 → 2 NORTH 22:55 → 6 SOUTH 04-22 00:51 → 2 NORTH 04-23 13:41
PROVIDERS: ADMIT Internal Medicine; ATTEND Internal Medicine
PROC: 02HV33Z Insertion of Infusion Device into Superior Vena Cava, Percutaneous Approach (ICD-10-PCS; principal; 2020-04-23)
PROC: B5181ZA Fluoroscopy of Superior Vena Cava using Low Osmolar Contrast, Guidance (ICD-10-PCS; 2020-04-23)
PROC: B548ZZA Ultrasonography of Superior Vena Cava, Guidance (ICD-10-PCS; 2020-04-23)
PROC: 30233N1 Transfusion of Nonautologous Red Blood Cells into Peripheral Vein, Percutaneous Approach (ICD-10-PCS; 2020-04-23)
DX: I13.0 Hypertensive heart and chronic kidney disease with heart failure and stage 1 through stage 4 chronic kidney disease, or unspecified chronic kidney disease (principal); J96.01 Acute respiratory failure with hypoxia; I50.43 Acute on chronic combined systolic (congestive) and diastolic (congestive) heart failure; E87.2 Acidosis; D68.9 Coagulation defect, unspecified; N18.4 Chronic kidney disease, stage 4 (severe); N17.9 Acute kidney failure, unspecified; K21.9 Gastro-esophageal reflux disease without esophagitis; D64.9 Anemia, unspecified; I48.0 Paroxysmal atrial fibrillation; F32.9 Major depressive disorder, single episode, unspecified; E11.22 Type 2 diabetes mellitus with diabetic chronic kidney disease; G40.909 Epilepsy, unspecified, not intractable, without status epilepticus; G89.29 Other chronic pain; I25.10 Atherosclerotic heart disease of native coronary artery without angina pectoris; E78.5 Hyperlipidemia, unspecified; F17.210 Nicotine dependence, cigarettes, uncomplicated; Z66 Do not resuscitate; Z20.828 Contact with and (suspected) exposure to other viral communicable diseases; K76.1 Chronic passive congestion of liver; R33.8 Other retention of urine; Z51.5 Encounter for palliative care; F02.80 Dementia in other diseases classified elsewhere, unspecified severity, without behavioral disturbance, psychotic disturbance, mood disturbance, and anxiety; G20 Parkinson's disease; R07.89 Other chest pain; E78.00 Pure hypercholesterolemia, unspecified; E61.1 Iron deficiency; E11.51 Type 2 diabetes mellitus with diabetic peripheral angiopathy without gangrene; F42.9 Obsessive-compulsive disorder, unspecified; M19.90 Unspecified osteoarthritis, unspecified site; K59.00 Constipation, unspecified; Z79.899 Other long term (current) drug therapy; Z87.440 Personal history of urinary (tract) infections; Z79.84 Long term (current) use of oral hypoglycemic drugs; Z79.02 Long term (current) use of antithrombotics/antiplatelets; Z86.73 Personal history of transient ischemic attack (TIA), and cerebral infarction without residual deficits; Z81.8 Family history of other mental and behavioral disorders; Z82.3 Family history of stroke; Z82.49 Family history of ischemic heart disease and other diseases of the circulatory system; Z83.3 Family history of diabetes mellitus; Z99.3 Dependence on wheelchair
CPT/HCPCS: 36415; 36573; 36600; 71045; 76700; 77001; 80048; 80053; 80076; 81001; 82550; 82607; 82805; 82962; 83036; 83540; 83550; 83605; 83735; 83880; 84100; 84478; 84484; 85014; 85018; 85025; 85027; 85610; 85730; 86850; 86900; 86901; 86920; 87040; 93005; 93306; 94640; 94644; 94760; 96361; 96374; 96375; 96376; C1751; C1892; C9113; J0610; J0881; J1644; J1756; J1815; J1940; J1953; J2260; J2765; J2930; J3475; J3480; J3490; J7040; J7050; J7060; P9016; 92526-GN; 92610-GN; 97110-GP; 97530-GO; 97530-GP; 97535-GO; 99285-25; G0378; J7030; J7613; J7644; U0003-CS